=== PATIENT | male | born 1990 | race Caucasian/White ===

== ENCOUNTER 2018-02-22 01:06 | Emergency (ER) | payer MEDICAID, SELFPAY ==
[2018-02-22 01:10] VITALS: BP 138/95; PULSE 79; RESP 15; TEMP 36.2; O2SAT 99; BMI 27.3
--- NOTE | 2018-02-22 01:23 | CT_ITS ---
STUDY: CT SOFT TISSUE NECK WITH CONTRAST REASON FOR EXAM: Male, 27 years old. Status post open reduction internal fixation of fracture of the mandible. Increased drainage from surgical site. RADIATION DOSAGE (If Supplied By Facility): CTDIvol = ( 17.39 ) mGy, DLP = ( 516.72 ) mGycm TECHNIQUE: The patient was scanned in a multi-detector CT scanner. High resolution transaxial imaging was performed following intravenous administration of 75ML ml of Isovue 300 contrast material. Sagittal and coronal images were reconstructed. Individualized dose optimization techniques were used for this CT. COMPARISON: None. FINDINGS: Normal bilateral parotid glands. Normal bilateral building associate spaces. Normal bilateral parapharyngeal spaces. Normal bilateral carotid spaces. There is a fluid collection in the left submandibular region with small pockets of air extending to the lateral aspect of the left mandible around the mandibular angle. Measures about 3.5 cm. There is subcutaneous edema and swelling of the left side of the neck with small pockets of air lateral to the fluid collection in the subcutaneous fat. A side plate and screws are seen in the left mandibular angle region. There is air and extends anterior to the carotid space to the region of the left oral tonsil. There is enlargement of the left posterior nasopharynx. Normal retropharyngeal space. Normal perivertebral space. There is mild enlargement of the left oral tonsil. The visualized tongue, tongue base and oropharynx are normal. There are few small nodes in the left posterior triangle of the neck and left carotid space. There is no demonstrated solid or cystic mass lesion. There is no abnormal contrast enhancement. Normal epiglottis, bilateral vallecula and hypopharynx. The pre-epiglottic and paraglottic adipose spaces are normal. Normal visualized bilateral piriform sinuses, aryepiglottic folds, vocal cords, and arytenoid-cricoid articulations. Normal subglottic trachea. Normal bilateral lobes of the thyroid gland. The visualized portions of the lung apices demonstrate partially visualized opacity or pulmonary nodule measuring about 1.2 cm. Normal visualized paranasal sinuses. Normal visualized cervical spine. CT/Soft Tissue Neck WITH Contrast IMPRESSION: 1. Fluid collection on the left side of the neck extending from the left submandibular region to the lateral aspect of the mandible and medially to the region of the oral tonsil suspicious for abscess. 2. Enlargement of the left oral tonsil region and posterior nasopharynx. 3. Unremarkable airway. 4. Partially visualized nodule in the right upper lobe. CT scan of the chest might be of further value. Electronically Signed: Ezequiel Rosario MD at 3:09 EDT Tel , Service support ,
[2018-02-22 01:59] LABS: Absolute Lymphocyte Count 2.69 X10^3/ul (0.83-4.51); Absolute Neutrophil Count 7.7 X10^3/uL (2.0-7.7); Basophil# 0.05 X10^3/uL; Basophil% 0.4 % (0-1); Eosinophil# 0.25 X10^3/uL; Hematocrit 41.9 % (40-54); Hemoglobin 14.2 g/dl (13.0-16.5); Lymphocyte # 2.69 X10^3/ul (4.0); Lymphocyte % 21.6 % (19-41); Mean Corp Hgb Conc 33.9 g/gl (32-36); Mean Corpuscular Volume 85.5 fL (80-94); Mean Platelet Vol. 9.3 fl (6.2-12.0); Monocyte# 1.63 X10^3/uL; Monocyte% 13.1 % (0-10); Neutrophil # 7.72 X10^3/uL (2.7-7.7); Platelet Count 401 K/mm3 (150-450); RBC Distribution Width CV 12.5 % (11.6-14.6); RBC Distribution Width SD 38.8 fl (35.1-43.9); White Blood Count 12.5 K/mm3 (4.4-11.0)
[2018-02-22 02:10] LABS: Anion Gap 8 (5-15); BUN 11 mg/dL (7-18); BUN/Creat Ratio 11.9 RATIO (10-20); Calcium,Total 9.4 mg/dL (8.5-10.1); Chloride 102 mmol/L (98-107); Creatinine, Serum 0.93 mg/dL (0.70-1.30); Differential Indicated SCAN CRITERIA MET; EST Glomerular Filtration Rate 105 mL/min (>60); Est Glom Filt Rate - Afr Amer 127 mL/min (>60); Estimated Creatinine Clearance 96.87 ml/min; Glucose 98 mg/dL (74-106); POSITIVE COUNT NO; POSITIVE DIFFERENTIAL YES; POSITIVE MORPHOLOGY YES; Potassium 3.9 mmol/L (3.5-5.1); Sodium Level 138 mmol/L (136-145)
[2018-02-22 02:44] LABS: Platelet Estimate ADEQUATE (ADEQ)
[2018-02-22 02:46] LABS: Red Cell Morphology NORM C+C NORMAL (NORM C&C)
[2018-02-22] MEDS: Vancomycin IV 1,000 MG/200 ML BAG 200 MG IV (03:29)
[2018-02-22 03:40] VITALS: BP 139/76; PULSE 75; RESP 17; O2SAT 96
--- NOTE | 2018-02-22 03:53 | ED.VISSUMM ---
- ER Visit Summary Date of Service: 02/22/18 Chief Complaint: Drainage from wound History of Present Illness: The patient is a 27 M who presents with drainage from his surgical wound. At [facility] 1 week ago he had an open reduction internal fixation of the mandible fracture. He woke tonight with drainage from the wound. He has also had a couple of episodes of nonbloody nonbilious emesis in the last day. He denies fevers. He denies breathing difficulty. He denies chest pain. Physical Examination: Afebrile vitals are stable There is significant left-sided neck swelling with a surgical incision with purulent drainage Heart regular rate and rhythm Lungs are clear Abdomen soft Alert Test Results: Labs notable for white blood cell count 12.5. BMP normal. CT of the soft tissue of the neck shows a fluid collection from the submandibular region extending to the lateral mandible and medially to the oral tonsil. Emergency Department Course and Treatment: Patient was treated with IV Zosyn and vancomycin. CT showed significant abscess. I spoke to the patient's surgeon, Dr. Beckman, we will transfer the patient back to [place]. Treatment Plan: [] Disposition: Transfer Impression: Postsurgical wound infection with abscess This note was generated with [employer] dictation software. It may contain incorrect words, spelling, and punctuation that were not noted in review of the chart prior to signing ED Disposition - Plan for ED Patient: Chief Complaint: Wound Check Referrals: Richie Argueta MD [Primary Care Provider] -
[2018-02-22 03:58] VITALS: BP 139/76; PULSE 75; RESP 17; O2SAT 96
--- NOTE | 2018-02-22 03:58 | ED.DCSUM_ITS ---
- ER Visit Summary Date of Service: 02/22/18 Chief Complaint: Drainage from wound History of Present Illness: The patient is a 27 M who presents with drainage from his surgical wound. At [facility] 1 week ago he had an open reduction internal fixation of the mandible fracture. He woke tonight with drainage from the wound. He has also had a couple of episodes of nonbloody nonbilious emesis in the last day. He denies fevers. He denies breathing difficulty. He denies chest pain. Physical Examination: Afebrile vitals are stable There is significant left-sided neck swelling with a surgical incision with purulent drainage Heart regular rate and rhythm Lungs are clear Abdomen soft Alert Test Results: Labs notable for white blood cell count 12.5. BMP normal. CT of the soft tissue of the neck shows a fluid collection from the submandibular region extending to the lateral mandible and medially to the oral tonsil. Emergency Department Course and Treatment: Patient was treated with IV Zosyn and vancomycin. CT showed significant abscess. I spoke to the patient's surgeon, Dr. Beckman, we will transfer the patient back to [place]. Treatment Plan: [] Disposition: Transfer Impression: Postsurgical wound infection with abscess This note was generated with [employer] dictation software. It may contain incorrect words, spelling, and punctuation that were not noted in review of the chart prior to signing ED Disposition - Plan for ED Patient: Chief Complaint: Wound Check Referrals: Richie Argueta MD [Primary Care Provider] -
[2018-02-22 13:51] LABS: Pathologist Review Reviewed
== END 2018-02-22 05:15 | disposition short-term general hospital (02) ==
PROVIDERS: Emergency Provider Emergency Medicine; Family Provider Family Medicine; PCP Family Medicine
DX: T81.4XXA Infection following a procedure, initial encounter (principal); L02.11 Cutaneous abscess of neck; B96.89 Other specified bacterial agents as the cause of diseases classified elsewhere; Z72.0 Tobacco use
CPT/HCPCS: 70491; 80048; 85025; 96365; 96366; 96367; 99283; J7030; Q9967

== ENCOUNTER 2019-02-18 18:09 | Emergency (ER) | payer MEDICAID, SELFPAY ==
[2019-02-18 18:10] VITALS: BP 137/112; PULSE 121; RESP 20; TEMP 36.2; O2SAT 97; BMI 26.3
--- NOTE | 2019-02-18 18:18 | ED.VIS.GEN ---
History of Present Illness Chief Complaint: Laceration Informant: Patient Onset: Today, Hours Context: Sudden Onset Timing: Continuous Quality: Laceration over left medial malleolus Location: Left medial malleolus Current Severity: Mild Maximum Severity: Moderate Worsened by: Removing Band-Aid Relieved by: Nothing Associated Symptoms: Pain otherwise negative Narrative: Patient is a 28-year-old type I diabetic since 2002. He has no other medical problems. He does not have symptoms of claudication. He presents with laceration over the medial aspect of his left ankle. This occurred 2 hours prior to presentation. He denies paresthesia, anesthesia motor weakness. He has no other complaints. Prior similar symptoms: No Recent Illness/Hospitalization: No - Past Medical History (1) History of type 1 diabetes mellitus Status: Acute Past Medical History - Allergies and Home Meds Allergies/Adverse Reactions: Allergies acetaminophen [From Percocet] Adverse Reaction (Verified 02/18/19 18:10) Swelling morphine Adverse Reaction (Verified 02/18/19 18:10) Itching oxycodone [From Percocet] Adverse Reaction (Verified 02/18/19 18:10) Swelling Primary Care Physician: Richie Argueta MD [Primary Care Provider] - As Needed Prior records reviewed: Yes Lives: - - Patient is single Smoking Status: Current every day smoker Alcohol: Rare Drugs: None Review of Systems General: Denies: Chills, Fever, Malaise, Sweats Musculoskeletal: Reports: Extremity Pain. Denies: Myalgias, Arthralgias, Neck pain, Back pain, Swelling Neurological: Denies: Weakness, Parasthesia, Numbness Hematologic: Denies: Easy bruising, Easy bleeding Allergy: Denies: Uticaria, Swelling of the mouth Physical Exam Vital Signs/Narrative: Vital Signs Temp Pulse Resp BP Pulse Ox 02/18/19 18:10 97.2 F L 121 H 20 H 137/112 H 97 Inital Vital Signs reviewed: Yes General: Well nourished, Well developed, No Acute Distress Head: Normocephalic, Atraumatic Eyes: Perrl, EOMI. Negative for: Pale conjunctiva, Scleral icterus Cardiovascular: Regular rate, Regular rhythm Respiratory: No distress Extremities: - - Patient has a 1 cm laceration that is amenable to Dermabond. There is no pain the patient of the medial malleolus. There is no disruption of the fascia. There are no neurovascular findings. Skin: Normal color, No rash, Trauma - 1.0 cm laceration Neurological: Alert, Oriented x3, Cranial nerves II-XII grossly intact, Normal Strength, Normal Sensation, Normal Gait Psychological: Normal affect, Normal Mood Diagnostic/Tx/Re-eval - Medical Decision Making Patient has a laceration which will require repair. Will repair with Dermabond. Last tetanus was 2 years ago. Procedures - Lacerations No standard instances Length: 0.39 in Depth: Sub Q Shape: Linear Prep: Tam-Clens Laceration repair: - - The laceration was repaired using Dermabond. Patient had pain secondary to diabetic neuropathy. ED Disposition - Plan for ED Patient: Disposition: Home or Assisted Living Diagnosis: Laceration of left ankle without complication Instructions: LACERATION, Extremity (Skin Glue) Referrals: Richie Argueta MD [Primary Care Provider] - As Needed
== END 2019-02-18 18:59 | disposition home or self-care (01) ==
LOC: ED 18:34
PROVIDERS: Emergency Provider Emergency Medicine; Family Provider Family Medicine; PCP Family Medicine
DX: S91.012A Laceration without foreign body, left ankle, initial encounter (principal); X58.XXXA Exposure to other specified factors, initial encounter; Y93.9 Activity, unspecified; E10.40 Type 1 diabetes mellitus with diabetic neuropathy, unspecified; F17.200 Nicotine dependence, unspecified, uncomplicated; Z79.4 Long term (current) use of insulin
CPT/HCPCS: 12001; 99283

== ENCOUNTER 2021-12-28 17:51 | Emergency (ER) | payer MEDICAID, SELFPAY ==
[2021-12-28 17:51] VITALS: BP 130/94; PULSE 96; RESP 16; TEMP 36.2; O2SAT 98; BMI 28.3
--- NOTE | 2021-12-28 18:39 | EDS_ITS ---
HPI History of Present Illness Chief Complaint: Fatigue Informant: patient Onset/Context/Timing Onset: Days Context: Gradual Onset Timing: Continuous Quality: fatigued Location: generalized Current Severity: Mild Narrative Narrative: Patient said he was at an outside ER after he ingested an unknown substance, he thinks it was fentanyl. He was told at that time he had acute kidney injury and he was advised to follow-up. He does not have a physician to follow-up with. He said he does not feel any better so he came in today. He has a history of diabetes as well as hepatitis C. Prior similar symptoms: No Recent Illness/Hospitalization: No [facility] Medical History Fracture, jaw Overdose Type 1 diabetes mellitus Home Medications insulin glargine 100 unit/mL subcutaneous solution (Lantus U-100 Insulin) 32 unit subcut QHS 02/22/18 [History Last Taken Unknown] insulin lispro 100 unit/mL subcutaneous solution (Humalog U-100 Insulin) 0 units subcut TID 02/22/18 [History Last Taken Unknown] pantoprazole 1 tablet DAILY 12/28/21 [History Last Taken 12/28/21 1 tablet] Allergy/AdvReac Type Severity Reaction Status Date / Time acetaminophen [From Percocet] AdvReac Swelling Verified 12/28/21 17:54 morphine AdvReac Itching Verified 12/28/21 17:54 oxycodone [From Percocet] AdvReac Swelling Verified 12/28/21 17:54 Social History Smoking Status: Current every day smoker tobacco type: cigarettes ROS ROS ED Constitutional Constitutional ED: Denies chills or fever(s) Eyes Eyes: Denies blurry vision ENT ENT ED: Denies ear pain Cardiovascular Cardiovascular: Denies chest pain Respiratory/Chest Respiratory/Chest: Denies cough Gastrointestinal Gastrointestinal: Denies abdominal pain Genitourinary Genitourinary ED: Denies dysuria Musculoskeletal Musculoskeletal: Denies arthralgias Integumentary Denies abscess Neurologic Neurologic: Denies headache(s) Psychiatric Psychiatric: Denies anxiety Endocrine Endocrinology: Denies cold intolerance Hematologic/Lymphatic Hematologic/Lymphatic: Denies systems reviewed and no addt'l complaints, except as documented Allergic/Immunologic Allergic/Immunologic ED: Denies mouth swelling EXAM Physical Exam Const Vital Signs: 12/28/21 17:51 12/28/21 18:07 12/28/21 20:28 Temperature 97.1 F L Temperature Source Temporal Pulse Rate 96 85 Respiratory Rate 16 Respiratory Effort Normal Non-Labored Respiratory Pattern Normal Blood Pressure 130/94 H 144/87 H Blood Pressure Mean 106 Pulse Ox 98 Oxygen Delivery Method Room Air Positive well nourished and well developed General Appearance ED: well developed HEENT Reports moist mucous membranes Eyes EOMs intact bilaterally Neck no lymphadenopathy Resp normal respiratory effort Cardio regular rate and regular rhythm GI normal to inspection, nondistended, normoactive bowel sounds and non-tender Back/Spine no CVA tenderness Extremity normal to inspection Neuro oriented x3 Sensorium / Orientation: alert Psych mental status grossly normal Skin no rashes or lesions noted MDM MDM MDM Narrative Medical decision making narrative: Patient's kidney function is fine. His liver enzymes are fine. He is glucose is elevated. He has follow-up with endocrinology. He will be discharged home for outpatient follow-up. Disposition discharge Impression #1 hyperglycemia Lab Data Attestation: I reviewed the patient's lab results. Labs: Laboratory Results - last 24 hr 12/28/21 12/28/21 12/28/21 18:50 18:55 18:55 WBC 10.6 RBC 5.31 Hgb 15.0 Hct 44.3 MCV 83.4 MCH 28.2 MCHC 33.9 RDW Std Deviation 38.6 RDW Coeff of Albino 12.8 Plt Count 498 H MPV 9.1 Immature Gran % (Auto) 0.700 Neut % (Auto) 68.7 Lymph % (Auto) 20.5 [place] % (Auto) 8.8 Eos % (Auto) 0.9 Baso % (Auto) 0.4 Absolute Neuts (auto) 7.3 Absolute Lymphs (auto) 2.18 Nucleated RBC % 0 Sodium 136 Potassium 4.0 Chloride 100 Carbon Dioxide 29.0 Anion Gap 7 BUN 20 H Creatinine 1.13 Estim Creat Clear Calc 80.04 Est GFR (MDRD) Af Amer 98 Est GFR (MDRD) Non-Af 81 BUN/Creatinine Ratio 17.7 Glucose 374 H Calcium 9.5 Total Bilirubin 0.40 AST 14 L ALT 26 Alkaline Phosphatase 107 Total Protein 7.8 Albumin 3.6 Globulin 4.2 Albumin/Globulin Ratio 0.9 Urine Color Straw Urine Clarity Clear Urine pH 6.5 Ur Specific [place] 1.010 Urine Protein Negative Urine Glucose (UA) 1000 H Urine Ketones Negative Urine Occult Blood Negative Urine Nitrite Negative Urine Bilirubin Negative Urine Urobilinogen Normal Ur Leukocyte Esterase Negative Urine RBC 0 SEEN Urine WBC 0 SEEN Ur Squamous Epith Cells 0 SEEN Urine Bacteria RARE Urine Mucus 0 SEEN Discharge Plan Triage Chief Complaint: Fatigue ED Provider: Anastacio Mauricio Dx/Rx/DC Orders Instructions: Blood Sugar Monitoring and ... Prescriptions: No Action insulin glargine [Lantus U-100 Insulin] 100 UNIT/ML Ml 32 unit subcut QHS insulin lispro [Humalog U-100 Insulin] 100 UNIT/ML Vial 0 units subcut TID Label Comments: SLIDING SCALE. 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
[2021-12-28 19:10] LABS: Mucous, Urine 0 SEEN /hpf (<or=2+); Red Blood Cells-Urine 0 SEEN /hpf (0-5); Squamous Epithelial Cells - UA 0 SEEN /hpf (0-5); White Blood Cells 0 SEEN /hpf (0-5)
[2021-12-28] MEDS: 0.9% Normal Saline 1,000 ML 1000 ML IV (19:11)
[2021-12-28 19:18] LABS: Absolute Lymphocyte Count 2.18 X10^3/uL (0.83-4.51); Absolute Neutrophil Count 7.3 X10^3/uL (2.0-7.7); Basophil# 0.04 X10^3/uL; Basophil% 0.4 % (0-1); Eosinophils% 0.9 % (0-5); Hematocrit 44.3 % (40-54); Lymphocyte # 2.18 X10^3/ul (0.83-4.51); Lymphocyte % 20.5 % (19-41); Mean Corp Hgb Conc 33.9 g/dL (32-36); Mean Corpuscular Hgb 28.2 pg (27.0-32.0); Mean Corpuscular Volume 83.4 fL (80-94); Mean Platelet Vol. 9.1 fl (6.2-12.0); Monocyte# 0.93 X10^3/uL; Monocyte% 8.8 % (0-10); NRBC Flagged by Analyzer 0 % (0-5); Neutrophil # 7.29 X10^3/uL (2.7-7.7); Neutrophil % 68.7 % (47-70); Platelet Count 498 K/mm3 (150-450); RBC Distribution Width CV 12.8 % (11.6-14.6); RBC Distribution Width SD 38.6 fl (35.1-43.9); Red Blood Count 5.31 M/mm3 (4.6-6.2); White Blood Count 10.6 K/mm3 (4.4-11.0)
[2021-12-28 19:29] LABS: Color, Urine Straw (Yellow); Glucose, Dipstick 1000 mg/dl (Normal); Ketone-Dipstick Negative (Negative); Leukocyte Esterase-Dipstick Negative /ul (Negative); Nitrite-Dipstick Negative (Negative); Occult Blood-Urine Negative /ul (Negative); Protein-Dipstick Negative (Negative); Urine Bilirubin Dipstick Negative (Negative); Urine Clarity Clear (Clear); Urine Urobilinogen Normal (Normal); Urine pH 6.5 (5.0 - 8.0)
[2021-12-28 19:38] LABS: ALB/GLOB Ratio 0.9 RATIO (0.9-2.4); AST(SGOT) 14 U/L (15-37); Alanine Aminotransfer ALT/SGPT 26 U/L (16-61); Albumin, Serum 3.6 g/dL (3.2-5.0); Alkaline Phosphatase 107 U/L (45-117); Anion Gap 7 (5-15); BUN 20 mg/dL (7-18); BUN/Creat Ratio 17.7 RATIO (10-20); Calcium,Total 9.5 mg/dL (8.5-10.1); Chloride 100 mmol/L (98-107); Creatinine, Serum 1.13 mg/dL (0.70-1.30); EST Glomerular Filtration Rate 81 mL/min (>60); Est Glom Filt Rate - Afr Amer 98 mL/min (>60); Estimated Creatinine Clearance 80.04 ml/min; Globulin 4.2 g/dL (2.2-4.2); Glucose 374 mg/dL (74-106); Protein, Total 7.8 g/dL (6.4-8.2); Sodium Level 136 mmol/L (136-145)
[2021-12-28 19:46] LABS: Bacteria RARE /hpf (None Seen)
--- NOTE | 2021-12-28 20:02 | CM.ED ---
SW Note Referral Source: Case Find Referral Reason: No Primary Care Physician (PCP) SW reviewed chart and noted that patient has no PCP. Patient said that he has no PCP as I guess I missed 4 appointments within the past year.. which is probably right. SW provided patient with list of [facility] and [facility] Physician List for reference. SW also provided patient with handout ?Where to go When?. No other issues or concerns voiced at this time. SW remains available for any additional needs. Plan: Provided patient with PCP information Maura ANN
[2021-12-28 20:28] VITALS: BP 144/87; PULSE 85
== END 2021-12-28 20:31 | disposition home or self-care (01) ==
PROVIDERS: Emergency Provider Emergency Medicine; Visit Provider Emergency Medicine
DX: E10.65 Type 1 diabetes mellitus with hyperglycemia (principal); Z79.4 Long term (current) use of insulin; F17.210 Nicotine dependence, cigarettes, uncomplicated; Z86.19 Personal history of other infectious and parasitic diseases
CPT/HCPCS: 80053; 81001; 85025; 96360; 99283; J7030; A4216

== ENCOUNTER 2022-01-04 18:18 | Emergency (ER) | payer MEDICAID, SELFPAY ==
[2022-01-04 18:20] VITALS: BP 138/108; PULSE 127; RESP 13; TEMP 37; O2SAT 97; BMI 25.4
[2022-01-04 19:30] VITALS: BP 124/86; PULSE 122; RESP 20; O2SAT 96
[2022-01-04 19:30] LABS: Absolute Lymphocyte Count 2.88 X10^3/uL (0.83-4.51); Absolute Neutrophil Count 9.3 X10^3/uL (2.0-7.7); Basophil# 0.05 X10^3/uL; Basophil% 0.4 % (0-1); Eosinophil# 0.01 X10^3/uL; Eosinophils% 0.1 % (0-5); Hematocrit 44.7 % (40-54); Lymphocyte # 2.88 X10^3/ul (0.83-4.51); Lymphocyte % 20.4 % (19-41); Mean Corp Hgb Conc 33.6 g/dL (32-36); Mean Corpuscular Hgb 27.9 pg (27.0-32.0); Mean Corpuscular Volume 83.2 fL (80-94); Mean Platelet Vol. 9.3 fl (6.2-12.0); Monocyte# 1.75 X10^3/uL; Monocyte% 12.4 % (0-10); NRBC Flagged by Analyzer 0 % (0-5); Neutrophil # 9.33 X10^3/uL (2.7-7.7); POSITIVE DIFFERENTIAL YES; Platelet Count 515 K/mm3 (150-450); RBC Distribution Width CV 13.2 % (11.6-14.6); RBC Distribution Width SD 40.1 fl (35.1-43.9); Red Blood Count 5.37 M/mm3 (4.6-6.2); White Blood Count 14.1 K/mm3 (4.4-11.0)
[2022-01-04] MEDS: 0.9% Normal Saline 1,000 ML 999 ML IV ×2 (19:39→22:06)
[2022-01-04 19:40] LABS: Bedside Glucose 110 mg/dL (74-106)
--- NOTE | 2022-01-04 19:49 | EDS_ITS ---
HPI HPI - Psych History of Present Illness Chief Complaint: Suicidal Narrative Narrative: 31-year-old male presenting with depression for over a month. He states he feels suicidal. Tonight he tried to overdose on methamphetamines and fentanyl. Patient states his depression is over his drug use. He feels he needs help to detox from drugs as well as for his mental problems. He states he has a history of type 1 diabetes. Sugars not been checked today. Denies alcohol use. He denies other drug use. PFSH PFSH Medical History Fracture, jaw Overdose Type 1 diabetes mellitus Home Medications insulin glargine 100 unit/mL subcutaneous solution (Lantus U-100 Insulin) 32 uni t subcut QHS 02/22/18 [History Last Taken Unknown] insulin lispro 100 unit/mL subcutaneous solution (Humalog U-100 Insulin) 0 units subcut TID 02/22/18 [History Last Taken Unknown] Allergy/AdvReac Type Severity Reaction Status Date / Time acetaminophen [From Percocet] AdvReac Swelling Verified 01/04/22 18:25 morphine AdvReac Itching Verified 01/04/22 18:25 oxycodone [From Percocet] AdvReac Swelling Verified 01/04/22 18:25 Social History Smoking Status: Current every day smoker tobacco type: cigarettes ROS ROS ED Constitutional Constitutional ED: Denies chills or fever(s) Eyes Eyes: Denies change in vision or diplopia ENT ENT ED: Denies rhinorrhea or sore throat Cardiovascular Cardiovascular: Denies chest pain or palpitations Respiratory/Chest Respiratory/Chest: Denies cough or dyspnea Gastrointestinal Gastrointestinal: Denies abdominal pain or constipation Genitourinary Genitourinary ED: Denies dysuria or hematuria Musculoskeletal Musculoskeletal: Denies arthralgias or back pain Integumentary Denies abscess or Abrasions Neurologic Neurologic: Denies headache(s) Psychiatric Psychiatric: Reports anxiety, depression, suicidal ideation and suicidal thoughts EXAM Physical Exam Const Vital Signs: 01/04/22 18:20 01/04/22 19:30 01/04/22 20:23 Temperature 98.6 F Temperature Source Temporal Pulse Rate 127 H 122 H 102 H Respiratory Rate 13 20 H 21 H Blood Pressure 138/108 H 124/86 H 127/86 H Blood Pressure Mean 118 98 99 Pulse Ox 97 96 94 Oxygen Delivery Method Room Air Room Air Room Air 01/04/22 22:03 Temperature Temperature Source Pulse Rate 122 H Respiratory Rate 22 H Blood Pressure 124/78 H Blood Pressure Mean 93 Pulse Ox 98 Oxygen Delivery Method Room Air Positive well nourished and unkempt General Appearance ED: unkempt and NAD HEENT normocephalic Eyes PERRL and EOMs intact bilaterally General Eye ED: Negative for pale conjunctiva Resp normal respiratory effort and clear to auscultation bilaterally Auscultation: Negative for rales, rhonchi or wheezes Cardio Rate: regular rate and tachycardic GI non-tender Neuro oriented x3 and CN's II-XII intact bilaterally Sensorium / Orientation: alert Motor Exam: strength 5/5 throughout Psych denies hallucinations and denies homicidal ideation Appearance: unkempt Speech: normal speech Thought Process: No disorganized and No confused Thought Content: suicidality and No homicidality Attention / Concentration: attention grossly intact and concentration grossly intact Insight: poor Judgement: poor MDM MDM MDM Narrative Medical decision making narrative: Patient presenting with suicide attempt. He states that he tried to kill himself by overdosing on fentanyl and methamphetamine. Patient is a type I diabetic and I did check a blood sugar on arrival and his blood glucose was 110. He is awake and alert on nasal exam. Lungs are clear to auscultation. Patient tachycardic. He was given 2 L of IV fluids and blood work is obtained. CBC shows a mild leukocytosis at 14.1 without a left shift. Hemoglobin medic are stable. Creatinine normal at 1.02. BUN not significantly elevated to suggest dehydration. Potassium slightly low at 3.2 and this was replaced orally with 40 mill equivalents p.o. potassium. EtOH is negative. LFTs unremarkable. Rapid COVID testing negative. CPK slightly elevated at 541. Again patient was given 2 L of IV fluids. We will recheck a CPK afterwards to ensure is trending downward. Currently awaiting urine specimen but I do not think he should delay a crisis consult as the patient admits to drug use. Patient will likely need to be admitted given that he tried commit suicide by drug overdose. Patient does request help for this. Impression: 1. Methamphetamine abuse 2. Fentanyl abuse 3. Drug overdose 4. Leukocytosis 5. Hypokalemia 6. Elevated CPK 7. Tachycardia 8. Suicide attempt Lab Data Attestation: I reviewed the patient's lab results. Labs: Laboratory Results - last 24 hr 01/04/22 01/04/22 01/04/22 19:20 19:20 19:20 WBC 14.1 H RBC 5.37 Hgb 15.0 Hct 44.7 MCV 83.2 MCH 27.9 MCHC 33.6 RDW Std Deviation 40.1 RDW Coeff of Albino 13.2 Plt Count 515 H MPV 9.3 Immature Gran % (Auto) 0.700 Neut % (Auto) 66.0 Lymph % (Auto) 20.4 [place] % (Auto) 12.4 H Eos % (Auto) 0.1 Baso % (Auto) 0.4 Absolute Neuts (auto) 9.3 H Absolute Lymphs (auto) 2.88 Nucleated RBC % 0 Differential Comment SEE COMMENT Diff Path Review May foll Platelet Estimate MOD INC RBC Morphology N CHROM Anisocytosis RARE Sodium 140 Potassium 3.2 L Chloride 108 H Carbon Dioxide 26.0 Anion Gap 6 BUN 11 Creatinine 1.02 Estim Creat Clear Calc 88.67 Est GFR (MDRD) Af Amer 110 Est GFR (MDRD) Non-Af 91 BUN/Creatinine Ratio 10.8 Glucose 90 Calcium 9.9 Total Bilirubin 0.90 AST 22 ALT 75 H Alkaline Phosphatase 117 Total Creatine Kinase Total Protein 8.2 Albumin 4.1 Globulin 4.1 Albumin/Globulin Ratio 1.0 Ethyl Alcohol < 3.0 POC Glucose 01/04/22 01/04/22 19:20 19:21 WBC RBC Hgb Hct MCV MCH MCHC RDW Std Deviation RDW Coeff of Albino Plt Count MPV Immature Gran % (Auto) Neut % (Auto) Lymph % (Auto) [place] % (Auto) Eos % (Auto) Baso % (Auto) Absolute Neuts (auto) Absolute Lymphs (auto) Nucleated RBC % Differential Comment Diff Path Review Platelet Estimate RBC Morphology Anisocytosis Sodium Potassium Chloride Carbon Dioxide Anion Gap BUN Creatinine Estim Creat Clear Calc Est GFR (MDRD) Af Amer Est GFR (MDRD) Non-Af BUN/Creatinine Ratio Glucose Calcium Total Bilirubin AST ALT Alkaline Phosphatase Total Creatine Kinase 541 H Total Protein Albumin Globulin Albumin/Globulin Ratio Ethyl Alcohol POC Glucose 110 H Discharge Plan Triage Chief Complaint: Suicidal ED Provider: Gino Rojas Dx/Rx/DC Orders Prescriptions: No Action insulin glargine [Lantus U-100 Insulin] 100 UNIT/ML solution 32 unit subcut QHS insulin lispro [Humalog U-100 Insulin] 100 UNIT/ML solution 0 units subcut TID Label Comments: SLIDING SCALE. Primary Care Provider: Care Physician,No Primary Referrals: Care Physician,No Primary [Primary Care Provider] -
[2022-01-04 19:50] LABS: AST(SGOT) 22 U/L (15-37); Alanine Aminotransfer ALT/SGPT 75 U/L (16-61); Albumin, Serum 4.1 g/dL (3.2-5.0); Alkaline Phosphatase 117 U/L (45-117); Anion Gap 6 (5-15); BUN 11 mg/dL (7-18); BUN/Creat Ratio 10.8 RATIO (10-20); Calcium,Total 9.9 mg/dL (8.5-10.1); Chloride 108 mmol/L (98-107); Creatinine, Serum 1.02 mg/dL (0.70-1.30); EST Glomerular Filtration Rate 91 mL/min (>60); Est Glom Filt Rate - Afr Amer 110 mL/min (>60); Estimated Creatinine Clearance 88.67 ml/min; Globulin 4.1 g/dL (2.2-4.2); Glucose 90 mg/dL (74-106); Potassium 3.2 mmol/L (3.5-5.1); Protein, Total 8.2 g/dL (6.4-8.2); Sodium Level 140 mmol/L (136-145)
[2022-01-04 19:51] LABS: CPK Total, Creatine Kinase 541 U/L (39-308)
[2022-01-04 19:58] LABS: Differential Indicated SCAN CRITERIA MET
[2022-01-04 20:21] LABS: Anisocytosis RARE; Platelet Estimate MOD INC (ADEQ); Red Cell Morphology N CHROM NORMAL (NORM C&C)
[2022-01-04 20:23] VITALS: BP 127/86; PULSE 102; RESP 21; O2SAT 94
[2022-01-04 21:15] LABS: Alcohol, Blood (Medical)-Serum < 3.0 mg/dL
[2022-01-04 22:03] VITALS: BP 124/78; PULSE 122; RESP 22; O2SAT 98
[2022-01-04] MEDS: Potassium Chloride Oral Tablet 20 MEQ 40 MEQ PO (22:54)
[2022-01-04 23:10] VITALS: BP 118/90; PULSE 94; RESP 22; O2SAT 94
[2022-01-05] VITALS (8 sets, daily range): BP systolic 110–119; BP diastolic 66–82; PULSE 88–107; RESP 14–22; O2SAT 95–99
[2022-01-05 00:02] LABS: Amphetamine Urine VISTA POSITIVE (<1000 ng/mL); Barbiturate Urine VISTA NEGATIVE (< 200 ng/mL); Benzodiazepine Urine VISTA NEGATIVE (< 200 ng/mL); Cocaine Urine VISTA NEGATIVE (< 300 ng/mL); Ecstacy Urine VISTA POSITIVE (< 500 ng/mL); Methadone Urine VISTA NEGATIVE (< 300 ng/mL); PCP Urine VISTA NEGATIVE (< 25 ng/mL); THC Urine VISTA POSITIVE (< 50 ng/mL); Vista UDS pH Range 4
--- NOTE | 2022-01-05 01:41 | ED.RN ---
Crisis calls and asks to talk to Dr Aguero about patient.
[2022-01-05 02:11] LABS: Bedside Glucose 219 mg/dL (74-106)
[2022-01-05 03:45] LABS: CPK Total, Creatine Kinase 316 U/L (39-308)
--- NOTE | 2022-01-05 07:38 | EKG12_ITS ---
Test Reason : suicidal Blood Pressure : / mmHG Vent. Rate : 086 BPM Atrial Rate : 086 BPM P-R Int : 150 ms QRS Dur : 096 ms QT Int : 380 ms P-R-T Axes : 065 052 058 degrees QTc Int : 454 ms Normal sinus rhythm Normal ECG Confirmed by GEMMA DUCKWORTH, MARYLOU ([id number]), mapping editor KIKO PERALES ([id number]) on 01/07/2022 1:55:29 PM Referred By: Marita Confirmed By:MARYLOU MENENDEZ MD
--- NOTE | 2022-01-05 08:32 | ED.RN ---
faxed pink slip and covid screen to [facility].
[2022-01-05] MEDS: Insulin Lispro 100 UNIT/ML INSULN.PEN 12 UNIT SC ×2 (09:53→10:44)
[2022-01-05 10:06] LABS: Bedside Glucose 462 mg/dL (74-106)
--- NOTE | 2022-01-05 10:12 | ED.RN ---
REPORT GIVEN TO LEYLA
--- NOTE | 2022-01-05 10:29 | CM.ED ---
Per laundry sorter Pepper patient has been accepted at [facility]. Maura ANN
--- NOTE | 2022-01-05 10:32 | ED.RN ---
DR ARRIAZA NOTIFIED OF REPEAT BLOOD GLUCOSE OF 466. ORDERS TO FOLLOW.
[2022-01-05 10:46] LABS: Bedside Glucose 466 mg/dL (74-106)
--- NOTE | 2022-01-05 13:50 | CM.ED ---
RITA called Shabnam at [facility]. Accepting MD is Reid. Patient is going to Dual Diagnosis Unit. Maura ANN
[2022-01-06 12:14] LABS: Pathologist Review Reviewed
== END 2022-01-05 12:45 ==
PROVIDERS: Emergency Provider Student in an Organized Health Care Education/Training Program; Visit Provider Student in an Organized Health Care Education/Training Program
DX: T40.412A Poisoning by fentanyl or fentanyl analogs, intentional self-harm, initial encounter (principal); F15.10 Other stimulant abuse, uncomplicated; F11.10 Opioid abuse, uncomplicated; T43.622A Poisoning by amphetamines, intentional self-harm, initial encounter; E10.9 Type 1 diabetes mellitus without complications; Z79.4 Long term (current) use of insulin; F32.A Depression, unspecified; F17.210 Nicotine dependence, cigarettes, uncomplicated; E87.6 Hypokalemia; R00.0 Tachycardia, unspecified; R74.8 Abnormal levels of other serum enzymes; D72.829 Elevated white blood cell count, unspecified
CPT/HCPCS: 36415; 80053; 80307; 82077; 82550; 82962; 85025; 87811; 93005; 96360; 96361; 99285; J7030; A4216

== ENCOUNTER 2022-07-29 17:03 | Emergency (ER) | payer MEDICAID, SELFPAY ==
[2022-07-29 17:04] VITALS: BP 130/90; PULSE 101; RESP 16; TEMP 36.9; O2SAT 99; BMI 24.9
--- NOTE | 2022-07-29 17:15 | EDS_ITS ---
HPI History of Present Illness Chief Complaint: Substance Abuse Narrative Narrative: 31-year-old male past medical history of insulin-dependent diabetes presents for detox from heroin and methamphetamines. He states he last went through rehab a couple years ago, maybe 2, and he has been to rehab for times at least well. But typically tends to leave. Over the last 7 days, he is injected 7 g of heroin. He also abuses methamphetamines, and occasionally benzodiazepines. Regarding his blood sugars, they have been fluctuating anywhere between the 40s at its lowest, and on the high side. He denies any fevers or chills. No nausea or vomiting. He presents for detox, and plans to attend [facility] as an outpatient after detox. He denies abuse of other substances. He presents with his rosalia?e and his mother. [facility] Medical History Fracture, jaw Overdose Type 1 diabetes mellitus Home Medications insulin glargine 100 unit/mL subcutaneous solution (Lantus U-100 Insulin) 32 unit subcut QHS 02/22/18 [History Last Taken Unknown] insulin lispro 100 unit/mL subcutaneous solution (Humalog U-100 Insulin) 0 units subcut TID 02/22/18 [History Last Taken Unknown] Allergy/AdvReac Type Severity Reaction Status Date / Time acetaminophen [From Percocet] AdvReac Swelling Verified 07/29/22 17:06 morphine AdvReac Itching Verified 07/29/22 17:06 oxycodone [From Percocet] AdvReac Swelling Verified 07/29/22 17:06 Social History Smoking Status: Current every day smoker tobacco type: cigarettes ROS ROS ED ROS Narrative Constitutional: No fever, no chills. HEENT: No sore throat. No neck pain. No loss of vision. No rhinorrhea. Cardiovascular: No chest pain. No palpitations. No pedal edema. Respiratory: No cough, no shortness of breath. Abdominal: No abdominal pain. No nausea. No vomiting. Genitourinary: No dysuria. No hematuria. Musculoskeletal: No myalgias. No arthralgias. Neurologic: No headaches. No dizziness. No lightheadedness. Skin: No rash. No change in color. Psychiatric: No depression. No anxiety. No suicidal ideation. EXAM Physical Exam Narrative Exam Narrative: Afebrile. Vital signs noted. HEENT: Normocephalic. Atraumatic. PERRL, EOMI. Neck soft and supple. No point tenderness or step off. Cardiovascular: Regular rate and rhythm with intermittent tachycardia. No murmurs, rubs, or gallops appreciated. Respiratory: No tachypnea. Lungs clear to auscultation bilaterally. Gastrointestinal: Abdomen soft, nontender, with normoactive bowel sounds. No rebound or guarding. Neurological: Awake. Alert. Nonfocal, nonlateralizing. Skin: No rash. Normal color. No pallor. Musculoskeletal: No pedal edema. Full range of motion extremities. Const Vital Signs: 07/29/22 17:04 Temperature 98.4 F Temperature Source Temporal Pulse Rate 101 H Respiratory Rate 16 Blood Pressure 130/90 H Blood Pressure Mean 103 Pulse Ox 99 Oxygen Delivery Method Room Air MDM MDM MDM Narrative Medical decision making narrative: Patient presents for detox. Given his history of insulin-dependent diabetes, medical screening labs will be obtained. At approximately 1805, I was informed by the RN that the patient had eloped. It was reported that as no visitors are allowed, he decided that he did not want detox from these substances. Disposition is eloped from the emergency d epartment. Patient was in stable condition. Discharge Plan Triage Chief Complaint: Substance Abuse ED Provider: Elliot Seo Dx/Rx/DC Orders Prescriptions: No Action insulin glargine [Lantus U-100 Insulin] 100 UNIT/ML solution 32 unit subcut QHS insulin lispro [Humalog U-100 Insulin] 100 UNIT/ML solution 0 units subcut TID Label Comments: SLIDING SCALE. Primary Care Provider: Care Physician,No Primary Referrals: Care Physician,No Primary [Primary Care Provider] -
--- NOTE | 2022-07-29 17:33 | ED.RN ---
discussed contract, policies/rules for detox with pt. pt unsure if he wants to stay for detox. family at bedside discussing with pt at this time. this nurse offered encouragement and rationales pt verbalizes understanding communicating calmly and respectfully. allowing them time time to discuss and decide.
--- NOTE | 2022-07-29 17:41 | CM.ED ---
RITA went into patient room. Patient had 2 other individuals in his room and RITA asked if it was ok for this investment underwriter to speak in their presence. Patient said I am getting ready to leave... I am not staying. RITA updated battery charger. Maura ANN
--- NOTE | 2022-07-29 18:07 | ED.RN ---
pt decided he wanted to followup with 180 outpatient. left with fiance and mother. dr solano
== END 2022-07-29 18:10 | disposition left against medical advice (07) ==
LOC: ED 18:39
PROVIDERS: Emergency Provider Emergency Medicine; Visit Provider Emergency Medicine
DX: F11.20 Opioid dependence, uncomplicated (principal); F15.20 Other stimulant dependence, uncomplicated; F17.210 Nicotine dependence, cigarettes, uncomplicated
CPT/HCPCS: 99282

== ENCOUNTER 2023-01-11 05:36 | Emergency (ER) | payer MEDICAID, SELFPAY ==
[2023-01-11 05:40] VITALS: BP 155/84; PULSE 117; RESP 26; TEMP 36.3; O2SAT 92; BMI 26.2
[2023-01-11 06:00] VITALS: PULSE 122; RESP 13
--- NOTE | 2023-01-11 06:14 | CT_ITS ---
EXAM: CT HEAD WITHOUT INTRAVENOUS CONTRAST CLINICAL INDICATION: Hallucinations TECHNIQUE: Multiple axial images were obtained of the head without intravenous contrast. This CT exam was performed using one or more of the following dose reduction techniques: automated exposure control, adjustment of the mA and/or kV according to patient size, and/or use of iterative reconstruction technique. RADIATION DOSE: CTDIvol = 44.99 mGy, DLP = 745.49 mGy-cm COMPARISON: No relevant prior studies available. FINDINGS: BRAIN AND EXTRA-AXIAL SPACES: Unremarkable. No intra- or extra-axial hemorrhage. No evidence of acute infarct. No intracranial mass or mass effect. There is preservation of the marcus/white matter interface. Posterior fossa structures are unremarkable. Ventricles are appropriate for age. No hydrocephalus. Basal cisterns are patent. BONES/JOINTS: Unremarkable. No discrete lytic or blastic abnormalities. SINUSES: Unremarkable as visualized. Clear. MASTOID AIR CELLS: Unremarkable. Clear. ORBITS: Visualized globes, extraocular muscles, optic nerves and retrobulbar fat appear unremarkable. CT/Brain/Head without Contrast IMPRESSION: Negative head/brain CT without intravenous contrast. Electronically Signed: Ander Cuevas MD at 7:10 EDT ,
--- NOTE | 2023-01-11 06:14 | RAD_ITS ---
EXAM: XR CHEST, 2 VIEWS CLINICAL INDICATION: cough TECHNIQUE: Frontal and lateral views of the chest. COMPARISON: No relevant prior studies available. FINDINGS: LUNGS AND PLEURAL SPACES: There is a 1.9 cm nodule in the right upper lobe. No pneumothorax. No effusion. HEART: Unremarkable. Cardiac silhouette not enlarged. MEDIASTINUM: Central airways and mediastinal contour are unremarkable. BONES/JOINTS: Unremarkable. SOFT TISSUES: Unremarkable. RAD/Chest PA and Lateral IMPRESSION: 1. There is a 1.9 cm nodule in the right upper lobe. This may represent a benign granuloma, but a follow-up chest CT is recommended. 2. No acute abnormality identified in the chest. Electronically Signed: Ander Cuevas MD at 6:51 EDT ,
[2023-01-11 06:30] LABS: Bacteria 0 SEEN /hpf (None Seen); Mucous, Urine 0 SEEN /hpf (<or=2+); Red Blood Cells-Urine 0 SEEN /hpf (0-5); Squamous Epithelial Cells - UA 0 SEEN /hpf (0-5); White Blood Cells 0 SEEN /hpf (0-5)
[2023-01-11] MEDS: 0.9% Normal Saline 1,000 ML 999 ML IV ×2 (06:30)
[2023-01-11 06:32] LABS: Absolute Lymphocyte Count 2.12 X10^3/uL (0.83-4.51); Absolute Neutrophil Count 6.7 X10^3/uL (2.0-7.7); Basophil# 0.11 X10^3/uL; Eosinophil# 0.07 X10^3/uL; Eosinophils% 0.6 % (0-5); Hematocrit 45.2 % (40-54); Hemoglobin 14.4 g/dL (13.0-16.5); Lymphocyte # 2.12 X10^3/ul (0.83-4.51); Lymphocyte % 19.3 % (19-41); Mean Corp Hgb Conc 31.9 g/dL (32-36); Mean Corpuscular Hgb 28.6 pg (27.0-32.0); Mean Corpuscular Volume 89.9 fL (80-94); Mean Platelet Vol. 10.2 fl (6.2-12.0); Monocyte# 1.81 X10^3/uL; Monocyte% 16.4 % (0-10); NRBC Flagged by Analyzer 0 % (0-5); Neutrophil # 6.65 X10^3/uL (2.7-7.7); Neutrophil % 60.4 % (47-70); POSITIVE DIFFERENTIAL YES; Platelet Count 471 K/mm3 (150-450); RBC Distribution Width CV 13.1 % (11.6-14.6); RBC Distribution Width SD 42.9 fl (35.1-43.9); Red Blood Count 5.03 M/mm3 (4.6-6.2)
[2023-01-11 06:41] LABS: Color, Urine Yellow (Yellow); Glucose, Dipstick 1000 mg/dl (Normal); Ketone-Dipstick Negative (Negative); Leukocyte Esterase-Dipstick Negative /ul (Negative); Nitrite-Dipstick Negative (Negative); Occult Blood-Urine Negative /ul (Negative); Protein-Dipstick Negative (Negative); Urine Bilirubin Dipstick Negative (Negative); Urine Clarity Clear (Clear); Urine Urobilinogen Normal (Normal)
[2023-01-11 06:48] LABS: Differential Indicated SCAN CRITERIA MET
[2023-01-11 06:51] LABS: Platelet Estimate SLT INC (ADEQ)
[2023-01-11 06:57] LABS: Alcohol, Blood (Medical)-Serum < 3.0 mg/dL
--- NOTE | 2023-01-11 07:04 | CT_ITS ---
EXAM: CT ANGIOGRAPHY CHEST WITHOUT AND WITH INTRAVENOUS CONTRAST CLINICAL INDICATION: abnormal cxr, TACHYCARDIA TECHNIQUE: Helically acquired angiography images were obtained of the chest without and with intravenous contrast. This CT exam was performed using one or more of the following dose reduction techniques: automated exposure control, adjustment of the mA and/or kV according to patient size, and/or use of iterative reconstruction technique. MIP reconstructed images were created and reviewed. CONTRAST: IV 100mL [id number] COMPARISON: No relevant prior studies available. FINDINGS: PULMONARY ARTERIES: Normal. Normal in caliber. No evidence of pulmonary embolism. AORTA: Normal. Normal in caliber. No evidence of dissection. GREAT VESSELS OF AORTIC ARCH: Normal. Normal in caliber. No evidence of dissection. LUNGS AND PLEURAL SPACES: Partially cavitated 2.2 cm right upper lobe pulmonary nodule noted adjacent to the minor fissure. Heterogeneous density of the lungs suggestive of air trapping related to small airway disease. No pleural effusion or thickening. HEART: Normal. Heart size is normal. No pericardial effusion. No coronary artery calcification. MEDIASTINUM: Normal. No mediastinal or hilar adenopathy. Esophagus is unremarkable. No hiatal hernia. BONES/JOINTS: Normal. No suspicious lytic or blastic abnormality. CT/CTA Chest W/WO Contrast IMPRESSION: 1. No evidence of acute pulmonary embolism. 2. Partially cavitated 2.2 cm right upper lobe pulmonary nodule which may represent neoplasm, abscess or granuloma. 3. Diffuse pulmonary air trapping related to small airway disease. Electronically Signed: Grant Clark MD at 8:11 EDT ,
[2023-01-11 07:07] LABS: AST(SGOT) 287 U/L (15-37); Alanine Aminotransfer ALT/SGPT 509 U/L (16-61); Albumin, Serum 3.8 g/dL (3.2-5.0); Alkaline Phosphatase 322 U/L (45-117); Anion Gap 14 (5-15); BUN 18 mg/dL (7-18); BUN/Creat Ratio 11.2 RATIO (10-20); Bilirubin, Direct 0.63 mg/dL (0.00-0.30); Calcium,Total 10.2 mg/dL (8.5-10.1); Chloride 88 mmol/L (98-107); Creatinine, Serum 1.61 mg/dL (0.70-1.30); EST Glomerular Filtration Rate 53 mL/min (>60); Est Glom Filt Rate - Afr Amer 65 mL/min (>60); Estimated Creatinine Clearance 55.67 ml/min; Glucose 1090 mg/dL (74-106); Lipase < 10 U/L (13-75); Potassium 5.1 mmol/L (3.5-5.1); Protein, Total 7.8 g/dL (6.4-8.2); Sodium Level 126 mmol/L (136-145)
[2023-01-11 07:10] LABS: Amphetamine Urine VISTA POSITIVE (<1000 ng/mL); Barbiturate Urine VISTA NEGATIVE (< 200 ng/mL); Benzodiazepine Urine VISTA NEGATIVE (< 200 ng/mL); Cocaine Urine VISTA NEGATIVE (< 300 ng/mL); Ecstacy Urine VISTA NEGATIVE (< 500 ng/mL); Methadone Urine VISTA NEGATIVE (< 300 ng/mL); PCP Urine VISTA NEGATIVE (< 25 ng/mL); THC Urine VISTA NEGATIVE (< 50 ng/mL); Vista UDS pH Range 5
--- NOTE | 2023-01-11 07:33 | NURSING ---
HOSPITALIST FOR DR THOMAS
--- NOTE | 2023-01-11 07:38 | PCM.HP.STD ---
HPI - General General Date of Admission: 01/11/23 Date of Service: 01/11/23 Chief Complaint: hyperglycemia HPI Narrative COOPER WYNN is a 32 M with past medical history significant for type 1 diabetes and methamphetamine use who presented to the [facility] ED on 01/11/2023 with some confusion, polyuria and polydipsia. Patient's mother was at bedside to corroborate history. Patient has been a methamphetamine user for the last several years. Last use was 3 days ago. He uses in various forms including injection, snorting or smoking. Patient was diagnosed with type 1 diabetes approximately 20 years ago. He takes Lantus 38 units every night, and states he takes this religiously. However, he rarely takes his short acting insulin for fear that it will drop his glucose low. He very rarely checks his blood sugars at home. Patient lives on the same property as his mother but in a different home. Patient reports polyuria and polydipsia for the last several days. He also reports feeling off for the last few days. He denies any fevers or chills. He does report poor appetite over the past few days. He denies any vomiting. No other acute concerns. [facility] Medical History (Updated 01/11/23 @ 07:[address] Anand Vasquez, ) Bipolar 1 disorder Fracture, jaw Methamphetamine abuse Overdose Type 1 diabetes mellitus Home Medications insulin glargine 100 unit/mL subcutaneous solution (Lantus U-100 Insulin) 38 unit subcut QHS 02/22/18 [History Last Taken Unknown] insulin lispro 100 unit/mL subcutaneous solution (Humalog U-100 Insulin) 14 unit subcut BID 02/22/18 [History Last Taken Unknown] mirtazapine 30 mg tablet (Remeron) 30 mg PO QHS 01/11/23 [History Last Taken Unknown] Allergy/AdvReac Type Severity Reaction Status Date / Time acetaminophen [From Percocet] AdvReac Swelling Verified 01/11/23 05:37 morphine AdvReac Itching Verified 01/11/23 05:37 oxycodone [From Percocet] AdvReac Swelling Verified 01/11/23 05:37 Surgical History no surgical history Social History Smoking Status: Current every day smoker tobacco type: cigarettes ROS Cardiovascular Cardiovascular: Denies chest pain, lightheadedness or palpitations Respiratory/Chest Respiratory/Chest: Denies cough or dyspnea Gastrointestinal Gastrointestinal: Reports nausea; Denies abdominal pain, constipation, diarrhea or vomiting Genitourinary Genitourinary: Reports urinary frequency; Denies burning urination or difficulty urinating Musculoskeletal Musculoskeletal: Denies arthralgias or myalgias Neurologic Neurologic: Reports abnormal gait, confusion and dizziness; Denies focal weakness, headache(s), numbness or paresthesias Endocrine Endocrinology: Reports polydipsia and polyuria Vital Signs Vital Signs Vital Signs: 01/11/23 05:40 01/11/23 06:00 Temperature 97.4 F L Temperature Source Temporal Pulse Rate 117 H 122 H Respiratory Rate 26 H 13 Blood Pressure 155/84 H Blood Pressure Mean 107 Pulse Ox 92 Oxygen Delivery Method Room Air Weight Weight: 69.2 kg Body Mass Index (BMI) 26.2 Physical Exam Const Constitutional Narrative: Alert but mildly confused. Mildly pressured speech. Thought process is tangential. Average body habitus, appears unkempt, moderately agitated, mild distress. General Appearance: cooperative HEENT normocephalic, head/scalp atraumatic, hearing grossly normal bilaterally and nasal mucous membranes and turbinates normal HEENT Narrative: Dry mucous membranes. Eyes PERRL, EOMs intact bilaterally and conjunctivae normal Chest inspection of chest normal Resp normal respiratory effort, normal air movement, no use of accessory muscles and clear to auscultation bilaterally Cardio regular rhythm, no murmurs and peripheral pulses 2+ throughout Cardio Narrative: Tachycardic. GI normal to inspection, nondistended, normoactive bowel sounds, soft to palpation, non-tender and non-distended Back/Spine normal ROM Extremity normal to inspection, full ROM and no pedal edema Skin no rashes or lesions noted Psych Psych Narrative: Moderate agitation and mild confusion as noted above. Results Lab / Micro Data 01/11/23 05:45 01/11/23 05:45 Labs: Laboratory Results - last 24 hr 01/11/23 05:45: WBC 11.0, RBC 5.03, Hgb 14.4, Hct 45.2, MCV 89.9, MCH 28.6, MCHC 31.9 L, RDW Std Deviation 42.9, RDW Coeff of [place] 13.1, Plt Count 471 H, MPV 10.2, Immature Gran % (Auto) 2.300 H, Neut % (Auto) 60.4, Lymph % (Auto) 19.3, [place] % (Auto) 16.4 H, Eos % (Auto) 0.6, Baso % (Auto) 1.0, Absolute Neuts (auto) 6.7, Absolute Lymphs (auto) 2.12, Nucleated RBC % 0, Diff Path Review October, Platelet Estimate SLT INC, Sodium 126 L, Potassium 5.1, Chloride 88 L, Carbon Dioxide 24.0, Anion Gap 14, BUN 18, Creatinine 1.61 H, Estim Creat Clear Calc 55.67, Est GFR (MDRD) Af Amer 65, Est GFR (MDRD) Non-Af 53 L, BUN/Creatinine Ratio 11.2, Glucose 1090 H*, Calcium 10.2 H, Total Bilirubin 1.40 H, Direct Bilirubin 0.63 H, AST 287 H, ALT 509 H, Alkaline Phosphatase 322 H, Total Protein 7.8, Albumin 3.8, Globulin 4.0, Lipase < 10 L, Urine Color Yellow, Urine Clarity Clear, Urine pH 6.0, Ur Specific [place] 1.010, Urine Protein Negative, Urine Glucose (UA) 1000 H, Urine Ketones Negative, Urine Occult Blood Negative, Urine Nitrite Negative, Urine Bilirubin Negative, Urine Urobilinogen Normal, Ur Leukocyte Esterase Negative, Urine RBC 0 SEEN, Urine WBC 0 SEEN, Ur Squamous Epith Cells 0 SEEN, Urine Bacteria 0 SEEN, Urine Mucus 0 SEEN, Urine Opiates Screen NEGATIVE, Urine Methadone Screen NEGATIVE, Ur Barbiturates Screen NEGATIVE, Ur Phencyclidine Scrn NEGATIVE, Ur Amphetamines Screen POSITIVE H, MDMA (Ecstasy) Screen NEGATIVE, U Benzodiazepines Scrn NEGATIVE, Urine Cocaine Screen NEGATIVE, U Cannabinoids Screen NEGATIVE, Ur Drug Screen Comment , Ethyl Alcohol < 3.0, Acetone Level NEGATIVE Radiology Impression Brain CT 01/11/23 06:14 IMPRESSION: Negative head/brain CT without intravenous contrast. Electronically Signed: Ander Cuevas MD at 7:10 EDT , Chest X-Ray 01/11/23 06:14 IMPRESSION: 1. There is a 1.9 cm nodule in the right upper lobe. This may represent a benign granuloma, but a follow-up chest CT is recommended. 2. No acute abnormality identified in the chest. Electronically Signed: Ander Cuevas MD at 6:51 EDT , Assessment & Plan Assessment/Plan (1) Hyperglycemia: (2) DONAVON (acute kidney injury): (3) Transaminitis: (4) Methamphetamine abuse: PLAN: Plan 1. Type 1 diabetes mellitus with severe hyperglycemia?blood glucose of 1090 in ED. No DKA noted on labs, more consistent with HHS. Tachycardic to the 130s initially; responded well to 2 L of IV fluids. Patient reports taking 38 units of Lantus consistently every night, with last dose being yesterday evening. We will hold on any long-acting insulin acutely. We will recheck [id number] glucose now and dose short acting insulin based on sliding scale. Will continue home Lantus every evening. Plan for sliding scale insulin with meals for now, adjust as needed. 2. Methamphetamine abuse?reports last meth use 3 days ago. Unclear if patient is interested in getting clean. Case management consulted for further assistance. No need for medications to assist with withdrawal at this time. 3. Transaminitis?patient and mother report history of hepatitis, unclear on type but would suspect hepatitis C. AST 287, ALT 509, alk phos 322 in ED. Total bilirubin 1.4. Patient denies any right upper quadrant pain. Has never been treated for hepatitis. Recommend outpatient follow-up. 4. Acute kidney injury?very likely prerenal in setting of significant diuresis due to hyperglycemia. Creatinine 1.61 in ED, baseline appears to be around 1.0. Given 2 L of IV fluids in the ED. Recheck BMP in the a.m. to assess for resolution. DVT prophylaxis?low risk, ambulate. CODE STATUS?full code, verified. Total clinical time spent by myself addressing the patient's medical issues, reviewing all of the data, and collaborating with patient's care team: 55 minutes. Charges/Coding Visit Charges Inpatient E&M: 22809 Init Hosp L2
--- NOTE | 2023-01-11 07:48 | NURSING ---
MED SURG OBS [facility]
--- NOTE | 2023-01-11 07:50 | EX.ED.DYSGE1 ---
HPI History of Present Illness Chief Complaint: Substance Abuse Informant: patient and family Narrative Narrative: Patient is a 32-year-old male with past medical history of type 1 diabetes as well as methamphetamine abuse. He states that he will use meth whenever and however he can such as snort smoke or injection. He states that when he is sober he injects insulin on a sliding scale and he plans on obtaining a insulin pump but until he can be sober he cannot get 1. He states that he was sober for 47 days and then relapsed and began using meth once again. He states when he did this he stopped taking his insulin. He reports that he has just been feeling off recently and also has now noted visual and auditory hallucinations. Secondary to his sensation of feeling off he has concern for potential infection or derangement to his blood sugar and therefore comes in for evaluation. Patient states that he also occasionally smoke marijuana but denies any other illicit drug use other than his methamphetamine [facility] Medical History (Updated 01/11/23 @ 07:[address] Anand Vasquez, DO) Bipolar 1 disorder Fracture, jaw Methamphetamine abuse Overdose Type 1 diabetes mellitus Home Medications insulin glargine 100 unit/mL subcutaneous solution (Lantus U-100 Insulin) 38 unit subcut QHS 02/22/18 [History Last Taken Unknown] insulin lispro 100 unit/mL subcutaneous solution (Humalog U-100 Insulin) 14 unit subcut BID 02/22/18 [History Last Taken Unknown] mirtazapine 30 mg tablet (Remeron) 30 mg PO QHS 01/11/23 [History Last Taken Unknown] Allergy/AdvReac Type Severity Reaction Status Date / Time acetaminophen [From Percocet] AdvReac Swelling Verified 01/11/23 05:37 morphine AdvReac Itching Verified 01/11/23 05:37 oxycodone [From Percocet] AdvReac Swelling Verified 01/11/23 05:37 Surgical History no surgical history Social History Smoking Status: Current every day smoker tobacco type: cigarettes ROS ROS ED Constitutional Constitutional ED: Denies chills or fever(s) Eyes Eyes: Reports change in vision ENT ENT ED: Denies sore throat Cardiovascular Cardiovascular: Reports racing heartbeat; Denies chest pain or palpitations Respiratory/Chest Respiratory/Chest: Reports cough; Denies dyspnea Gastrointestinal Gastrointestinal: Denies abdominal pain, diarrhea, nausea or vomiting Genitourinary Genitourinary ED: Denies dysuria Musculoskeletal Musculoskeletal: Denies myalgias Integumentary Denies rash Neurologic Neurologic: Reports weakness; Denies headache(s) or paresthesias Hematologic/Lymphatic Hematologic/Lymphatic: Denies easy bleeding or easy bruising EXAM Physical Exam Const Vital Signs: 01/11/23 05:40 01/11/23 06:00 Temperature 97.4 F L Temperature Source Temporal Pulse Rate 117 H 122 H Respiratory Rate 26 H 13 Blood Pressure 155/84 H Blood Pressure Mean 107 Pulse Ox 92 Oxygen Delivery Method Room Air Positive well nourished and well developed General Appearance ED: well developed HEENT Reports dry mucous membranes HEENT Narrative: Mucous membranes are dry and tacky. No airway edema or compromise. No signs of infection in the posterior pharynx Mouth ED: Yes dry mucous membranes Mouth: dry mucous membranes Eyes PERRL and EOMs intact bilaterally General Eye ED: Negative for scleral icterus Neck supple and no JVD Neck Narrative: No nuchal rigidity or meningeal signs noted Chest Wall palpation of chest normal Resp Resp Narrative: Patient has mild tachypnea and otherwise breath sounds are slight diminished with faint expiratory wheeze but no nasal flaring or retractions or accessory muscle use Cardio regular rhythm Rate: tachycardic and other Other Details: Tachycardic rate with regular rhythm. We will carotid pulses are equal and symmetric GI normal to inspection, nondistended, normoactive bowel sounds, non-tender, non-distended and no masses GI Narrative: No voluntary guarding or rigidity. No pulsatile mass or fluid wave. Auscultation: normoactive bowel sounds Palpation: soft Extremity normal to inspection Extremity Narrative: No asymmetric edema no pitting edema negative Homans' sign bilaterally Neuro oriented x3 and CN's II-XII intact bilaterally Sensorium / Orientation: alert Psych Psych Narrative: Patient has a nervous/anxious affect Skin no rashes or lesions noted General Skin Exam: Negative for jaundice MDM MDM MDM Narrative Medical decision making narrative: Patient presented to the ER awake and alert and oriented to person place and time but stated that he simply felt off. He also admitted to having auditory and visual hallucinations that he states are overall new for him. Based on his history of methamphetamine abuse and type 1 diabetes there is concern that he is developing DKA or HHS or secondary infection such as pneumonia or UTI. There is even a possibility that he has a structural brain disorder causing his hallucinations. Secondary to this basic blood work with imaging studies were obtained. Head CT revealed no acute findings and chest x-ray showed a mass in the right upper lung field concerning for granuloma versus infection. As the patient's been persistently tachycardic I did elect to add a CTA of the chest to get a better evaluation of the abnormality on the x-ray but also to rule out pulmonary embolus as a cause of his tachycardia or potential septic emboli as the patient does inject methamphetamine. CTA confirmed a granuloma but did not show any type of PE or septic emboli. Laboratory studies showed a blood sugar of 1090 however there were no signs of DKA. His serum osmolality however is 320 correlating with HHS. Based on the high value of his blood sugar and the fact he is now on HHS he will need admitted to the hospital for continued IV hydration and insulin. Secondary to this medicine was contacted and they do agree to accept the patient at this time. Plan of care was discussed with the patient he is agreeable to it History & Record Review Discussion w/independent historian: Patient and Family Lab Data Attestation: I reviewed the patient's lab results. Labs: Laboratory Results - last 24 hr 01/11/23 05:45 WBC 11.0 RBC 5.03 Hgb 14.4 Hct 45.2 MCV 89.9 MCH 28.6 MCHC 31.9 L RDW Std Deviation 42.9 RDW Coeff of Albino 13.1 Plt Count 471 H MPV 10.2 Immature Gran % (Auto) 2.300 H Neut % (Auto) 60.4 Lymph % (Auto) 19.3 [place] % (Auto) 16.4 H Eos % (Auto) 0.6 Baso % (Auto) 1.0 Absolute Neuts (auto) 6.7 Absolute Lymphs (auto) 2.12 Nucleated RBC % 0 Diff Path Review May foll Platelet Estimate [employer] Sodium 126 L Potassium 5.1 Chloride 88 L Carbon Dioxide 24.0 Anion Gap 14 BUN 18 Creatinine 1.61 H Estim Creat Clear Calc 55.67 Est GFR (MDRD) Af Amer 65 Est GFR (MDRD) Non-Af 53 L BUN/Creatinine Ratio 11.2 Glucose 1090 H* Calcium 10.2 H Total Bilirubin 1.40 H Direct Bilirubin 0.63 H AST 287 H ALT 509 H Alkaline Phosphatase 322 H Total Protein 7.8 Albumin 3.8 Globulin 4.0 Lipase < 10 L Urine Color Yellow Urine Clarity Clear Urine pH 6.0 Ur Specific [place] 1.010 Urine Protein Negative Urine Glucose (UA) 1000 H Urine Ketones Negative Urine Occult Blood Negative Urine Nitrite Negative Urine Bilirubin Negative Urine Urobilinogen Normal Ur Leukocyte Esterase Negative Urine RBC 0 SEEN Urine WBC 0 SEEN Ur Squamous Epith Cells 0 SEEN Urine Bacteria 0 SEEN Urine Mucus 0 SEEN Urine Opiates Screen NEGATIVE Urine Methadone Screen NEGATIVE Ur Barbiturates Screen NEGATIVE Ur Phencyclidine Scrn NEGATIVE Ur Amphetamines Screen POSITIVE H MDMA (Ecstasy) Screen NEGATIVE U Benzodiazepines Scrn NEGATIVE Urine Cocaine Screen NEGATIVE U Cannabinoids Screen NEGATIVE Ur Drug Screen Comment Ethyl Alcohol < 3.0 Acetone Level NEGATIVE Radiography Diagnostic Testing: Clinical Impression(s) from Imaging Studies Brain CT 01/11/23 06:14 IMPRESSION: Negative head/brain CT without intravenous contrast. Electronically Signed: Ander Cuevas MD at 7:10 EDT Reading Location ID and State: [facility] / [place] Tel , Service support , Chest X-Ray 01/11/23 06:14 IMPRESSION: 1. There is a 1.9 cm nodule in the right upper lobe. This may represent a benign granuloma, but a follow-up chest CT is recommended. 2. No acute abnormality identified in the chest. Electronically Signed: Ander Cuevas MD at 6:51 EDT [place] Location ID and State: [facility] / [place] Tel , Service support , Chest x-ray as interpreted by the emergency medicine physician reveals a nodule in the right upper lobe without acute infiltrate pneumothorax or pleural effusion Discharge Plan Triage Chief Complaint: Substance Abuse ED Provider: Anand Vasquez Dx/Rx/DC Orders Clinical Impression: Type 1 diabetes mellitus, Methamphetamine abuse, Hyperosmolar hyperglycemic state (HHS), Dehydration Prescriptions: No Action insulin glargine [Lantus U-100 Insulin] 100 UNIT/ML solution 38 unit subcut QHS insulin lispro [Humalog U-100 Insulin] 100 UNIT/ML solution 14 unit subcut BID Patient Comments: SLIDING SCALE. mirtazapine [Remeron] 30 mg tablet 30 mg PO QHS Primary Care Provider: Care Physician,No Primary Referrals: Care Physician,No Primary [Primary Care Provider] - Disposition Disposition: Acute Care Hospital [facility]
[2023-01-11 08:14] LABS: Blood Gas Specimen Type VEN; O2 Delivery Device Room Air; VBG BASE EXCESS 4 mmol/L (-1.0-3.5); VBG Bicarbonate 28 mmol/L (22-26); VBG PO2 54 mmHg (25-40); VBG SO2 88 % (50-70); VBG TCO2 30 mmol/L (23-33); VBG pCO2 42.4 mmHg (41-51); VBG pH 7.43 (7.32-7.42)
--- NOTE | 2023-01-11 08:20 | ED.RN ---
THIS RN AT DESK WHEN VISITOR WITH PATIENT COMES OUT TO THE DESK AND STATES THE PATIENT RIPPED EVERYTHING OFF AND WANTS TO LEAVE AMA. THIS RN ADVISES AGAINST THAT AND PAGES THE HOSPITALIST THAT SAW HIM TO NOTIFY HIM THAT PATIENT WANTS TO LEAVE
--- NOTE | 2023-01-11 08:29 | ED.RN ---
PT STATES I DO NOT WANT TO STAY. PT PULLED BOTH IVS OUT AND LEAVES THE DEPARTMENT. HOSPITALIST AWARE
--- NOTE | 2023-01-11 08:40 | ED.RN ---
PT LEFT AMA PRIOR TO HOSPITALIST BEING ABLE TO SPEAK TO PATIENT. PT AMBULATED INDEPENDENTLY WITH HIS VISITOR OUT OF DEPARTMENT
--- NOTE | 2023-01-11 16:56 | PCM.HOSP.N ---
Hospitalist Note Received message from nursing staff around 8:15 AM the patient was planning to leave AMA. I unfortunately was unable to see the patient prior to him leaving AMA. Please see H&P for medical recommendations.
[2023-01-12 13:19] LABS: Pathologist Review Reviewed
== END 2023-01-11 08:46 | disposition left against medical advice (07) ==
PROVIDERS: Emergency Provider Emergency Medicine; Visit Provider Emergency Medicine
DX: E10.65 Type 1 diabetes mellitus with hyperglycemia (principal); N17.9 Acute kidney failure, unspecified; F15.10 Other stimulant abuse, uncomplicated; Z79.4 Long term (current) use of insulin; E86.0 Dehydration; F17.210 Nicotine dependence, cigarettes, uncomplicated; Z86.19 Personal history of other infectious and parasitic diseases; Z53.29 Procedure and treatment not carried out because of patient's decision for other reasons
CPT/HCPCS: 70450; 71046; 71275; 80048; 80076; 80307; 81001; 82009; 82077; 82803; 83690; 85025; 96360; 99281; 99283; J7030; Q9967; A4216

== ENCOUNTER 2023-04-03 13:07 | Emergency (ER) | payer MEDICAID, SELFPAY ==
[2023-04-03 13:08] VITALS: BP 136/101; PULSE 127; RESP 26; TEMP 36.5; O2SAT 97
[2023-04-03 13:15] VITALS: BP 154/81; PULSE 112; RESP 19; O2SAT 99
[2023-04-03 13:16] VITALS: BMI 25.3
--- NOTE | 2023-04-03 13:45 | CT_ITS ---
STUDY: CT ABDOMEN AND PELVIS WITH CONTRAST REASON FOR EXAM: Male, 32 years old. Abdominal pain -- IV PO Contrast RADIATION DOSAGE (If Supplied By Facility): CTDIvol = ( 10.37 ) mGy, DLP = ( 580.88 ) mGycm TECHNIQUE: Transaxial images were obtained from the dome of the diaphragm to the symphysis pubis without oral contrast. Oral and amp;amp; IV Gastrografin and amp;amp; 100mL Isovue-370 was administered. Sagittal and coronal images were reconstructed. Individualized dose optimization techniques were used for this CT. COMPARISON: None. FINDINGS: The visualized lung bases are unremarkable. The visualized portions of the heart are within normal limits. Normal liver. Normal gallbladder and extrahepatic biliary system. Normal spleen. Normal pancreas. Normal bilateral adrenal glands. Normal right kidney. Normal left kidney. Normal visualized stomach. Normal small intestine. Normal colon. The appendix is visualized and appears normal. Normal abdominal aorta. Normal inferior vena cava. Normal retroperitoneum. There are several subcentimeter mesenteric nodes in the right mid abdominal region. Normal urinary bladder. Normal abdominal wall. Normal osseous structures. CT/Abdomen/Pelvis WITH Contrast IMPRESSION: There are several subcentimeter mesenteric nodes in the right mid abdominal region. Electronically Signed: Amado Nieves DO at 16:21 EDT ,
--- NOTE | 2023-04-03 13:49 | RAD_ITS ---
STUDY: X-RAY CHEST REASON FOR EXAM: Male, 32 years old. Chest pain TECHNIQUE: Single AP portable view of the chest. COMPARISON: 01/11/2023 FINDINGS: No change in a nodule in the right upper lobe. The patient has had recent CT. There is no demonstrated pleural abnormality. Normal size heart. Normal mediastinum and molly. Normal visualized pulmonary arteries. Normal visualized aortic arch and descending thoracic aorta. Normal visualized thoracic spine. Normal visualized ribs, clavicles, and shoulders. There is no demonstrated abnormality of the visualized soft tissue structures of the upper abdomen. RAD/Chest 1 View (Portable) IMPRESSION: No change in right upper lobe nodule. Electronically Signed: Richi White MD at 14:30 EDT ,
[2023-04-03 13:50] LABS: Bedside Glucose 459 mg/dL (74-106)
[2023-04-03 13:56] LABS: Absolute Lymphocyte Count 2.71 X10^3/uL (0.83-4.51); Absolute Neutrophil Count 10.6 X10^3/uL (2.0-7.7); Basophil# 0.06 X10^3/uL; Basophil% 0.4 % (0-1); Eosinophil# 0.02 X10^3/uL; Eosinophils% 0.1 % (0-5); Hematocrit 53.9 % (40-54); Lymphocyte # 2.71 X10^3/ul (0.83-4.51); Lymphocyte % 17.9 % (19-41); Mean Corp Hgb Conc 33.6 g/dL (32-36); Mean Corpuscular Hgb 28.1 pg (27.0-32.0); Mean Corpuscular Volume 83.6 fL (80-94); Mean Platelet Vol. 9.1 fl (6.2-12.0); Monocyte# 1.57 X10^3/uL; Monocyte% 10.4 % (0-10); NRBC Flagged by Analyzer 0 % (0-5); Neutrophil # 10.63 X10^3/uL (2.7-7.7); Neutrophil % 70.1 % (47-70); POSITIVE DIFFERENTIAL YES; Platelet Count 451 K/mm3 (150-450); RBC Distribution Width CV 13.1 % (11.6-14.6); RBC Distribution Width SD 39.5 fl (35.1-43.9); Red Blood Count 6.45 M/mm3 (4.6-6.2); White Blood Count 15.2 K/mm3 (4.4-11.0)
[2023-04-03 13:57] LABS: Differential Indicated SCAN CRITERIA MET
[2023-04-03 13:58] LABS: Hemoglobin 18.1 g/dL (13.0-16.5)
[2023-04-03] MEDS: Ondansetron 4 MG/2 ML Vial IV ×2 (13:59→14:47)
[2023-04-03] MEDS: 0.9% Normal Saline (1000mL) 1,000 ML 1000 ML IV (13:59)
--- NOTE | 2023-04-03 13:59 | EDS_ITS ---
HPI HPI - GI History of Present Illness Chief Complaint: Nausea/Vomiting Informant: patient Abdominal Pain/Flank Pain Onset: Yesterday Context: Gradual Onset Timing: Continuous Quality: Aching, Burning, Cramping and Sharp Location: Diffuse Worsened by: Nothing Relieved by: Nothing Nausea/Vomiting/Emesis GI Symptom: Positive for Nausea and Vomiting Quality: Positive for Blood streaks Diarrhea/Melena/Hematochezia GI Symptom: Negative for Diarrhea, Melena or Hematochezia Associated Symptoms Associated Symptoms: Negative for Dysuria, Frequency or Hematuria Narrative Narrative: Patient presents with nausea and vomiting that began yesterday. Patient states he started having some abdominal pain. Patient states his emesis did have some blood in it. Patient states the blood was dark. Patient denies any diarrhea, melena, or hematochezia. Patient describes his pain as sharp, dull, and cramping. Patient states it is diffuse across his abdomen. Patient states it is constant. Patient admits to some subjective chills but denies any fevers. Patient denies any chest pain or shortness of breath. [facility] Medical History (Updated 04/03/23 @ 16:[address] Rad Gibbs DO) Bipolar 1 disorder Fracture, jaw Methamphetamine abuse Overdose Type 1 diabetes mellitus Home Medications insulin glargine 100 unit/mL subcutaneous solution (Lantus U-100 Insulin) 38 unit subcut QHS 02/22/18 [History Last Taken Unknown] insulin lispro 100 unit/mL subcutaneous solution (Humalog U-100 Insulin) 14 unit subcut BID 02/22/18 [History Last Taken Unknown] mirtazapine 30 mg tablet (Remeron) 30 mg PO QHS 01/11/23 [History Last Taken Unknown] pantoprazole 20 mg tablet,delayed release 20 mg PO DAILY #30 tabs 04/03/23 [Rx Last Taken Unknown] Allergy/AdvReac Type Severity Reaction Status Date / Time acetaminophen [From Percocet] AdvReac Swelling Verified 01/11/23 05:37 morphine AdvReac Itching Verified 01/11/23 05:37 oxycodone [From Percocet] AdvReac Swelling Verified 01/11/23 05:37 Surgical History (Updated 04/03/23 @ 14:[address] Rad Gibbs DO) History of mandibular surgery Social History household members: none Smoking Status: Current every day smoker tobacco type: cigarettes ROS ROS ED Constitutional Constitutional ED: Reports chills; Denies fever(s) Eyes Eyes: Denies blurry vision or change in vision ENT ENT ED: Denies rhinorrhea or sore throat Cardiovascular Cardiovascular: Denies chest pain or palpitations Respiratory/Chest Respiratory/Chest: Denies cough or dyspnea Gastrointestinal Gastrointestinal: Reports abdominal pain, nausea and vomiting; Denies diarrhea Genitourinary Genitourinary ED: Denies dysuria or hematuria Musculoskeletal Musculoskeletal: Denies back pain or neck pain Integumentary Denies abscess or rash Neurologic Neurologic: Reports headache(s); Denies weakness Allergic/Immunologic Allergic/Immunologic ED: Denies mouth swelling or urticaria EXAM Physical Exam Const Vital Signs: 04/03/23 13:08 04/03/23 13:15 Temperature 97.7 F L Temperature Source Temporal Pulse Rate 127 H 112 H Respiratory Rate 26 H 19 H Blood Pressure 136/101 H 154/81 H Blood Pressure Mean 112 105 Pulse Ox 97 99 Oxygen Delivery Method Room Air Room Air Positive well nourished and well developed General Appearance ED: well developed and NAD HEENT Reports moist mucous membranes Neck supple and no JVD Resp normal respiratory effort and clear to auscultation bilaterally Cardio regular rhythm Rate: tachycardic GI Palpation: soft and tender epigastric, LLQ, RLQ, LUQ, RUQ, periumbilical and suprapubic; Negative for guarding or rebound tenderness present Neuro CN's II-XII intact bilaterally, moves all extremities and no sensory deficits noted Sensorium / Orientation: alert Motor Exam: general weakness Skin no wounds MDM MDM MDM Narrative Medical decision making narrative: Differential diagnosis includes gastritis, upper gastrointestinal bleeding, anemia, DKA, gastroenteritis, pancreatitis, bowel obstruction, perforation, substance abuse, alcohol intoxication, and dehydration. CBC will be obtained to assess for leukocytosis and anemia. PT with INR and PTT will be obtained to assess for coagulopathy. Comprehensive metabolic profile will be obtained to assess for hepatic function, renal function, and electrolyte abnormality. Lipase will be obtained to assess for pancreatitis. Serum alcohol level will be obtained to assess for alcohol intoxication. Urine tox screen will be obtained to assess for substance abuse. Chest x-ray will be obtained to assess for pneumonia. CT scan of the abdomen pelvis will be obtained to assess for bowel obstruction and perforation. Lab Data Attestation: I reviewed the patient's lab results. Lab results narrative: CBC was reviewed. There is a mild leukocytosis of 15.2. The remainder is within normal limits. PT was INR and PTT were reviewed and were within normal limits. Comprehensive metabolic profile was reviewed. Glucose was elevated at 435. Sodium was slightly low at 129. Chloride was 94. CO2 was low at 17 and anion gap was slightly elevated at 18. BUN was elevated at 25 and creatinine was slightly elevated at 1.32. Total bilirubin was slightly elevated at 1.7. ALT was slightly elevated at 198 and AST was 73. Alkaline phosphatase was slightly elevated at 174. Lipase was reviewed and was normal at less than 10. Serum alcohol level was reviewed and was less than 3.0. Serum acetone was reviewed and was small. Lactate was reviewed and was slightly elevated at 2.5. Urinalysis was reviewed. Urine ketones were 150. There is no evidence of urinary tract infection or hematuria. Urine tox screen was positive for amphetamines and cannabinoids. Labs: Laboratory Results - last 24 hr 04/03/23 04/03/23 04/03/23 13:26 13:29 14:50 WBC 15.2 H RBC 6.45 H Hgb 18.1 H* Hct 53.9 MCV 83.6 MCH 28.1 MCHC 33.6 RDW Std Deviation 39.5 RDW Coeff of Albino 13.1 Plt Count 451 H MPV 9.1 Immature Gran % (Auto) 1.100 H Neut % (Auto) 70.1 H Lymph % (Auto) 17.9 L [place] % (Auto) 10.4 H Eos % (Auto) 0.1 Baso % (Auto) 0.4 Absolute Neuts (auto) 10.6 H Absolute Lymphs (auto) 2.71 Nucleated RBC % 0 Differential Comment SCANNED Diff Path Review May foll PT 13.2 INR 1.0 APTT 35.0 Sodium 129 L Potassium 5.0 Chloride 94 L Carbon Dioxide 17.0 L Anion Gap 18 H BUN 25 H Creatinine 1.32 H Estim Creat Clear Calc 67.90 Est GFR (MDRD) Af Amer 81 Est GFR (MDRD) Non-Af 67 BUN/Creatinine Ratio 18.9 Glucose 435 H Lactic Acid 2.5 H* Calcium 10.6 H Total Bilirubin 1.70 H AST 73 H ALT 198 H Alkaline Phosphatase 174 H Total Protein 9.1 H Albumin 4.3 Globulin 4.8 H Albumin/Globulin Ratio 0.9 Lipase < 10 L Urine Color Urine Clarity Urine pH Ur Specific [place] Urine Protein Urine Glucose (UA) Urine Ketones Urine Occult Blood Urine Nitrite Urine Bilirubin Urine Urobilinogen Ur Leukocyte Esterase Urine RBC Urine WBC Ur Squamous Epith Cells Urine Bacteria Urine Mucus Urine Opiates Screen Urine Methadone Screen Ur Barbiturates Screen Ur Phencyclidine Scrn Ur Amphetamines Screen MDMA (Ecstasy) Screen U Benzodiazepines Scrn Urine Cocaine Screen U Cannabinoids Screen Ur Drug Screen Comment Ethyl Alcohol < 3.0 Acetone Level SMALL H POC Glucose 459 H* 04/03/23 15:15 WBC RBC Hgb Hct MCV MCH MCHC RDW Std Deviation RDW Coeff of Albino Plt Count MPV Immature Gran % (Auto) Neut % (Auto) Lymph % (Auto) [place] % (Auto) Eos % (Auto) Baso % (Auto) Absolute Neuts (auto) Absolute Lymphs (auto) Nucleated RBC % Differential Comment Diff Path Review PT INR APTT Sodium Potassium Chloride Carbon Dioxide Anion Gap BUN Creatinine Estim Creat Clear Calc Est GFR (MDRD) Af Amer Est GFR (MDRD) Non-Af BUN/Creatinine Ratio Glucose Lactic Acid Calcium Total Bilirubin AST ALT Alkaline Phosphatase Total Protein Albumin Globulin Albumin/Globulin Ratio Lipase Urine Color Yellow Urine Clarity Clear Urine pH 5.0 Ur Specific [place] 1.020 Urine Protein Negative Urine Glucose (UA) 1000 H Urine Ketones 150 A* Urine Occult Blood Negative Urine Nitrite Negative Urine Bilirubin Negative Urine Urobilinogen Normal Ur Leukocyte Esterase Negative Urine RBC 0-5 SEEN Urine WBC 0 SEEN Ur Squamous Epith Cells 0-5 SEEN Urine Bacteria 0 SEEN Urine Mucus 0 SEEN Urine Opiates Screen NEGATIVE Urine Methadone Screen NEGATIVE Ur Barbiturates Screen NEGATIVE Ur Phencyclidine Scrn NEGATIVE Ur Amphetamines Screen POSITIVE H MDMA (Ecstasy) Screen NEGATIVE U Benzodiazepines Scrn NEGATIVE Urine Cocaine Screen NEGATIVE U Cannabinoids Screen POSITIVE H Ur Drug Screen Comment Ethyl Alcohol Acetone Level POC Glucose Radiography Chest X-Ray - ED: 1 View, Read by ED Physician, Read by Radiologist and No Acute Disease Diagnostic Testing: Clinical Impression(s) from Imaging Studies Abdomen/Pelvis CT 04/03/23 13:45 IMPRESSION: There are several subcentimeter mesenteric nodes in the right mid abdominal region. Electronically Signed: Amado Nieves DO at 16:21 EDT , Chest X-Ray 04/03/23 13:49 IMPRESSION: No change in right upper lobe nodule. Electronically Signed: Richi White MD at 14:30 EDT , Portable 1 view chest x-ray was obtained. On my independent interpretation, lung pedroza show a stable right upper lobe nodule. There is normal cardiac silhouette. Bony thorax is normal. There is no acute process noted. Radiologist also interpreted the x-ray and agrees. CT scan of the abdomen pelvis was obtained. There is no acute abnormality noted. There are several subcentimeter mesenteric nodes in the right mid abdomen. This was interpreted by the radiologist and was also independently reviewed by myself. Treatment and Re-Evaluation :: Patient was given IV fluids and Zofran. Patient was advised of his findings. Patient was advised of the need for admission to the hospital. Patient does not want to be admitted to the hospital. Patient states he can take care of this at home. Patient was advised that he is in DKA. Patient states he can give himself insulin at home and take care of it. Patient is refusing to stay in the hospital. Patient was advised of the risks of not being admitted to the hospital on IV insulin. Patient was advised that he could progress into a diabetic coma and . Patient understands these risks. Patient will sign out AGAINST MEDICAL ADVICE. Patient will go home with his mother. Patient was given a prescription for pantoprazole for his gastroesophageal reflux disease. Patient and mother understood and were agreeable with the plan. All questions were answered. Discharge Plan Triage Chief Complaint: Nausea/Vomiting ED Provider: Rad Gibbs Dx/Rx/DC Orders Clinical Impression: Diabetic ketoacidosis, History of type 1 diabetes mellitus, Methamphetamine abuse Instructions: ED Diabetes- Overview, ED Vomiting (Adult) Prescriptions: New pantoprazole 20 mg tablet,delayed release (DR/EC) 20 mg PO DAILY Qty: 30 0RF No Action insulin glargine [Lantus U-100 Insulin] 100 UNIT/ML solution 38 unit subcut QHS insulin lispro [Humalog U-100 Insulin] 100 UNIT/ML solution 14 unit subcut BID Patient Comments: SLIDING SCALE. mirtazapine [Remeron] 30 mg tablet 30 mg PO QHS Primary Care Provider: Care Physician,No Primary Referrals: Care Physician,No Primary [Primary Care Provider] - Disposition Disposition: Against Medical Advice
[2023-04-03 14:05] LABS: Prothrombin Time (Protime)PT. 13.2 SECONDS (11.7-14.9)
[2023-04-03 14:10] LABS: ALB/GLOB Ratio 0.9 RATIO (0.9-2.4); AST(SGOT) 73 U/L (15-37); Alanine Aminotransfer ALT/SGPT 198 U/L (16-61); Albumin, Serum 4.3 g/dL (3.2-5.0); Alkaline Phosphatase 174 U/L (45-117); Anion Gap 18 (5-15); BUN 25 mg/dL (7-18); BUN/Creat Ratio 18.9 RATIO (10-20); Calcium,Total 10.6 mg/dL (8.5-10.1); Chloride 94 mmol/L (98-107); Creatinine, Serum 1.32 mg/dL (0.70-1.30); EST Glomerular Filtration Rate 67 mL/min (>60); Est Glom Filt Rate - Afr Amer 81 mL/min (>60); Globulin 4.8 g/dL (2.2-4.2); Glucose 435 mg/dL (74-106); Lipase < 10 U/L (13-75); Protein, Total 9.1 g/dL (6.4-8.2); Sodium Level 129 mmol/L (136-145)
[2023-04-03 14:20] LABS: Alcohol, Blood (Medical)-Serum < 3.0 mg/dL
[2023-04-03 14:48] LABS: Differential Comment SCANNED
[2023-04-03 15:19] LABS: Lactic Acid 2.5 mmol/L (0.4-1.9)
[2023-04-03 15:22] LABS: Bacteria 0 SEEN /hpf (None Seen); Mucous, Urine 0 SEEN /hpf (<or=2+); White Blood Cells 0 SEEN /hpf (0-5)
[2023-04-03 15:24] LABS: Color, Urine Yellow (Yellow); Glucose, Dipstick 1000 mg/dl (Normal); Leukocyte Esterase-Dipstick Negative /ul (Negative); Nitrite-Dipstick Negative (Negative); Occult Blood-Urine Negative /ul (Negative); Protein-Dipstick Negative (Negative); Urine Bilirubin Dipstick Negative (Negative); Urine Clarity Clear (Clear); Urine Urobilinogen Normal (Normal)
[2023-04-03 15:25] LABS: Ketone-Dipstick 150 mg/dl (Negative)
[2023-04-03 15:36] LABS: Squamous Epithelial Cells - UA 0-5 SEEN /hpf (0-5)
[2023-04-03 15:37] LABS: Red Blood Cells-Urine 0-5 SEEN /hpf (0-5)
[2023-04-03 15:58] LABS: Amphetamine Urine VISTA POSITIVE (<1000 ng/mL); Barbiturate Urine VISTA NEGATIVE (< 200 ng/mL); Benzodiazepine Urine VISTA NEGATIVE (< 200 ng/mL); Cocaine Urine VISTA NEGATIVE (< 300 ng/mL); Ecstacy Urine VISTA NEGATIVE (< 500 ng/mL); Methadone Urine VISTA NEGATIVE (< 300 ng/mL); PCP Urine VISTA NEGATIVE (< 25 ng/mL); THC Urine VISTA POSITIVE (< 50 ng/mL); Vista UDS pH Range 5
[2023-04-03 16:44] VITALS: BP 127/90; PULSE 111; RESP 18; O2SAT 96
[2023-04-03 18:57] LABS: Reflex Lactate? Y
[2023-04-05 10:23] LABS: Pathologist Review Reviewed
== END 2023-04-03 17:08 | disposition left against medical advice (07) ==
PROVIDERS: Emergency Provider Emergency Medicine; Visit Provider Emergency Medicine
DX: E10.10 Type 1 diabetes mellitus with ketoacidosis without coma (principal); F15.10 Other stimulant abuse, uncomplicated; F17.210 Nicotine dependence, cigarettes, uncomplicated
CPT/HCPCS: 71045; 74177; 80053; 80307; 81001; 82009; 82077; 82962; 83605; 83690; 85025; 85610; 85730; 96361; 96374; 96376; 99284; J7030; Q9967; A4216; J2405

== ENCOUNTER 2023-06-03 00:40 | Emergency (ER) | payer MEDICAID, SELFPAY ==
[2023-06-03 00:42] VITALS: BP 139/95; PULSE 84; RESP 18; TEMP 35.6; O2SAT 98; BMI 26.2
[2023-06-03 00:45] VITALS: BP 139/95; PULSE 84; RESP 18; TEMP 35.6; O2SAT 98
--- NOTE | 2023-06-03 01:07 | EDS_ITS ---
HPI History of Present Illness Chief Complaint: Dental Informant: patient and spouse/S.O. Onset/Context/Timing Onset: Days Context: Gradual Onset Timing: Continuous Current Severity: Moderate Maximum Severity: Moderate Associated Symptoms Assocated Symptom - Dental: jaw swelling Narrative Narrative: 32-year-old male history of diabetes. Prior plate in his left jaw from her fracture. On Tuesday started developing swelling along the midportion and angle of his left lower jaw. Denies any trauma. No fever. Able to swallow. Was seen at another facility. Started on penicillin 504 times a day. He states only getting worse. Prior similar symptoms: No Recent Illness/Hospitalization: No PFSH PFS Medical History Bipolar 1 disorder Fracture, jaw Methamphetamine abuse Overdose Type 1 diabetes mellitus Home Medications insulin glargine 100 unit/mL subcutaneous solution (Lantus U-100 Insulin) 38 unit subcut QHS 02/22/18 [History Last Taken Unknown] insulin lispro 100 unit/mL subcutaneous solution (Humalog U-100 Insulin) 14 unit subcut BID 02/22/18 [History Last Taken Unknown] mirtazapine 30 mg tablet (Remeron) 30 mg PO QHS 01/11/23 [History Last Taken Unknown] Allergy/AdvReac Type Severity Reaction Status Date / Time morphine AdvReac Itching Verified 01/11/23 05:37 Surgical History History of mandibular surgery Social History household members: none Smoking Status: Current every day smoker tobacco type: cigarettes ROS ROS ED ROS Narrative Recent illness. Review of Systems ROS Unobtainable: Denies due to encephalopathy Constitutional Constitutional ED: Denies chills or fever(s) Eyes Eyes: Denies blurry vision ENT ENT ED: Denies ear pain Cardiovascular Cardiovascular: Denies chest pain Respiratory/Chest Respiratory/Chest: Denies cough or dyspnea Gastrointestinal Gastrointestinal: Denies abdominal pain, constipation, diarrhea, melena, nausea or vomiting Genitourinary Genitourinary ED: Denies dysuria or hematuria Musculoskeletal Musculoskeletal: Denies arthralgias Integumentary Denies abscess Neurologic Neurologic: Denies headache(s) Psychiatric Psychiatric: Denies anxiety Endocrine Endocrinology: Denies cold intolerance Hematologic/Lymphatic Hematologic/Lymphatic: Denies easy bleeding Allergic/Immunologic Allergic/Immunologic ED: Denies mouth swelling or tongue swelling EXAM Physical Exam Narrative Exam Narrative: 2-year-old male no acute distress. Vital signs stable afebrile. Pulse ox 98% room air no signs hypoxia. H EENT exam is round reactive light. He has firm swelling to the angle of the left jaw and proximal left lateral neck that is firm to touch and tender. Patient has very poor dentition. Cavities and decay. There is no palpable or visual abscesses mouth. He does not have trismus. His posterior pharynx is unremarkable. He is able to handle his own secretions. He is having no trouble swallowing nor any stridor. No trouble breathing. Neck other than the palpable area of tenderness along the angle of the left jaw no other significant abnormalities. I do not feel significant lymphadenopathy. Trachea midline. Lungs clear to auscultation. Heart regular rhythm rate about 80 no murmur. Chest wall and ribs nontender. Abdomen soft nontender. Moving all 4 extremities. He is awake and alert. Const Vital Signs: 06/03/23 00:42 06/03/23 00:45 Temperature 96.0 F L 96.0 F L Temperature Source Temporal Temporal Pulse Rate 84 84 Respiratory Rate 18 18 Blood Pressure 139/95 H 139/95 H Blood Pressure Mean 109 109 Pulse Ox 98 98 Oxygen Delivery Method Room Air Room Air Positive well nourished and well developed; Negative for obese, cachectic, contractures or unkempt General Appearance ED: well developed and NAD; Negative for unkempt, cachectic, contractures or pallor Nutritional Appearance: Negative for cachectic or obese HEENT Denies other HEENT Narrative: Very poor dentition. Cavities. Decay. No obvious intraoral abscess. No some lingual abscess or [place]'s angina. Negative for trauma, tenderness or other Mouth ED: Yes lips normal, Yes tongue normal, No salivary gland normal, No mouth trauma and Yes oral and palatal mucosa abnormal Mouth: lips normal, tongue normal, No salivary gland normal, No mouth trauma and oral and palatal mucosa abnormal Teeth and Gingiva: abnormal tooth and associated gingiva, caries, gingiva abnor mal, poor dentition and teeth discoloration Throat: posterior oropharynx normal Eyes PERRL and EOMs intact bilaterally General Eye ED: Negative for pale conjunctiva or scleral icterus Neck no lymphadenopathy, supple and no JVD Neck Narrative: Left angle of the jaw and proximal left lateral neck tenderness and swelling. General: normal visual inspection and tenderness; Negative for anterior neck swelling Lymph Lymphatic: no lymphadenopathy noted; Negative for lymphadenopathy Chest Wall inspection of chest normal and palpation of chest normal Resp normal respiratory effort, no retractions and clear to auscultation bilaterally Cardio regular rate, regular rhythm, S1 normal heart sound, S2 normal heart sound and no murmurs Jugular Venous Distention: Negative for other Palpation: Negative for palpable S3 or palpable S4 Rate: Negative for bradycardia or tachycardic Rhythm: Negative for abnormal rhythm GI normal to inspection, nondistended, normoactive bowel sounds, non-tender, non- distended and no masses Inspection: Negative for other Palpation: soft Bladder / Kidney Exam: No other Back/Spine no CVA tenderness General Back: Negative for CVA tenderness Cervical Spine: Negative for other Thoracic Spine / Upper Back: Negative for thoracic spinal tenderness Extremity normal to inspection and no joint enlargement General Extremety ED: Negative for edema or other findings General Extremity: Negative for edema or other findings Neuro oriented x3, CN's II-XII intact bilaterally, moves all extremities and no focal motor deficits Sensorium / Orientation: alert, oriented to person, oriented to place and oriented to time Gait (Neuro): Negative for normal gait Motor Exam: strength 5/5 throughout Psych mental status grossly normal Appearance: Negative for unkempt Attitude: No agitated and No other Mood & Affect: Negative for depressed or anxious Skin no rashes or lesions noted and no wounds General Skin Exam: Negative for pallor MDM MDM MDM Narrative Medical decision making narrative: 32-year-old diabetic that may have the left parotid infection or left parotid gland obstruction. Possibly a dental abscess. CAT scan being obtained of the s oft tissues of the neck to evaluate this better. CBC and BGT due to him being diabetic. Patient be given Toradol for pain. He has an allergy to morphine. We turned over to the overnight physician to check his labs and CT neck and make final disposition. He is already on the antibiotic penicillin 500 mg times a day. Nurse went into start the patient's IV for the CAT scan and draw the labs. Jeremiah mary has a history of methamphetamine abuse. He is a hard stick. After 1 try he refused the IV. I went back and spoke with he and his significant other at 1:20 AM. He does not want any labs or the CAT scan to be done. He will continue the oral antibiotic penicillin. He will use hard candy to help him salivate in case this is a obstructed parotid. And if he is not improving he will follow-up with ENT for further evaluation. Return Tylenol for pain. Patient left prior to receiving his home-going instructions. History & Record Review Discussion w/independent historian: Patient Additional record(s) reviewed:: Prior inpatient record, Prior outpatient record, Prior ED visit and Prior labs Discharge Plan Triage Chief Complaint: Dental ED Provider: Cullen Aguero Dx/Rx/DC Orders Clinical Impression: Dental caries, Infection of parotid gland, History of drug abuse, History of diabetes mellitus Instructions: ED Drug Abuse, ED Salivary Gland Stones Prescriptions: No Action insulin glargine [Lantus U-100 Insulin] 100 UNIT/ML solution 38 unit subcut QHS insulin lispro [Humalog U-100 Insulin] 100 UNIT/ML solution 14 unit subcut BID Patient Comments: SLIDING SCALE. mirtazapine [Remeron] 30 mg tablet 30 mg PO QHS Primary Care Provider: Care Physician,No Primary Referrals: Jovany Ryan MD [Med Staff - Active Staff] - As soon as possible Care Physician,No Primary [Primary Care Provider] - Activity Restrictions/Additional Instructions: Think this is your left submandibular or parotid gland which is one of the salivary glands is either obstructed, has a stone that may be stuck in the duct or is infected. Use hard candies such as butterscotch, [place] rancher's or peppermint to make you because a lot of secretions in your mouth which will help open this up. Continue the current antibiotic penicillin 4 times a day. Motrin and Tylenol for pain. Follow-up with the ear nose and throat doctors across the street if not improving sometimes they need to remove a stone or open the duct up if it is blocked. A lot of times this will just get better with the hard candy and the antibiotics. This could also be a dental infection or abscess but I think that is less likely. If it is getting a lot worse you will need the CAT scan to be done. Watch her blood sugars closely. Disposition Disposition: Home, Self Care
--- OUTSIDE RECORDS SUMMARY | 2023-06-03 01:20 | XMS RPT_ITS | CCD ---
Author Name Unknown Address [address] [place] [address] Organization [facility] Care Team Providers Care Phlebotomy Support Tech Name Role Phone Unavailable Primary Care Provider UnavailDarren Queen MD Primary Care Provider Darren Argueta MD Primary Care Provider Darren Argueta MD Primary Care Provider LEONID BROWNING Attending Unavail able HAYLEY OSORIO Primary Care Unavailable HAYLEY OSORIO Primary Care Unavailable JUAN JOSE WOODS Attending UnavailDarren Queen MD Primary Care Provider LEONARDO SORENSEN Attending Unavailable DARREN ARGUETA Primary Care Unavailab DARREN Nam Primary Care Unavailab DARREN Nam Primary Care Unavailab ELENA Oneil Attending Unavailable DARREN ARGUETA Primary Care Unavailab ELENA Oneil Attending Unavailable Unavailable Primary Care Provider UnavailLUTHER Ross Admitting Unavailable LUTHER BREWSTER Primary Care Unavailable LUTHER BREWSTER Attending Unavailable CHAMP GHOTRA Admitting Unavailable CHAMP GHOTRA Primary Care Unavailable CHAMP GHOTRA Attending Unavailable DA GUIDO Admitting Unavailable DA GUIDO Primary Care Unavailable DA GUIDO Attending Unavailable Allergies Allergy Classification Reported Allergen(s) Allergy Type Date of Onset Reaction(s) Facility Acetaminophen / oxyCODONE (2 sources) Acetaminophen / oxyCODONE Drug Allergy 8 Anaphylaxis, Swelling [facility] benzonatate (2 sources) benzonatate Drug Allergy 8 Shortness Of Breath [facility] Opioid Agonists (2 sources) Morphine Drug Allergy 7 Hives, Itching [facility] (20 sources) Acetaminophen / oxyCODONE; Translations: [OXYCODONE-ACETAM INOPHEN] Drug Allergy 8 Anaphylaxis, Swelling [facility] (20 sources) benzonatate; Translations: [BENZONATATE] Drug Allergy 8 Shortness Of Breath, GI Upset [facility] (20 sources) Morphine; Translations: [MORPHINE] Drug Allergy 7 Hives, Itching [facility] (2 sources) Mirtazapine; Translations: [MIRTAZAPINE] Drug Allergy 2 [facility] Repository (1 source) Acetaminophen / oxyCODONE Drug Allergy [facility] Repository (1 source) benzonatate Drug Allergy [facility] (1 source) Mirtazapine Drug Allergy [facility] (1 source) Morphine Drug Allergy [facility] Medications Current Medications Medication Drug Class(es) Dates Sig (Normalized) Sig (Original) 0.4 ml enoxaparin sodium 100 mg/ml prefilled syringe (1 source) Low Molecular Weight Heparin Start: 06-08-2019 inject 40 mg by subcutaneous injection once daily 40 mg, Subcutaneous, DAILY, First dose on Tue06/08/19 at 0900 150 ml glucose 50 mg/ml injection (3 sources) Start: 06-07-2019 15 g, Oral, PRN, Low blood sugar, Starting Nancy 06/07/19 at 2157 If blood glucose less than 50 mg/dL and patient ALERT and TOLERATING PO, give 2 tubes glucose gel. If blood glucose less than 70 mg/dL and patient ALERT and TOLERATING PO, give 1 tube glucose gel. Repeat blood glucose in 15 minutes. If blood glucose is less than 70 mg/dL, repeat treatment and recheck blood glucose in 15 minutes x2 and notify provider. Completed/Discontinued Medications Medication Drug Class(es) Dates Sig (Normalized) Sig (Original) [id number] 200 actuat albuterol 0.09 mg/actuat metered dose inhaler (20 sources) beta2-Adrenergic Agonist Start: 11-03-2020 take 2 puff(s) by inhalation every four hours as needed albuterol HFA (PROAIR HFA) 90 mcg/actuation inhaler Indications: Cough Inhale 2 Puffs as instructed every 4 hours as needed. 18 g 0 11/03/2020 Active Problems Active Problems Problem Classification Problem Date Documented Date Episodic/Chronic Alcohol-related disorders (20 sources) Binge drinker; Translations: [Alcohol abuse, uncomplicated] 05-09-2017 Chronic Anxiety disorders (20 sources) Anxiety; Translations: [Anxiety disorder, unspecified] 11-07-2017 Chronic Attention-deficit, conduct, and disruptive behavior disorders (20 sources) Attention deficit hyperactivity disorder; Translations: [Attention-deficit hyperactivity disorder, unspecified type] 06-01-2021 Chronic Diabetes mellitus with complications (20 sources) Type 1 diabetes mellitus; Translations: [Type 1 diabetes mellitus with other specified complication] Onset: 12-12-2020 Chronic Diabetes mellitus without complication (20 sources) Type 1 diabetes mellitus without complication; Translations: [Type 1 diabetes mellitus without complications] Onset: 12-12-2020 12-12-2020 Chronic Disorders of lipid metabolism (20 sources) Hyperlipidemia; Translations: [Hyperlipidemia, unspecified] 11-13-2013 Chronic Epilepsy; convulsions (2 sources) Unspecified convulsions; Translations: [Unspecified convulsions] Onset: 05-13-2022 Episodic Essential hypertension (20 sources) Hypertensive disorder; Translations: [Essential (primary) hypertension] 11-13-2013 Chronic Fluid and electrolyte disorders (2 sources) Dehydration; Translations: [Dehydration] Onset: 05-13-2022 Episodic Mood disorders (20 sources) Depressive disorder; Translations: [Depression] 11-13-2013 Chronic Other liver diseases (4 sources) Inflammatory disease of liver; Translations: [Inflammatory liver disease, unspecified] Onset: 06-07-2019 06-07-2019 Chronic Other lower respiratory disease (2 sources) Solitary pulmonary nodule; Translations: [Solitary pulmonary nodule] Onset: 03-05-2022 Episodic Other male genital disorders (1 source) Male erectile dysfunction, unspecified; Translations: [Impotence of organic origin] Chronic Other non-traumatic joint disorders (2 sources) Pain in right shoulder; Translations: [Pain in right shoulder] Onset: 03-05-2022 Episodic Other non-traumatic joint disorders (1 source) Shoulder pain; Translations: [Pain in right shoulder] Episodic Other nutritional; endocrine; and metabolic disorders (20 sources) Obesity; Translations: [Obesity, unspecified] Onset: 06-26-2021 06-26-2021 Chronic Otitis media and related conditions (2 sources) Otitis media, unspecified, right ear; Translations: [Otitis media, unspecified, right ear] Onset: 03-05-2022 Episodic Residual codes; unclassified (20 sources) Tobacco use and exposure - finding; Translations: [Tobacco use] 11-07-2017 Episodic Skin and subcutaneous tissue infections (1 source) Abscess; Translations: [Cutaneous abscess, unspecified] Episodic Substance-related disorders (20 sources) Tobacco dependence, continuous; Translations: [Nicotine dependence, unspecified, with unspecified nicotine-induced disorders] 07-13-2019 Chronic Substance-related disorders (1 source) Illicit medication use; Translations: [Other psychoactive substance use, unspecified, uncomplicated] Episodic Past or Other Problems Problem Classification Problem Date Documented Da te Episodic/Chronic Hepatitis (10 sources) Viral hepatitis, type A; Translations: [Hepatitis A without hepatic coma] Onset: 06-07-2019 06-09-2019 Episodic Other lower respiratory disease (20 sources) Nodule of lung; Translations: [Solitary pulmonary nodule] Onset: 01-12-2019 01-12-2019 Episodic Residual codes; unclassified (20 sources) Insomnia; Translations: [Insomnia, unspecified] Onset: 08-14-2014 08-14-2014 Episodic Results Test Name Value Interpretation Reference Range Facil ity Vital Signs Date Time Vital Sign Value Performing Clinician Facility 01-04-2023 15:51-0400 Body height 162.6 cm Leonardo Sorensen MD Work Phone: [facility] 01-04-2023 15:51-0400 Body weight 74.66 kg Leonardo Sorensen MD Work Phone: [facility] 01-04-2023 15:51-0400 Diastolic blood pressure 77 mm[Hg] Leonardo Sorensen MD Work Phone: [facility] 01-04-2023 15:51-0400 Heart rate 84 /min Leonardo Sorensen MD Work Phone: [facility] 01-04-2023 15:51-0400 Respiratory rate 16 /min Leonardo Sorensen MD Work Phone: [facility] 01-04-2023 15:51-0400 SaO2% (BldA) [Mass fraction] 97 % Leonardo Sorensne MD Work Phone: [facility] 01-04-2023 15:51-0400 Systolic blood pressure 109 mm[Hg] Leonardo Sorensen MD Work Phone: [facility] 09-20-2022 15:39-0400 Body height 162.6 cm Mikaela Ball [employer]SIGN E[employer]OR Work Phone: [facility] 09-20-2022 15:39-0400 Body temperature 97 [degF] Mikaela Ball [employer] E[employer] Work Phone: [facility] 09-20-2022 15:39-0400 Body weight 70.31 kg Mikaela Ball [employer] Work Phone: [facility] 09-20-2022 15:39-0400 Diastolic blood pressure 81 mm[Hg] Mikaela Ball [employer] E[employer] Work Phone: [facility] 09-20-2022 15:39-0400 Heart rate 81 /min Mikaela Ball [employer]SIGN E[employer]OR Work Phone: [facility] 09-20-2022 15:39-0400 Respiratory rate 16 /min Mikaela Ball [employer]SIGN E[employer] Work Phone: [facility] 09-20-2022 15:39-0400 SaO2% (BldA) [Mass fraction] 98 % Mikaela Ball [employer] Work Phone: [facility] 09-20-2022 15:39-0400 Systolic blood pressure 118 mm[Hg] Mikaela Ball [employer] Work Phone: [facility] 04-22-2022 14:44-0500 Body height 163.5 cm Elena Kupiec [employer]IGN E[employer] Work Phone: [facility] 04-22-2022 14:44-0500 Body weight 71.76 kg Elena Kupiec [employer] E[employer] Work Phone: [facility] 04-22-2022 14:44-0500 Diastolic blood pressure 75 mm[Hg[facility] [employer] [employer]IGN ERECT[employer] Work Phone: [facility] 04-22-2022 14:44-0500 Heart rate 105 /min [facility] [employer]SIGN ERECTOR Work Phone: [facility] 04-22-2022 14:44-0500 Respiratory rate 22 /min [facility] [employer]SIGN E[employer]OR Work Phone: [facility] 04-22-2022 14:44-0500 SaO2% (BldA) [Mass fraction] 97 % [facility] [employer]SIGN E[employer]OR Work Phone: [facility] 04-22-2022 14:44-0500 Systolic blood pressure 113 mm[Hg] [facility] [employer] E[employer] Work Phone: [facility] 01-15-2022 14:39-0400 Body height 163.6 cm [facility] [employer]SIGN E[employer] Work Phone: [facility] 01-15-2022 14:39-0400 Body weight 71.22 kg [facility] [employer] E[employer] Work Phone: [facility] 01-15-2022 14:39-0400 Diastolic blood pressure 80 mm[Hg] [facility] [employer] E[employer] Work Phone: [facility] 01-15-2022 14:39-0400 Heart rate 99 /min [facility] [employer] E[employer] Work Phone: [facility] 01-15-2022 14:39-0400 SaO2% (BldA) [Mass fraction] 97 % [facility] [employer] Work Phone: [facility] 01-15-2022 14:39-0400 Systolic blood pressure 118 mm[Hg] [facility] [employer] Work Phone: [facility] 01-14-2021 16:43-0400 Body temperature 98.2 [degF] Da Laurel DO Work Phone: [facility] Work Phone: 01-14-2021 16:43-0400 Diastolic blood pressure 78 mm[Hg] Da Laurel DO Work Phone: [facility] Work Phone: 01-14-2021 16:43-0400 Heart rate 78 /min Da Laurel DO Work Phone: [facility] Work Phone: 01-14-2021 16:43-0400 Respiratory rate 16 /min Da Laurel DO Work Phone: [facility] Work Phone: 01-14-2021 16:43-0400 SaO2% (BldA) [Mass fraction] 100 % Da Laurel DO Work Phone: [facility] Work Phone: 01-14-2021 16:43-0400 Systolic blood pressure 140 mm[Hg] Da Laurel DO Work Phone: [facility] Work Phone: 06-09-2019 07:42-0500 Body temperature 98.71 [degF] Da Laurel DO Work Phone: [facility] Work Phone: 06-09-2019 07:42-0500 Diastolic blood pressure 78 mm[Hg] Da Laurel DO Work Phone: [facility] Work Phone: 06-09-2019 07:42-0500 Heart rate 69 /min Da Laurel DO [facility] Work Phone: 06-09-2019 07:42-0500 Respiratory rate 16 /min Da Laurel DO Work Phone: [facility] Work Phone: 06-09-2019 07:42-0500 SaO2% (BldA) [Mass fraction] 96 % Da Guido DO Work Phone: [facility] Work Phone: 06-09-2019 07:42-0500 Systolic blood pressure 124 mm[Hg] Da Guido DO Work Phone: [facility] Work Phone: Encounters Encounter Date Encounter Type Care Provider Facility Start: 05-30-2023 End: 05-30-2023 Emergency department patient visit CHAMP GHOTRA [facility] Start: 04-05-2023 Refill Elena salgado APRN.CNP Work Phone: Endocrinology Procedures Date Procedure Procedure Detail Performing Clinician Start: 01-08-2023 Urinalysis LUTHER WIGGINSS Plan of Treatment Date Care Activity Detail Author Start: 09-05-2056 Pneumococcal 0-64 years Vaccine (2 of 2 - PPSV23) Pneumococcal 0-64 years Vaccine (2 of 2 - PPSV23) [facility] Work Phone: Start: 01-05-2024 BP CONTROLLED (<130/80) BP CONTROLLED (<130/80) [facility] Start: 07-28-2023 DTaP/Tdap/Td vaccine (2 - Td or Tdap) DTaP/Tdap/Td vaccine (2 - Td or Tdap) [facility] Work Phone: Start: 07-28-2023 Urine microalbumin profile [facility] Start: 04-22-2023 BP CONTROLLED (<130/80) BP CONTROLLED (<130/80) [facility] Start: 04-12-2023 3 comp foot exam completed DIABETIC FOOT EXAM [facility] Start: 04-06-2023 Hemoglobin A1c/Hemoglobin.total in Blood HBA1C [facility] Start: 02-04-2023 Influenza vaccination [facility] Start: 01-04-2023 End: 03-06-2023 ALBUMIN/CREAT RATIO RND UR ALBUMIN/CREAT RATIO RND UR Lab Routine Poorly controlled type 1 diabetes mellitus (HCC) Expected: 01/04/2023, Expires: 03/06/2023 [facility] Work Phone: Immunizations Immunization Date Immunization Notes Care Provider [facility] 05-09-2018 influenza, injectabl e, quadrivalent, contains preservative Conchita Lema MD Work Phone: [facility] 05-09-2018 influenza virus vaccine, unspecified formulation Darren Argueta MD Work Phone: [facility] 07-28-2013 influenza virus vaccine, unspecified formulation Conchita Lema MD Work Phone: [facility] Work Phone: 07-28-2013 pneumococcal polysaccharide vaccine, 23 valent Conchita Lema MD Work Phone: [facility] Work Phone: 07-28-2013 tetanus toxoid, redu kiara diphtheria toxoid, and acellular pertussis vaccine, adsorbed Conchita Lema MD Work Phone: [facility] Work Phone: Payers Date Payer Category Payer Medicaid [id number] 2018 Medicaid [employer] [id number] 2018-Present [phone] [address] [place] [address] Medicaid [id number] 2018 Medicaid [id number] 2018 Unknown [id number] 1991 Unknown [id number] 1991 Unknown [id number] 1991 Unknown [id number] 1991 Unknown [id number] 1991 Unknown [id number] Unknown [id number] Social History Date Type Detail Facility Start: 09-05-2006 End: 01-15-2022 Tobacco smoking status NHIS Current every day smoker [facility] Work Phone: Start: 09-05-2006 History of tobacco use Cigarette Smoker [facility] Start: 06-07-2019 End: 01-04-2023 Cigarettes smoked current (pack per day) - Reported [facility] Start: 06-07-2019 End: 01-15-2022 Tobacco use and exposure Never used [facility] Start: 06-07-2019 End: 01-14-2021 Alcohol intake Ex-drinker (finding) [facility] Work Phone: Start: 06-07-2019 Tobacco Comment pt not interested in quiting at this time [facility] Work Phone: Start: 06-07-2019 Alcohol Comment hasn't drank in months [facility] Work Phone: Start: 1990 Sex Assigned At Not on file [facility] Work Phone: Start: 12-10-2021 End: 04-22-2022 Exposure to SARS-CoV-2 (event) Not sure [facility] Start: 06-26-2021 End: 01-04-2023 Alcohol intake Current drinker of alcohol (finding) [facility] Start: 05-09-2017 History SDOH Alcohol Comment Socially, 1-2 times per month with 12 pack [facility] Start: 02-04-2022 End: 06-20-2022 History SDOH Alcohol Frequency 2 [facility] Start: 02-04-2022 End: 06-20-2022 History SDOH Alcohol Std Drinks 0 [facility] Start: 02-04-2022 History SDOH Alcohol Binge 98 [facility] Start: 02-04-2022 History SDOH Physical Activity DPW 3 [facility] Start: 06-20-2022 History SDOH Alcohol Frequency 1 [facility] Start: 06-20-2022 History SDOH Social Connections Phone 5 [facility] Start: 06-20-2022 History SDOH Social Connections Living 7 [facility] Start: 06-20-2022 History SDOH Financial 4 [facility] Start: 06-20-2022 End: 01-04-2023 Social connection and isolation panel [facility] Do you belong to any clubs or organizations such as mu-ism groups, unions, fraternal or athletic groups, or school groups? No [facility] Are you now , , , , never or living with a partner? Never [facility] How often to you hav e a drink containing alcohol? Never [facility] How many standard dr inks containing alcohol do you have on a typical day? Patient does not drink [facility] How hard is it for y ou to pay for the very basics like food, housing, medical care, and heating Not very hard [facility] Do you feel stress - tense, restless, nervous, or anxious, or unable to sleep at night because your mind is troubled all the time - these days [OSQ] Only a little [facility] (I/We) worried stalin er (my/our) food would run out before (I/we) got money to buy more. Never true [facility] The food that (I/we) bought just didn't last, and (I/we) didn't have money to get more. Sometimes true [facility] Start: 1990 Sex Assigned At Male [facility] Start: 04-01-2023 Gender identity Identifies as male gender (finding) [facility] Start: 04-01-2023 Sexual orientation Heterosexual (finding) [facility] Medical Equipment Procedure Code Equipment Code Equipment Origin al Text Equipment Identifier Dates Start: 09-08-2020 End: 02-02-2023 Clinical Notes 11-07-2017 to 04-05-2023 Telephone Encounter - Kathy Navarro MA - 04/05/2023 12:50 PM EDTTelephone Encounter - Mikaela Mora Ma - 02/01/2023 3:26 PM EDTTelephone Encounter - Yary Courtney HUC - 02/01/2023 2:58 PM EDT Note Date & Type Note Facility 04-05-2023 Miscellaneous Notes Requester: Pharmacy Last Visit in Endocrinology: Provider name: Elena Garner CNP , Date 01/04/2023 Next Scheduled Appt in Endo: 04/08/2023 Last Refill: 04/22/2022 Number of Refills given: 3 Requested Prescriptions Pending Prescriptions Disp Refills Blood-Glucose Transmitter (DEXCOM G6 TRANSMITTER) mariusz [Pharmacy Med Name: DEXCOM G6 TRANSMITTER] 1 Each 3 Sig: use as directed AND CHANGE EVERY MONTHS Please review and advise. Kathy Navarro MA documented in this encounter [facility] 02-01-2023 Miscellaneous Notes Patient requesting refills as follows: Requested Prescriptions Pending Prescriptions Disp Refills blood sugar diagnostic (ONETOUCH ULTRA TEST) test strip 400 Each 3 Sig: Use as instructed to test glucose 4 times daily. Please review and advise. Mikaela Mora Ma Patient said he needs the one touch ultra test strips. documented in this encounter [facility] 01-04-2023 Note HNO ID: [id number] Author: Leonardo Sorensen MD Service: ? Author Type: Physician Type: Progress Notes Filed: 01/04/2023 5:10 PM Note Text: ENDOCRINOLOGY CLINIC NOTE Mr. Mendez is a 32 year old male with T1DM, HTN, dyslipidemia, ADHD presented for follow-up of diabetes. He is new to me and so my colleague Alon Garner APRN, CNP HPI He was diagnosed with diabetes at age 12 years. He states that he finished substance use rehabilitation and has been working on being more consistent with the insulin A1c: 06/26/21 12:04 01/15/22 14:43 04/22/22 14:48 Hemoglobin A1C (POCT) 9.4 ! 10.1 ! 11.1 ! Current regimen: Lantus 38 units at bedtime Humalog 14 units with breakfast (does not take it because he does not eat breakfast), 12-14 units with lunch, 10-12 units with dinner plus sliding scale. He injects before and sometimes after Home glucose monitoring: The patient's continuous glucose monitoring device was downloaded, interpreted by myself and recommendations were discussed with the patient. The following data was obtained: Average glucose: 296 mg/dl Standard Deviation 78 mg/dl Estimated HbA1c:-% Serious hypoglycemia (<55 mg/dl): 0% Hypoglycemia (<70 mg/dl): 0% Values in target (70-180 mg/dl): 9% Hyperglycemia (>180 mg/dl): 23% Serious hyperglycemia (>250 mg/dl): 68% CGM active 21% of the time Time evaluated: 14 days Diet: He eats lunch an dinner, and snacks around 3 pm (chips, yogurt) Physical activity: No structured physical activity Complications: Retinopathy: 07/2022 with no reported retinopathy. Nephropathy: Normal GFR on 06/2021 and no significant albuminuria Neuropathy: tingling in his feet CVS: lipid profile 06/2021: LDL 202, TG 143 BP: 109/77 PAST MEDICAL HISTORY Diagnosis Date ADHD (attention deficit hyperactivity disorder) Alcohol consumption binge drinking Anxiety Depression DM type 1 (diabetes mellitus, type 1) ([facility]) HTN (hypertension) Hyperlipidemia Obesity (BMI 30.0-34.9) Tobacco use disorder, continuous PAST SURGICAL HISTORY Procedure Laterality Date NECK SURGERY HX Left 02/14/2018 Had a plate placed into jaw through neck - Dr. Blair ([place]) PAST SURGICAL HISTORY OF Rt arm Fx needed re-set FAMILY HISTORY Problem Relation Age of Onset Hypertension Maternal Grandmother Kidney Disease Maternal Grandmother Hypertension Father Lipids Father Thyroid Mother hypothyroidism Psychiatry Sister depression and anxiety Social History Tobacco Use Smoking status: Every Day Packs/day: 0.75 Years: 12.00 Total pack years: 9.00 Types: Cigarettes Start date: 09/05/2006 Smokeless tobacco: Never Vaping Use Vaping Use: Never used Substance Use Topics Alcohol use: Yes Comment: Socially, 1-2 times per month with 12 pack Drug use: No Comment: history of marijuana use in 2011 (Not in a hospital admission) Allergies As of Date: 01/04/2023 Allergen Noted Reaction PERCOCET [OXYCODONE-ACETAMINOPHEN]03/28/20 Swelling and Anaphylaxis MORPHINE 05/09/2017 Hives and Itching TESSALON [BENZONATATE] 06/21/2017 GI Upset and Shortness of Breath Fully Assessed 01/04/2023 Current Outpatient Medications Medication Sig Dispense Refill mirtazapine (REMERON) 30 mg tablet Take 30 mg by mouth daily at bedtime. buprenorphine-naloxone (SUBOXONE) 8-2 mg film dissolve 1/2 FILM under the tongue twice a day Blood-Glucose Sensor (DEXCOM G6 SENSOR) mariusz Use one sensor every 10 days, IDDM, E10.9 3 Each 11 Blood-Glucose Meter,Continuous (DEXCOM G6 EXPERIMENTAL ROCKET SLED MECHANIC) misc Use continuously to monitor blood sugars, one per year, IDDM, E 10.9 1 Each 0 Blood-Glucose Transmitter (DEXCOM G6 TRANSMITTER) mariusz Use one transmitter every 3 months, IDDM, E 10.9 1 Each 3 insulin glargine (LANTUS SOLOSTAR U-100 INSULIN) 100 unit/mL (3 mL) Inject subcutaneously 40 units daily at bedtime; titrating up to 50 units daily 15 mL 11 insulin lispro (HUMALOG KWIKPEN INSULIN) 100 unit/mL Inject subcutaneously 14 units breakfast, 10 units lunch 10 units dinner Sliding Scale 1 units/50>150, max dose of 50 units 15 mL 11 Insulin [place], Disposable, (DROPLET PEN NEEDLE) 29 gauge x 1/2 USE 4 DAILY WITH INJECTABLE PEN 200 Each 11 glucagon (GLUCAGON EMERGENCY KIT, HUMAN,) 1 mg injection Inject (1)one mg for insulin shock. 2 Each 2 naloxone 4 mg/actuation nasal spray (NARCAN) Use 1 spray in one nostril as needed for overdose. May repeat every 2 to 3 min in alternating nostrils until medical assistance is available 1 Each 4 Blood-Glucose Meter (ONETOUCH VERIO METER) Use as instructed to test blood sugar(s) 5 times daily. Dx: Type 1 DM - Uncontrolled E10.8 Insulin 1 Each 0 blood sugar diagnostic (ONETOUCH VERIO TEST STRIPS) test strip Use as instructed to test blood sugar(s) 5 times daily. Dx: Type 1 DM - Uncontrolled E10.8 Insulin 150 Each 11 lancets (ONETOUCH DELICA PLUS LANCET) 33 gauge use 4 lancets daily, IDDM, E10.9 400 Each 3 sertraline (ZOLO (more content not included)... [facility] 01-04-2023 Note HNO ID: [id number] Author: Luana Ma, Mikaela Service: ? Author Type: ? Type: Procedures Filed: 01/04/2023 5:10 PM Note Text: [facility] 01-04-2023 Instructions Leonardo Sorensen MD - 01/04/2023 4:10 PM EDT Insulin Breakfast Lunch Dinner Bedtime Lantus (units) 38 units Humalog (units) 15 units 15 units 15 units Blood Sugar Extra units of Humalog insulin Extra units of Humalog insulin Extra units of Humalog insulin Extra units of Humalog insulin Below 150 0 0 0 150-200 1 1 1 201-250 2 2 2 251-300 3 3 3 301-350 4 4 4 >350 5 5 5 - If eat a meal, take Humalog 15 units + sliding scale as above - If you decided to skip a meal, take Humalog sliding scale only as above - Please work on injecting the Humalog 15 minutes before eating documented in this encounter [place] 01-04-2023 History of Present illness Narrative Images from the original note were not included. ENDOCRINOLOGY CLINIC NOTE Mr. Mendez is a 32 year old male with T1DM, HTN, dyslipidemia, ADHD presented for follow-up of diabetes. He is new to me and so my colleague Alon Garner APRN SIGN ERECTOR HPI He was diagnosed with diabetes at age 12 years. He states that he finished substance use rehabilitation and has been working on being more consistent with the insulin A1c: 06/26/21 12:04 01/15/22 14:43 04/22/22 14:48 Hemoglobin A1C (POCT) 9.4 ! 10.1 ! 11.1 ! Current regimen: Lantus 38 units at bedtime Humalog 14 units with breakfast (does not take it because he does not eat breakfast), 12-14 units with lunch, 10-12 units with dinner plus sliding scale. He injects before and sometimes after Home glucose monitoring: The patient's continuous glucose monitoring device was downloaded, interpreted by myself and recommendations were discussed with the patient. The following data was obtained: Average glucose: 296 mg/dl Standard Deviation 78 mg/dl Estimated HbA1c:-% Serious hypoglycemia (<55 mg/dl): 0% Hypoglycemia (<70 mg/dl): 0% Values in target (70-180 mg/dl): 9% Hyperglycemia (>180 mg/dl): 23% Serious hyperglycemia (>250 mg/dl): 68% CGM active 21% of the time Time evaluated: 14 days Diet: He eats lunch an dinner, and snacks around 3 pm (chips, yogurt) Physical activity: No structured physical activity Complications: Retinopathy: 07/2022 with no reported retinopathy. Nephropathy: Normal GFR on 06/2021 and no significant albuminuria Neuropathy: tingling in his feet CVS: lipid profile 06/2021: LDL 202, TG 143 BP: 109/77 PAST MEDICAL HISTORY Diagnosis Date ADHD (attention deficit hyperactivity disorder) Alcohol consumption binge drinking Anxiety Depression DM type 1 (diabetes mellitus, type 1) ([facility]) HTN (hypertension) Hyperlipidemia Obesity (BMI 30.0-34.9) Tobacco use disorder, continuous PAST SURGICAL HISTORY Procedure Laterality Date NECK SURGERY HX Left 02/14/2018 Had a plate placed into jaw through neck - Dr. Blair ([place]) PAST SURGICAL HISTORY OF Rt arm Fx needed re-set FAMILY HISTORY Problem Relation Age of Onset Hypertension Maternal Grandmother Kidney Disease Maternal Grandmother Hypertension Father Lipids Father Thyroid Mother hypothyroidism Psychiatry Sister depression and anxiety Social History Tobacco Use Smoking status: Every Day Packs/day: 0.75 Years: 12.00 Total pack years: 9.00 Types: Cigarettes Start date: 09/05/2006 Smokeless tobacco: Never Vaping Use Vaping Use: Never used Substance Use Topics Alcohol use: Yes Comment: Socially, 1-2 times per month with 12 pack Drug use: No Comment: history of marijuana use in 2011 (Not in a hospital admission) Allergies As of Date: 01/04/2023 Allergen Noted Reaction PERCOCET [OXYCODONE-ACETAMINOPHEN]03/28/20 18 Swelling and Anaphylaxis MORPHINE 05/09/2017 Hives and Itching TESSALON [BENZONATATE] 06/21/2017 GI Upset and Shortness of Breath Fully Assessed 01/04/2023 Current Outpatient Medications Medication Sig Dispense Refill mirtazapine (REMERON) 30 mg tablet Take 30 mg by mouth daily at bedtime. buprenorphine-naloxone (SUBOXONE) 8-2 mg film dissolve 1/2 FILM under the tongue twice a day Blood-Glucose Sensor (DEXCOM G6 SENSOR) mariusz Use one sensor every 10 days, IDDM, E10.9 3 Each 11 Blood-Glucose Meter,Continuous (DEXCOM G6 EXPERIMENTAL ROCKET SLED MECHANIC) [facility] Use continuously to monitor blood sugars, one per year, IDDM, E 10.9 1 Each 0 Blood-Glucose Transmitter (DEXCOM G6 TRANSMITTER) mariusz Use one transmitter every 3 months, IDDM, E 10.9 1 Each 3 insulin glargine (LANTUS SOLOSTAR U-100 INSULIN) 100 unit/mL (3 mL) Inject subcutaneously 40 units daily at bedtime; titrating up to 50 units daily 15 mL 11 insulin lispro (HUMALOG KWIKPEN INSULIN) 100 unit/mL Inject subcutaneously 14 units breakfast, 10 units lunch 10 units dinner Sliding Scale 1 units/50>150, max dose of 50 units 15 mL 11 Insulin [place], Disposable, (DROPLET PEN NEEDLE) 29 gauge x 1/2 USE 4 DAILY WITH INJECTABLE PEN 200 Each 11 glucagon (GLUCAGON EMERGENCY KIT, HUMAN,) 1 mg injection Inject (1)one mg for insulin shock. 2 Each 2 naloxone 4 mg/actuation nasal spray (NARCAN) Use 1 spray in one nostril as needed for overdose. May repeat every 2 to 3 min in alternating nostrils until medical assistance is available 1 Each 4 Blood-Glucose Meter (ONETOUCH VERIO METER) Use as instructed to test blood sugar(s) 5 times daily. Dx: Type 1 DM - Uncontrolled E10.8 Insulin 1 Each 0 blood sugar diagnostic (ONETOUCH VERIO TEST STRIPS) test strip Use as instructed to test blood sugar(s) 5 times daily. Dx: Type 1 DM - Uncontrolled E10.8 Insulin 150 Each 11 lancets (ONETOUCH DELICA PLUS LANCET) 33 gauge use 4 lancets daily, IDDM, E10.9 400 Each 3 sertraline (ZOLOFT) 50 mg tablet take 1 tablet by mouth once daily after breakfast (Patient not taking: Reported on 01/04/2023) traZODone (DESYREL) 100 mg tablet Take 100 mg by mouth at bedtime as needed. (Patient not taking: Reported on 01/04/2023) albuterol HFA (PROAIR HFA) 90 mcg/actuation inhaler Inhale 2 Puffs as instructed every 4 hours as needed. (Patient not taking: Reported on 01/04/2023) 18 g 0 No current facility-administered medications for this visit. COMPLETE REVIEW OF SYSTEMS: 10 point review of systems was negative other than what is mentioned in the H&P PHYSICAL EXAM: 01/04/23 1551 BP: 109/77 Pulse: 84 Resp: 16 SpO2: 97% Weight: 74.7 kg (164 lb 9.6 oz) Height: 162.6 cm (5' 4 ) General: NAD, alert and cooperative HEENT: EOMI, no proptosis/stare. Neuro: Alert and oriented Psych: Normal affect Labs: As mentioned above Assessment and Recommendations: Mr. Mendez is a 32-year-old man presented to establish care for T1DM. His diabetes is poorly controlled as evidenced by the A1c level and review of CGM data. Our goal is to achieve an A1c at or below 7% to reduce the risks of diabetes related complications. We had extensive discussion regarding the timing and dosing of insulin. He states that he finished substance use rehab few weeks ago. He was concerned that taking higher Lantus doses would cause significant drops in glucose levels. We will continue with Lantus at the current dose. We will increase the Humalog to 15 units with meals and I provided him with low-dose sliding scale. If he eats a meal, he will take Humalog 15 units plus extra units based on the sliding scale. If he decides to skip a meal, he would take Humalog based on the sliding scale only. We also discussed that it is important to inject the Humalog 15 minutes before eating Once he is more consistent with the diabetes management and his glycemic control improves, we may consider exploring pump options. We will do his annual labs Follow-up with my colleague nurse in 3 months and with me in 6 months My final recommendations will be communicated back to the requesting physician by way of shared Medical record or letter to requesting physician via US mail. Medical Decision Making: Problems: Low: Stable chronic illness Data: Unique test result(s) reviewed: 3+ Unique test(s) ordered: 3+ Risk: Moderate: Drug management Medical Decision Making Level: 4 - Moderate This note was created using DreamFace Interactive dictation software. You may find errors that were missed during proofreading. They are purely unintentional and if there are any concerns regarding this dictation, please do not hesitate to contact the dictating provider for clarification. Leonardo Sorensen MD documented in this encounter [place] 01-04-2023 Procedure note Procedure(s): EXTERNAL EXPERIMENTAL ROCKET SLED MECHANIC, CGM SYS Images from the original note were not included. documented in this encounter [place] 12-20-2022 Note HNO ID: [id number] Author: Daniella Krishna Service: ? Author Type: ? Type: Progress Notes Filed: 12/20/2022 1:25 PM Note Text: POPULATION HEALTH NAVIGATION OUTREACH Action/FYI Left message to schedule appt and review HCC and H/M with pcp Diagnosis with HCC gap left: I10 - HTN (hypertension) - [facility] Last Billed 01/21/2021 E10.9 - Type 1 diabetes mellitus without complication (HCC) F90.9 - ADHD (attention deficit hyperactivity disorder) F10.10 - Alcohol consumption binge drinking Patient Identified by Name and : NO Outreach Outcome/Action Unable to reach patient: Left message MyChart message sent Did you use a PCP flex slot to schedule this appointment? N/A Reason for Outreach HCC or suspected condition Payer: Payor: [facility] MEDICAID / Plan: [facility] MEDICAID / Product Type: Medicaid / Care Gap Reviewed:: Annual Wellness visit Controlling Blood Pressure Diabetic Eye Exam HBA1C Nephropathy (Albumin/Creatinine) Urine Reminder: Reminder note to check Health Maintenance for items below Health Maintenance items due: COVID-19 VACCINE(1) Never done PNEUMOCOCCAL(2 - PCV) due on 07/28/2014 DILATED RETINAL EXAM due on 03/17/2018 BP CONTROLLED (<130/80) due on 01/21/2022 ANNUAL PCP TEAM CHRONIC DISEASE VISIT due on 04/11/2022 URINE ALBUMIN:CREATININE RATIO due on 07/06/2022 LDL CHOLESTEROL due on 07/06/2022 HBA1C due on 07/23/2022 Navigation Signature: Daniella Krishna December 20, 2022 1:22 PM [facility] 12-20-2022 Note Patient Outreach (MELBA TNAV) COOPER MENDEZ ([id number]) 1990 M Date Time Provider Department 12/20/22 DANIELLA KRISHNA During your visit today, we recorded the following information about you: Daniella Krishna 12/20/2022 1:25 PM Signed POPULATION HEALTH NAVIGATION OUTREACH Action/FYI Left message to schedule appt and review HCC and H/M with pcp Diagnosis with HCC gap left: I10 - HTN (hypertension) - CAREL Last Billed 01/21/2021 E10.9 - Type 1 diabetes mellitus without complication (HCC) F90.9 - ADHD (attention deficit hyperactivity disorder) F10.10 - Alcohol consumption binge drinking Patient Identified by Name and : NO Outreach Outcome/Action Unable to reach patient: Left message MyChart message sent Did you use a PCP flex slot to schedule this appointment? N/A Reason for Outreach HCC or suspected condition Payer: Payor: [facility] MEDICA[facility] / [facility] [facility] / Product Type: Medicaid / Care Gap Reviewed:: Annual Wellness visit Controlling Blood Pressure Diabetic Eye Exam HBA1C Nephropathy (Albumin/Creatinine) Urine Reminder: Reminder note to check Health Maintenance for items below Health Maintenance items due: COVID-19 VACCINE(1) Never done PNEUMOCOCCAL(2 - PCV) due on 07/28/2014 DILATED RETINAL EXAM due on 03/17/2018 BP CONTROLLED (<130/80) due on 01/21/2022 ANNUAL PCP TEAM CHRONIC DISEASE VISIT due on 04/11/2022 URINE ALBUMIN:CREATININE RATIO due on 07/06/2022 LDL CHOLESTEROL due on 07/06/2022 HBA1C due on 07/23/2022 Navigation Signature: Daniella Krishna December 20, 2022 1:22 PM Allergies As of Date: 12/20/2022 Noted Allergy Reaction PERCOCET (OXYCODONE-ACETAMINOPHEN)03/28/20 18 7 - Swelling 10 - Anaphylaxis Comments: Swelling of tongue. MORPHINE 05/09/2017 4 - Hives 9 - Itching TESSALON (BENZONATATE) 06/21/2017 8 - GI Upset 12 - Shortness of Breath Date Reviewed: 09/20/2022 Reviewed by: Nelly Billy MA - Fully Assessed Reason for Visit: Population Health Navigation Outreach [3910] Cmt: [facility] Medicaid care gap Prescriptions as of 12/20/2022 - sertraline (ZOLOFT) 50 mg tablet take 1 tablet by mouth once daily after breakfast - traZODone (DESYREL) 100 mg tablet Take 100 mg by mouth at bedtime as needed. - Blood-Glucose Sensor (DEXCOM G6 SENSOR) mariusz Use one sensor every 10 days, IDDM, E10.9 - Blood-Glucose Meter,Continuous (DEXCOM G6 EXPERIMENTAL ROCKET SLED MECHANIC) misc Use continuously to monitor blood sugars, one per year, IDDM, E 10.9 - Blood-Glucose Transmitter (DEXCOM G6 TRANSMITTER) mariusz Use one transmitter every 3 months, IDDM, E 10.9 - insulin glargine (LANTUS SOLOSTAR U-100 INSULIN) 100 unit/mL (3 mL) Inject subcutaneously 40 units daily at bedtime; titrating up to 50 units daily - insulin lispro (HUMALOG KWIKPEN INSULIN) 100 unit/mL Inject subcutaneously 14 units breakfast, 10 units lunch 10 units dinner Sliding Scale 1 units/50>150, max dose of 50 units - Insulin [place], Disposable, (DROPLET PEN NEEDLE) 29 gauge x 1/2 USE 4 DAILY WITH INJECTABLE PEN - glucagon (GLUCAGON EMERGENCY KIT, HUMAN,) 1 mg injection Inject (1)one mg for insulin shock. - naloxone 4 mg/actuation nasal spray (NARCAN) Use 1 spray in one nostril as needed for overdose. May repeat every 2 to 3 min in alternating nostrils until medical assistance is available - Blood-Glucose Meter (ONETOUCH VERIO METER) Use as instructed to test blood sugar(s) 5 times daily. Dx: Type 1 DM - Uncontrolled E10.8 Insulin - blood sugar diagnostic (ONETOUCH VERIO TEST STRIPS) test strip Use as instructed to test blood sugar(s) 5 times daily. Dx: Type 1 DM - Uncontrolled E10.8 Insulin - lancets (ONETOUCH DELICA PLUS LANCET) 33 gauge use 4 lancets daily, IDDM, E10.9 - albuterol HFA (PROAIR HFA) 90 mcg/actuation inhaler Inhale 2 Puffs as instructed every 4 hours as needed. Problem List As Of Date 12/20/2022 Noted Resolved DM type 1 (diabetes mellitus, type 1) (HCC) [E1* 11/07/2017 HTN (hypertension) [I10] Hyperlipidemia [E78.5] Depression [F32.A] ADHD (attention deficit hyperactivity disorder)* Insomnia [G47.00] 08/14/2014 Obesity (BMI 30.0-34.9) [E66.9] 11/15/2018 Alcohol consumption binge drinking [F10.10] Tobacco use [Z72.0] Anxiety [F41.9] Lung nodule [R91.1] 01/12/2019 Tobacco use disorder, continuous [F17.209] Type 1 diabetes mellitus without complication (*12/12/2020 Hypoglycemia due to type 1 diabetes mellitus (H*12/12/2020 Class 1 obesity with serious comorbidity and clair*06/26/2021 Encounter Status:Closed by DANIELLA KRISHNA on 12/20/22 [facility] 12-20-2022 History of Present illness Narrative POPULATION HEALTH NAVIGATION OUTREACH Action/FYI Left message to schedule appt and review HCC and H/M with pcp Diagnosis with HCC gap left: I10 - HTN (hypertension) - CAREL Last Billed 01/21/2021 E10.9 - Type 1 diabetes mellitus without complication (HCC) F90.9 - ADHD (attention deficit hyperactivity disorder) F10.10 - Alcohol consumption binge drinking Patient Identified by Name and : NO Outreach Outcome/Action Unable to reach patient: Left message MyChart message sent Did you use a PCP flex slot to schedule this appointment? N/A Reason for Outreach HCC or suspected condition Payer: Payor: [facility] MEDICAID / Plan: [facility] MEDICAID / Product Type: Medicaid / Care Gap Reviewed:: Annual Wellness visit Controlling Blood Pressure Diabetic Eye Exam HBA1C Nephropathy (Albumin/Creatinine) Urine Reminder: Reminder note to check Health Maintenance for items below Health Maintenance items due: COVID-19 VACCINE(1) Never done PNEUMOCOCCAL(2 - PCV) due on 07/28/2014 DILATED RETINAL EXAM due on 03/17/2018 BP CONTROLLED (<130/80) due on 01/21/2022 ANNUAL PCP TEAM CHRONIC DISEASE VISIT due on 04/11/2022 URINE ALBUMIN:CREATININE RATIO due on 07/06/2022 LDL CHOLESTEROL due on 07/06/2022 HBA1C due on 07/23/2022 Navigation Signature: Daniella Krishna December 20, 2022 1:22 PM documented in this encounter [place] 10-20-2022 Note HNO ID: [id number] Author: Magdalena Ham Service: ? Author Type: ? Type: Progress Notes Filed: 10/20/2022 1:47 PM Note Text: POPULATION HEALTH NAVIGATION OUTREACH Action/FYI RP Outreach: LVM for Patient to call back and schedule ZACK Consult for Acute pain of right shoulder [M25.511]. [phone]. Any agent can assist. Patient Identified by Name and : YES, via Aurelianthart Outreach Outcome/Action Unable to reach patient: Left message Did you use a PCP flex slot to schedule this appointment? No Reason for Outreach Care Gap or Scheduling/Wellness visits Payer: Payor: [facility] MEDICAID / Plan: [facility] MEDICA[facility] / Product Type: Medicaid / Care Gap Reviewed:: ORQ Reminder: Reminder note to check Health Maintenance for items below Health Maintenance items due: COVID-19 VACCINE(1) Never done PNEUMOCOCCAL(2 - PCV) due on 07/28/2014 DILATED RETINAL EXAM due on 03/17/2018 BP CONTROLLED (<130/80) due on 01/21/2022 ANNUAL PCP TEAM CHRONIC DISEASE VISIT due on 04/11/2022 URINE ALBUMIN:CREATININE RATIO due on 07/06/2022 LDL CHOLESTEROL due on 07/06/2022 HBA1C due on 07/23/2022 Navigation Signature: Magdalena Ham October 20, 2022 1:47 PM [facility] 10-20-2022 Note Patient Outreach (RE FPHY) COOPER MENDEZ ([id number]) 1990 M Date Time Provider Department 10/20/22 NO PCP (HISTORCAL) REFPHY During your visit today, we recorded the following information about you: Magdalena Ham 10/20/2022 1:47 PM Signed POPULATION HEALTH NAVIGATION OUTREACH Action/I RP Outreach: LVM for Patient to call back and schedule ZACK Consult for Acute pain of right shoulder [M25.511]. [phone]. Any agent can assist. Patient Identified by Name and : YES, via MyChart Outreach Outcome/Action Unable to reach patient: Left message Did you use a PCP flex slot to schedule this appointment? No Reason for Outreach Care Gap or Scheduling/Wellness visits Payer: Payor: [facility] MEDICA[facility] / Plan: [facility] MEDICAID / Product Type: Medicaid / Care Gap Reviewed:: ORQ Reminder: Reminder note to check Health Maintenance for items below Health Maintenance items due: COVID-19 VACCINE(1) Never done PNEUMOCOCCAL(2 - PCV) due on 07/28/2014 DILATED RETINAL EXAM due on 03/17/2018 BP CONTROLLED (<130/80) due on 01/21/2022 ANNUAL PCP TEAM CHRONIC DISEASE VISIT due on 04/11/2022 URINE ALBUMIN:CREATININE RATIO due on 07/06/2022 LDL CHOLESTEROL due on 07/06/2022 HBA1C due on 07/23/2022 Navigation Signature: Magdalena Ham October 20, 2022 1:47 PM Allergies As of Date: 10/20/2022 Noted Allergy Reaction PERCOCET (OXYCODONE-ACETAMINOPHEN)03/28/20 18 7 - Swelling 10 - Anaphylaxis Comments: Swelling of tongue. MORPHINE 05/09/2017 4 - Hives 9 - Itching TESSALON (BENZONATATE) 06/21/2017 8 - GI Upset 12 - Shortness of Breath Date Reviewed: 09/20/2022 Reviewed by: Nelly Billy MA - Fully Assessed Prescriptions as of 10/20/2022 - sertraline (ZOLOFT) 50 mg tablet take 1 tablet by mouth once daily after breakfast - traZODone (DESYREL) 100 mg tablet Take 100 mg by mouth at bedtime as needed. - Blood-Glucose Sensor (DEXCOM G6 SENSOR) mariusz Use one sensor every 10 days, IDDM, E10.9 - Blood-Glucose Meter,Continuous (DEXCOM G6 EXPERIMENTAL ROCKET SLED MECHANIC) misc Use continuously to monitor blood sugars, one per year, IDDM, E 10.9 - Blood-Glucose Transmitter (DEXCOM G6 TRANSMITTER) mariusz Use one transmitter every 3 months, IDDM, E 10.9 - insulin glargine (LANTUS SOLOSTAR U-100 INSULIN) 100 unit/mL (3 mL) Inject subcutaneously 40 units daily at bedtime; titrating up to 50 units daily - insulin lispro (HUMALOG KWIKPEN INSULIN) 100 unit/mL Inject subcutaneously 14 units breakfast, 10 units lunch 10 units dinner Sliding Scale 1 units/50>150, max dose of 50 units - Insulin [place], Disposable, (DROPLET PEN NEEDLE) 29 gauge x 1/2 USE 4 DAILY WITH INJECTABLE PEN - glucagon (GLUCAGON EMERGENCY KIT, HUMAN,) 1 mg injection Inject (1)one mg for insulin shock. - naloxone 4 mg/actuation nasal spray (NARCAN) Use 1 spray in one nostril as needed for overdose. May repeat every 2 to 3 min in alternating nostrils until medical assistance is available - Blood-Glucose Meter (ONETOUCH VERIO METER) Use as instructed to test blood sugar(s) 5 times daily. Dx: Type 1 DM - Uncontrolled E10.8 Insulin - blood sugar diagnostic (ONETOUCH VERIO TEST STRIPS) test strip Use as instructed to test blood sugar(s) 5 times daily. Dx: Type 1 DM - Uncontrolled E10.8 Insulin - lancets (ONETOUCH DELICA PLUS LANCET) 33 gauge use 4 lancets daily, IDDM, E10.9 - albuterol HFA (PROAIR HFA) 90 mcg/actuation inhaler Inhale 2 Puffs as instructed every 4 hours as needed. Problem List As Of Date 10/20/2022 Noted Resolved DM type 1 (diabetes mellitus, type 1) (HCC) [E1* 11/07/2017 HTN (hypertension) [I10] Hyperlipidemia [E78.5] Depression [F32.A] ADHD (attention deficit hyperactivity disorder)* Insomnia [G47.00] 08/14/2014 Obesity (BMI 30.0-34.9) [E66.9] 11/15/2018 Alcohol consumption binge drinking [F10.10] Tobacco use [Z72.0] Anxiety [F41.9] Lung nodule [R91.1] 01/12/2019 Tobacco use disorder, continuous [F17.209] Type 1 diabetes mellitus without complication (*12/12/2020 Hypoglycemia due to type 1 diabetes mellitus (H*12/12/2020 Class 1 obesity with serious comorbidity and clair*06/26/2021 Encounter Status:Closed by MAGDALENA HAM on 10/20/22 [facility] 10-20-2022 History of Present illness Narrative POPULATION HEALTH NAVIGATION OUTREACH Action/FYI RP Outreach: LVM for Patient to call back and schedule ZACK Consult for Acute pain of right shoulder [M25.511]. [phone]. Any agent can assist. Patient Identified by Name and : YES, via Aurelianthart Outreach Outcome/Action Unable to reach patient: Left message Did you use a PCP flex slot to schedule this appointment? No Reason for Outreach Care Gap or Scheduling/Wellness visits Payer: Payor: [facility] MEDICAID / [facility] / Product Type: Medicaid / Care Gap Reviewed:: ORQ Reminder: Reminder note to check Health Maintenance for items below Health Maintenance items due: COVID-19 VACCINE(1) Never done PNEUMOCOCCAL(2 - PCV) due on 07/28/2014 DILATED RETINAL EXAM due on 03/17/2018 BP CONTROLLED (<130/80) due on 01/21/2022 ANNUAL PCP TEAM CHRONIC DISEASE VISIT due on 04/11/2022 URINE ALBUMIN:CREATININE RATIO due on 07/06/2022 LDL CHOLESTEROL due on 07/06/2022 HBA1C due on 07/23/2022 Navigation Signature: Magdalena Ham October 20, 2022 1:47 PM documented in this encounter [place] 09-20-2022 Note HNO ID: [id number] Author: Mikaela Langley APRN.SUZE Service: ? Author Type: Nurse Practitioner Type: Progress Notes Filed: 09/20/2022 3:56 PM Note Text: This note was created using Cono-Criter. Subjective Cooper Mendez is a 32 year old male. HPI by patient: Cooper is a 32 year old presenting to the office with the complaint of shoulder pain Started approximately a month ago Associated symptoms include R shoulder pain. Started just with pain when sleeping now hurts all the time. Denies any injury or trauma Covid Immunization Dates Overdue - COVID-19 VACCINE (1) Overdue - never done No completion, postpone, frequency change, or communication history exists for this topic. OTC tylenol and IBU No antibiotic use in the last 60 days. ALLERGIES Percocet [Oxycodone* Swelling, Anaphylaxis Comment:Swelling of tongue. Morphine Hives, Itching Tessalon [Benzonata* GI Upset, Shortness of Breath Family History Reviewed Including Cardiac Diseases, Psychiatric Diseases, AND Substance Abuse Problem: Hypertension Relation: Maternal Grandmother Age of Onset: (Not Specified) Problem: Kidney Disease Relation: Maternal Grandmother Age of Onset: (Not Specified) Problem: Hypertension Relation: Father Age of Onset: (Not Specified) Problem: Lipids Relation: Father Age of Onset: (Not Specified) Problem: Thyroid Relation: Mother Age of Onset: (Not Specified) Comment: hypothyroidism Problem: Psychiatry Relation: Sister Age of Onset: (Not Specified) Comment: depression and anxiety Social History Tobacco Use Smoking status: Every Day Packs/day: 0.75 Years: 12.00 Pack years: 9 Types: Cigarettes Start date: 09/05/2006 Smokeless tobacco: Never Vaping Use Vaping Use: Never used Alcohol use: Yes Comment: Socially, 1-2 times per month with 12 pack Drug use: No Comment: history of marijuana use in 2011 Review of Systems Constitutional: Negative. HENT: Negative. Respiratory: Negative. Cardiovascular: Negative. Musculoskeletal: Positive for arthralgias (Rt shoulder). Objective Ht 162.6 cm (5' 4 ) Wt 70.3 kg (155 lb) BMI 26.61 kg/m? Physical Exam Vitals reviewed. Constitutional: Appearance: Normal appearance. HENT: Head: Normocephalic. Pulmonary: Effort: Pulmonary effort is normal. Breath sounds: Normal breath sounds. Musculoskeletal: Right shoulder: Tenderness present. No swelling, deformity, effusion, laceration, bony tenderness or crepitus. Decreased range of motion. Decreased strength. Normal pulse. Cervical back: Full passive range of motion without pain. Skin: General: Skin is warm. Neurological: Mental Status: He is alert. Psychiatric: Behavior: Behavior is cooperative. Assessment and Plan ASSESSMENT/PLAN: 1. Acute pain of right shoulder - ICD9: 719.41, ICD10: M25.511 - Follow up with PCP. ED if anything gets worse - XR SHOULDER [id number] AP/TRUE AP RIGHT - CONSULT TO ORTHOPAEDICS - METHYLPREDNISOLONE 4 MG TABLETS IN A DOSE PACK Mikaela Langley APRN.CNP Medical Decision Making: Problems: Moderate: New problem with uncertain prognosis Data: Unique test(s) ordered: 1 Risk: Moderate: Drug management Medical Decision Making Level: 4 - Moderate Remove COVID19 association [facility] 09-20-2022 History of Present illness Narrative This note was created using Cono-Criter. Subjective Cooper Mendez is a 32 year old male. HPI by patient: Cooper is a 32 year old presenting to the office with the complaint of shoulder pain Started approximately a month ago Associated symptoms include R shoulder pain. Started just with pain when sleeping now hurts all the time. Denies any injury or trauma Covid Immunization Dates Overdue - COVID-19 VACCINE (1) Overdue - never done No completion, postpone, frequency change, or communication history exists for this topic. OTC tylenol and IBU No antibiotic use in the last 60 days. ALLERGIES Percocet [Oxycodone* Swelling, Anaphylaxis Comment:Swelling of tongue. Morphine Hives, Itching Tessalon [Benzonata* GI Upset, Shortness of Breath Family History Reviewed Including Cardiac Diseases, Psychiatric Diseases, & Substance Abuse Problem: Hypertension Relation: Maternal Grandmother Age of Onset: (Not Specified) Problem: Kidney Disease Relation: Maternal Grandmother Age of Onset: (Not Specified) Problem: Hypertension Relation: Father Age of Onset: (Not Specified) Problem: Lipids Relation: Father Age of Onset: (Not Specified) Problem: Thyroid Relation: Mother Age of Onset: (Not Specified) Comment: hypothyroidism Problem: Psychiatry Relation: Sister Age of Onset: (Not Specified) Comment: depression and anxiety Social History Tobacco Use Smoking status: Every Day Packs/day: 0.75 Years: 12.00 Pack years: 9 Types: Cigarettes Start date: 09/05/2006 Smokeless tobacco: Never Vaping Use Vaping Use: Never used Alcohol use: Yes Comment: Socially, 1-2 times per month with 12 pack Drug use: No Comment: history of marijuana use in 2011 Review of Systems Constitutional: Negative. HENT: Negative. Respiratory: Negative. Cardiovascular: Negative. Musculoskeletal: Positive for arthralgias (Rt shoulder). Objective Ht 162.6 cm (5' 4 ) Wt 70.3 kg (155 lb) BMI 26.61 kg/m Physical Exam Vitals reviewed. Constitutional: Appearance: Normal appearance. HENT: Head: Normocephalic. Pulmonary: Effort: Pulmonary effort is normal. Breath sounds: Normal breath sounds. Musculoskeletal: Right shoulder: Tenderness present. No swelling, deformity, effusion, laceration, bony tenderness or crepitus. Decreased range of motion. Decreased strength. Normal pulse. Cervical back: Full passive range of motion without pain. Skin: General: Skin is warm. Neurological: Mental Status: He is alert. Psychiatric: Behavior: Behavior is cooperative. Assessment and Plan ASSESSMENT/PLAN: 1. Acute pain of right shoulder - ICD9: 719.41, ICD10: M25.511 - Follow up with PCP. ED if anything gets worse - XR SHOULDER [id number] AP/TRUE AP RIGHT - CONSULT TO ORTHOPAEDICS - METHYLPREDNISOLONE 4 MG TABLETS IN A DOSE PACK Mikaela Langley APRN.CNP Medical Decision Making: Problems: Moderate: New problem with uncertain prognosis Data: Unique test(s) ordered: 1 Risk: Moderate: Drug management Medical Decision Making Level: 4 - Moderate Remove COVID19 association documented in this encounter [place] 06-21-2022 Miscellaneous Notes Patient rescheduled for in office visit with Dr. Argueta at 4pm this day. Alicia Lisa LPN Needs to come into office for this. Please scheduled with Dr. Argueta. Ladi Nava APRN.CNP documented in this encounter [place] 04-22-2022 Note HNO ID: [id number] Author: Elena Garner APRN.CNP Service: ? Author Type: Nurse Practitioner Type: Progress Notes Filed: 04/22/2022 3:16 PM Note Text: Reason for Consultation: DM Type 1 Referring Physician: Conchita Lema MD [address] [address] HISTORY OF PRESENT ILLNESS Mr. Mendez is a 31 year old male presenting here today for a follow up of DM Type 1. As I recall, he was initially diagnosed with diabetes age 12. [address] Lema [place] 01/15/22 A1C today 11.1 History in addition to diabetes include: elevated LFT, obesity, ADHD, substance abuse, anxiety, depression. Had a drug relapse and BG was higher. 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 Current diabetes regimen is as follows: Lantus 32 units at bedtime --taking 36 units instead Humalo/7/0 units meals.--taking about 10-12 units breakfast, 8 units lunch, 8 units dinner If Blood Glucose (mg/dL) is <110 Add 0 units 111-150 Add 1 unit 151-200 Add 3 units 201-250 Add 6 units 251-300 Add 9 units 301-350 Add 12 units 351-400 add 15 units >400 Add 15 units he is checking his blood glucose 4-5 times daily. he does not bring a log book today for review. LDE Blood Sugar Frequency: FBS 250-300 acL 200's acS 200's HS 200's Hypoglycemia frequency: occasionally; not always checking at the time. Hypoglycemia awareness: No; not always sensing unless under 50. Regarding symptoms of hypoglycemia, he is not experiencing any symptoms such as polyuria, polydipsia, nocturia or rapid weight loss or blurry vision, Overall, the patient has no acute complaints at this time. PAST MEDICAL HISTORY Diagnosis Date ADHD (attention deficit hyperactivity disorder) Alcohol consumption binge drinking Anxiety Depression DM type 1 (diabetes mellitus, type 1) ([facility]) HTN (hypertension) Hyperlipidemia Obesity (BMI 30.0-34.9) Tobacco use disorder, continuous PAST SURGICAL HISTORY Procedure Laterality Date NECK SURGERY HX Left 02/14/2018 Had a plate placed into jaw through neck - Dr. Blair ([place]) PAST SURGICAL HISTORY OF Rt arm Fx needed re-set FAMILY HISTORY Problem Relation Age of Onset Hypertension Maternal Grandmother Kidney Disease Maternal Grandmother Hypertension Father Lipids Father Thyroid Mother hypothyroidism Psychiatry Sister depression and anxiety Social History Tobacco Use Smoking status: Every Day Packs/day: 0.75 Years: 12.00 Pack years: 9.00 Types: Cigarettes Start date: 09/05/2006 Smokeless tobacco: Never Vaping Use Vaping Use: Never used Substance Use Topics Alcohol use: Yes Comment: Socially, 1-2 times per month with 12 pack Drug use: No Comment: history of marijuana use in 2011 Allergies As of Date: 04/22/2022 Allergen Noted Reaction PERCOCET [OXYCODONE-ACETAMINOPHEN]03/28/20 18 Swelling and Anaphylaxis MORPHINE 05/09/2017 Hives and Itching TESSALON [BENZONATATE] 06/21/2017 GI Upset and Shortness of Breath Fully Assessed 04/22/2022 Current Outpatient Medications Medication Sig Dispense Refill sertraline (ZOLOFT) 50 mg tablet take 1 tablet by mouth once daily after breakfast traZODone (DESYREL) 100 mg tablet Take 100 mg by mouth at bedtime as needed. Insulin [place], Disposable, (DROPLET PEN NEEDLE) 29 gauge x 1/2 USE 4 DAILY WITH INJECTABLE PEN 200 Each 11 glucagon (GLUCAGON EMERGENCY KIT, HUMAN,) 1 mg injection Inject (1)one mg for insulin shock. 2 Each 2 naloxone 4 mg/actuation nasal spray (NARCAN) Use 1 spray in one nostril as needed for overdose. May repeat every 2 to 3 min in alternating nostrils until medical assistance is available 1 Each 4 Blood-Glucose Meter (ONETOUCH VERIO METER) Use as instructed to test blood sugar(s) 5 times daily. Dx: Type 1 DM - Uncontrolled E10.8 Insulin 1 Each 0 blood sugar diagnostic (ONETOUCH VERIO TEST STRIPS) test strip Use as instructed to test blood sugar(s) 5 times daily. Dx: Type 1 DM - Uncontrolled E10.8 Insulin 150 Each 11 lancets (ONETOUCH DELICA PLUS LANCET) 33 gauge use 4 lancets daily, IDDM, E10.9 400 Each 3 insulin glargine (LANTUS SOLOSTAR U-100 INSULIN) 100 unit/mL (3 mL) Inject subcutaneously 32 units daily at bedtime; titrating up to 50 units daily 15 mL 11 insulin lispro (HUMALOG KWIKPEN INSULIN) 100 unit/mL Inject subcutaneously 8 units breakfast, 7 units lunch 4 units dinner Sliding Scale 1 units/50>150, max dose of 50 units 15 mL 11 albuterol HFA (PROAIR HFA) 90 mcg/actuation inhaler Inhale 2 Puffs as instructed every 4 hours as needed. 18 g 0 citalopram (CELEXA) 20 mg tablet Take 1 tablet by mouth once daily. No current facility-administered medications for this visit. REVIEW OF SYSTEMS Review of Systems Respiratory: Negative for difficulty breathing. Cardiovascular: Negative for chest pain. Gastrointestinal: Negative for nausea, vomiting, diarrhea and constipation. PHYSICAL EXAMINATION BP 113/75 Pulse 105 Resp 22 Ht 163.5 cm (5' 4.37 ) Wt 71.8 (more content not included)... [facility] 04-22-2022 Instructions Elena Garner APRN.SUZE - 04/22/2022 3:04 PM EST Lantus 40 units daily. Humalog Breakfast 14 units Lunch 10 units Dinner 10 units If Blood Glucose (mg/dL) is < 150 Give 0 units 151-200 Give 1 unit 201-250 Give 2 units 251-300 Give 3 units 301-350 Give 4 units >351 Give 5 units Send me sugars in 2 wks. Sooner if needed. Reschedule your eye exam. Elena Garner, ASIA, ELECTRONIC EQUIPMENT REPAIRMEN, COMPUTER TECHNOLOGY TEACHER-C, CDE Endocrinology [facility] Medical Office [facility]/[place] [address] Fax: documented in this encounter [place] 04-22-2022 History of Present illness Narrative Reason for Consultation: DM Type 1 Referring Physician: Conchita Lema MD [address] [place] [address] HISTORY OF PRESENT ILLNESS Mr. Mendez is a 31 year old male presenting here today for a follow up of DM Type 1. As I recall, he was initially diagnosed with diabetes age 12. [address] Lema [place] 01/15/22 A1C today 11.1 History in addition to diabetes include: elevated LFT, obesity, ADHD, substance abuse, anxiety, depression. Had a drug relapse and BG was higher. 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 Current diabetes regimen is as follows: Lantus 32 units at bedtime --taking 36 units instead Humalo/7/4/0 units meals.--taking about 10-12 units breakfast, 8 units lunch, 8 units dinner If Blood Glucose (mg/dL) is <110 Add 0 units 111-150 Add 1 unit 151-200 Add 3 units 201-250 Add 6 units 251-300 Add 9 units 301-350 Add 12 units 351-400 add 15 units >400 Add 15 units he is checking his blood glucose 4-5 times daily. he does not bring a log book today for review. LDE Blood Sugar Frequency: FBS 250-300 acL 200's acS 200's HS 200's Hypoglycemia frequency: occasionally; not always checking at the time. Hypoglycemia awareness: No; not always sensing unless under 50. Regarding symptoms of hypoglycemia, he is not experiencing any symptoms such as polyuria, polydipsia, nocturia or rapid weight loss or blurry vision, Overall, the patient has no acute complaints at this time. PAST MEDICAL HISTORY Diagnosis Date ADHD (attention deficit hyperactivity disorder) Alcohol consumption binge drinking Anxiety Depression DM type 1 (diabetes mellitus, type 1) ([facility]) HTN (hypertension) Hyperlipidemia Obesity (BMI 30.0-34.9) Tobacco use disorder, continuous PAST SURGICAL HISTORY Procedure Laterality Date NECK SURGERY HX Left 02/14/2018 Had a plate placed into jaw through neck - Dr. Blair ([place]) PAST SURGICAL HISTORY OF Rt arm Fx needed re-set FAMILY HISTORY Problem Relation Age of Onset Hypertension Maternal Grandmother Kidney Disease Maternal Grandmother Hypertension Father Lipids Father Thyroid Mother hypothyroidism Psychiatry Sister depression and anxiety Social History Tobacco Use Smoking status: Every Day Packs/day: 0.75 Years: 12.00 Pack years: 9.00 Types: Cigarettes Start date: 09/05/2006 Smokeless tobacco: Never Vaping Use Vaping Use: Never used Substance Use Topics Alcohol use: Yes Comment: Socially, 1-2 times per month with 12 pack Drug use: No Comment: history of marijuana use in 2011 Allergies As of Date: 04/22/2022 Allergen Noted Reaction PERCOCET [OXYCODONE-ACETAMINOPHEN]03/28/20 18 Swelling and Anaphylaxis MORPHINE 05/09/2017 Hives and Itching TESSALON [BENZONATATE] 06/21/2017 GI Upset and Shortness of Breath Fully Assessed 04/22/2022 Current Outpatient Medications Medication Sig Dispense Refill sertraline (ZOLOFT) 50 mg tablet take 1 tablet by mouth once daily after breakfast traZODone (DESYREL) 100 mg tablet Take 100 mg by mouth at bedtime as needed. Insulin [place], Disposable, (DROPLET PEN NEEDLE) 29 gauge x 1/2 USE 4 DAILY WITH INJECTABLE PEN 200 Each 11 glucagon (GLUCAGON EMERGENCY KIT, HUMAN,) 1 mg injection Inject (1)one mg for insulin shock. 2 Each 2 naloxone 4 mg/actuation nasal spray (NARCAN) Use 1 spray in one nostril as needed for overdose. May repeat every 2 to 3 min in alternating nostrils until medical assistance is available 1 Each 4 Blood-Glucose Meter (BigTipTOUCH VERIO METER) Use as instructed to test blood sugar(s) 5 times daily. Dx: Type 1 DM - Uncontrolled E10.8 Insulin 1 Each 0 blood sugar diagnostic (ONETOUCH VERIO TEST STRIPS) test strip Use as instructed to test blood sugar(s) 5 times daily. Dx: Type 1 DM - Uncontrolled E10.8 Insulin 150 Each 11 lancets (BigTipTOUCH DELICA PLUS LANCET) 33 gauge use 4 lancets daily, IDDM, E10.9 400 Each 3 insulin glargine (LANTUS SOLOSTAR U-100 INSULIN) 100 unit/mL (3 mL) Inject subcutaneously 32 units daily at bedtime; titrating up to 50 units daily 15 mL 11 insulin lispro (HUMALOG KWIKPEN INSULIN) 100 unit/mL Inject subcutaneously 8 units breakfast, 7 units lunch 4 units dinner Sliding Scale 1 units/50>150, max dose of 50 units 15 mL 11 albuterol HFA (PROAIR HFA) 90 mcg/actuation inhaler Inhale 2 Puffs as instructed every 4 hours as needed. 18 g 0 citalopram (CELEXA) 20 mg tablet Take 1 tablet by mouth once daily. No current facility-administered medications for this visit. REVIEW OF SYSTEMS Review of Systems Respiratory: Negative for difficulty breathing. Cardiovascular: Negative for chest pain. Gastrointestinal: Negative for nausea, vomiting, diarrhea and constipation. PHYSICAL EXAMINATION BP 113/75 Pulse 105 Resp 22 Ht 163.5 cm (5' 4.37 ) Wt 71.8 kg (158 lb 3.2 oz) SpO2 97% BMI 26.84 kg/m2 Physical Exam Constitutional: Appearance: Normal appearance. Cardiovascular: Rate and Rhythm: Normal rate and regular rhythm. Pulmonary: Effort: Pulmonary effort is normal. Breath sounds: Normal breath sounds. Skin: General: Skin is warm and dry. Neurological: Mental Status: He is alert and oriented to person, place, and time. Psychiatric: Mood and Affect: Mood normal. Behavior: Behavior normal. Feet: per podiatry DATA Creatinine Date Value Ref Range Status 07/06/2021 0.80 0.73 - 1.22 mg/dL Final Hemoglobin A1C (%) Date Value 03/04/2018 9.0 Hemoglobin A1C (POCT) (%) Date Value 04/22/2022 11.1 ) No components found for: URINEALBUMIN Cholesterol, Total (mg/dL) Date Value 03/04/2018 206 Total Cholesterol, Nonfasting (mg/dL) Date Value 07/06/2021 278 HDL Cholesterol (mg/dL) Date Value 03/04/2018 41 HDL Cholesterol, Nonfasting (mg/dL) Date Value 07/06/2021 47 LDL Cholesterol (mg/dL) Date Value 03/04/2018 119 LDL Cholesterol, Nonfasting (mg/dL) Date Value 07/06/2021 202 Triglyceride (mg/dL) Date Value 03/04/2018 230 Triglycerides, Nonfasting (mg/dL) Date Value 07/06/2021 143 IMPRESSION: Mr. Mendez is a 31 year old male here for evaluation of DM Type 1 complicated by obesity RECOMMENDATIONS: (E10.9) Type 1 diabetes mellitus without complication (HCC) (primary encounter diagnosis) Comment: Glycemic control is poor. Insulin adjusted. Recommend CGM as medical necessity. Plan: HEMOGLOBIN A1C (POC), Blood-Glucose Sensor (DEXCOM G6 SENSOR) mariusz, Blood-Glucose Meter,Continuous (DEXCOM G6 EXPERIMENTAL ROCKET SLED MECHANIC) misc, Blood-Glucose Transmitter (DEXCOM G6 TRANSMITTER) mariusz, insulin glargine (LANTUS SOLOSTAR U-100 INSULIN) 100 unit/mL (3 mL), insulin lispro (HUMALOG KWIKPEN INSULIN) 100 unit/mL Lantus 40 units daily. Humalog Breakfast 14 units Lunch 10 units Dinner 10 units If Blood Glucose (mg/dL) is < 150 Give 0 units 151-200 Give 1 unit 201-250 Give 2 units 251-300 Give 3 units 301-350 Give 4 units >351 Give 5 units Send me sugars in 2 wks. Sooner if needed. Reschedule your eye exam. (E10.649) Hypoglycemia due to type 1 diabetes mellitus (HCC) Comment/Plan: recommend CGM I spent a total of 30 minutes on the date of the service which included preparing to see the patient, [id number] patient care, completing clinical documentation, obtaining and/or reviewing separately obtained history, performing a medically appropriate examination, counseling and educating the patient/family/caregiver, ordering medications, tests, or procedures, and communicating results to the patient/family/caregiver. Elena Garner, MSN, ELECTRONIC EQUIPMENT REPAIRMEN, COMPUTER TECHNOLOGY TEACHER-C, CDE Endocrinology [facility] Office [facility]/[address] [place] [address] Fax: documented in this encounter [place] 03-26-2022 Miscellaneous Notes Requester: Pharmacy Last Visit in Endocrinology: Provider name: aLmar Singleton CNP , Date 01/15/2022 Next Scheduled Appt in Endo: 04/22/2022 Last Refill: 03/26/21 Number of Refills given: 11 . Requested Prescriptions Pending Prescriptions Disp Refills Insulin [place], Disposable, (DROPLET PEN NEEDLE) 29 gauge x 1/2 [Pharmacy Med Name: DROPLET PEN NEEDLE 29GX1/2 ] 200 Each 11 Sig: USE 4 DAILY WITH INJECTABLE PEN Please review and advise. Luna Isbell LPN documented in this encounter [place] 03-05-2022 Note Patient Outreach (MELBA AGUAYO) COOPER MENDEZ ([id number]) 1990 M Date Time Provider Department 03/05/22 ELSA VILLAFUERTE During your visit today, we recorded the following information about you: Elsa Villafuerte Population Health Navigator 03/05/2022 10:49 AM Signed POPULATION HEALTH NAVIGATION OUTREACH Action/FYI I spoke with patient and scheduled his appointment Pt identified by name and : YES, via phone Outreach Outcome/Action Spoke to patient or caregiver: Patient scheduled Did you use a PCP flex slot to schedule this appointment? No Reason for Outreach HCC or suspected condition Payer: Payor: [facility] MEDICAID / Plan: [facility] MEDICAID / Product Type: Medicaid / Care Gap Reviewed:: Annual Wellness visit Controlling Blood Pressure Diabetic Eye Exam Flu vaccine Reminder: Reminder note to check Health Maintenance for items below Health Maintenance items due: COVID-19 VACCINE(1) Never done PNEUMOCOCCAL(2 - PCV) due on 07/28/2014 DILATED RETINAL EXAM due on 03/17/2018 DIABETIC FOOT EXAM due on 09/12/2021 BP CONTROLLED (<130/80) due on 01/21/2022 INFLUENZA(1) due on 02/04/2022 Message Sent to Practice: No Navigation Signature: Elsa Villafuerte Population Health Navigator March 05, 2022 10:49 AM Allergies As of Date: 03/05/2022 Noted Allergy Reaction PERCOCET (OXYCODONE-ACETAMINOPHEN)03/28/20 18 7 - Swelling 10 - Anaphylaxis Comments: Swelling of tongue. MORPHINE 05/09/2017 4 - Hives 9 - Itching TESSALON (BENZONATATE) 06/21/2017 8 - GI Upset 12 - Shortness of Breath Date Reviewed: 01/15/2022 Reviewed by: Elena Garner APRN.SIGN ERECTOR - Fully Assessed Reason for Visit: Population Health Navigation Outreach [[id number]] Cmt: HCC CARE GAP Prescriptions as of 03/05/2022 - naloxone 4 mg/actuation nasal spray (NARCAN) Use 1 spray in one nostril as needed for overdose. May repeat every 2 to 3 min in alternating nostrils until medical assistance is available - glucagon (GLUCAGON EMERGENCY KIT, HUMAN,) 1 mg injection Inject (1)one mg for insulin shock. - Blood-Glucose Meter (ONETOUCH VERIO METER) Use as instructed to test blood sugar(s) 5 times daily. Dx: Type 1 DM - Uncontrolled E10.8 Insulin - blood sugar diagnostic (ONETOUCH VERIO TEST STRIPS) test strip Use as instructed to test blood sugar(s) 5 times daily. Dx: Type 1 DM - Uncontrolled E10.8 Insulin - lancets (ONETOUCH DELICA PLUS LANCET) 33 gauge use 4 lancets daily, IDDM, E10.9 - citalopram (CELEXA) 20 mg tablet Take 1 tablet by mouth once daily. - insulin glargine (LANTUS SOLOSTAR U-100 INSULIN) 100 unit/mL (3 mL) Inject subcutaneously 32 units daily at bedtime; titrating up to 50 units daily - insulin lispro (HUMALOG KWIKPEN INSULIN) 100 unit/mL Inject subcutaneously 8 units breakfast, 7 units lunch 4 units dinner Sliding Scale 1 units/50>150, max dose of 50 units - Insulin [place], Disposable, (PEN NEEDLE) 29 gauge x 1/2 USE 4 DAILY WITH INJECTABLE PEN - albuterol HFA (PROAIR HFA) 90 mcg/actuation inhaler Inhale 2 Puffs as instructed every 4 hours as needed. Problem List As Of Date 03/05/2022 Noted Resolved DM type 1 (diabetes mellitus, type 1) (HCC) [E1* 11/07/2017 HTN (hypertension) [I10] Hyperlipidemia [E78.5] Depression [F32.A] ADHD (attention deficit hyperactivity disorder)* Insomnia [G47.00] 08/14/2014 Obesity (BMI 30.0-34.9) [E66.9] 11/15/2018 Alcohol consumption binge drinking [F10.10] Tobacco use [Z72.0] Anxiety [F41.9] Lung nodule [R91.1] 01/12/2019 Tobacco use disorder, continuous [F17.209] Type 1 diabetes mellitus without complication (*12/12/2020 Hypoglycemia due to type 1 diabetes mellitus (H*12/12/2020 Class 1 obesity with serious comorbidity and clair*06/26/2021 Encounter Status:Closed by CHRISTO POPULATION HEALTH NAVIGATOR, ELSA Holland on 03/05/22 [facility] 03-05-2022 Note HNO ID: [id number] Author: Elsa Villafuerte Population Health Navigbj Service: ? Author Type: ? Type: Progress Notes Filed: 03/05/2022 10:49 AM Note Text: POPULATION HEALTH NAVIGATION OUTREACH Action/FYI I spoke with patient and scheduled his appointment Pt identified by name and : YES, via phone Outreach Outcome/Action Spoke to patient or caregiver: Patient scheduled Did you use a PCP flex slot to schedule this appointment? No Reason for Outreach HCC or suspected condition Payer: Payor: [facility] MEDICAID / Plan: [facility] MEDICAID / Product Type: Medicaid / Care Gap Reviewed:: Annual Wellness visit Controlling Blood Pressure Diabetic Eye Exam Flu vaccine Reminder: Reminder note to check Health Maintenance for items below Health Maintenance items due: COVID-19 VACCINE(1) Never done PNEUMOCOCCAL(2 - PCV) due on 07/28/2014 DILATED RETINAL EXAM due on 03/17/2018 DIABETIC FOOT EXAM due on 09/12/2021 BP CONTROLLED (<130/80) due on 01/21/2022 INFLUENZA(1) due on 02/04/2022 Message Sent to Practice: No Navigation Signature: Elsa Villafuerte Population Health Navigator March 05, 2022 10:49 AM [facility] 03-05-2022 History of Present illness Narrative POPULATION HEALTH NAVIGATION OUTREACH Action/FYI I spoke with patient and scheduled his appointment Pt identified by name and : YES, via phone Outreach Outcome/Action Spoke to patient or caregiver: Patient scheduled Did you use a PCP flex slot to schedule this appointment? No Reason for Outreach HCC or suspected condition Payer: Payor: [facility] MEDICAID / Plan: [facility] MEDICAID / Product Type: Medicaid / Care Gap Reviewed:: Annual Wellness visit Controlling Blood Pressure Diabetic Eye Exam Flu vaccine Reminder: Reminder note to check Health Maintenance for items below Health Maintenance items due: COVID-19 VACCINE(1) Never done PNEUMOCOCCAL(2 - PCV) due on 07/28/2014 DILATED RETINAL EXAM due on 03/17/2018 DIABETIC FOOT EXAM due on 09/12/2021 BP CONTROLLED (<130/80) due on 01/21/2022 INFLUENZA(1) due on 02/04/2022 Message Sent to Practice: No Navigation Signature: Elsa Villafuerte Population Health Navigator March 05, 2022 10:49 AM documented in this encounter [place] 02-04-2022 Miscellaneous Notes See Youxinpai message sent to Ladi Nava/Dr. Argueta to review. Yola Allred Ma documented in this encounter [place] 02-04-2022 Miscellaneous Notes Please review. documented in this encounter [place] 02-04-2022 Miscellaneous Notes Message sent to patient. Closed. documented in this encounter [place] 02-04-2022 Miscellaneous Notes Requester: Patient Last Visit in Endocrinology: Provider name: Elena Garner CNP , Date 01/15/2022 Next Scheduled Appt in Endo: 04/22/2022 Last Refill: 06/26/2021 Number of Refills given: 0 Requested Prescriptions Pending Prescriptions Disp Refills glucagon (GLUCAGON EMERGENCY KIT, HUMAN,) 1 mg injection Sig: Inject (1)one mg for insulin shock. Please review and advise. Kathy Navarro MA documented in this encounter [place] 02-04-2022 Miscellaneous Notes Patient has been identified by name and date of : Yes Patient phones for refill(s): Requested Prescriptions Pending Prescriptions Disp Refills naloxone 4 mg/actuation nasal spray (NARCAN) Sig: Use 1 spray in one nostril as needed for overdose. May repeat every 2 to 3 min in alternating nostrils until medical assistance is available Date of last office visit in primary care: 04/11/21 next apt 02/09/22 Last 2 Encounter Wt Readings: Date: Wt: 01/15/2022 71.2 kg (157 lb) 06/26/2021 89.4 kg (197 lb 3.2 oz) Previous labs/tests for medication: Not applicable Thank you. Sarah Soares LPN documented in this encounter [place] 01-18-2022 Miscellaneous Notes One touch Verio is preferred stated on [facility] preferred drug list. Please resend. documented in this encounter [place] 01-15-2022 Note HNO ID: [id number] Author: Elena Garner APRN.SIGN ERECTOR Service: ? Author Type: Nurse Practitioner Type: Progress Notes Filed: 01/15/2022 3:19 PM Note Text: Reason for Consultation: DM Type 1 Referring Physician: Cocnhita Lema MD [address] [address] HISTORY OF PRESENT ILLNESS Mr. Mendez is a 31 year old male presenting here today for a follow up of DM Type 1. As I recall, he was initially diagnosed with diabetes age 12. [address] Lema [place] 06/26/21 A1C today 10.1 History in addition to diabetes include: elevated LFT, obesity, ADHD, substance abuse, anxiety, depression. Here with his mom. Was in retirement for 100 days and on psych unit for 5 days before. Reports he is now on abilify (dose unknown) and celexa 20 mg daily. Lost weight while in retirement. Current diabetes regimen is as follows: Lantus 48 units at bedtime --taking 32 units at this time. Humalog: carb ratio 1:4 meals; 1:6 snacks and SS#3 ---- actually taking breakfast 8 units ; 6-7 units , dinner 4 units . If Blood Glucose (mg/dL) is <110 Add 0 units 111-150 Add 1 unit 151-200 Add 3 units 201-250 Add 6 units 251-300 Add 9 units 301-350 Add 12 units 351-400 add 15 units >400 Add 15 units he is checking his blood glucose 0 times daily. he does not bring a log book today for review. LDE Blood Sugar Frequency: no meter or log book FBS (noon) acL (3-4 pm) acS (7-8 PM) Hypoglycemia frequency: denies Hypoglycemia awareness: No; not always sensing unless under 50. Regarding symptoms of hypoglycemia, he is not experiencing any symptoms such as polyuria, polydipsia, nocturia or rapid weight loss or blurry vision, Overall, the patient has no acute complaints at this time. PAST MEDICAL HISTORY Diagnosis Date ADHD (attention deficit hyperactivity disorder) Alcohol consumption binge drinking Anxiety Depression DM type 1 (diabetes mellitus, type 1) ([facility]) HTN (hypertension) Hyperlipidemia Obesity (BMI 30.0-34.9) Tobacco use disorder, continuous PAST SURGICAL HISTORY Procedure Laterality Date NECK SURGERY HX Left 02/14/2018 Had a plate placed into jaw through neck - Dr. Blair ([place]) PAST SURGICAL HISTORY OF Rt arm Fx needed re-set FAMILY HISTORY Problem Relation Age of Onset Hypertension Maternal Grandmother Kidney Disease Maternal Grandmother Hypertension Father Lipids Father Thyroid Mother hypothyroidism Psychiatry Sister depression and anxiety Social History Tobacco Use Smoking status: Every Day Packs/day: 0.75 Years: 12.00 Pack years: 9.00 Types: Cigarettes Start date: 09/05/2006 Smokeless tobacco: Never Vaping Use Vaping Use: Never used Substance Use Topics Alcohol use: Yes Comment: Socially, 1-2 times per month with 12 pack Drug use: No Comment: history of marijuana use in 2011 Allergies As of Date: 01/15/2022 Allergen Noted Reaction PERCOCET [OXYCODONE-ACETAMINOPHEN]03/28/20 18 Swelling and Anaphylaxis MORPHINE 05/09/2017 Hives and Itching TESSALON [BENZONATATE] 06/21/2017 GI Upset and Shortness of Breath Fully Assessed 01/15/2022 Current Outpatient Medications Medication Sig Dispense Refill lancets (ONETOUCH DELICA PLUS LANCET) 33 gauge use 4 lancets daily, IDDM, E10.9 400 Each 3 glucagon (GLUCAGON EMERGENCY KIT, HUMAN,) 1 mg injection Inject (1)one mg for insulin shock. insulin glargine (LANTUS SOLOSTAR U-100 INSULIN) 100 unit/mL (3 mL) Inject subcutaneously 45 units daily at bedtime; titrating up to 50 units daily 15 mL 11 insulin lispro (HUMALOG KWIKPEN INSULIN) 100 unit/mL Based on insulin to carb ratio (1:4) with meals, 1:6 with snack Sliding Scale 2 units/50>150, max dose of 70 units 30 mL 11 blood sugar diagnostic (BLOOD GLUCOSE TEST) test strip Test blood sugar(s) 5 times daily. Dx: Type 1 DM - Uncontrolled E10.8 Insulin: Yes, please dispense One Touch Blue strips to go with One Touch Ultra 2 glucose meter. 150 Strip 11 Insulin [place], Disposable, (PEN NEEDLE) 29 gauge x 1/2 USE 4 DAILY WITH INJECTABLE PEN 200 Each 11 naloxone (NARCAN) 4 mg/actuation nasal spray Use 1 spray in one nostril as needed for overdose. May repeat every 2 to 3 min in alternating nostrils until medical assistance is available 1 Box 4 albuterol HFA (PROAIR HFA) 90 mcg/actuation inhaler Inhale 2 Puffs as instructed every 4 hours as needed. 18 g 0 Blood-Glucose Meter monitoring kit Use as directed to test glucose, please dispense preferred meter/strips/lancets per insurance formulary. 1 Each 0 hydrOXYzine HCl (ATARAX) 25 mg tablet take 1 to 2 tablets by mouth BEFORE BED IF NEEDED FOR INSOMNIA (Patient not taking: Reported on 01/15/2022) 60 tablet 3 omeprazole (PRILOSEC) 20 mg capsule Take 1 capsule by mouth daily before breakfast. 1/2 hr before meal. (Patient not taking: Reported on 01/15/2022) 90 capsule 1 No current facility-administered medications for this visit. REVIEW OF SYSTEMS Review of Systems Respira (more content not included)... [facility] 01-15-2022 Instructions Elena Garner APRN.SIGN ERECTOR - 01/15/2022 2:55 PM EDT Continue lantus 32 units daily. 2. Humalog Breakfast 8 units Lunch 7 units Dinner 4 units Plus humalog correction at meals if needed: If Blood Glucose (mg/dL) is < 150 Give 0 units 151-200 Give 1 unit 201-250 Give 2 units 251-300 Give 3 units 301-350 Give 4 units >351 Give 5 units 3. Check sugars 4x per day. *send me sugars every 1-2 wks. 4. Follow up in 3 months *ask if it is appropriate to switch celexa to cymbalta to also help with diabetic neuropathy. Elena Garner, MSN, ELECTRONIC EQUIPMENT REPAIRMEN, COMPUTER TECHNOLOGY TEACHER-C, CDE Endocrinology [facility] Medical Office [facility]/[address], [address] [place] [address] Fax: documented in this encounter [place] 01-15-2022 History of Present illness Narrative Reason for Consultation: DM Type 1 Referring Physician: Conchita Lema MD [address] [address] HISTORY OF PRESENT ILLNESS Mr. Mendez is a 31 year old male presenting here today for a follow up of DM Type 1. As I recall, he was initially diagnosed with diabetes age 12. [address] Lema [place] 06/26/21 A1C today 10.1 History in addition to diabetes include: elevated LFT, obesity, ADHD, substance abuse, anxiety, depression. Here with his mom. Was in retirement for 100 days and on psych unit for 5 days before. Reports he is now on abilify (dose unknown) and celexa 20 mg daily. Lost weight while in retirement. Current diabetes regimen is as follows: Lantus 48 units at bedtime --taking 32 units at this time. Humalog: carb ratio 1:4 meals; 1:6 snacks and SS#3 ---- actually taking breakfast 8 units ; 6-7 units , dinner 4 units . If Blood Glucose (mg/dL) is <110 Add 0 units 111-150 Add 1 unit 151-200 Add 3 units 201-250 Add 6 units 251-300 Add 9 units 301-350 Add 12 units 351-400 add 15 units >400 Add 15 units he is checking his blood glucose 0 times daily. he does not bring a log book today for review. LDE Blood Sugar Frequency: no meter or log book FBS (noon) acL (3-4 pm) acS (7-8 PM) Hypoglycemia frequency: denies Hypoglycemia awareness: No; not always sensing unless under 50. Regarding symptoms of hypoglycemia, he is not experiencing any symptoms such as polyuria, polydipsia, nocturia or rapid weight loss or blurry vision, Overall, the patient has no acute complaints at this time. PAST MEDICAL HISTORY Diagnosis Date ADHD (attention deficit hyperactivity disorder) Alcohol consumption binge drinking Anxiety Depression DM type 1 (diabetes mellitus, type 1) ([facility]) HTN (hypertension) Hyperlipidemia Obesity (BMI 30.0-34.9) Tobacco use disorder, continuous PAST SURGICAL HISTORY Procedure Laterality Date NECK SURGERY HX Left 02/14/2018 Had a plate placed into jaw through neck - Dr. Blair ([place]) PAST SURGICAL HISTORY OF Rt arm Fx needed re-set FAMILY HISTORY Problem Relation Age of Onset Hypertension Maternal Grandmother Kidney Disease Maternal Grandmother Hypertension Father Lipids Father Thyroid Mother hypothyroidism Psychiatry Sister depression and anxiety Social History Tobacco Use Smoking status: Every Day Packs/day: 0.75 Years: 12.00 Pack years: 9.00 Types: Cigarettes Start date: 09/05/2006 Smokeless tobacco: Never Vaping Use Vaping Use: Never used Substance Use Topics Alcohol use: Yes Comment: Socially, 1-2 times per month with 12 pack Drug use: No Comment: history of marijuana use in 2011 Allergies As of Date: 01/15/2022 Allergen Noted Reaction PERCOCET [OXYCODONE-ACETAMINOPHEN]03/28/20 18 Swelling and Anaphylaxis MORPHINE 05/09/2017 Hives and Itching TESSALON [BENZONATATE] 06/21/2017 GI Upset and Shortness of Breath Fully Assessed 01/15/2022 Current Outpatient Medications Medication Sig Dispense Refill lancets ([employer] DELICA PLUS LANCET) 33 gauge use 4 lancets daily, IDDM, E10.9 400 Each 3 glucagon (GLUCAGON EMERGENCY KIT, HUMAN,) 1 mg injection Inject (1)one mg for insulin shock. insulin glargine (LANTUS SOLOSTAR U-100 INSULIN) 100 unit/mL (3 mL) Inject subcutaneously 45 units daily at bedtime; titrating up to 50 units daily 15 mL 11 insulin lispro (HUMALOG KWIKPEN INSULIN) 100 unit/mL Based on insulin to carb ratio (1:4) with meals, 1:6 with snack Sliding Scale 2 units/50>150, max dose of 70 units 30 mL 11 blood sugar diagnostic (BLOOD GLUCOSE TEST) test strip Test blood sugar(s) 5 times daily. Dx: Type 1 DM - Uncontrolled E10.8 Insulin: Yes, please dispense One Touch Blue strips to go with One Touch Ultra 2 glucose meter. 150 Strip 11 Insulin [place], Disposable, (PEN NEEDLE) 29 gauge x 1/2 USE 4 DAILY WITH INJECTABLE PEN 200 Each 11 naloxone (NARCAN) 4 mg/actuation nasal spray Use 1 spray in one nostril as needed for overdose. May repeat every 2 to 3 min in alternating nostrils until medical assistance is available 1 Box 4 albuterol HFA (PROAIR HFA) 90 mcg/actuation inhaler Inhale 2 Puffs as instructed every 4 hours as needed. 18 g 0 Blood-Glucose Meter monitoring kit Use as directed to test glucose, please dispense preferred meter/strips/lancets per insurance formulary. 1 Each 0 hydrOXYzine HCl (ATARAX) 25 mg tablet take 1 to 2 tablets by mouth BEFORE BED IF NEEDED FOR INSOMNIA (Patient not taking: Reported on 01/15/2022) 60 tablet 3 omeprazole (PRILOSEC) 20 mg capsule Take 1 capsule by mouth daily before breakfast. 1/2 hr before meal. (Patient not taking: Reported on 01/15/2022) 90 capsule 1 No current facility-administered medications for this visit. REVIEW OF SYSTEMS Review of Systems Respiratory: Negative for difficulty breathing. Cardiovascular: Negative for chest pain. Gastrointestinal: Positive for heartburn. Negative for nausea, vomiting, diarrhea and constipation. PHYSICAL EXAMINATION BP 118/80 (BP Site: Left Arm, BP Position: Sitting, BP Cuff Size: Regular Adult) Pulse 99 Ht 163.6 cm (5' 4.41 ) Wt 71.2 kg (157 lb) SpO2 97% BMI 26.61 kg/m2 Physical Exam Constitutional: Appearance: Normal appearance. Cardiovascular: Rate and Rhythm: Normal rate and regular rhythm. Pulmonary: Effort: Pulmonary effort is normal. Breath sounds: Normal breath sounds. Skin: General: Skin is warm and dry. Neurological: Mental Status: He is alert and oriented to person, place, and time. Psychiatric: Mood and Affect: Mood normal. Behavior: Behavior normal. DATA Creatinine Date Value Ref Range Status 07/06/2021 0.80 0.73 - 1.22 mg/dL Final Hemoglobin A1C (%) Date Value 03/04/2018 9.0 Hemoglobin A1C (POCT) (%) Date Value 06/26/2021 9.4 ) No components found for: URINEALBUMIN Cholesterol, Total (mg/dL) Date Value 03/04/2018 206 Total Cholesterol, Nonfasting (mg/dL) Date Value 07/06/2021 278 HDL Cholesterol (mg/dL) Date Value 03/04/2018 41 HDL Cholesterol, Nonfasting (mg/dL) Date Value 07/06/2021 47 LDL Cholesterol (mg/dL) Date Value 03/04/2018 119 LDL Cholesterol, Nonfasting (mg/dL) Date Value 07/06/2021 202 Triglyceride (mg/dL) Date Value 03/04/2018 230 Triglycerides, Nonfasting (mg/dL) Date Value 07/06/2021 143 IMPRESSION: Mr. Mendez is a 31 year old male here for evaluation of DM Type 1 complicated by obesity RECOMMENDATIONS: (E10.9) Type 1 diabetes mellitus without complication (HCC) (primary encounter diagnosis) Comment: Glycemic control has worsened. Need to resume BG monitoring to make insulin adjustments. Plan: HEMOGLOBIN A1C (POC), blood sugar diagnostic (BLOOD GLUCOSE TEST) test strip, lancets (ONETOUCH DELICA PLUS LANCET) 33 gauge, Blood-Glucose Meter monitoring kit, insulin glargine (LANTUS SOLOSTAR U-100 INSULIN) 100 unit/mL (3 mL), insulin lispro (HUMALOG KWIKPEN INSULIN) 100 unit/mL Continue lantus 32 units daily. Humalog Breakfast 8 units Lunch 7 units Dinner 4 units Plus humalog correction at meals if needed: If Blood Glucose (mg/dL) is < 150 Give 0 units 151-200 Give 1 unit 201-250 Give 2 units 251-300 Give 3 units 301-350 Give 4 units >351 Give 5 units Check sugars 4x per day. *send me sugars every 1-2 wks. Follow up in 3 months (E10.649) Hypoglycemia due to type 1 diabetes mellitus (HCC) Comment/Plan: denies recent episodes Medical Decision Making: Level: 4 - Moderate ASIA Avina, ELECTRONIC EQUIPMENT REPAIRMEN, COMPUTER TECHNOLOGY TEACHER-C, CDE Endocrinology [facility] Medical Office [facility]/[address], [address] [place] [address] Fax: documented in this encounter [place] 12-24-2021 Miscellaneous Notes Phoned patient and spoke with him and advised despite showing up at 12p for 1140p 20 min appt, it is still considered a no show appointment. Advised patient that missing todays appointment made it his 3rd no show appointment within a year. Informed patient that if he had one more now show appointment within the year without calling to cancel, he could be asked to obtain a provider outside of our facility. Patient voiced understanding. documented in this encounter [place] 09-18-2021 Miscellaneous Notes Requester: Pharmacy Last Visit in Endocrinology: Provider name: Elena Garner CNP , Date 06/26/2021 Next Scheduled Appt in Endo: 10/01/2021 Last Refill: 09/08/20 Number of Refills given: 3 Pending Prescriptions Disp Refills LANCETS 33 GAUGE 300 Each 3 Sig: use 1 LANCET to TEST BLOOD SUGAR four to five times a day ABBY: No Please review and advise. Luna Isbell LPN documented in this encounter [place] 01-14-2021 Hospital Discharge instructions Da Guido DO - 01/14/2021 Watch for signs of infection red hot swelling pain. Return if increasing pain discharge or concerns. You need to get a physician for your blood sugars/diabetes. We will follow the wound care for your wounds. The following attachments cannot be sent through Care Everywhere.Diabetes: Heart Attack and Stroke Risk: General Info ([place])Diabetes: Home Blood Sugar Test ([place])Abscess: Skin ([place]se)documented in this encounter [facility] Work Phone: 06-09-2019 History of Present illness Narrative GASTROENTEROLOGY PROGRESS NOTE Patient: Cooper Mendez :1990 Primary Care Physician: No primary care provider on file. History: The patient is a 28 y.o. male with jaundice and viral serology positive for Hep A IgM. Able to tolerate food. No pain nor diarrhea. Current Medications: Current Facility-Administered Medications Medication Dose Route Frequency Provider Last Rate Last Dose sodium chloride flush 0.9 % injection 3 mL 3 mL Intravenous Q8H Da Guido DO citalopram (CELEXA) tablet 40 mg 40 mg Oral Daily Shala Olmos MD 40 mg at 06/08/19 0848 hydrOXYzine (ATARAX) tablet 25 mg 25 mg Oral Daily PRN Shala Olmos MD insulin glargine (LANTUS) injection vial 40 Units 40 Units Subcutaneous Nightly Shala Olmos MD 40 Units at 06/08/192125 insulin lispro (HUMALOG) injection vial 0-18 Units 0-18 Units Subcutaneous TID WC Shala Olmos MD insulin lispro (HUMALOG) injection vial 0-9 Units 0-9 Units Subcutaneous Nightly Shala Olmos MD 5 Units at 06/08/192125 glucose (GLUTOSE) 40 % oral gel 15 g 15 g Oral PRN Shala Olmos MD dextrose 50 % IV solution 12.5 g Intravenous PRN Shala Olmos MD glucagon (rDNA) injection 1 mg 1 mg Intramuscular PRN Shala Olmos MD dextrose 5 % solution 100 mL/hr Intravenous PRN Shala Olmos MD enoxaparin (LOVENOX) injection 40 mg 40 mg Subcutaneous Daily Shala Olmos MD pantoprazole (PROTONIX) tablet 40 mg 40 mg Oral QAM AC Shala Olmos MD 40 mg at 06/09/19 0500 0.9 % sodium chloride infusion Intravenous Continuous Shala Olmos MD 100 mL/hr at 06/09/19 0417 ondansetron (ZOFRAN) injection 4 mg 4 mg Intravenous Q6H PRN Shala Olmos MD Intake andOutput: I/O last 3 completed shifts: In: 2282 [P.O.:100; I.V.:2182] Out: - No intake/output data recorded. PhysicalExam: BP 124/78 Pulse 69 Temp 98.7 F (37.1 C) (Temporal) Resp 16 SpO2 96% Physical Exam Mild icteric sclera AxO x3 no asterexis Lungs clear Cor s1 s2 Abdomen soft and nontender CBC: Recent Labs 06/07/19 1534 06/08/19 0622 WBC 11.4* 11.3* HGB 15.1 12.9* HCT 44.8 39.2* PLT 311 267 CMP: Recent Labs 06/08/19 0622 06/09/19 0451 NA 137 137 K 3.7 3.7 CL 108* 107 CO2 19* 21* BUN 8 4* CREATININE 0.60 0.57 GLUCOSE 124* 125* CALCIUM 8.0* 7.9* HEPATIC: Recent Labs 06/08/19 0622 06/09/19 0451 AST 1,030* 676* ALT 1,421* 1,167* BILITOT 9.0* 9.8* ALKPHOS 474* 474* INR: Recent Labs 06/08/19 1126 INR 1.2* ASSESSMENT: 1. Acute Hep A, with no signs of liver synthetic dysfunction. Or failure LFT declining. Expect full recovery of liver 2. Tolerating PO PLAN: 1. OK to discharge. 2. Immune globulin and vaccination of pt contacts 3. No alcohol and stop IV drug use and no NSAIDS 4. F/u LFT with primary care as outpatient in 1-2 weeks Hospitalist Progress Note 06/08/2019 5:53 PM [phone]: Please page ar [phone] for patient care issues. [phone]: Please page [facility] Hospitalist for any issues. Subjective: Admit Date: 06/07/2019 PCP: No primary care provider on file. Interval History: No overnight issues.Abdominal pain improved DIET CARB CONTROL; No data found. 24HR INTAKE/OUTPUT: Intake/Output Summary (Last 24 hours) at 06/08/2019 1753 Last data filed at 06/08/2019 1503 Gross per 24 hour Intake 732.9 ml Output Net 732.9 ml Medications: dextrose sodium chloride 100 mL/hr at 06/08/19 0927 sodium chloride flush 3 mL Intravenous Q8H citalopram 40 mg Oral Daily insulin glargine 40 Units Subcutaneous Nightly insulin lispro 0-18 Units Subcutaneous TID WC insulin lispro 0-9 Units Subcutaneous Nightly enoxaparin 40 mg Subcutaneous Daily pantoprazole 40 mg Oral QAM AC Objective: Vitals: BP 107/74 Pulse 74 Temp 98 F (36.7 C) Resp 20 SpO2 98% Pulse Ox: SpO2 Av.2 % Min: 95 % Max: 99 % Supplemental O2: General appearance: No apparent distress, appears stated age and cooperative with exam HEENT: Normal cephalic, atraumatic without obvious deformity. Icteric Neck: Supple, with full range of motion. No jugular venous distention. Trachea midline. No lymphadenopathy. Respiratory: Normal respiratory effort. Clear to auscultation, bilaterally without Rales/Wheezes/Rhonchi. Cardiovascular: Regular rate and rhythm with normal S1/S2 without murmurs, rubs or gallops. Abdomen: Soft, non-tender, non-distended with normal bowel sounds. No rebound or guarding. Musculoskeletal: No clubbing, cyanosis or edema bilaterally. Full range of motion without deformity. Skin: Skin color, texture, turgor normal. No rashes or lesions. Neurologic: Neurovascularly intact without any focal sensory/motor deficits. Cranial nerves: II-XII intact, grossly non-focal. LABS: CBC: Recent Labs 06/07/19 1534 06/08/19 0622 WBC 11.4* 11.3* RBC 5.40 4.66 HGB 15.1 12.9* HCT 44.8 39.2* MCV 82.9 84.1 RDW 15.2* 15.0* PLT 311 267 BMP: Recent Labs 06/07/19 1534 06/07/19 1752 06/08/19 0622 NA 132* -- 137 K 3.9 -- 3.7 CL 98 -- 108* CO2 22 -- 19* BUN 11 -- 8 CREATININE 0.68 -- 0.60 GLUCOSE 364* 297 124* CALCIUM 8.4 -- 8.0* ANIONGAP 12 -- 10 LIVER PROFILE: Recent Labs 06/07/19 1534 06/08/19 0622 AST 1,376* 1,030* ALT 1,936* 1,421* BILITOT 11.2* 9.0* ALKPHOS 636* 474* LABALBU 3.2* 2.6* PROT 6.6 5.9* PT/INR: Recent Labs 06/08/19 1126 PROTIME 12.5* INR 1.2* CARDIAC ENZYMES: No results for input(s): TROPONINI in the last 72 hours. Procalcitonin: No results found for: PROCAL Glucose: Recent Labs 06/07/19 1749 06/07/19 2239 06/08/19 1636 POCGLU 297* 275* 135* Assessment / Plan # Jaundice, hyperbilirubinemia # ALT more than aspartate aminotransferase, elevated liver transaminases, viral hepatitis- HEP A Pos #DM #DRUG USE Diagnosis Date Diabetes mellitus (HCC) type 1 IV drug user METH Lung nodule R. UPPER LOBE -am labs, replace lytes prn -increase activity -DVT prophylaxis: [] Lovenox [] Heparin [] SCDs [x] Encourage ambulation [] Already on Anticoagulation Advance Directive: No Order Discharge planning: TBD Danielle Cano MD Division of Hospitalist Medicine Inpatient Medical Services PAGER: [phone] documented in this encounter [facility] Work Phone: documented as of this encounter (statuses as of 09/18/2021) [place]06-04-2018 History of Past illness Narrative* Problem Noted Date Resolved Date DM type 1 (diabetes mellitus, type 1) 11/07/2017 Obesity (BMI 30.0-34.9) 11/16/19 19 documented as of this encounter (statuses as of 12/25/2021) [place]-04-2018 History of Past illness Narrative* Problem Noted Date Resolved Date DM type 1 (diabetes mellitus, type 1) 11/07/2017 Obesity (BMI 30.0-34.9) 11/16/19 19 documented as of this encounter (statuses as of 01/15/2022) [place]-04-[place] History of Past illness Narrative* Problem Noted Date Resolved Date DM type 1 (diabetes mellitus, type 1) 11/07/2017 Obesity (BMI 30.0-34.9) 11/16/19 19 documented as of this encounter (statuses as of 01/18/2022) [place] History of Past illness Narrative* Problem Noted Date Resolved Date DM type 1 (diabetes mellitus, type 1) 11/07/2017 Obesity (BMI 30.0-34.9) 11/16/19 19 documented as of this encounter (statuses as of 02/04/2022) [place] History of Past illness Narrative* Problem Noted Date Resolved Date DM type 1 (diabetes mellitus, type 1) 11/07/2017 Obesity (BMI 30.0-34.9) 11/16/19 19 documented as of this encounter (statuses as of 02/04/2022) [place] History of Past illness Narrative* Problem Noted Date Resolved Date DM type 1 (diabetes mellitus, type 1) 11/07/2017 Obesity (BMI 30.0-34.9) 11/16/19 19 documented as of this encounter (statuses as of 02/04/2022) [place] History of Past illness Narrative* Problem Noted Date Resolved Date DM type 1 (diabetes mellitus, type 1) 11/07/2017 Obesity (BMI 30.0-34.9) 11/16/19 19 documented as of this encounter (statuses as of 02/05/2022) [place] History of Past illness Narrative* Problem Noted Date Resolved Date DM type 1 (diabetes mellitus, type 1) 11/07/2017 Obesity (BMI 30.0-34.9) 11/16/19 19 documented as of this encounter (statuses as of 03/05/2022) [place]-04-[place] History of Past illness Narrative* Problem Noted Date Resolved Date DM type 1 (diabetes mellitus, type 1) 11/07/2017 Obesity (BMI 30.0-34.9) 11/16/19 19 documented as of this encounter (statuses as of 03/26/2022) [place]2018 History of Past illness Narrative* Problem Noted Date Resolved Date DM type 1 (diabetes mellitus, type 1) 11/07/2017 Obesity (BMI 30.0-34.9) 11/16/19 19 documented as of this encounter (statuses as of 04/22/2022) [place] History of Past illness Narrative* Problem Noted Date Resolved Date DM type 1 (diabetes mellitus, type 1) 11/07/2017 Obesity (BMI 30.0-34.9) 11/16/19 19 documented as of this encounter (statuses as of 06/21/2022) [place] History of Past illness Narrative* Problem Noted Date Resolved Date DM type 1 (diabetes mellitus, type 1) 11/07/2017 Obesity (BMI 30.0-34.9) 11/16/19 19 documented as of this encounter (statuses as of 09/21/2022) [address]04-2018 History of Past illness Narrative* Problem Noted Date Resolved Date DM type 1 (diabetes mellitus, type 1) 11/07/2017 Obesity (BMI 30.0-34.9) 11/16/19 19 documented as of this encounter (statuses as of 10/20/2022) [place]2018 History of Past illness Narrative* Problem Noted Date Diagnosed Date Resolved Date DM type 1 (diabetes mellitus, type 1) 11/07/2017 Obesity (BMI 30.0-34.9) 11/04 documented as of this encounter (statuses as of 12/20/2022) [address]04-2018 History of Past illness Narrative* Problem Noted Date Diagnosed Date Resolved Date DM type 1 (diabetes mellitus, type 1) 11/07/2017 Obesity (BMI 30.0-34.9) 11/04 documented as of this encounter (statuses as of 01/05/2023) [place] History of Past illness Narrative* Problem Noted Date Diagnosed Date Resolved Date DM type 1 (diabetes mellitus, type 1) 11/07/2017 Obesity (BMI 30.0-34.9) 11/04 documented as of this encounter (statuses as of 02/02/2023) [address]04-2018 History of Past illness Narrative* Problem Noted Date Diagnosed Date Resolved Date DM type 1 (diabetes mellitus, type 1) 11/07/2017 Obesity (BMI 30.0-34.9) 11/04 documented as of this encounter (statuses as of 04/01/2023) [address]04-2018 History of Past illness Narrative* Problem Noted Date Diagnosed Date Resolved Date DM type 1 (diabetes mellitus, type 1) 11/07/2017 Obesity (BMI 30.0-34.9) 11/04 documented as of this encounter (statuses as of 04/06/2023) [place]* Diagnosis Abscess- Primary Cellulitis and abscess of unspecified site Type 1 diabetes mellitus with other specified complication (HCC) [facility]: [facility]* Diagnosis Viral hepatitis without hepatic coma, unspecified chronicity, unspecified viral hepatitis type- Primary Viral hepatitis A without hepatic coma Hepatitis Hepatitis, unspecified Hepatitis A infection Viral hepatitis A without mention of hepatic coma Hepatitis A Viral hepatitis A without mention of hepatic coma [facility] Work [facility]: Evaluation note* Diagnosis Uncontrolled type 1 diabetes mellitus with hyperglycemia (HCC) [facility] Diagnosis Type 1 diabetes mellitus without complication (HCC)- Primary Type I (juvenile type) diabetes mellitus without mention of complication, not stated as uncontrolled Hypoglycemia due to type 1 diabetes mellitus (HCC) documented in this encounter [facility] note* Diagnosis Type 1 diabetes mellitus without complication (HCC) Type I (juvenile type) diabetes mellitus without mention of complication, not stated as uncontrolled documented in this encounter [facility] note* Diagnosis Erectile dysfunction, unspecified erectile dysfunction type- Primary documented in this encounter [facility] note* Diagnosis Illicit drug use Other, mixed, or unspecified nondependent drug abuse, unspecified [facility]* Diagnosis Type 1 diabetes mellitus without complication (HCC) Type I (juvenile type) diabetes mellitus without mention of complication, not stated as uncontrolled [facility] Diagnosis Type 1 diabetes mellitus without complication (HCC)- Primary Type I (juvenile type) diabetes mellitus without mention of complication, not stated as uncontrolled Hypoglycemia due to type 1 diabetes mellitus (HCC) [facility]* Diagnosis Acute pain of right shoulder- Primary documented in this encounter [facility] note* Diagnosis Poorly controlled type 1 diabetes mellitus (HCC)- Primary Type I (juvenile type) diabetes mellitus without mention of complication, not stated as uncontrolled Type 1 diabetes mellitus without complication (HCC) Type I (juvenile type) diabetes mellitus without mention of complication, not stated as uncontrolled [facility]* Diagnosis Type 1 diabetes mellitus without complication (HCC) Type I (juvenile type) diabetes mellitus without mention of complication, not stated as uncontrolled documented in this encounter [facility] Discharge instructions* Attachments The following attachments cannot be sent through Care Everywhere. * Hepatitis ([place]) [facility] Summary Purpose Family History No Family History Records FoundNo Family History Records FoundNo Family History Records FoundNo Family History Records FoundNo Family History Records Found Advance Directives No Advanced Directives Records FoundDocuments on File Type Date Recorded Patient Public Health Staff Nurse Expl anation Advance Directive(s) 10/04/2018 10:57 AM Reason for Referral Status Reason Specialty Diagnoses / Procedures Referred By Contact Referred To Contact Open Specialty Services Required Wound Care / IP Unit Diagnoses Abscess Da Guido DO [address] [place] [address] [address] [address] [place] [id number] Scheduling Instructions [facility] [place] [address] [place] [address] Specialty Diagnoses / Procedures Referred By Contac t Referred To Contact Diagnoses Type 1 diabetes mellitus without complication (HCC) Elena Garner, [employer] REPA[employer].SIGN ERECTOR [address] [address] Referral ID Status Reason Start Date Expiration Date Visits Re quested Visits Authorized [id number] Closed 1 1 Referral ID Status Reason Start Date Expiration Date Visits Re quested Visits Authorized [id number] Closed 1 1 Specialty Diagnoses / Procedures Referred By Contac t Referred To Contact Urology Diagnoses Erectile dysfunction, unspecified erectile dysfunction type Procedures CONSULT TO UROLOGY OFFICE/OUTPATIENT [facility] 60-74 MINUTES Eelna Garner, [employer] REPAIR[employer].SIGN ERECTOR [address] [address] Referral ID Status Reason Start Date Expiration Date Visits Requested Visits Authorized [id number] Authorized PCP Requested Referral 02/04/2022 02/04/2023 1 1 Referral ID Status Reason Start Date Expiration Date Visits Re quested Visits Authorized [id number] Closed 1 1 Specialty Diagnoses / Procedures Referred By Contac t Referred To Contact Orthopedics Diagnoses Acute pain of right shoulder Procedures CONSULT TO ORTHOPAEDICS OFFICE/OUTPATIENT NEW HIGH MDM 60-74 MINUTES Mikaela Langley, ART.SIGN ERECTOR [address] [place] [address] Referral ID Status Reason Start Date Expiration Date Visits Requested Visits Authorized [id number] Authorized PCP Requested Referral 09/20/2022 09/20/2023 1 1 Specialty Diagnoses / Procedures Referred By Contac t Referred To Contact XR IMAGING Diagnoses Acute pain of right shoulder Procedures XR SHOULDER [id number] AP/TRUE AP RIGHT RADEX SHOULDER COMPLETE MINIMUM 2 VIEWS Mikaela Langley APRN.SIGN ERECTOR [address] [place] [address] Xr Imaging Referral ID Status Reason Start Date Expiration Date Visits Requested Visits Authorized [id number] Pending Review Auto-Generat ed Referral 09/20/2022 10/20/2023 1 1 Additional Source Comments (unrecognized sect ion and content) No Status Records FoundNo Status Records FoundNo Status Records FoundNo Status Records FoundNo Status Records Found INFORMATION SOURCE (unrecogn ized section and content) DATE CREATED AUTHOR AUTHOR'S ORGANIZ ATION 03/11/2022 [facility] DATE CREATED AUTHOR [facility]S [facility]IZ AT[facility] CREATED AUTHOR AUTHOR'S ORGANIZ ATION 01/11/2023 [facility] DATE CREATED AUTHOR AUTHOR'S ORGANIZ ATION 06/01/2023 [facility] Reason for Visit (unrecogniz ed section and content) Reason Comments Generalized Body Aches Jaundice Abscess possible R.AC from I V METH use 3 weeks ago. bruising noted, no redness Reason Comments Refill Request Reason Comments Appointment 3rd no show appt in a year. Call placed to inform patient of policy. Reason Comments Follow Up Insulin Dependent Diabetes Mellitus Reason Onset Date Comments Refill Request 01/18/2022 Reason Onset Date Comments Refill Request 02/04/2022 Reason Onset Date Comments Refill Request 02/04/2022 Reason Onset Date Comments Population Health Navigation Outreach 03/05/2022 [facility] CARE GAP Reason Comments Insulin Dependent Diabetes Mellitus Reason Comments Appointment Reason Comments Acute Visit Left shoulder pain, has been going on and off for a month. Reason Onset Date Comments Population Health Navigation Outreach 12/20/2022 [facility] Medicaid care gap Reason Comments Consult New Patient Reason Onset Date Comments Refill Request 02/01/2023 Ordered Prescriptions (unrec ognized section and content) Scheduled Active and Recently Administ ered Medications (unrecognized section and content) Source Comments (unrecognize d section and content) In the event this informatio n is protected by the Federal Confidentiality of Alcohol and Drug Abuse Patient Records regulations: The Federal rules restrict any use of the information to criminally investigate or prosecute any alcohol or drug abuse patient.[place] the event this information is protected by the Federal Confidentiality of Alcohol and Drug Abuse Patient Records regulations: The Federal rules restrict any use of the information to criminally investigate or prosecute any alcohol or drug abuse patient.[place] the event this information is protected by the Federal Confidentiality of Alcohol and Drug Abuse Patient Records regulations: The Federal rules restrict any use of the information to criminally investigate or prosecute any alcohol or drug abuse patient.[place] the event this information is protected by the Federal Confidentiality of Alcohol and Drug Abuse Patient Records regulations: The Federal rules restrict any use of the information to criminally investigate or prosecute any alcohol or drug abuse patient.[place] the event this information is protected by the Federal Confidentiality of Alcohol and Drug Abuse Patient Records regulations: The Federal rules restrict any use of the information to criminally investigate or prosecute any alcohol or drug abuse patient.[place] the event this information is protected by the Federal Confidentiality of Alcohol and Drug Abuse Patient Records regulations: The Federal rules restrict any use of the information to criminally investigate or prosecute any alcohol or drug abuse patient.[place] the event this information is protected by the Federal Confidentiality of Alcohol and Drug Abuse Patient Records regulations: The Federal rules restrict any use of the information to criminally investigate or prosecute any alcohol or drug abuse patient.[place] the event this information is protected by the Federal Confidentiality of Alcohol and Drug Abuse Patient Records regulations: The Federal rules restrict any use of the information to criminally investigate or prosecute any alcohol or drug abuse patient.[place] the event this information is protected by the Federal Confidentiality of Alcohol and Drug Abuse Patient Records regulations: The Federal rules restrict any use of the information to criminally investigate or prosecute any alcohol or drug abuse patient.[place] the event this information is protected by the Federal Confidentiality of Alcohol and Drug Abuse Patient Records regulations: The Federal rules restrict any use of the information to criminally investigate or prosecute any alcohol or drug abuse patient.[place] the event this information is protected by the Federal Confidentiality of Alcohol and Drug Abuse Patient Records regulations: The Federal rules restrict any use of the information to criminally investigate or prosecute any alcohol or drug abuse patient.[place] the event this information is protected by the Federal Confidentiality of Alcohol and Drug Abuse Patient Records regulations: The Federal rules restrict any use of the information to criminally investigate or prosecute any alcohol or drug abuse patient.[place] the event this information is protected by the Federal Confidentiality of Alcohol and Drug Abuse Patient Records regulations: The Federal rules restrict any use of the information to criminally investigate or prosecute any alcohol or drug abuse patient.[place] the event this information is protected by the Federal Confidentiality of Alcohol and Drug Abuse Patient Records regulations: The Federal rules restrict any use of the information to criminally investigate or prosecute any alcohol or drug abuse patient.[place]In the event this information is protected by the Federal Confidentiality of Alcohol and Drug Abuse Patient Records regulations: The Federal rules restrict any use of the information to criminally investigate or prosecute any alcohol or drug abuse patient.[facility] ClinicIn the event this information is protected by the Federal Confidentiality of Alcohol and Drug Abuse Patient Records regulations: The Federal rules restrict any use of the information to criminally investigate or prosecute any alcohol or drug abuse patient.[place]In the event this information is protected by the Federal Confidentiality of Alcohol and Drug Abuse Patient Records regulations: The Federal rules restrict any use of the information to criminally investigate or prosecute any alcohol or drug abuse patient.[place] the event this information is protected by the Federal Confidentiality of Alcohol and Drug Abuse Patient Records regulations: The Federal rules restrict any use of the information to criminally investigate or prosecute any alcohol or drug abuse patient.[place]In the event this information is protected by the Federal Confidentiality of Alcohol and Drug Abuse Patient Records regulations: The Federal rules restrict any use of the information to criminally investigate or prosecute any alcohol or drug abuse patient.[place]In the event this information is protected by the Federal Confidentiality of Alcohol and Drug Abuse Patient Records regulations: The Federal rules restrict any use of the information to criminally investigate or prosecute any alcohol or drug abuse patient.[place] the event this information is protected by the Federal Confidentiality of Alcohol and Drug Abuse Patient Records regulations: The Federal rules restrict any use of the information to criminally investigate or prosecute any alcohol or drug abuse patient.[place] Care Teams (unrecognized sec tion and content) Phlebotomy Support Tech Relationship Specialty Start Date End Date Darren Argueta MD [address] [place] [address] PCP - General Family Practice 03/17/17 Phlebotomy Support Tech Relationship Specialty Start Date End Date Darren Argueta MD [address] [place] [address] PCP - General Family Practice 03/17/17 Phlebotomy Support Tech Relationship Specialty Start Date End Date Darren Argueta MD [address] [place] [address] PCP - General Family Practice 03/17/17 Phlebotomy Support Tech Relationship Specialty Start Date End Date Darren Argueta MD [address] [place] [address] PCP - General Family Practice 03/17/17 Phlebotomy Support Tech Relationship Specialty Start Date End Date Darren Argueta MD [address] [facility] [place] [address] PCP - General Family Practice 03/17/17 Phlebotomy Support Tech Relationship Specialty Start Date End Date Darren Argueta MD [address] [facility] [place] [address] PCP - General Family Practice 03/17/17 Phlebotomy Support Tech Relationship Specialty Start Date End Date Darren Argueta MD [address] [facility] [place] [address] PCP - General Family Practice 03/17/17 Phlebotomy Support Tech Relationship Specialty Start Date End Date Darren Argueta MD [address] [facility] [place] [address] PCP - General Family Medicine 03/17/17 Phlebotomy Support Tech Relationship Specialty Start Date End Date Darren Argueta MD [address] [facility] [place] [address] PCP - General Family Medicine 03/17/17 Phlebotomy Support Tech Relationship Specialty Start Date End Date Darren Argueta MD [address] [facility] [place] [address] PCP - General Family Medicine 03/17/17 Phlebotomy Support Tech Relationship Specialty Start Date End Date Darren Argueta MD [address] [facility] [place] [address] PCP - General Family Medicine 03/17/17 Phlebotomy Support Tech Relationship Specialty Start Date End Date Darren Argueta MD [address] [facility] [place] [address] PCP - General Family Medicine 03/17/17 Phlebotomy Support Tech Relationship Specialty Start Date End Date Darren Argueta MD [address] [place] [address] PCP - General Family Medicine 03/17/17 Phlebotomy Support Tech Relationship Specialty Start Date End Date Darren Argueta MD [address] [place] [address] PCP - General Family Medicine 03/17/17 FOR RECORDS PERTAINING TO PATIENTS WHO ARE OR HAVE BEEN ENROLLED IN A CHEMICAL DEPENDENCY/SUBSTANCEABUSE PROGRAM, SOME INFORMATION MAY BE OMITTED. This clinical summary was aggregated from multiple sources. Caution should be exercised in using it in the provision of clinical care. This summary normalizes information from multiple sources, and as a consequence, information in this document may materially change the coding, format and clinical context of patient data. In addition, data may be omitted in some cases. CLINICAL DECISIONS SHOULD BE BASED ON THE PRIMARY CLINICAL RECORDS. [facility]. provides no warranty or guarantee of the accuracy or completeness of information in this document.
== END 2023-06-03 01:30 | disposition left against medical advice (07) ==
PROVIDERS: Emergency Provider Emergency Medicine; Referring Provider Emergency Medicine; Visit Provider Emergency Medicine
DX: E10.638 Type 1 diabetes mellitus with other oral complications (principal); F31.9 Bipolar disorder, unspecified; Z79.4 Long term (current) use of insulin; F17.210 Nicotine dependence, cigarettes, uncomplicated
CPT/HCPCS: 99282

== ENCOUNTER 2023-08-08 04:54 | Observation (INO) | payer MEDICAID, SELFPAY ==
[2023-08-08] VITALS (22 sets, daily range): BP systolic 119–204; BP diastolic 66–148; PULSE 81–147; RESP 12–23; TEMP 36.2–37; O2SAT 97–100; BMI 22.4; BMI 21.7
--- NOTE | 2023-08-08 05:11 | EDS_ITS ---
HPI HPI - GI History of Present Illness Chief Complaint: Nausea/Vomiting Informant: patient Abdominal Pain/Flank Pain Onset: Days (2) Context: Sudden Onset Timing: Continuous Quality: Aching, Burning, Cramping, Dull, Sharp and Stabbing Location: Epigastric, RUQ and LUQ Worsened by: Nothing Relieved by: Nothing Nausea/Vomiting/Emesis GI Symptom: Positive for Nausea and Vomiting Onset: Days (2) Quality: Positive for - (Dark emesis) Diarrhea/Melena/Hematochezia GI Symptom: Negative for Diarrhea, Melena or Hematochezia Associated Symptoms Associated Symptoms: Negative for Dysuria, Frequency or Hematuria Narrative Narrative: Patient presents with nausea and vomiting and abdominal pain that has been constant for the past 2 days. Patient states he has been vomiting up some dark emesis. Patient states he has pain diffusely across his upper abdomen. Patient states it is constant. Patient is nothing makes it better and nothing makes it worse. Patient admits to some constipation. Patient denies any melena or hematochezia. Patient denies any dysuria, hematuria, or frequency. Patient denies any fevers or chills. Patient states his pain radiates into his back. [facility] Medical History Bipolar 1 disorder Fracture, jaw Methamphetamine abuse Overdose Type 1 diabetes mellitus Home Medications insulin glargine 100 unit/mL subcutaneous solution (Lantus U-100 Insulin) 38 unit subcut QHS 02/22/18 [History Last Taken Unknown] insulin lispro 100 unit/mL subcutaneous solution (Humalog U-100 Insulin) 14 unit subcut BID 02/22/18 [History Last Taken Unknown] mirtazapine 30 mg tablet (Remeron) 30 mg PO QHS 01/11/23 [History Last Taken Unknown] Allergy/AdvReac Type Severity Reaction Status Date / Time morphine AdvReac Itching Verified 08/08/23 05:03 Surgical History History of mandibular surgery Social History household members: none Smoking Status: Current every day smoker tobacco type: cigarettes ROS ROS ED Constitutional Constitutional ED: Denies chills or fever(s) Eyes Eyes: Denies blurry vision or change in vision ENT ENT ED: Reports rhinorrhea; Denies sore throat Cardiovascular Cardiovascular: Denies chest pain or palpitations Respiratory/Chest Respiratory/Chest: Denies cough or dyspnea Gastrointestinal Gastrointestinal: Reports abdominal pain, constipation, nausea and vomiting; Denies diarrhea or melena Genitourinary Genitourinary ED: Denies dysuria or hematuria Musculoskeletal Musculoskeletal: Reports back pain; Denies neck pain Integumentary Denies abscess or rash Neurologic Neurologic: Denies headache(s) or weakness Allergic/Immunologic Allergic/Immunologic ED: Denies mouth swelling or urticaria EXAM Physical Exam Const Vital Signs: 08/08/23 04:55 08/08/23 05:03 08/08/23 07:48 Temperature 97.2 F L Temperature Source Temporal Pulse Rate 147 H 91 Respiratory Rate 20 H 18 Blood Pressure 204/148 H 124/90 H Blood Pressure Mean 166 101 Pulse Ox 99 99 Oxygen Delivery Method Room Air Room Air Positive well nourished and well developed General Appearance ED: well developed and NAD HEENT Reports moist mucous membranes Neck supple and no JVD Resp normal respiratory effort and clear to auscultation bilaterally Cardio regular rhythm Rate: tachycardic GI non-distended Palpation: soft and tender epigastric, LUQ and RUQ; Negative for guarding or rebound tenderness present Neuro CN's II-XII intact bilaterally, moves all extremities and no sensory deficits noted Sensorium / Orientation: alert Motor Exam: strength 5/5 throughout Psych mental status grossly normal MDM MDM MDM Narrative Medical decision making narrative: Differential diagnosis includes diabetic ketoacidosis, electrolyte abnormality, dehydration, gastritis, peptic ulcer disease, GERD, duodenal ulcer, pancreatitis, and [place] tear. CBC will be obtained to assess for leukocytosis and anemia. Comprehensive metabolic profile will be obtained to assess for hepatic function, renal function, and electrolyte abnormality. Lipase will be obtained to assess for pancreatitis. Urinalysis will be obtained to assess for urinary tract infection and hematuria. Serum acetone will be obtained to assess for ketoacidosis. Lab Data Attestation: I reviewed the patient's lab results. Lab results narrative: CBC was reviewed. There is a leukocytosis of 16.1. Hemoglobin was slightly elevated at 17.7. Platelets were slightly elevated at 456. Comprehensive metabolic profile was reviewed. BUN was elevated at 29 and creatinine was 1.58. Glucose was elevated at 421. Sodium was low at 131 and chloride was 93. Anion gap was elevated at 25. CO2 was low at 13. Total bilirubin was slightly elevated at 1.4. AST was slightly elevated at 60 and ALT was slightly elevated at 274. Alkaline phosphatase was elevated at 187. Serum acetone was reviewed and was small. Urinalysis was reviewed. Urine glucose was 1000 and urine ketones were 150. Leukocyte esterase was negative. Labs: Laboratory Results - last 24 hr 08/08/23 08/08/23 08/08/23 06:00 07:35 08:25 WBC 16.1 H RBC 6.18 Hgb 17.7 H Hct 52.8 MCV 85.4 MCH 28.6 MCHC 33.5 RDW Std Deviation 41.1 RDW Coeff of [place] 13.2 Plt Count 456 H MPV 9.2 Immature Gran % (Auto) 1.100 H Neut % (Auto) 83.9 H Lymph % (Auto) 9.0 L [place] % (Auto) 5.5 Eos % (Auto) 0.0 Baso % (Auto) 0.5 Absolute Neuts (auto) 13.5 H Absolute Lymphs (auto) 1.45 Nucleated RBC % 0 Sodium 131 L Potassium 4.5 Chloride 93 L Carbon Dioxide 13.0 L Anion Gap 25 H BUN 29 H Creatinine 1.58 H Estim Creat Clear Calc 56.72 Est GFR (MDRD) Af Amer 66 Est GFR (MDRD) Non-Af 54 L BUN/Creatinine Ratio 18.4 Glucose 421 H Calcium 10.6 H Total Bilirubin 1.40 H AST 60 H ALT 274 H Alkaline Phosphatase 187 H Total Protein 9.3 H Albumin 4.5 Globulin 4.8 H Albumin/Globulin Ratio 0.9 Urine Color Yellow Urine Clarity Clear Urine pH 5.0 Ur Specific [place] 1.025 Urine Protein 30 H Urine Glucose (UA) 1000 H Urine Ketones 150 A* Urine Occult Blood 50 H Urine Nitrite Negative Urine Bilirubin Negative Urine Urobilinogen Normal Ur Leukocyte Esterase Negative Urine RBC 0-5 SEEN Urine WBC 0 SEEN Ur Squamous Epith Cells 0 SEEN Urine Bacteria 0 SEEN Hyaline Casts 0-5 SEEN Urine Mucus 0 SEEN Acetone Level SMALL H Management Discussion w/another healthcare provider: Hospitalist Treatment and Re-Evaluation :: Patient was given IV fluids and Zofran. Patient was feeling better on reevaluation. Patient was advised of his findings. Patient was advised of the need for admission and IV insulin. Patient is agreeable with this. Patient was started on insulin drip. Chest x-ray will be obtained to assess for pneumonia. Case will be discussed with the hospitalist for admission. He was in to evaluate the patient. He recommended giving the patient another liter of IV fluids. He will admit the patient to ICU. Critical Care Time Critical care time (excluding procedures): 30-74 minutes (32), Including time spent:, Discussing w/Patient &/or Family/Electrical Journeyman, Discussing w/Consultants, Arranging Admission or Transfer and Performing Direct Patient Care at Bedside Discharge Plan Dx/Rx/DC Orders Clinical Impression: Diabetic ketoacidosis, Transaminitis Disposition Disposition: Acute Care Hospital [facility]
[2023-08-08] MEDS: 0.9% Normal Saline (1000mL) 1,000 ML 1000 ML IV ×3 (07:41→11:18)
[2023-08-08] MEDS: Ondansetron 4 MG/2 ML Vial IV (07:41)
[2023-08-08 07:48] LABS: Absolute Lymphocyte Count 1.45 X10^3/uL (0.83-4.51); Absolute Neutrophil Count 13.5 X10^3/uL (2.0-7.7); Basophil# 0.08 X10^3/uL; Basophil% 0.5 % (0-1); Hematocrit 52.8 % (40-54); Hemoglobin 17.7 g/dL (13.0-16.5); Lymphocyte # 1.45 X10^3/ul (0.83-4.51); Mean Corp Hgb Conc 33.5 g/dL (32-36); Mean Corpuscular Hgb 28.6 pg (27.0-32.0); Mean Corpuscular Volume 85.4 fL (80-94); Mean Platelet Vol. 9.2 fl (6.2-12.0); Monocyte# 0.89 X10^3/uL; Monocyte% 5.5 % (0-10); NRBC Flagged by Analyzer 0 % (0-5); Neutrophil # 13.46 X10^3/uL (2.7-7.7); Neutrophil % 83.9 % (47-70); Platelet Count 456 K/mm3 (150-450); RBC Distribution Width CV 13.2 % (11.6-14.6); RBC Distribution Width SD 41.1 fl (35.1-43.9); Red Blood Count 6.18 M/mm3 (4.6-6.2); White Blood Count 16.1 K/mm3 (4.4-11.0)
[2023-08-08 08:00] LABS: ALB/GLOB Ratio 0.9 RATIO (0.9-2.4); AST(SGOT) 60 U/L (15-37); Alanine Aminotransfer ALT/SGPT 274 U/L (16-61); Albumin, Serum 4.5 g/dL (3.2-5.0); Alkaline Phosphatase 187 U/L (45-117); Anion Gap 25 (5-15); BUN 29 mg/dL (7-18); BUN/Creat Ratio 18.4 RATIO (10-20); Calcium,Total 10.6 mg/dL (8.5-10.1); Chloride 93 mmol/L (98-107); Creatinine, Serum 1.58 mg/dL (0.70-1.30); EST Glomerular Filtration Rate 54 mL/min (>60); Est Glom Filt Rate - Afr Amer 66 mL/min (>60); Estimated Creatinine Clearance 56.72 ml/min; Globulin 4.8 g/dL (2.2-4.2); Glucose 421 mg/dL (74-106); Potassium 4.5 mmol/L (3.5-5.1); Protein, Total 9.3 g/dL (6.4-8.2); Sodium Level 131 mmol/L (136-145)
[2023-08-08 08:32] LABS: Bacteria 0 SEEN /hpf (None Seen); Mucous, Urine 0 SEEN /hpf (<or=2+); Squamous Epithelial Cells - UA 0 SEEN /hpf (0-5); White Blood Cells 0 SEEN /hpf (0-5)
[2023-08-08 08:33] LABS: Color, Urine Yellow (Yellow); Glucose, Dipstick 1000 mg/dl (Normal); Leukocyte Esterase-Dipstick Negative /ul (Negative); Nitrite-Dipstick Negative (Negative); Occult Blood-Urine 50 /ul (Negative); Protein-Dipstick 30 mg/dl (Negative); Specific Gravity, Urine 1.025 (1.002-1.030); Urine Bilirubin Dipstick Negative (Negative); Urine Clarity Clear (Clear); Urine Urobilinogen Normal (Normal)
[2023-08-08 08:39] LABS: Ketone-Dipstick 150 mg/dl (Negative)
[2023-08-08 08:45] LABS: Hyaline Cast 0-5 SEEN /lpf (0-5); Red Blood Cells-Urine 0-5 SEEN /hpf (0-5)
--- NOTE | 2023-08-08 09:25 | HP.PCM.HOS_ITS ---
HPI - General General Date of Admission: 08/08/23 Date of Service: 08/08/23 Chief Complaint: Nausea vomiting for 2 days. Not able to eat or drink for 2 days. In DKA HPI Narrative COOPER WYNN, is a 32 M with history of type 1 diabetes mellitus accompanied by his mother in ED for nausea, vomiting abdominal pain constant for about 2 days. Patient is stated he cannot keep anything down and vomited some dark content. Complain of persistent upper abdominal pain, generalized. He further said he did not move his bowels for the 4 days but passing gas. Denies coffee- ground hematemesis, melena or hematochezia. No dysuria hematuria but having mustard colored urine. No fever. Has chronic cough attributes to smoker's cough. Denies any recent acute febrile, flulike illness. Vital signs in ED shows tachycardia 147 bpm, RR 20/min, BP 201/48 but most recent 1 within normal limit. Labs reviewed consistent with DKA. In ED, patient found very dehydrated and currently on 1 L of normal saline. 1 more liter of normal saline, then start IV insulin drip. [facility] Medical History Bipolar 1 disorder Fracture, jaw Methamphetamine abuse Overdose Type 1 diabetes mellitus Home Medications insulin glargine 100 unit/mL subcutaneous solution (Lantus U-100 Insulin) 38 unit subcut QHS 02/22/18 [History Last Taken Unknown] insulin lispro 100 unit/mL subcutaneous solution (Humalog U-100 Insulin) 14 unit subcut BID 02/22/18 [History Last Taken Unknown] mirtazapine 30 mg tablet (Remeron) 30 mg PO QHS 01/11/23 [History Last Taken Unknown] Allergy/AdvReac Type Severity Reaction Status Date / Time morphine AdvReac Itching Verified 08/08/23 05:03 Surgical History History of mandibular surgery Social History household members: none Smoking Status: Current every day smoker tobacco type: cigarettes ROS ROS Narrative Constitutional: Reports fatigue and weakness. No fever. HEENT: Reports systems reviewed and no addt'l complaints, except as documented Respiratory/Chest: Chronically smoker. No acute shortness of breath or respiratory distress or wheezing. CVS: Tachycardia. Gastrointestinal: As described in HPI Genitourinary: Denies burning urination. Mustard colored urine Musculoskeletal: Denies acute joint pain or limited range of motion. No acute injury Neurologic: Chronic involuntary movement. Denies recent tonic-clonic seizure. Has history of seizure last 1 more than 5 years ago. skin: No ulcer. No rash Endocrinology: Reports systems reviewed and no addt'l complaints, except as documented Hematologic/Lymphatic: Reports systems reviewed and no addt'l complaints, except as documented Rest 14 ROS are negative except as mentioned in HPI Vital Signs Vital Signs Vital Signs: 08/08/23 04:55 08/08/23 05:03 08/08/23 07:48 Temperature 97.2 F L Temperature Source Temporal Pulse Rate 147 H 91 Respiratory Rate 20 H 18 Blood Pressure 204/148 H 124/90 H Blood Pressure Mean 166 101 Pulse Ox 99 99 Oxygen Delivery Method Room Air Room Air Weight Weight: 130 lb 15.273 oz Body Mass Index (BMI) 22.4 Physical Exam Narrative General: Awake, fatigue, lethargic, oriented x3, Cooperative HEENT: Atraumatic, PERRLA, EOMI, Normocephalic Oral: Oral mucosa very dry. No Gingival or Mucosal Lesions/ Ulcerations Neck: Supple, No JVD, Negative Carotid Bruits Chest wall/Lungs: Air entry diminished in bilateral lung bases. No crepitation/rhonchi Cardiovascular: Sinus tachycardia, Normal S1, Normal S2, No M/G/R Abdomen: Bowel Sounds Present, Soft, Non Tender, Non-Distended : No dysuria. No renal angle tenderness. No suprapubic tenderness. Extremities: No edema, Capillary Refill Less than 3 Seconds Skin: No rashes, No breakdown Musculoskeletal: ROM intact. Muscle strength 4+/5 at knees and knee joints. No Tenderness to Palpation of Joints or Extremities Neurological: Cranial nerves II-XII grossly intact, DTR 2+/4. Nonspecific involuntary, rapid, brief, jerky, flail like proximal movement of lower extr emities Psych/Mental Status: Flat affect. History of bipolar on mirtazapine Results Lab / Micro Data 08/08/23 07:35 08/08/23 07:35 Labs: Laboratory Results - last 24 hr 08/08/23 06:00: Acetone Level SMALL H 08/08/23 07:35: WBC 16.1 H, RBC 6.18, Hgb 17.7 H, Hct 52.8, MCV 85.4, MCH 28.6, MCHC 33.5, RDW Std Deviation 41.1, RDW Coeff of [place] 13.2, Plt Count 456 H, MPV 9.2, Immature Gran % (Auto) 1.100 H, Neut % (Auto) 83.9 H, Lymph % (Auto) 9.0 L, [place] % (Auto) 5.5, Eos % (Auto) 0.0, Baso % (Auto) 0.5, Absolute Neuts (auto) 13.5 H, Absolute Lymphs (auto) 1.45, Nucleated RBC % 0, Sodium 131 L, Potassium 4.5, Chloride 93 L, Carbon Dioxide 13.0 L, Anion Gap 25 H, BUN 29 H, Creatinine 1.58 H, Estim Creat Clear Calc 56.72, Est GFR (MDRD) Af Amer 66, Est GFR (MDRD) Non-Af 54 L, BUN/Creatinine Ratio 18.4, Glucose 421 H, Calcium 10.6 H, Total Bilirubin 1.40 H, AST 60 H, ALT 274 H, Alkaline Phosphatase 187 H, Total Protein 9.3 H, Albumin 4.5, Globulin 4.8 H, Albumin/Globulin Ratio 0.9 08/08/23 08:25: Urine Color Yellow, Urine Clarity Clear, Urine pH 5.0, Ur Specific [place] 1.025, Urine Protein 30 H, Urine Glucose (UA) 1000 H, Urine Ketones 150 A*, Urine Occult Blood 50 H, Urine Nitrite Negative, Urine Bilirubin Negative, Urine Urobilinogen Normal, Ur Leukocyte Esterase Negative, Urine RBC 0-5 SEEN, Urine WBC 0 SEEN, Ur Squamous Epith Cells 0 SEEN, Urine Bacteria 0 SEEN, Hyaline Casts 0-5 SEEN, Urine Mucus 0 SEEN Assessment & Plan Assessment/Plan (1) Diabetic ketoacidosis: QUALIFIERS: Diabetes mellitus type: type 1 Diabetes mellitus complication detail: without coma Qualified Code(s): E10.10 - Type 1 diabetes mellitus with ketoacidosis without coma PLAN: Plan This is a 32-year-old gentleman with history of type 1 diabetes mellitus being admitted for DKA 1. DKA with history of type 1 diabetes mellitus: Patient is being admitted in ICU. Very dehydrated therefore 2 L of normal saline ordered and then start IV insulin drip. Labs reviewed and shows anion gap 25, bicarb 13, potassium 4.5. ABG/VBG ordered. Serum magnesium and phosphorus ordered. 2. Hypertonic hypovolemic hyponatremia due to DKA: Sodium is lowered because of hyperglycemia and DKA. Serum sodium 131, glucose 421, corrected serum sodium is around 136. 3. DONAVON most likely prerenal from dehydration: BUNs/creatinine 20/1.58. During previous admissions, patient's creatinine was also elevated 1.61, 1.3 too although baseline creatinine is normal 1.02. 4. Elevated liver chemistry probably due to DKA/hypovolemia: TB 1.4, ALT and elevated elevated ALT more than AST, 4:1 ratio. Alkaline phosphatase 187. Follow liver chemistry. 5. Chronic smoker with history of amphetamine use in the past: U tox is ordered. Nicotine patch ordered. Consult to quit smoking and substance use. 6. Bipolar disorder type I: On mirtazapine 30 mg nightly, will decrease to 15 mg nightly daily. Living will/advanced directive/end of life care: Patient does not have living will or advanced directive. Does not have power of compliance attorney for health but her mother is next of kin, present in the ED. After discussion of benefits/risks procedures involved with full code, DNR CC arrest and DNR CC, the patient and her mother opted for full code. Patient does want artificial life support including intubation, tube feed, ventilator and/chest compression, central venous catheter, vasopressor and DC shock if needed Total time spent in [id number] encounter in discussion of advanced directive 17 minutes. Laboratory Results 08/08/23 06:00: Serum Osmolality Pending, Acetone Level SMALL H 08/08/23 07:35: WBC 16.1 H, RBC 6.18, Hgb 17.7 H, Hct 52.8, MCV 85.4, MCH 28.6, MCHC 33.5, RDW Std Deviation 41.1, RDW Coeff of [place] 13.2, Plt Count 456 H, MPV 9.2, Immature Gran % (Auto) 1.100 H, Neut % (Auto) 83.9 H, Lymph % (Auto) 9.0 L, [place] % (Auto) 5.5, Eos % (Auto) 0.0, Baso % (Auto) 0.5, Absolute Neuts (auto) 13.5 H, Absolute Lymphs (auto) 1.45, Nucleated RBC % 0, Sodium 131 L, Potassium 4.5, Chloride 93 L, Carbon Dioxide 13.0 L, Anion Gap 25 H, BUN 29 H, Creatinine 1.58 H, Estim Creat Clear Calc 56.72, Est GFR (MDRD) Af Amer 66, Est GFR (MDRD) Non-Af 54 L, BUN/Creatinine Ratio 18.4, Glucose 421 H, Calcium 10.6 H, Magnesium Pending, Total Bilirubin 1.40 H, AST 60 H, ALT 274 H, Alkaline Phosphatase 187 H, Total Protein 9.3 H, Albumin 4.5, Globulin 4.8 H, Albumin/Globulin Ratio 0.9 08/08/23 08:25: Urine Color Yellow, Urine Clarity Clear, Urine pH 5.0, Ur Specific [place] 1.025, Urine Protein 30 H, Urine Glucose (UA) 1000 H, Urine Ketones 150 A*, Urine Occult Blood 50 H, Urine Nitrite Negative, Urine Bilirubin Negative, Urine Urobilinogen Normal, Ur Leukocyte Esterase Negative, Urine RBC 0-5 SEEN, Urine WBC 0 SEEN, Ur Squamous Epith Cells 0 SEEN, Urine Bacteria 0 SEEN, Hyaline Casts 0-5 SEEN, Urine Mucus 0 SEEN Charges/Coding Visit Charges Inpatient E&M: 73342 Init Hosp L3
--- NOTE | 2023-08-08 09:38 | EKG12_ITS ---
Test Reason : Blood Pressure : / mmHG Vent. Rate : 112 BPM Atrial Rate : 112 BPM P-R Int : 128 ms QRS Dur : 092 ms QT Int : 304 ms P-R-T Axes : 004 084 011 degrees QTc Int : 414 ms Sinus tachycardia Otherwise normal ECG Confirmed by Guru Zuniga ([id number]), film editor KIKO PERALES ([id number]) on 08/09/2023 2:22:10 PM Referred By: Confirmed By:Guru Zuniga
[2023-08-08 09:40] LABS: Magnesium 2.4 mg/dL (1.6-2.6)
--- NOTE | 2023-08-08 09:40 | RAD_ITS ---
INDICATION: Dyspnea EXAMINATION/TECHNIQUE: X-RAY - XR Chest 1 View COMPARISON: January 11 and April 03, 2023 FINDINGS: LINES/DEVICES: None. LUNGS: There is a stable 1.6 cm nodule within the right midlung. No pneumothorax. MEDIASTINUM AND CARDIOVASCULAR STRUCTURES: Cardiac silhouette not enlarged. Central airways and mediastinal contour are unremarkable. BONES AND SOFT TISSUES: Unremarkable. RAD/Chest 1 View (Portable) IMPRESSION: Stable 1.6 cm nodule within the right midlung. Electronically Signed: Lizzy Castillo MD at 9:54 EST ,
[2023-08-08 10:00] LABS: Bedside Glucose 358 mg/dL (74-106)
[2023-08-08 10:05] LABS: Phosphorus 4.8 mg/dL (2.5-4.9)
[2023-08-08] MEDS: Insulin Lispro 100 UNIT in 0.9% Normal Saline (100mL Bag) 99 ML 5.9 UNIT CONT INF (10:06)
[2023-08-08 10:11] LABS: Amphetamine Urine VISTA POSITIVE (<1000 ng/mL); Barbiturate Urine VISTA NEGATIVE (< 200 ng/mL); Benzodiazepine Urine VISTA NEGATIVE (< 200 ng/mL); Cocaine Urine VISTA NEGATIVE (< 300 ng/mL); Ecstacy Urine VISTA NEGATIVE (< 500 ng/mL); Methadone Urine VISTA NEGATIVE (< 300 ng/mL); PCP Urine VISTA NEGATIVE (< 25 ng/mL); THC Urine VISTA NEGATIVE (< 50 ng/mL); Vista UDS pH Range 5
[2023-08-08 10:53] LABS: Osmolality, Serum 338 mOsm/KG (275-295)
[2023-08-08 11:28] LABS: Bedside Glucose 263 mg/dL (74-106)
[2023-08-08] MEDS: Dext 5%-0.45% NS 1,000 ML 150 ML IV ×2 (12:48→18:44)
[2023-08-08 14:53] LABS: Blood Gas Specimen Type VEN; O2 Delivery Device Room Air; SITE Not entered; VBG BASE EXCESS -9 mmol/L (-1.0-3.5); VBG Bicarbonate 17 mmol/L (22-26); VBG PO2 214 mmHg (25-40); VBG SO2 100 % (50-70); VBG TCO2 17 mmol/L (23-33); VBG pCO2 29.9 mmHg (41-51); VBG pH 7.35 (7.32-7.42)
[2023-08-08 15:00] LABS: Anion Gap 13 (5-15); BUN 23 mg/dL (7-18); BUN/Creat Ratio 18.4 RATIO (10-20); Calcium,Total 8.8 mg/dL (8.5-10.1); Chloride 110 mmol/L (98-107); Creatinine, Serum 1.25 mg/dL (0.70-1.30); EST Glomerular Filtration Rate 71 mL/min (>60); Est Glom Filt Rate - Afr Amer 86 mL/min (>60); Estimated Creatinine Clearance 69.55 ml/min; Glucose 202 mg/dL (74-106); Sodium Level 140 mmol/L (136-145)
--- NOTE | 2023-08-08 15:00 | PCM.OP.PRO ---
Procedure Report Date of Procedure: 08/08/23 Assessment & Plan Assessment/Plan (1) Diabetic ketoacidosis: QUALIFIERS: Diabetes mellitus type: type 1 Diabetes mellitus complication detail: without coma Qualified Code(s): E10.10 - Type 1 diabetes mellitus with ketoacidosis without coma Procedures Radiology Radiology Access Procedures: PICC Procedure Time Out Time Out Informed consent given: Yes Consent signed: Yes Time out checklist: patient, procedure, site marked/identified, positioning of patient, supplies available and allergies confirmed Time out verified: Yes Time out date: 08/08/23 Time out time: 13:45 PICC Line Consent Screening tool completed:: Yes Consent obtained:: Yes Consent given by (patient or responsible libertarian):: PATIENT Line successful (if no, document why in comments):: Yes Insertion Reason for Insertion: Poor Venous Access Date of Insertion: 08/08/23 Ok to use: Yes Type of PICC inserted: Dual Power PICC PICC Lot #: [id number] PICC Reference #: [id number] Microintroducer Used: Yes (in kit) Ultrasound/Equipment Used: Probe Cover Kit Trimmed Length (cm): 39 Insertion Length (cm): 36 Exposed Length (cm): 3 Tip Placement: Caval Atrial Junction Placement Confirmation: 3CG Insertion Vein: Right Basilic Insertion Attempts: 1 Local Anesthesia Used: Lidocaine 1% (in kit) Dressing Applied: Statlock and Tegaderm CHG Arm Measurement above site (in cm): 29 Patient Tolerated Procedure: Well Threading Difficulties: No Comments Comment: Patient identity was verified with two patient identifiers. Informed consent was obtained and time-out was completed. Hands were sanitized. The patient was positioned supine with right arm at 90 degrees. The patient's upper arm vasculature was assessed using ultrasound. Patency of the right basilic vein was confirmed and the vein was externally marked. An external measurement was obtained of 39 cm. External leads were applied to the patient's right upper chest and laterally and inferior of the umbilicus on the mid axillary line. Cap, mask, and prep gloves were donned. The underdrape was placed under the patient's arm. The site was prepped with chlorhexidine, and tourniquet was loosely applied. Prep gloves were discarded, and hands were sanitized. The sterile kit was opened with additional supplies dropped in. Sterile gown and gloves were donned, and the patient was draped. The sterile kit was assembled with needle, introducer, needless connectors, and each catheter lumen flushed with sterile normal saline. The marked site of insertion was anesthetized with 1% lidocaine from the kit. Patient tolerated well. The right basilic vein was then accessed using ultrasound guidance and guidewire was inserted to safety tasha. The tourniquet was released. The access needle was removed while securing the guidewire in place. The site was again anesthetized with 1% lidocaine, prior to insertion of introducer sheath and dilator. Patient tolerated the insertion well. The catheter was trimmed to a length of 39 cm. Using 3C guidance, the catheter was then inserted through the introducer sheath, slowly. There was no resistance on insertion. The catheter followed the expected course of the vessel using 3CG tracking. The introducer sheath was retracted and peeled away, incrementally, while keeping the catheter secured. Maximal p-wave, without deflection, confirming placement in the cavoatrial junction, was obtained at an insertion length of 36 cm, leaving 3 cm external. The stylet was removed. A flushed needleless connector was attached to the lumen. Aspiration of the lumen was performed to remove any air and confirm blood return. Blood return was verified and each lumen was flushed with 10 ml of sterile normal saline in a pulsatile fashion. The each lumen was clamped with the last pulsed flush. Total sterile flushes used for the insertion was 8 10 ml syringes, 2 from the kit. Finally, the insertion site was cleaned with chlorhexidine, and the catheter was secured using a StatLock. The site was covered with a Tegaderm CHG Dressing and disinfecting caps were applied. Baseline arm circumference was obtained at the insertion site and measured 29 cm. The patient was provided with a patient education handout on PICC line care of infection prevention, heavy lifting restriction, maintaining mobility, and watching for any signs of infection. The primary nurse is aware that the PICC line is ready for use.
[2023-08-08 15:59] LABS: Bedside Glucose 195 mg/dL (74-106)
[2023-08-08 15:59] LABS: Bedside Glucose 194 mg/dL (74-106)
[2023-08-08 15:59] LABS: Bedside Glucose 221 mg/dL (74-106)
[2023-08-08 15:59] LABS: Bedside Glucose 188 mg/dL (74-106)
[2023-08-08 17:15] LABS: Bedside Glucose 156 mg/dL (74-106)
[2023-08-08 18:02] LABS: Bedside Glucose 162 mg/dL (74-106)
[2023-08-08 19:39] LABS: Bedside Glucose 114 mg/dL (74-106)
[2023-08-08 19:55] LABS: Anion Gap 6 (5-15); BUN 19 mg/dL (7-18); BUN/Creat Ratio 15.8 RATIO (10-20); Calcium,Total 8.9 mg/dL (8.5-10.1); Chloride 112 mmol/L (98-107); EST Glomerular Filtration Rate 75 mL/min (>60); Est Glom Filt Rate - Afr Amer 90 mL/min (>60); Estimated Creatinine Clearance 72.45 ml/min; Glucose 111 mg/dL (74-106); Potassium 3.3 mmol/L (3.5-5.1); Sodium Level 142 mmol/L (136-145)
[2023-08-08 20:49] LABS: Bedside Glucose 95 mg/dL (74-106)
[2023-08-08] MEDS: Insulin Glargine-YFGN 100 UNIT/ML Pen 10 UNIT SC (21:34)
[2023-08-08] MEDS: Potassium Chloride 10mEq/100mL 10 MEQ/100 ML IV.SOLN. 100 MEQ IV BOLUS ×3 (21:34→23:30)
[2023-08-08 21:57] LABS: Bedside Glucose 132 mg/dL (74-106)
[2023-08-08 21:58] LABS: Bedside Glucose 130 mg/dL (74-106)
[2023-08-08] MEDS: Venlafaxine XR 75 MG Capsule PO (22:57)
[2023-08-09] VITALS (12 sets, daily range): BP systolic 109–132; BP diastolic 68–88; PULSE 78–102; RESP 16–26; TEMP 36.6–36.8; O2SAT 96–99; BMI 23.3
[2023-08-09] MEDS: Potassium Chloride 10mEq/100mL 10 MEQ/100 ML IV.SOLN. 100 MEQ IV BOLUS (00:37)
[2023-08-09 04:24] LABS: Bedside Glucose 79 mg/dL (74-106)
[2023-08-09 04:39] LABS: AST(SGOT) 40 U/L (15-37); Alanine Aminotransfer ALT/SGPT 152 U/L (16-61); Albumin, Serum 3.2 g/dL (3.2-5.0); Alkaline Phosphatase 118 U/L (45-117); Bilirubin, Direct 0.52 mg/dL (0.00-0.30); Globulin 3.3 g/dL (2.2-4.2); Protein, Total 6.5 g/dL (6.4-8.2)
[2023-08-09 05:18] LABS: Anion Gap 8 (5-15); BUN 17 mg/dL (7-18); BUN/Creat Ratio 17.4 RATIO (10-20); Chloride 109 mmol/L (98-107); Creatinine, Serum 0.98 mg/dL (0.70-1.30); EST Glomerular Filtration Rate 95 mL/min (>60); Est Glom Filt Rate - Afr Amer 115 mL/min (>60); Estimated Creatinine Clearance 88.71 ml/min; Glucose 80 mg/dL (74-106); Potassium 3.4 mmol/L (3.5-5.1); Sodium Level 142 mmol/L (136-145)
--- NOTE | 2023-08-09 07:26 | PN.HOSP_ITS ---
Reason for Visit Reason for Visit: Diagnoses Type 1 diabetes mellitus with ketoacidosis without coma (08/08/23) Objective Data Objective Data Vital Signs: Vital Signs Temp Pulse Resp BP Pulse Ox O2 Del Method 98.2 F 85 16 125/83 H 98 Room Air 08/09/23 03:00 08/09/23 06:00 08/09/23 06:00 08/09/23 06:00 08/09/23 06:00 08/09/23 06:00 Oxygen Delivery Method Room Air Weight: 135 lb 9.6 oz Body Mass Index (BMI) 23.3 Intake & Output: Intake and Output for Last 24 Hours 08/07/23 08/08/23 08/09/23 23:59 23:59 23:59 Intake Total 5116.52 / 5116.52 1100 / 1100 Output Total 500 / 500 Balance 4616.52 / 4616.52 1100 / 1100 Medical Nutrition Assessment Dietitian: Malnutrition Criteria Met Start: 08/08/23 15:00 Freq: Status: Active Protocol: Document 08/08/23 15:00 SLA (Rec: 08/08/23 15:00 SLA Desktop) Nutrition Malnutrition Evidence of Malnutrition Exists Yes Malnutrition (severe): Acute Illness/Injury Evidenced By Suboptimal Energy Intake ( Severe),Weight Loss (Severe) Clinical Problem Acute Disease or Injury Related Malnutrition Etiology related to jaw surgery in 2023, GI dysfunction in past 2 -3 days and uncontrolled diabetes Signs/Symptoms as evidenced by 15.6% unintended wt loss since Jun when he had jaw surgery - suspect bulk of wt loss within last few days, and <75% of est nutritional needs x 2-3 days d/t nausea, vomiting, dehydration. Status Active Problem Altered Nutrient-Related Laboratory Values Etiology related to DKA Signs/Symptoms as evidenced by gluc 421 Status Active Problem Recommendation Dietitian Recommendations/Changes As medically able, rec SUMAN to Carbohydrate Controlled As medically able, rec 4 oz glucerna shake 4x/day w/ medpass for increased nutrition if consumed r/t signs and symptoms of malnutrition Provide diet education prior to discharge Lab / Micro Data 08/08/23 07:35 08/09/23 04:05 Labs: Laboratory Results - last 24 hr 08/08/23 06:00: Serum Osmolality 338 H, Acetone Level SMALL H 08/08/23 07:35: WBC 16.1 H, RBC 6.18, Hgb 17.7 H, Hct 52.8, MCV 85.4, MCH 28.6, MCHC 33.5, RDW Std Deviation 41.1, RDW Coeff of Albino 13.2, Plt Count 456 H, MPV 9.2, Immature Gran % (Auto) 1.100 H, Neut % (Auto) 83.9 H, Lymph % (Auto) 9.0 L, [place] % (Auto) 5.5, Eos % (Auto) 0.0, Baso % (Auto) 0.5, Absolute Neuts (auto) 13.5 H, Absolute Lymphs (auto) 1.45, Nucleated RBC % 0, Sodium 131 L, Potassium 4.5, Chloride 93 L, Carbon Dioxide 13.0 L, Anion Gap 25 H, BUN 29 H, Creatinine 1.58 H, Estim Creat Clear Calc 56.72, Est GFR (MDRD) Af Amer 66, Est GFR (MDRD) Non-Af 54 L, BUN/Creatinine Ratio 18.4, Glucose 421 H, Calcium 10.6 H, Phosphorus 4.8, Magnesium 2.4, Total Bilirubin 1.40 H, AST 60 H, ALT 274 H, Alkaline Phosphatase 187 H, Total Protein 9.3 H, Albumin 4.5, Globulin 4.8 H, Albumin/Globulin Ratio 0.9 08/08/23 08:25: Urine Color Yellow, Urine Clarity Clear, Urine pH 5.0, Ur Spe cific Cecil 1.025, Urine Protein 30 H, Urine Glucose (UA) 1000 H, Urine Ketones 150 A*, Urine Occult Blood 50 H, Urine Nitrite Negative, Urine Bilirubin Negative, Urine Urobilinogen Normal, Ur Leukocyte Esterase Negative, Urine RBC 0-5 SEEN, Urine WBC 0 SEEN, Ur Squamous Epith Cells 0 SEEN, Urine Bacteria 0 SEEN, Hyaline Casts 0-5 SEEN, Urine Mucus 0 SEEN, Urine Opiates Screen NEGATIVE, Urine Methadone Screen NEGATIVE, Ur Barbiturates Screen NEGATIVE, Ur Phencyclidine Scrn NEGATIVE, Ur Amphetamines Screen POSITIVE H, MDMA (Ecstasy) Screen NEGATIVE, U Benzodiazepines Scrn NEGATIVE, Urine Cocaine Screen NEGATIVE, U Cannabinoids Screen NEGATIVE, Ur Drug Screen Comment 08/08/23 09:41: POC Glucose 358 H 08/08/23 11:08: POC Glucose 263 H 08/08/23 12:19: POC Glucose 195 H 08/08/23 13:22: POC Glucose 194 H 08/08/23 14:33: POC Glucose 221 H 08/08/23 14:35: Sodium 140, Potassium 4.0, Chloride 110 H, Carbon Dioxide 17.0 L , Anion Gap 13, BUN 23 H, Creatinine 1.25, Estim Creat Clear Calc 69.55, Est GFR (MDRD) Af Amer 86, Est GFR (MDRD) Non-Af 71, BUN/Creatinine Ratio 18.4, Glucose 202 H, Calcium 8.8 08/08/23 15:38: POC Glucose 188 H 08/08/23 16:57: POC Glucose 156 H 08/08/23 17:45: POC Glucose 162 H 08/08/23 18:34: POC Glucose 132 H 08/08/23 19:20: Sodium 142, Potassium 3.3 L, Chloride 112 H, Carbon Dioxide 24.0, Anion Gap 6, BUN 19 H, Creatinine 1.20, Estim Creat Clear Calc 72.45, Est GFR (MDRD) Af Amer 90, Est GFR (MDRD) Non-Af 75, BUN/Creatinine Ratio 15.8, Glucose 111 H, Calcium 8.9, POC Glucose 114 H 08/08/23 20:30: POC Glucose 95 08/08/23 21:31: POC Glucose 130 H 08/09/23 04:05: Sodium 142, Potassium 3.4 L, Chloride 109 H, Carbon Dioxide 25.0, Anion Gap 8, BUN 17, Creatinine 0.98, Estim Creat Clear Calc 88.71, Est GFR (MDRD) Af Amer 115, Est GFR (MDRD) Non-Af 95, BUN/Creatinine Ratio 17.4, Glucose 80, Calcium 9.0, Total Bilirubin 2.10 H, Direct Bilirubin 0.52 H, AST 40 H, ALT 152 H, Alkaline Phosphatase 118 H, Total Protein 6.5, Albumin 3.2, Globulin 3.3, POC Glucose 79 ABG Data ABG results: ABG 08/08/23 14:49 Specimen Type AUDI Sample Site Not entered VBG pH 7.35 VBG pO2 214 H VBG HCO3 17 L VBG Total CO2 17 L VBG O2 Sat (Calc) 100 H VBG Base Excess -9 L POC Mix VBG pCO2 Pt Tmp 29.9 L O2 Delivery Device Room Air Radiography Diagnostic Testing: Radiology Impression Chest X-Ray 08/08/23 09:40 IMPRESSION: Stable 1.6 cm nodule within the right midlung. Electronically Signed: Lizzy Castillo MD at 9:54 EST ,
[2023-08-09] MEDS: Insulin Lispro 100 UNIT/ML INSULN.PEN SC ×2 (08:18→11:46)
[2023-08-09] MEDS: Potassium Chloride Oral Tablet 20 MEQ 40 MEQ PO (08:19)
[2023-08-09 08:34] LABS: Bedside Glucose 184 mg/dL (74-106)
--- NOTE | 2023-08-09 09:38 | CASEMGMT ---
HOLLIS KINNEY Assessment Face to Face with patient for initial transition planning/care coordination assessment. HOLLIS KINNEY introduced self and role at [facility], pt voices understanding. Pt is A&Ox4 and is resting comfortably in bed and is calm. Care providers, pharmacy, and demographics verified. Admitting dx: DKA, DM-1 LACE Strata: 2 PCP: No PCP, pt states that he has an appt on 08/11/23 upcoming. Pt denied needing a PCP list at this time. Specialists: Pt states that he sees an armament installer at [facility] in [facility] Pharmacy: [facility] Insurance: [employer] Prescription Benefit: Yes LNOK: Mikaela Banegas (Mother) Living Arrangements: Pt lives on his parents property in his own camper/ trailer. Pt states that he lives alone in his camper and that it has a flat entrance. Pt states that his parents also live in a trailer close to his. Pt states that if he has a medical emergency he can yell real loud and my parents will hear me. ADLs/IADLs: Ind Transportation: Pt does not drive. Pt mother drives him DME: Pt states that he has a working BGM at home and enough supplies to check his BS. Pt denies all other DME uses or needs. HHC/SNF: Denies history or needs. Pt?s goal: Pt states that he wants to DC home and take better care of my DM Plan: DC safely home today via his mother with no additional needs at this time. Pt to f/u with his new PCP on the . Carmen Perry RN, CM
[2023-08-09 09:49] LABS: Hemoglobin A1c 9.9 % (3.8-5.6)
[2023-08-09 10:52] LABS: Osmolality, Serum 305 mOsm/KG (275-295)
--- NOTE | 2023-08-09 10:56 | PCM.DC ---
Discharge Instructions Diet Discharge Diet: 1800 Calorie Control Diet Activity Discharge Activity: Return to Normal Activity Weight Bearing Status: Weight bearing as tolerated Dressing / Incision Call your doctor if you observe: Fever of 101 or Higher, Coldness, Increased Pain, Numbness or Tingling, Change in Color, Inability to urinate, Inability to have a bowel movement, Shortness of breath, Dizziness, Fainting spells, Swelling in the ankles, Chest pain, Prolonged hiccupping, Increased palpitations (irregular heartbeat) and Calf discomfort Follow Up Care When: IN 2 WEEKS Test Results: Test results from this visit will be discussed in further detail at your follow-up appointment, if applicable. Discharge Plan Admission Admit Date/Time: 08/08/23 09:20 Primary Reason for Your Visit: DKA. Attending Provider: Dieudonne Lamar Primary Care Provider: Katie Alexander Primary Instructions Additional Instructions / Restrictions: Advised follow-up with PCP and repeat liver chemistry in 2 weeks. Discharge Orders/Prescriptions Prescriptions: New potassium chloride 20 mEq Tablet,Er Particles/Crystals 40 meq PO DAILY 3 Days Qty: 6 0RF Continued insulin glargine [Lantus U-100 Insulin] 100 UNIT/ML solution 45 unit subcut QHS insulin lispro [Humalog U-100 Insulin] 100 UNIT/ML solution 14 unit subcut BID Patient Comments: SLIDING SCALE. desvenlafaxine succinate 100 mg tablet extended release 24 hr 100 mg PO Q24H Patient Comments: take 1 tablet by mouth once daily Discontinued mirtazapine [Remeron] 30 mg tablet 30 mg PO QHS Hold Instructions: MD Ordered Referrals / Follow Up: Care Physician,Katie Primary [Primary Care Provider] - Tyree Capps MD [Med Staff - Courtesy Staff] - Within 1 Month (DM type I, history of recurrent DKA. Evaluate for insulin pump) Disposition Disposition (needs filled in before D/C Order can be placed): Home, Self Care
--- NOTE | 2023-08-09 11:06 | DS.PCM_ITS ---
Providers Date of Admission: 08/08/23 Date of Discharge: 08/09/23 Primary Care Physician: No Primary Care Phys Reason For Visit: DKA, DM-1 Diagnosis Discharge Diagnosis (1) Diabetic ketoacidosis: Status: Acute Code(s): E11.10 - Type 2 diabetes mellitus with ketoacidosis without coma Qualifiers: Diabetes mellitus complication detail: without coma Diabetes mellitus type: type 1 Qualified Code(s): E10.10 - Type 1 diabetes mellitus with ketoacidosis without coma Plan This is a 32-year-old gentleman with history of type 1 diabetes mellitus being admitted for DKA 1. DKA with history of type 1 diabetes mellitus: Patient is being admitted in ICU. Very dehydrated therefore 2 L of normal saline ordered and then start IV insulin drip. Labs reviewed and shows anion gap 25, bicarb 13, potassium 4.5. ABG/VBG ordered. Serum magnesium and phosphorus ordered. VBG was done which shows 7.35/17. Patient was treated and will resuscitated with IV fluid. Anion gap closed x 2 patient was started on Lantus insulin last night. Patient overall feels cold denies any abdominal pain nausea vomiting. Unclear what is the cause of DKA but patient states that he has been taking Lantus and Humalog insulin and he does not need refill or any supplies of glucometer or testing strips. Patient states he also has glucose sensor at home. Advised to follow with PCP. A1c 9.9%. Patient also needs to follow-up with endocrinology Dr. Capps to evaluate for insulin pump which I think will be better regulate his glucose. 2. Hypertonic hypovolemic hyponatremia due to DKA: Sodium is lowered because of hyperglycemia and DKA. Serum sodium 131, glucose 421, corrected serum sodium is around 136. 08/08: hyponatremia corrected. Sodium 142. Mild hypokalemia, potassium replaced prescription given for potassium supplement. Serum magnesium phosphorus normal. 3. DONAVON most likely prerenal from dehydration: BUNs/creatinine 20/1.58. During previous admissions, patient's creatinine was also elevated 1.61, 1.3 too although baseline creatinine is normal 1.02. 4. Elevated liver chemistry probably due to DKA/hypovolemia: TB 1.4, ALT and elevated elevated ALT more than AST, 4:1 ratio. Alkaline phosphatase 187. Follow liver chemistry. 08/08: Liver chemistry shows elevated bilirubin 2.1, direct 0.5 similarly indirect hyperbilirubinemia. ALT more than 3 times of AST. Plan phosphatase 118 normal. Probably from medication mirtazapine which he might not have been taking. This is already discontinued and outpatient. Advised to repeat liver chemistry in 2 weeks with PCP follow-up. 5. Chronic smoker with history of amphetamine use in the past: U tox is ordered. Nicotine patch ordered. Consult to quit smoking and substance use.Patient hemoglobin was concentrated 17.7/50%. 6. Bipolar disorder type I: After medication reconciliation on 08/08/2023, patient not taking mirtazapine but taking desvenlafaxine. Home meds reviewed. Living will/advanced directive/end of life care: Patient does not have living will or advanced directive. Does not have power of workers compensation defense attorney for health but her mother is next of kin, present in the ED. After discussion of benefits/risks procedures involved with full code, DNR CC arrest and DNR CC, the patient and her mother opted for full code. Patient does want artificial life support including intubation, tube feed, ventilator and/chest compression, central venous catheter, vasopressor and DC shock if needed Discharge medication reconciliation done. Discharge follow-up instructions completed. Discharge process discussed with the patient and all questions were answered to patient's satisfaction. Follow with PCP in 1 to 2 weeks Total time spent, exact 35 minutes on discharge meds reconciliation, examination, coordination of care with nurses and ancillary staff, review of imaging and blood test and discussion with the patient on follow-up instructions. Medications at Discharge Home Medications insulin glargine 100 unit/mL subcutaneous solution (Lantus U-100 Insulin) 45 unit subcut QHS dm 02/22/18 insulin lispro 100 unit/mL subcutaneous solution (Humalog U-100 Insulin) 14 unit subcut BID dm 02/22/18 desvenlafaxine succinate 100 mg tablet,extended release 24 hr 100 mg PO Q24H depression 08/08/23 potassium chloride 20 mEq tablet,extended release(part/cryst) 40 meq (2 x 20 mEq) PO DAILY 3 days #6 tabs 08/09/23 Physical Exam Narrative Seen and examined on the day of discharge. Patient looks very dehydrated, denies any complaint. Abdominal pain/cramps resolved. General: Awake, fatigue, lethargic, oriented x3, Cooperative HEENT: Atraumatic, PERRLA, EOMI, Normocephalic Oral: Oral mucosa moist. No Gingival or Mucosal Lesions/ Ulcerations Neck: Supple, No JVD, Negative Carotid Bruits Chest wall/Lungs: Air entry diminished in bilateral lung bases. No crepitatio n/rhonchi Cardiovascular: Normal [place], Normal S1, Normal S2, No M/G/R Abdomen: Bowel Sounds Present, Soft, Non Tender, Non-Distended : No dysuria. No renal angle tenderness. No suprapubic tenderness. Extremities: No edema, Capillary Refill Less than 3 Seconds Skin: No rashes, No breakdown Musculoskeletal: ROM intact. Muscle strength 5/5 at knees and knee joints. No Tenderness to Palpation of Joints or Extremities Neurological: Cranial nerves II-XII grossly intact, DTR 2+/4. Involved [employer]. Psych/Mental Status: Flat affect. History of bipolar on mirtazapine Medical Records Data Medical Nutrition Assessment Dietitian: Malnutrition Criteria Met Start: 08/08/23 15:00 Freq: Status: Active Protocol: Document 08/08/23 15:00 SLA (Rec: 08/08/23 15:00 SLA Desktop) Nutrition Malnutrition Evidence of Malnutrition Exists Yes Malnutrition (severe): Acute Illness/Injury Evidenced By Suboptimal Energy Intake ( Severe),Weight Loss (Severe) Clinical Problem Acute Disease or Injury Related Malnutrition Etiology related to jaw surgery in 2023, GI dysfunction in past 2 -3 days and uncontrolled diabetes Signs/Symptoms as evidenced by 15.6% unintended wt loss since Jun when he had jaw surgery - suspect bulk of wt loss within last few days, and <75% of est nutritional needs x 2-3 days d/t nausea, vomiting, dehydration. Status Active Problem Altered Nutrient-Related Laboratory Values Etiology related to DKA Signs/Symptoms as evidenced by gluc 421 Status Active Problem Recommendation Dietitian Recommendations/Changes As medically able, rec SUMAN to Carbohydrate Controlled As medically able, rec 4 oz glucerna shake 4x/day w/ medpass for increased nutrition if consumed r/t signs and symptoms of malnutrition Provide diet education prior to discharge Weight / BMI Weight Weight: 135 lb 9.6 oz Body Mass Index (BMI) 23.3 ABG / Lab / Microbiology Data 08/08/23 07:35 08/09/23 04:05 Laboratory: Laboratory Results - last 24 hr 08/08/23 11:08: POC Glucose 263 H 08/08/23 12:19: POC Glucose 195 H 08/08/23 13:22: POC Glucose 194 H 08/08/23 14:33: POC Glucose 221 H 08/08/23 14:35: Sodium 140, Potassium 4.0, Chloride 110 H, Carbon Dioxide 17.0 L , Anion Gap 13, BUN 23 H, Creatinine 1.25, Estim Creat Clear Calc 69.55, Est GFR (MDRD) Af Amer 86, Est GFR (MDRD) Non-Af 71, BUN/Creatinine Ratio 18.4, Glucose 202 H, Calcium 8.8 08/08/23 15:38: POC Glucose 188 H 08/08/23 16:57: POC Glucose 156 H 08/08/23 17:45: POC Glucose 162 H 08/08/23 18:34: POC Glucose 132 H 08/08/23 19:20: Sodium 142, Potassium 3.3 L, Chloride 112 H, Carbon Dioxide 24.0, Anion Gap 6, BUN 19 H, Creatinine 1.20, Estim Creat Clear Calc 72.45, Est GFR (MDRD) Af Amer 90, Est GFR (MDRD) Non-Af 75, BUN/Creatinine Ratio 15.8, Glucose 111 H, Calcium 8.9, POC Glucose 114 H 08/08/23 20:30: POC Glucose 95 08/08/23 21:31: POC Glucose 130 H 08/09/23 04:05: Sodium 142, Potassium 3.4 L, Chloride 109 H, Carbon Dioxide 25.0, Anion Gap 8, BUN 17, Creatinine 0.98, Estim Creat Clear Calc 88.71, Est GFR (MDRD) Af Amer 115, Est GFR (MDRD) Non-Af 95, BUN/Creatinine Ratio 17.4, Glucose 80, Hemoglobin A1c 9.9 H, Calcium 9.0, Total Bilirubin 2.10 H, Direct Bilirubin 0.52 H, AST 40 H, ALT 152 H, Alkaline Phosphatase 118 H, Total Protein 6.5, Albumin 3.2, Globulin 3.3, POC Glucose 79 08/09/23 08:11: POC Glucose 184 H 08/09/23 10:00: Serum Osmolality 305 H ABG: ABG 08/08/23 14:49 Specimen Type AUDI Sample Site Not entered VBG pH 7.35 VBG pO2 214 H VBG HCO3 17 L VBG Total CO2 17 L VBG O2 Sat (Calc) 100 H VBG Base Excess -9 L POC Mix VBG pCO2 Pt Tmp 29.9 L O2 Delivery Device Room Air D/C Instructions Discharge Diet: 1800 Calorie Control Diet Weight Bearing Status: Weight bearing as tolerated Call your doctor if you observe: Fever of 101 or Higher, Coldness, Increased Pain, Numbness or Tingling, Change in Color, Inability to urinate, Inability to have a bowel movement, Shortness of breath, Dizziness, Fainting spells, Swelling in the ankles, Chest pain, Prolonged hiccupping, Increased palpitations (irregular heartbeat) and Calf discomfort When: IN 2 WEEKS Meaningful Use Info Meaningful Use Diagnoses (Choose all that apply): None applicable Discharge Plan Admission Admit Date/Time: 08/08/23 09:20 Primary Reason for Your Visit: DKA. Attending Provider: Dieudonne Lamar Primary Care Provider: Care Physician,Katie Primary Instructions Additional Instructions / Restrictions: Advised follow-up with PCP and repeat liver chemistry in 2 weeks. Discharge Orders/Prescriptions Prescriptions: New potassium chloride 20 mEq Tablet,Er Particles/Crystals 40 meq PO DAILY 3 Days Qty: 6 0RF Continued insulin glargine [Lantus U-100 Insulin] 100 UNIT/ML solution 45 unit subcut QHS insulin lispro [Humalog U-100 Insulin] 100 UNIT/ML solution 14 unit subcut BID Patient Comments: SLIDING SCALE. desvenlafaxine succinate 100 mg tablet extended release 24 hr 100 mg PO Q24H Patient Comments: take 1 tablet by mouth once daily Discontinued mirtazapine [Remeron] 30 mg tablet 30 mg PO QHS Hold Instructions: MD Ordered Referrals / Follow Up: Tyree Capps MD [Med Staff - Courtesy Staff] - Within 1 Month (DM type I, history of recurrent DKA. Evaluate for insulin pump) Care Physician,No Primary [Primary Care Provider] - Disposition Disposition (needs filled in before D/C Order can be placed): Home, Self Care Charges/Coding Visit Charges Inpatient E&M: 71603 Disch Hosp >30min
[2023-08-09 12:06] LABS: Bedside Glucose 251 mg/dL (74-106)
--- NOTE | 2023-08-09 12:45 | NURSING ---
reviewed discharge instructions, iv & picc removed, home medications returned, voiced understanding, waiting for ride home
== END 2023-08-09 13:20 | disposition home or self-care (01) | DRG 420 ==
LOC: ED 08:44 → ICU 08-09 09:09
PROVIDERS: Family Medicine; Admitting Provider Internal Medicine; Emergency Provider Emergency Medicine; Visit Provider Internal Medicine
DX: E10.10 Type 1 diabetes mellitus with ketoacidosis without coma (principal); F31.9 Bipolar disorder, unspecified; Z79.4 Long term (current) use of insulin; E43 Unspecified severe protein-calorie malnutrition; N17.9 Acute kidney failure, unspecified; E86.1 Hypovolemia; E87.1 Hypo-osmolality and hyponatremia; E87.6 Hypokalemia; F17.210 Nicotine dependence, cigarettes, uncomplicated; Z68.22 Body mass index [BMI] 22.0-22.9, adult; Z79.899 Other long term (current) drug therapy
CPT/HCPCS: 36569; 71045; 80048; 80053; 80076; 80307; 81001; 82009; 82803; 82962; 83036; 83735; 83930; 84100; 85025; 93005; 96361; 96365; 96366; 96367; 96375; 97802; 97803; 99221; 99285; 99406; J7030; G0378; J2405; J7799

== ENCOUNTER → 2023-09-21 | Outpatient (CLI) | payer MEDICAID, SELFPAY ==
--- NOTE | 2023-09-21 11:21 | US_ITS ---
STUDY: ABDOMINAL ULTRASOUND - RIGHT UPPER QUADRANT REASON FOR VISIT: Male, 33 years old elevated liver enzymes TECHNIQUE: Ultrasound evaluation of the right upper quadrant was performed with real-time and static marcus-scale imaging. TECHNICAL QUALITY: Adequate. COMPARISON: Comparison is made with prior study April 03, 2023. FINDINGS: Liver: The liver measures 16.11 cm. There is normal echogenicity of the liver. The bile ducts are within normal limits. There is hepatic color flow. The direction of portal flow is hepatopetal. There is no demonstrated mass lesion. Gallbladder: Normal distended gallbladder. The gallbladder wall measures 1.5 mm. There is a negative sonographic Cobian''s sign. There is no pericholecystic fluid. There are no gallstones. Common Bile Duct (C.B.D.): The common bile duct measures 3.9 mm. Pancreas: Normal size of the head, body of the pancreas. The tail portion is obscured due to overlying bowel gas. There is normal echogenicity of the pancreas. There is no demonstrated pancreatic mass or cyst. Right Kidney: Normal size of the right kidney. The right kidney measures 11.9 cm x 5.2 cm x 4.8 cm. Normal renal cortex. The right cortex measures 1.6 cm. There is no demonstrated renal mass or cyst. There is no right hydronephrosis. US/Liver IMPRESSION: No sonographic abnormality is seen. Electronically Signed: Tae Mcclain MD at 14:57 EDT ,
== END | disposition home or self-care (01) ==
LOC: US 11:20
PROVIDERS: Referring Provider Nurse Practitioner Family; Visit Provider Nurse Practitioner Family
DX: R74.01 Elevation of levels of liver transaminase levels (principal)
CPT/HCPCS: 76705

== ENCOUNTER 2023-10-06 21:16 | Inpatient (IN) | payer MEDICAID, SELFPAY ==
[2023-10-06 21:17] VITALS: BP 93/68; PULSE 116; RESP 24; TEMP 36.8; O2SAT 100; BMI 24.9
[2023-10-06] MEDS: 0.9% Normal Saline (1000mL) 1,000 ML 999 ML IV ×2 (21:35→22:32)
[2023-10-06 22:16] LABS: Bedside Glucose > 500 mg/dL (74-106)
[2023-10-06 22:17] VITALS: BP 95/62; PULSE 114; RESP 21; O2SAT 98
--- NOTE | 2023-10-06 22:25 | RAD_ITS ---
EXAM: XR CHEST, 1 VIEW CLINICAL INDICATION: SOB TECHNIQUE: Frontal view of the chest. COMPARISON: August 08, 2023. FINDINGS: LUNGS AND PLEURAL SPACES: Redemonstration of right-sided rounded nodular density measuring 1.9 cm, centered at the right midlung. No consolidation or edema. No pneumothorax. No effusion. HEART: Unremarkable. Cardiac silhouette not enlarged. MEDIASTINUM: Central airways and mediastinal contour are unremarkable. BONES/JOINTS: Unremarkable. No acute fracture. SOFT TISSUES: Unremarkable. RAD/Chest 1 View (Portable) IMPRESSION: No radiographic evidence of acute cardiopulmonary disease. Redemonstration of right-sided rounded nodular density measuring 1.9 cm, centered at the right midlung. Electronically Signed: Anand Lugo MD at 23:34 EDT ,
[2023-10-06 22:28] LABS: Blood Gas Specimen Type VEN; O2 Delivery Device Room Air; SITE Not entered; VBG BASE EXCESS -13 mmol/L (-1.0-3.5); VBG Bicarbonate 13 mmol/L (22-26); VBG PO2 41 mmHg (25-40); VBG SO2 73 % (50-70); VBG TCO2 14 mmol/L (23-33); VBG pCO2 26.3 mmHg (41-51); VBG pH 7.32 (7.32-7.42)
[2023-10-06 22:30] LABS: Basophil# 0.02 X10^3/uL; Basophil% 0.1 % (0-1); Eosinophil# 0.95 X10^3/uL; Eosinophils% 2.5 % (0-5); Hematocrit 49.1 % (40-54); Hemoglobin 15.9 g/dL (13.0-16.5); Lymphocyte % 6.1 % (19-41); Mean Corp Hgb Conc 32.4 g/dL (32-36); Mean Corpuscular Hgb 28.7 pg (27.0-32.0); Mean Corpuscular Volume 88.6 fL (80-94); Mean Platelet Vol. 9.7 fl (6.2-12.0); Monocyte# 5.49 X10^3/uL; Monocyte% 14.5 % (0-10); NRBC Flagged by Analyzer 0 % (0-5); Neutrophil # 27.99 X10^3/uL (2.7-7.7); Neutrophil % 73.7 % (47-70); POSITIVE COUNT YES; POSITIVE DIFFERENTIAL YES; POSITIVE MORPHOLOGY YES; Platelet Count 566 K/mm3 (150-450); RBC Distribution Width CV 12.7 % (11.6-14.6); RBC Distribution Width SD 41.6 fl (35.1-43.9); Red Blood Count 5.54 M/mm3 (4.6-6.2); White Blood Count 37.9 K/mm3 (4.4-11.0)
[2023-10-06] MEDS: Ondansetron 4 MG/2 ML Vial IV (22:31)
[2023-10-06 22:35] LABS: Differential Indicated SCAN CRITERIA MET
[2023-10-06 22:38] LABS: International Normalized Ratio 1.1; Prothrombin Time (Protime)PT. 13.8 SECONDS (11.7-14.9)
[2023-10-06 22:39] LABS: Partial Thromboplast Time 33.6 Seconds (24.1-36.2)
--- NOTE | 2023-10-06 22:46 | CT_ITS ---
EXAM: CT CHEST, ABDOMEN AND PELVIS WITHOUT INTRAVENOUS CONTRAST CLINICAL INDICATION: pain TECHNIQUE: Helically acquired images were obtained of the chest, abdomen and pelvis without intravenous contrast. CTDIvol = ( 9.31 ) mGy, DLP = ( 845.68 ) mGycm This CT exam was performed using one or more of the following dose reduction techniques: automated exposure control, adjustment of the mA and/or kV according to patient size, and/or use of iterative reconstruction technique. COMPARISON: January 11, 2023 CT FINDINGS: CHEST: LUNGS AND PLEURAL SPACES: 2.3 cm nodule involving the basal portion of the right upper lobe anterolaterally is unchanged since January 11, 2023. No consolidation. No pleural effusion or pneumothorax. HEART: Unremarkable. Heart size is normal. No pericardial effusion. No significant coronary artery calcifications. MEDIASTINUM: Unremarkable. No mediastinal or hilar adenopathy. Esophagus is unremarkable. No hiatal hernia. THYROID: Unremarkable. No thyroid lesions. ABDOMEN: LIVER: Unremarkable. Homogeneous. GALLBLADDER AND BILE DUCTS: Unremarkable. No calcified gallstones. No gallbladder distention or wall edema. No intra- or extrahepatic biliary ductal dilation. PANCREAS: Unremarkable. No focal cystic mass. SPLEEN: Unremarkable. Normal size without focal cystic or solid mass. ADRENALS: Unremarkable. No nodules. KIDNEYS AND URETERS: Unremarkable. Normal renal size and position. No hydronephrosis. STOMACH AND BOWEL: Unremarkable. No stomach or bowel distention. No focal inflammatory change. PELVIS: APPENDIX: No evidence of acute appendicitis. BLADDER: Unremarkable. REPRODUCTIVE: Unremarkable as visualized. No mass. CHEST, ABDOMEN and PELVIS: INTRAPERITONEAL SPACE: Unremarkable. No ascites or other fluid collection. No free air. BONES/JOINTS: Unremarkable. No suspicious lytic or sclerotic lesions of bone. SOFT TISSUES: Unremarkable. No discrete abdominal or pelvic wall hernia. VASCULATURE: Unremarkable. Aorta is non-dilated. LYMPH NODES: Unremarkable. No enlarged lymph nodes. CT/CT Chest, Abd, Pelvis WO Cont IMPRESSION: 2.3 cm nodule involving the basal portion of the right upper lobe anterolaterally is unchanged since January 11, 2023. This is probably benign. Electronically Signed: Anand Lugo MD at 1:28 EDT ,
[2023-10-06 22:52] LABS: Alcohol, Blood (Medical)-Serum < 3.0 mg/dL
[2023-10-06 23:00] VITALS: BP 111/63; PULSE 122; RESP 24; TEMP 36.7; O2SAT 93
[2023-10-06 23:09] LABS: AST(SGOT) 48 U/L (15-37); Alanine Aminotransfer ALT/SGPT 112 U/L (16-61); Alkaline Phosphatase 138 U/L (45-117); Anion Gap 34 (5-15); BUN 102 mg/dL (7-18); BUN/Creat Ratio 17.7 RATIO (10-20); Bilirubin, Direct 0.32 mg/dL (0.00-0.30); Calcium,Total 8.9 mg/dL (8.5-10.1); Chloride 72 mmol/L (98-107); Creatinine, Serum 5.76 mg/dL (0.70-1.30); EST Glomerular Filtration Rate 12 mL/min (>60); Est Glom Filt Rate - Afr Amer 15 mL/min (>60); Estimated Creatinine Clearance 15.42 ml/min; Globulin 4.4 g/dL (2.2-4.2); Glucose 1031 mg/dL (74-106); Lactic Acid 2.4 mmol/L (0.4-1.9); Lipase 16 U/L (13-75); Magnesium 3.9 mg/dL (1.6-2.6); Protein, Total 8.4 g/dL (6.4-8.2); Sodium Level 121 mmol/L (136-145)
[2023-10-06 23:13] LABS: Differential Comment SCANNED
[2023-10-06 23:23] LABS: Procalcitonin 11.36 ng/mL (0.00-0.09)
[2023-10-06] MEDS: Piperacil/Tazobactam 3.375 GM in 0.9% Normal Saline (50mL MB+) 50 ML IV (23:30)
--- NOTE | 2023-10-06 23:33 | HP.PCM.HOS_ITS ---
HPI - General General Date of Admission: 10/06/23 Date of Service: 10/06/23 Chief Complaint: Elevated BS, N/V, abd pain. HPI Narrative The patient is a 33 y/o M w/ PMHx: HTN, Polysubstance abuse (currently snorting/IV methamphetamine usage with reportedly last used 2 days prior to current presentation), Hepatitis C, Anxiety and Depression/Bipolar disorder, Tobacco use, IDDM, recent admission and discharged 08/09/2023 secondary to acute DKA with acute kidney injury, transaminitis who now represents to the [facility] ED on 10/06/23 with onset over the last 48 hours nausea, emesis, generalized abdominal discomfort with inability to keep anything down and eventual onset of confusion and lethargy prompting family to bring him in for evaluation. Patient states he feels exactly as he did when he presented previously in DKA. He denies any recent URI type symptoms or diarrhea. Workup in the ED included T98.2, heart rate 116, BP 93/68, respiratory rate 24, 100% on room air with most recent repeat vitals including T98.1, heart rate 122, BP 111/63, respiratory rate 24, 93% on room air, CBC with WBC 37.9, hemoglobin 15.9, platelet 566 with signi ficant left shift, unremarkable coags, VBG with pO2 41, bicarb 13, CMP with sodium 121, chloride 72, Comvax at 15, anion gap 34, BUN/creatinine 102/5.76, glucose 1031, lactic acid 2.4, magnesium 3.9, T. bili 1.10, D bili 0.32, AST/ALT 48/112, alk phos 138, lipase 16, ethyl alcohol less than 3, acetone large, procalcitonin pending upon evaluation, blood culture pending per ED, CT Chest/Abd/Pelvis pending upon evaluation. In the ED patient also with noted possibly black/dark appearing tongue with ED physician noting intention to obtain guiac in the ED. In the ED patient ministered IV Zosyn, IV vancomycin, Zofran 4 mg IV x 1, 2 L normal saline as well as initiated on insulin drip. [facility] Medical History Bipolar 1 disorder Fracture, jaw Hepatitis C Hypertension IV drug user Methamphetamine abuse Overdose Type 1 diabetes mellitus Home Medications desvenlafaxine succinate 100 mg tablet,extended release 24 hr 100 mg PO Q24H depression 08/08/23 [History Last Taken Unknown] insulin glargine 100 unit/mL subcutaneous solution (Lantus U-100 Insulin) 40 unit subcut QHS dm 09/14/23 [History Last Taken Unknown] insulin lispro 100 unit/mL subcutaneous solution (Humalog U-100 Insulin) See Rx Instructions subcut TID dm 09/14/23 [History Last Taken Unknown] lisinopril 20 mg tablet 20 mg PO DAILY #30 tabs 09/14/23 [Rx Last Taken Unknown] Allergy/AdvReac Type Severity Reaction Status Date / Time morphine AdvReac Itching Verified 10/06/23 21:19 Family History (Updated 10/06/23 @ 23:[address] Wendy Leblanc MD) Mother Thyroid disorder Family History other other (Patient and his mother do not know any of his paternal family history.) Surgical History History of mandibular surgery Social History (Updated 10/06/23 @ 23:[address] Wendy Leblanc MD) household members: none Smoking Status: Current every day smoker tobacco type: cigarettes Smoking packs per day: 1 Smoking cigarettes per day: 20.0 Tobacco: How many years used: 16 Electronic Cigarette Use: not used second hand exposure: Yes alcohol intake: former details: Notes prior heavier, rare use currently. substance use type: marijuana, IV drugs and methamphetamine ROS ROS Narrative Admission Review of Systems: CONSTITUTIONAL: No weight loss, fever, chills, + weakness or fatigue. HEENT: Eyes: No visual loss, blurred vision, double vision or yellow sclerae. Ears, Nose, Throat: No hearing loss, sneezing, congestion, runny nose or sore throat. SKIN: No rash or itching, lesions, wounds. CARDIOVASCULAR: No chest pain, chest pressure or chest discomfort, palpitations, edema, orthopnea, syncopal events. RESPIRATORY: No shortness of breath, cough or sputum, wheezing, hemoptysis. GASTROINTESTINAL: + anorexia, nausea, vomiting, abdominal pain, patient is not the best historian regarding but contents in his mouth appear black thus unclear if he has had coffee-ground emesis or any bright red blood. GENITOURINARY: No dysuria, frequency, urgency or retention. NEUROLOGICAL: + Lethargy, confusion. No headache, dizziness, syncope, pa ralysis, ataxia, numbness or tingling in the extremities, focal weakness, change in bowel or bladder control, seizure. MUSCULOSKELETAL: + muscle, back pain, joint pain or stiffness. HEMATOLOGIC: No anemia, unclear if patient has been bleeding, no easy history of bruising. LYMPHATICS: No enlarged nodes. No history of splenectomy. PSYCHIATRIC: + History of anxiety depression/bipolar disorder. ENDOCRINOLOGIC: No reports of sweating, cold or heat intolerance. No polyuria or polydipsia. ALLERGIES: No history of asthma, hives, eczema or rhinitis. Vital Signs Vital Signs Vital Signs: 10/06/23 21:17 10/06/23 22:17 10/06/23 23:00 Temperature 98.2 F 98.1 F Temperature Source Temporal Temporal Pulse Rate 116 H 114 H 122 H Respiratory Rate 24 H 21 H 24 H Blood Pressure 93/68 95/62 111/63 Blood Pressure Mean 76 73 79 Pulse Ox 100 98 93 Oxygen Delivery Method Room Air Room Air Room Air Weight Weight: 145 lb 6 oz Body Mass Index (BMI) 24.9 Physical Exam Narrative Physical Examination: General: Awakens to stimuli, intermittently alert, oriented to self, place but very lethargic, uncomfortable appearing, does follow some commands, laying in the ED bed, groaning and ill-appearing. Skin: Normal color, normal turgor, no icterus, no cyanosis except occasional staged ecchymoses. HEENT: AT/NC, EOMI, PERRLA, dry MM, no carotid bruits or JVD noted. Lungs: Notably diminished, greater bases, mildly increased respiratory rate but no distress, no rales, ronchi or wheezing. Heart: Tachycardic with regular rhythm; no gallop, rub audible. Abdomen: Soft, generalized tenderness to palpation with voluntary guarding with no rebound specifically, mildly distended, mildly hyperactive bowel sounds, difficult to appreciate HSM given pain with evaluation and constantly moving. Extremities: No cyanosis, clubbing, or edema. Neurological: Awakens to stimuli, intermittently alert, oriented to self, place but very lethargic, uncomfortable appearing, does follow some commands, laying in the ED bed, groaning and ill-appearing, cognitive function not baseline intact; pupils equally reactive to light and accommodation, cranial nerves grossly normal, moving all 4 extremities, no focal deficits, strength severely globally decreased secondary to acute presentation. Psychiatric: Affect appears fatigued, lethargic, ill appearing, uncomfortable appearing, no acute evidence of depressive or anxiety feelings but does have underlying history. Results Lab / Micro Data 10/06/23 21:26 10/06/23 21:26 Labs: Laboratory Results - last 24 hr 10/06/23 21:26: WBC 37.9 H*, RBC 5.54, Hgb 15.9, Hct 49.1, MCV 88.6, MCH 28.7, MCHC 32.4, RDW Std Deviation 41.6, RDW Coeff of Albino 12.7, Plt Count 566 H, MPV 9.7, Immature Gran % (Auto) 3.100 H, Neut % (Auto) 73.7 H, Lymph % (Auto) 6.1 L, [place] % (Auto) 14.5 H, Eos % (Auto) 2.5, Baso % (Auto) 0.1, Absolute Neuts (auto) 28.0 H, Absolute Lymphs (auto) 2.30, Nucleated RBC % 0, Differential Comment SCANNED, Diff Path Review October, PT 13.8, INR 1.1, APTT 33.6, Sodium 121 L, Potassium 5.0, Chloride 72 L*, Carbon Dioxide 15.0 L, Anion Gap 34 H, BUN 102 H* , Creatinine 5.76 H, Estim Creat Clear Calc 15.42, Est GFR (MDRD) Af Amer 15 L, Est GFR (MDRD) Non-Af 12 L, BUN/Creatinine Ratio 17.7, Glucose 1031 H*, Lactic Acid 2.4 H*, Calcium 8.9, Magnesium 3.9 H, Total Bilirubin 1.10 H, Direct Bilirubin 0.32 H, AST 48 H, ALT 112 H, Alkaline Phosphatase 138 H, Total Protein 8.4 H, Albumin 4.0, Globulin 4.4 H, Lipase 16, Procalcitonin 11.36 H, Ethyl Alcohol < 3.0, Acetone Level LARGE H 10/06/23 21:56: POC Glucose > 500 H* ABG Data ABG results: ABG 10/06/23 22:25 Specimen Type AUDI Sample Site Not entered VBG pH 7.32 VBG pO2 41 H VBG HCO3 13 L VBG Total CO2 14 L VBG O2 Sat (Calc) 73 H VBG Base Excess -13 L POC Mix VBG pCO2 Pt Tmp 26.3 L O2 Delivery Device Room Air Assessment & Plan Assessment/Plan (1) DONAVON (acute kidney injury): (2) DKA (diabetic ketoacidoses): PLAN: Plan The patient is a 33 y/o M w/ PMHx: HTN, Polysubstance abuse (currently snorting/IV methamphetamine usage with reportedly last used 2 days prior to current presentation), Hepatitis C, Anxiety and Depression/Bipolar disorder, To bacco use, IDDM, recent admission and discharged 08/09/2023 secondary to acute DKA with acute kidney injury, transaminitis who now represents to the [facility] ED on 10/06/23 with onset over the last 48 hours nausea, emesis, generalized abdominal discomfort with inability to keep anything down and eventual onset of confusion and lethargy prompting family to bring him in for evaluation. #1. DKA w/ Diabetes mellitus type I: Will admit to the ICU, continue on insulin drip, check serial K+, glucose w/ IVF changes pending these levels, serial chemistry, mag already obtained in the ED, will obtain phos w/ repletion as needed, transition to home SC regimen when gap closed w/ overlap on drip, nutrition consultation. HgbA1c requested. ICU physician consultation per protocol. Bicarb being administered w/ repeat ABG requested. #2. Acute kidney injury: Secondary to acute presentation #1 with also GI losses with intractable nausea and emesis. Admission BUN/Cr 102/5.76, prior baseline creatinine noted to be 0.98-1.2. Will hydrate, hold nephrotoxic medications and repeat chemistry in AM. If no improvement would plan FeNa assessment. Bicarb amps being administered. #3. Significant electrolyte disturbances with metabolic acidosis, sodium likely falsely decreased given hyperglycemic presentation: Admission CMP with sodium 121, chloride 72, carbon oxide 15, in the setting of DKA with anion gap 34, will continue treatment as noted above number 1, bicarb amp administered, will continue to closely trend with serial BMPs and continue aggressive hydration. #4. Questionable GI bleed with significant abdominal pain of unclear etiology: Patient with noted black tongue, recent notable intractable nausea and emesis, pending CT chest/abdomen/pelvis to be cautious given abdominal pain and leukocytosis to be cautious, guiac pending, will maintain on IV PPI, defer chemoprophylaxis pending imaging and guiac testing, cycle HH to also be cautious, administered IV Zosyn and IV vancomycin x 1 in the ED however will hold on further antibiotic therapy pending imaging, procalcitonin pending per ED. #5. Polysubstance Abuse, IVDA Hx, History of Hepatitis C, Chronic: Patient currently not candidate for hep C treatment currently as needs to be clean, sober x 6 months, documented attendance NA or AA meetings, counseling and ongoing negative drug screens. Once appropriate GI, ID to initiate. HIV, hepati tis panel as well as syphilis testing per discussion with patient will be obtained to assess for co-infection pending. Encouraged PCP establishment and follow-up. #6. Hypertension: Given presentation we will temporally hold lisinopril home regimen, resume once DONAVON appropriate and BP appropriate. #7. Anxiety and depression/bipolar disorder: We will temporarily hold venlafaxine regimen given significant DONAVON and intractable nausea and emesis, resume once clinically improved #8. Tobacco Abuse: Encouraged cessation, inpatient consultation per RT, declined nicotine replacement. #9. DVT prophylaxis: SCDs, hold chemoprophylaxis pending evaluation as noted above. Charges/Coding Visit Charges Inpatient E&M: 23996 Init Hosp L3
[2023-10-06] MEDS: Insulin Lispro 100 UNIT in 0.9% Normal Saline (100mL Bag) 99 ML 6.6 UNIT CONT INF (23:56)
[2023-10-07] VITALS (28 sets, daily range): BP systolic 96–134; BP diastolic 43–106; PULSE 110–130; RESP 12–25; TEMP 36.5–37.3; O2SAT 94–100; BMI 25.6
[2023-10-07 00:04] LABS: Bacteria 0 SEEN /hpf (None Seen); Mucous, Urine 0 SEEN /hpf (<or=2+); Red Blood Cells-Urine 0 SEEN /hpf (0-5); Squamous Epithelial Cells - UA 0 SEEN /hpf (0-5); White Blood Cells 0 SEEN /hpf (0-5)
[2023-10-07 00:04] LABS: Phosphorus 8.3 mg/dL (2.5-4.9)
[2023-10-07 00:09] LABS: Color, Urine Yellow (Yellow); Glucose, Dipstick 1000 mg/dl (Normal); Ketone-Dipstick 50 mg/dl (Negative); Leukocyte Esterase-Dipstick Negative /ul (Negative); Nitrite-Dipstick Negative (Negative); Occult Blood-Urine 10 /ul (Negative); Protein-Dipstick 15 mg/dl (Negative); Specific Gravity, Urine 1.025 (1.002-1.030); Urine Bilirubin Dipstick Negative (Negative); Urine Clarity Clear (Clear); Urine Urobilinogen Normal (Normal)
--- NOTE | 2023-10-07 00:10 | EDS_ITS ---
HPI History of Present Illness Chief Complaint: Alt LOC Informant: patient and family Narrative Narrative: Patient is a 33-year-old male with past medical history of type 1 diabetes bipolar disorder and methamphetamine abuse. Mother states that he seemed altered today and patient reports has had bouts of vomiting. Patient mother states that he has been taking his medication as directed and this afternoon his blood sugar just read high so he was given insulin and then they waited a few hours and rechecked it and it was still reading high so she gave him another dose and brought him to the hospital for evaluation. Patient admits to bouts of nausea and vomiting and generalized abdominal pain. He states that his emesis did appear bloody in nature but denies any history of bleeding disorder or blood thinner use. He states there has been no diarrhea and he denies any blood per rectum. He states has been in DKA in the past and has concern he is in this once again and therefore comes in for evaluation [facility] Medical History Bipolar 1 disorder Fracture, jaw Hepatitis C Hypertension IV drug user Methamphetamine abuse Overdose Type 1 diabetes mellitus Home Medications desvenlafaxine succinate 100 mg tablet,extended release 24 hr 100 mg PO Q24H depression 08/08/23 [History Last Taken Unknown] insulin glargine 100 unit/mL subcutaneous solution (Lantus U-100 Insulin) 40 unit subcut QHS dm 09/14/23 [History Last Taken Unknown] insulin lispro 100 unit/mL subcutaneous solution (Humalog U-100 Insulin) See Rx Instructions subcut TID dm 09/14/23 [History Last Taken Unknown] lisinopril 20 mg tablet 20 mg PO DAILY #30 tabs 09/14/23 [Rx Last Taken Unknown] Allergy/AdvReac Type Severity Reaction Status Date / Time morphine AdvReac Itching Verified 10/06/23 21:19 Family History (Updated 10/06/23 @ 23:[address] Wendy Leblanc MD) Mother Thyroid disorder Surgical History History of mandibular surgery Social History (Updated 10/06/23 @ 23:[address] Wendy Leblanc MD) household members: none Smoking Status: Current every day smoker tobacco type: cigarettes Smoking packs per day: 1 Smoking cigarettes per day: 20.0 Tobacco: How many years used: 16 Electronic Cigarette Use: not used second hand exposure: Yes alcohol intake: former details: Notes prior heavier, rare use currently. substance use type: marijuana, IV drugs and methamphetamine ROS ROS ED Constitutional Constitutional ED: Denies chills or fever(s) ENT ENT ED: Denies sore throat Cardiovascular Cardiovascular: Reports racing heartbeat; Denies chest pain or palpitations Respiratory/Chest Respiratory/Chest: Denies cough or dyspnea Gastrointestinal Gastrointestinal: Reports abdominal pain, constipation, nausea and vomiting; Denies diarrhea Genitourinary Genitourinary ED: Denies dysuria Musculoskeletal Musculoskeletal: Reports myalgias Integumentary Denies rash Neurologic Neurologic: Reports weakness; Denies headache(s) Hematologic/Lymphatic Hematologic/Lymphatic: Denies easy bleeding or easy bruising EXAM Physical Exam Const Vital Signs: 10/06/23 21:17 10/06/23 22:17 10/06/23 23:00 Temperature 98.2 F 98.1 F Temperature Source Temporal Temporal Pulse Rate 116 H 114 H 122 H Respiratory Rate 24 H 21 H 24 H Blood Pressure 93/68 95/62 111/63 Blood Pressure Mean 76 73 79 Pulse Ox 100 98 93 Oxygen Delivery Method Room Air Room Air Room Air Positive well nourished and well developed General Appearance ED: well developed; Negative for pallor HEENT HEENT Narrative: Mucous membranes are dry and tacky. Patient has black discoloration to his tongue but denies taking any medication such as bismuth which would have caused the discoloration. No tongue or lip swelling no oral lesions no secondary changes to suggest infection in the posterior pharynx Eyes PERRL and EOMs intact bilaterally General Eye ED: Negative for scleral icterus Neck supple Neck Narrative: No nuchal rigidity or meningeal signs noted Chest Wall palpation of chest normal Resp clear to auscultation bilaterally Resp Narrative: Breath sounds are diminished throughout and patient is tachypneic but otherwise no nasal flaring or retractions or accessory muscle use. Overall breath sounds are clear to auscultation as well Cardio regular rhythm Rate: tachycardic and other Other Details: Tachycardic rate with regular rhythm. No murmurs rubs or gallops noted Radial and carotid pulses are equal and symmetric GI non-distended GI Narrative: Abdomen is soft and nondistended with hypoactive bowel sounds. There is mild diffuse pain to palpation without voluntary guarding rigidity pulsatile mass or organomegaly. Auscultation: hypoactive bowel sounds Palpation: soft Extremity normal to inspection Extremity Narrative: No asymmetric edema no pitting edema negative Homans' sign bilaterally No obvious bony deformity or joint effusion noted Patient does have track yi in the bilateral antecubital in the right hand but no secondary changes to suggest infection No splinter hemorrhages or Janeway lesions noted either Neuro oriented x3 and CN's II-XII intact bilaterally Sensorium / Orientation: orientation impaired Psych mental status grossly normal Skin Skin Narrative: Skin turgor is increased Soft tissue changes to the upper extremities consistent with IV drug abuse as documented above General Skin Exam: Negative for jaundice or pallor MDM MDM MDM Narrative Medical decision making narrative: Patient arrived to the ER tachycardic and tachypneic but otherwise afebrile. He had a depressed or lethargic mental status but would awaken to voice and follow commands and there is no focal neurologic deficit. Differential diagnosis because of his elevated blood sugar and mental state is for DKA versus HHS. As his physical exam also shows change for dehydration there is concern for acute kidney injury or electrolyte abnormality. He also reported dark emesis and there was concern for GI bleed. Secondary to this basic workup was obtained and he was started on IV fluids at 30 mL/kg which is approximately 2 L. Patient's lab work showed white blood cell count of approximately 38 with a lactic acidosis and elevated procalcitonin concerning for an infectious process of blood cultures were obtained and he was started on vancomycin and Zosyn. Based on his elevated white count and procalcitonin value a CT scan of the abdomen and pelvis as well as chest was obtained to look for potential missed infection. This revealed no acute findings. Lab work also showed acute kidney injury with his creatinine elevating from a normal value to approximately 6. Despite this drastic elevation he was able to produce urine which showed no sign of in fection. The patient was Hemoccult positive from below but it was not melanotic stool indicating could have potential upper GI bleed or Alba-Arias tear as a cause of his discolored emesis. At this time based on the DKA as well as acute kidney injury and severe elevation to his white count medicine was contacted and they do agree to accept the patient for continued care in the ICU. Patient was started on insulin drip secondary to his DKA and as antibiotics have been started secondary to the concern for infection they will continue these and monitor the patient over the next few days. History & Record Review Discussion w/independent historian: Patient and Family Lab Data Attestation: I reviewed the patient's lab results. Labs: Laboratory Results - last 24 hr 10/06/23 10/06/23 21:26 21:56 WBC 37.9 H* RBC 5.54 Hgb 15.9 Hct 49.1 MCV 88.6 MCH 28.7 MCHC 32.4 RDW Std Deviation 41.6 RDW Coeff of Albino 12.7 Plt Count 566 H MPV 9.7 Immature Gran % (Auto) 3.100 H Neut % (Auto) 73.7 H Lymph % (Auto) 6.1 L [place] % (Auto) 14.5 H Eos % (Auto) 2.5 Baso % (Auto) 0.1 Absolute Neuts (auto) 28.0 H Absolute Lymphs (auto) 2.30 Nucleated RBC % 0 Differential Comment SCANNED Diff Path Review October foll PT 13.8 INR 1.1 APTT 33.6 Sodium 121 L Potassium 5.0 Chloride 72 L* Carbon Dioxide 15.0 L Anion Gap 34 H BUN 102 H* Creatinine 5.76 H Estim Creat Clear Calc 15.42 Est GFR (MDRD) Af Amer 15 L Est GFR (MDRD) Non-Af 12 L BUN/Creatinine Ratio 17.7 Glucose 1031 H* Lactic Acid 2.4 H* Calcium 8.9 Phosphorus 8.3 H Magnesium 3.9 H Total Bilirubin 1.10 H Direct Bilirubin 0.32 H AST 48 H ALT 112 H Alkaline Phosphatase 138 H Total Protein 8.4 H Albumin 4.0 Globulin 4.4 H Lipase 16 Procalcitonin 11.36 H Ethyl Alcohol < 3.0 Acetone Level LARGE H POC Glucose > 500 H* ABG Data ABG results: ABG 10/06/23 22:25 Specimen Type AUDI Sample Site Not entered VBG pH 7.32 VBG pO2 41 H VBG HCO3 13 L VBG Total CO2 14 L VBG O2 Sat (Calc) 73 H VBG Base Excess -13 L POC Mix VBG pCO2 Pt Tmp 26.3 L O2 Delivery Device Room Air Radiography Diagnostic Testing: Clinical Impression(s) from Imaging Studies Chest X-Ray 10/06/23 22:25 IMPRESSION: No radiographic evidence of acute cardiopulmonary disease. Redemonstration of right-sided rounded nodular density measuring 1.9 cm, centered at the right midlung. Electronically Signed: Anand Lugo MD at 23:34 EDT , Chest/Abdomen/Pelvis CT 10/06/23 22:46 IMPRESSION: 2.3 cm nodule involving the basal portion of the right upper lobe anterolaterally is unchanged since January 11, 2023. This is probably benign. Electronically Signed: Anand Lugo MD at 1:28 EDT , Chest x-ray as interpreted by the emergency medicine physician reveals a right sided lung mass which appears chronic in nature per chart review without acute infiltrate pneumothorax or pleural effusion Critical Care Time Critical Care Time: Yes Critical care time (excluding procedures): Discussing w/Patient &/or Family/Field Enumerator, Discussing w/Consultants, Performing Direct Patient Care at Bedside and - (Critical care time of 37 minutes) Discharge Plan Dx/Rx/DC Orders Clinical Impression: DONAVON (acute kidney injury), DKA (diabetic ketoacidoses), Leukocytosis, Methamphetamine abuse Disposition Disposition: Acute Care Hospital [facility] Discharge Date/Time: 10/07/23 01:47
[2023-10-07 00:16] LABS: Bedside Glucose > 500 mg/dL (74-106)
[2023-10-07] MEDS: Ondansetron 4 MG/2 ML Vial IV (00:30)
[2023-10-07] MEDS: Vancomycin IV 1,000 MG/200 ML BAG 200 MG IV (00:30)
[2023-10-07] MEDS: 0.9% Normal Saline (1000mL) 1,000 ML 999 ML IV (00:30)
[2023-10-07 00:54] LABS: Amphetamine Urine POSITIVE (<1000 ng/mL); Barbiturate Urine NEGATIVE (< 200 ng/mL); Benzodiazepine Urine NEGATIVE (< 200 ng/mL); Cocaine Urine NEGATIVE (< 300 ng/mL); Ecstacy Urine NEGATIVE (< 500 ng/mL); Methadone Urine NEGATIVE (< 300 ng/mL); Opiates Urine NEGATIVE (< 300 ng/mL); PCP Urine NEGATIVE (< 25 ng/mL); THC Urine POSITIVE (< 50 ng/mL); Vista UDS pH Range 4
[2023-10-07 01:25] LABS: Bedside Glucose > 500 mg/dL (74-106)
[2023-10-07 01:58] LABS: Glucose 785 mg/dL (74-106)
[2023-10-07] MEDS: Pantoprazole Sodium 40 MG in 0.9% Normal Saline (100mL MB+) 100 ML 330 MG IV ×3 (02:17→21:07)
[2023-10-07] MEDS: 0.9% Normal Saline (1000mL) 1,000 ML 150 ML IV ×2 (02:17→09:01)
[2023-10-07] MEDS: Sodium Bicarbonate 8.4% 50 ML Syringe 50 MEQ IV ×2 (02:17)
[2023-10-07 02:25] LABS: Reflex Lactate? Y
[2023-10-07] MEDS: 0.9% Saline Lock 10 ML Syringe IV ×4 (02:30→17:37)
[2023-10-07 02:38] LABS: Hematocrit 36.4 % (40-54); Hemoglobin 12.7 g/dL (13.0-16.5)
[2023-10-07 03:02] LABS: Lactic Acid 1.6 mmol/L (0.4-1.9)
[2023-10-07 03:08] LABS: Anion Gap 21 (5-15); BUN 97 mg/dL (7-18); BUN/Creat Ratio 18.3 RATIO (10-20); Calcium,Total 7.3 mg/dL (8.5-10.1); Chloride 90 mmol/L (98-107); Creatinine, Serum 5.29 mg/dL (0.70-1.30); EST Glomerular Filtration Rate 14 mL/min (>60); Est Glom Filt Rate - Afr Amer 16 mL/min (>60); Estimated Creatinine Clearance 16.79 ml/min; Glucose 607 mg/dL (74-106); Potassium 4.8 mmol/L (3.5-5.1); Sodium Level 134 mmol/L (136-145)
[2023-10-07 04:48] LABS: Bedside Glucose > 500 mg/dL (74-106)
[2023-10-07 04:48] LABS: Bedside Glucose 476 mg/dL (74-106)
--- NOTE | 2023-10-07 05:02 | PCM.RX.CS ---
Consult Antibiotic Management Pharmacy has been consulted to manage selected antibiotic: Vancomycin Type of Intervention Type of Consult: New start Labs Labs: Sodium 134 mmol/L (136-145) L 10/07/23 02:30 Potassium 4.8 mmol/L (3.5-5.1) 10/07/23 02:30 Chloride 90 mmol/L (98-107) L 10/07/23 02:30 Carbon Dioxide 23.0 mmol/L (21.0-32.0) 10/07/23 02:30 Anion Gap 21 (5-15) H 10/07/23 02:30 BUN 97 mg/dL (7-18) H 10/07/23 02:30 Creatinine 5.29 mg/dL (0.70-1.30) H 10/07/23 02:30 Est GFR (MDRD) Af Amer 16 mL/min (>60) L 10/07/23 02:30 Est GFR (MDRD) Non-Af 14 mL/min (>60) L 10/07/23 02:30 BUN/Creatinine Ratio 18.3 RATIO (10-20) 10/07/23 02:30 Glucose 607 mg/dL (74-106) H* 10/07/23 02:30 Microbiology Microbiology: Microbiology 10/06/23 23:50 Stool Stool Occult Blood (LALY) - Final Occult Blood Positive Dosing Weight Weight used for dosin.8 kg Estimated Creatinine Clearance Estimated Creatinine Clearance: 16.79 Pharmacy Plan for Drug Dosing Pharmacy Plan for Drug Dosing: Pharmacy Service will continue to monitor and adjust dosing as required. 1000MG GIVEN IN ER. DRAW RANDOM LEVEL 10/07 WITH AM LABS AND DOSE ACCORDINGLY Follow-Up Labs Follow-Up Labs: Trough: Vancomycin Date/Time Labs Ordered Labs to be done on [date and time ordered]: 10/07 @ 0600
[2023-10-07 05:11] LABS: Allen Test Positive; Base Excess -5 mmol/L (-2 to +2); Bicarbonate 19.9 mmol/L (22-26); Blood Gas Specimen Type ART; Mode Not entered; O2 Delivery Device Room Air; PO2 74 mmHG (75-100); SITE L Radial; SO2 95 % (95-99); Total Carbon Dioxide 21 mmol/L; pCO2 30.3 mmHg (35-45); pH 7.43 (7.35-7.45)
[2023-10-07 05:28] LABS: Absolute Lymphocyte Count 1.84 X10^3/uL (0.83-4.51); Absolute Neutrophil Count 28.1 X10^3/uL (2.0-7.7); Basophil# 0.12 X10^3/uL; Basophil% 0.3 % (0-1); Hematocrit 37.2 % (40-54); Lymphocyte # 1.84 X10^3/ul (0.83-4.51); Lymphocyte % 5.2 % (19-41); Mean Corp Hgb Conc 34.9 g/dL (32-36); Mean Platelet Vol. 9.1 fl (6.2-12.0); Monocyte# 4.39 X10^3/uL; Monocyte% 12.5 % (0-10); NRBC Flagged by Analyzer 0 % (0-5); Neutrophil # 28.09 X10^3/uL (2.7-7.7); Neutrophil % 79.9 % (47-70); POSITIVE COUNT YES; POSITIVE DIFFERENTIAL YES; Platelet Count 443 K/mm3 (150-450); RBC Distribution Width CV 12.4 % (11.6-14.6); RBC Distribution Width SD 37.7 fl (35.1-43.9); Red Blood Count 4.48 M/mm3 (4.6-6.2)
[2023-10-07 05:35] LABS: Bedside Glucose 390 mg/dL (74-106)
[2023-10-07 05:57] LABS: AST(SGOT) 48 U/L (15-37); Alanine Aminotransfer ALT/SGPT 87 U/L (16-61); Albumin, Serum 3.2 g/dL (3.2-5.0); Alkaline Phosphatase 101 U/L (45-117); Anion Gap 20 (5-15); BUN 104 mg/dL (7-18); BUN/Creat Ratio 20.9 RATIO (10-20); Bilirubin, Direct 0.35 mg/dL (0.00-0.30); Calcium,Total 7.5 mg/dL (8.5-10.1); Chloride 95 mmol/L (98-107); Creatinine, Serum 4.97 mg/dL (0.70-1.30); EST Glomerular Filtration Rate 15 mL/min (>60); Est Glom Filt Rate - Afr Amer 18 mL/min (>60); Estimated Creatinine Clearance 17.87 ml/min; Globulin 3.4 g/dL (2.2-4.2); Glucose 443 mg/dL (74-106); Potassium 4.3 mmol/L (3.5-5.1); Protein, Total 6.6 g/dL (6.4-8.2); Sodium Level 137 mmol/L (136-145)
[2023-10-07 05:58] LABS: Differential Indicated SCAN CRITERIA MET; White Blood Count 35.2 K/mm3 (4.4-11.0)
[2023-10-07 06:29] LABS: Bedside Glucose 403 mg/dL (74-106)
--- NOTE | 2023-10-07 07:11 | PN.HOSP_ITS ---
Reason for Visit Reason for Visit: Diagnoses Type 2 diabetes mellitus with ketoacidosis without coma (10/06/23) Acute kidney failure, unspecified (10/06/23) Subjective Subjective Patient is a 33-year-old gentleman with history of diabetes mellitus type 1 who presented to the emergency department with increasing lethargy as well as persistent nausea and vomiting. An assessment of diabetic ketoacidosis made admitted to the intensive care unit where patient is currently being managed Objective Data Objective Data Vital Signs: Vital Signs Temp Pulse Resp BP Pulse Ox O2 Del Method 99.2 F H 119 H 18 107/57 L 95 Room Air 10/07/23 06:58 10/07/23 06:58 10/07/23 06:58 10/07/23 06:58 10/07/23 06:58 10/07/23 06:58 Oxygen Delivery Method Room Air Weight: 67.8 kg Body Mass Index (BMI) 25.6 Intake & Output: Intake and Output for Last 24 Hours 10/05/23 10/06/23 10/07/23 23:59 23:59 23:59 Intake Total 1000 / 1000 2384.36 / 2384.36 Output Total 600 / 600 Balance 1000 / 1000 1784.36 / 1784.36 Lab / Micro Data 10/07/23 05:17 10/07/23 05:17 Labs: Laboratory Results - last 24 hr 10/06/23 21:26: WBC 37.9 H*, RBC 5.54, Hgb 15.9, Hct 49.1, MCV 88.6, MCH 28.7, MCHC 32.4, RDW Std Deviation 41.6, RDW Coeff of Albino 12.7, Plt Count 566 H, MPV 9.7, Immature Gran % (Auto) 3.100 H, Neut % (Auto) 73.7 H, Lymph % (Auto) 6.1 L, Winston % (Auto) 14.5 H, Eos % (Auto) 2.5, Baso % (Auto) 0.1, Absolute Neuts (auto) 28.0 H, Absolute Lymphs (auto) 2.30, Nucleated RBC % 0, Differential Comment SCANNED, Diff Path Review October, PT 13.8, INR 1.1, APTT 33.6, Sodium 121 L, Potassium 5.0, Chloride 72 L*, Carbon Dioxide 15.0 L, Anion Gap 34 H, BUN 102 H* , Creatinine 5.76 H, Estim Creat Clear Calc 15.42, Est GFR (MDRD) Af Amer 15 L, Est GFR (MDRD) Non-Af 12 L, BUN/Creatinine Ratio 17.7, Glucose 1031 H*, Lactic Acid 2.4 H*, Calcium 8.9, Phosphorus 8.3 H, Magnesium 3.9 H, Total Bilirubin 1.10 H, Direct Bilirubin 0.32 H, AST 48 H, ALT 112 H, Alkaline Phosphatase 138 H , Total Protein 8.4 H, Albumin 4.0, Globulin 4.4 H, Lipase 16, Procalcitonin 11.36 H, Ethyl Alcohol < 3.0, Acetone Level LARGE H 10/06/23 21:56: POC Glucose > 500 H* 10/06/23 23:45: Urine Color Yellow, Urine Clarity Clear, Urine pH 5.0, Ur Specific [place] 1.025, Urine Protein 15 H, Urine Glucose (UA) 1000 H, Urine Ketones 50 H, Urine Occult Blood 10 H, Urine Nitrite Negative, Urine Bilirubin Negative, Urine Urobilinogen Normal, Ur Leukocyte Esterase Negative, Urine RBC 0 SEEN, Urine WBC 0 SEEN, Ur Squamous Epith Cells 0 SEEN, Urine Bacteria 0 SEEN, Urine Mucus 0 SEEN, Urine Opiates Screen NEGATIVE, Urine Methadone Screen NEGATIVE, Ur Barbiturates Screen NEGATIVE, Ur Phencyclidine Scrn NEGATIVE, Ur Amphetamines Screen POSITIVE H, MDMA (Ecstasy) Screen NEGATIVE, U Benzodiazepines Scrn NEGATIVE, Urine Cocaine Screen NEGATIVE, U Cannabinoids Screen POSITIVE H, Ur Drug Screen Comment 10/06/23 23:48: POC Glucose > 500 H* 10/07/23 01:07: POC Glucose > 500 H* 10/07/23 01:14: Glucose 785 H* 10/07/23 02:30: Hgb 12.7 L, Hct 36.4 L, Sodium 134 L, Potassium 4.8, Chloride 90 L, Carbon Dioxide 23.0, Anion Gap 21 H, BUN 97 H, Creatinine 5.29 H, Estim Creat Clear Calc 16.79, Est GFR (MDRD) Af Amer 16 L, Est GFR (MDRD) Non-Af 14 L, BUN/Creatinine Ratio 18.3, Glucose 607 H*, Lactic Acid 1.6, Calcium 7.3 L 10/07/23 03:08: POC Glucose > 500 H* 10/07/23 04:11: POC Glucose 476 H* 10/07/23 05:08: POC Glucose 390 H 10/07/23 05:17: WBC 35.2 H*, RBC 4.48 L, Hgb 13.0, Hct 37.2 L, MCV 83.0 D, MCH 29.0, MCHC 34.9 D, RDW Std Deviation 37.7, RDW Coeff of Albino 12.4, Plt Count 44 3, MPV 9.1, Immature Gran % (Auto) 2.100 H, Neut % (Auto) 79.9 H, Lymph % (Auto) 5.2 L, Winston % (Auto) 12.5 H, Eos % (Auto) 0.0, Baso % (Auto) 0.3, Absolute Neuts (auto) 28.1 H, Absolute Lymphs (auto) 1.84, Nucleated RBC % 0, Sodium 137, Potassium 4.3, Chloride 95 L, Carbon Dioxide 22.0, Anion Gap 20 H, BUN 104 H*, Creatinine 4.97 H, Estim Creat Clear Calc 17.87, Est GFR (MDRD) Af Amer 18 L, Est GFR (MDRD) Non-Af 15 L, BUN/Creatinine Ratio 20.9 H, Glucose 443 H, Calcium 7.5 L, Total Bilirubin 1.00, Direct Bilirubin 0.35 H, AST 48 H, ALT 87 H, Alkaline Phosphatase 101, Total Protein 6.6, Albumin 3.2, Globulin 3.4 10/07/23 06:05: POC Glucose 403 H Micro: Microbiology 10/06/23 23:50 Stool Stool Occult Blood (LALY) - Final Occult Blood Positive ABG Data ABG results: ABG 10/06/23 10/07/23 22:25 05:07 Specimen Type AUDI ART Sample Site Not entered L Radial pH 7.43 Bicarbonate Actual 19.9 L Total CO2 21 Base Excess -5 L O2 Saturation 95 ABG pCO2 30.3 L ABG pO2 74 L Reji Test Positive VBG pH 7.32 VBG pO2 41 H VBG HCO3 13 L VBG Total CO2 14 L VBG O2 Sat (Calc) 73 H VBG Base Excess -13 L POC Mix VBG pCO2 Pt Tmp 26.3 L O2 Delivery Device Room Air Room Air Vent Mode Not entered Radiography Diagnostic Testing: Radiology Impression Chest X-Ray 10/06/23 22:25 IMPRESSION: No radiographic evidence of acute cardiopulmonary disease. Redemonstration of right-sided rounded nodular density measuring 1.9 cm, centered at the right midlung. Electronically Signed: Anand Lugo MD at 23:34 EDT , Chest/Abdomen/Pelvis CT 10/06/23 22:46 IMPRESSION: 2.3 cm nodule involving the basal portion of the right upper lobe anterolaterally is unchanged since January 11, 2023. This is probably benign. Electronically Signed: Anand Lugo MD at 1:28 EDT , Physical Exam Narrative Physical Examination: General: Awakens to stimuli, intermittently alert, oriented to self, place but very lethargic, uncomfortable appearing, does follow some commands, laying in the ED bed, groaning and ill-appearing. Skin: Normal color, normal turgor, no icterus, no cyanosis except occasional staged ecchymoses. HEENT: AT/NC, EOMI, PERRLA, dry MM, no carotid bruits or JVD noted. Lungs: Notably diminished, greater bases, mildly increased respiratory rate but no distress, no rales, ronchi or wheezing. Heart: Tachycardic with regular rhythm; no gallop, rub audible. Abdomen: Soft, generalized tenderness to palpation with voluntary guarding with no rebound specifically, mildly distended, mildly hyperactive bowel sounds, difficult to appreciate HSM given pain with evaluation and constantly moving. Extremities: No cyanosis, clubbing, or edema. Neurological: Awakens to stimuli, intermittently alert, oriented to self, place but very lethargic, uncomfortable appearing, does follow some commands, laying in the ED bed, groaning and ill-appearing, cognitive function not baseline intact; pupils equally reactive to light and accommodation, cranial nerves grossly normal, moving all 4 extremities, no focal deficits, strength severely globally decreased secondary to acute presentation. Psychiatric: Affect appears fatigued, lethargic, ill appearing, uncomfortable appearing, no acute evidence of depressive or anxiety feelings but does have underlying history. Assessment & Plan Assessment/Plan (1) DONAVON (acute kidney injury): (2) DKA (diabetic ketoacidoses): PLAN: Plan Patient is a 33-year-old gentleman with history of diabetes mellitus type 1 who presented to the emergency department with increasing lethargy as well as persistent nausea and vomiting. An assessment of diabetic ketoacidosis made admitted to the intensive care unit where patient is currently being managed 1. Diabetic ketoacidosis ? Patient has been admitted to the intensive care unit managed with aggressive IV fluid resuscitation, IV insulin with serial monitoring of electrolytes and correction of electrolyte abnormalities 2. Acute kidney injury ? Secondary to severe dehydration from DKA as well as persistent nausea and vomiting patient managed with IV fluid with subsequent monitoring of electrolytes ordered 3. Metabolic acidosis ? Secondary to patient's DONAVON as well as DKA do expect improvement in acidosis following correction of underlying etiology 4. Pseudohyponatremia ? Secondary to DKA do expect rapid improvement in sodium value following correction of DKA 5. Suspected upper GI bleed ? For persistent nausea vomiting? Alba-Arias tear. Patient treated symptomatically and placed on PPI 6. Polysubstance abuse ? Patient tox cream was positive forAmphetamines and cannabinoids. Counseled on cessation 7. Essential hypertension ? Patient is on lisinopril held given his impaired kidney function 8. Depression ? Patient is on SNRI 9. Tobacco dependence - Counseled on cessation, offered nicotine patch for tobacco cravings 10. DVT prophylaxis ? Bilateral SCDs Time spent in the patient's overall evaluation,decision-making process, review of diagnostic data, adjustment of management, discussion with other providers, nursing nursing and ancillary staff involved in patient's care documentation, 55 Minutes Charges/Coding Visit Charges Inpatient E&M: 49419 Subs Hosp L3
[2023-10-07 07:16] LABS: Differential Comment SCANNED
[2023-10-07 07:23] LABS: Bedside Glucose 339 mg/dL (74-106)
[2023-10-07 07:24] LABS: M R Staph aureus DNA By PCR Negative (Negative); Probe Check PASS; Specimen Processing Control PASS
[2023-10-07 08:28] LABS: Bedside Glucose 373 mg/dL (74-106)
[2023-10-07 08:46] LABS: HIV - WCH Non-Reactive (Nonreactive); Hepatitis B Surface Antibody Reactive; Hepatitis B Surface Antigen Non-Reactive (Nonreactive); Hepatitis C Antibody Preliminary Reactive (Nonreactive); Syphilis Antibodies Non-reactive
[2023-10-07] MEDS: LORazepam 2 MG/ML Syringe 1 MG IV (09:02)
[2023-10-07 09:29] LABS: Bedside Glucose 298 mg/dL (74-106)
--- NOTE | 2023-10-07 10:05 | CASEMGMT ---
RN GREGORIA Assessment Face to Face with patient for initial transition planning/care coordination assessment. RN CM introduced self and role at [facility], however pt appears to be disoriented and is fidgeting around in bed. Pt mumbles words that are incomprehensible. Pt drug screen is (+) for amphetamines. Pt RN is aware. TC to the pt mother at this time and Mikaela is agreeable to answering this RN CM questions for assessment. Care providers, pharmacy, and demographics verified. Admitting dx: DKA, DONAVON LACE Strata: 2 PCP: Meron Kulkarni Specialists: Rosa Schulz [facility]. Pt mom states that the pt saw her in September last [facility] Insurance: [employer]/ [employer] Prescription Benefit: Yes LNOK: Mikaela Banegas (Mother) Living Arrangements: Pt lives on his parents property in his own camper/ trailer. Pt lives alone in his camper and it has a flat entrance. His parents also live in a trailer close to his. ADLs/IADLs: Ind Transportation: Pt does not drive. Pt mother drives him DME: Pt mother states that he has a working BGM at home and enough supplies to check his BS. Mikaela states that he has been checking his BS accordingly as far as she knows. HHC/SNF: Denies history Plan: DC home once the pt is medically ready. CM to follow pt progression in the hospital in regard to safe DC from [facility]. Carmen Perry RN, CM
[2023-10-07] MEDS: Piperacil/Tazobactam 3.375 GM in 0.9% Normal Saline (50mL MB+) 50 ML IV ×2 (10:07→21:06)
[2023-10-07 10:30] LABS: Bedside Glucose 279 mg/dL (74-106)
[2023-10-07 10:33] LABS: Anion Gap 16 (5-15); BUN 92 mg/dL (7-18); BUN/Creat Ratio 23.2 RATIO (10-20); Calcium,Total 7.7 mg/dL (8.5-10.1); Chloride 102 mmol/L (98-107); Creatinine, Serum 3.97 mg/dL (0.70-1.30); EST Glomerular Filtration Rate 19 mL/min (>60); Est Glom Filt Rate - Afr Amer 23 mL/min (>60); Estimated Creatinine Clearance 22.37 ml/min; Glucose 294 mg/dL (74-106); Potassium 4.2 mmol/L (3.5-5.1); Sodium Level 143 mmol/L (136-145)
[2023-10-07 11:25] LABS: Bedside Glucose 290 mg/dL (74-106)
[2023-10-07 12:26] LABS: Bedside Glucose 272 mg/dL (74-106)
[2023-10-07 13:30] LABS: Bedside Glucose 287 mg/dL (74-106)
[2023-10-07 13:38] LABS: Anion Gap 12 (5-15); BUN 86 mg/dL (7-18); BUN/Creat Ratio 23.7 RATIO (10-20); Calcium,Total 7.8 mg/dL (8.5-10.1); Chloride 106 mmol/L (98-107); Creatinine, Serum 3.63 mg/dL (0.70-1.30); EST Glomerular Filtration Rate 21 mL/min (>60); Est Glom Filt Rate - Afr Amer 25 mL/min (>60); Estimated Creatinine Clearance 24.46 ml/min; Glucose 286 mg/dL (74-106); Potassium 4.1 mmol/L (3.5-5.1); Sodium Level 144 mmol/L (136-145)
[2023-10-07 14:28] LABS: Bedside Glucose 281 mg/dL (74-106)
[2023-10-07 14:33] LABS: Pathologist Review Reviewed
[2023-10-07 14:34] LABS: Pathologist Review Reviewed
[2023-10-07] MEDS: Dext 5%-0.45% NS 1,000 ML 150 ML IV (15:15)
[2023-10-07 15:25] LABS: Bedside Glucose 216 mg/dL (74-106)
[2023-10-07 16:27] LABS: Bedside Glucose 230 mg/dL (74-106)
[2023-10-07 16:48] LABS: Anion Gap 13 (5-15); BUN 78 mg/dL (7-18); Calcium,Total 7.7 mg/dL (8.5-10.1); Chloride 107 mmol/L (98-107); Creatinine, Serum 3.39 mg/dL (0.70-1.30); EST Glomerular Filtration Rate 23 mL/min (>60); Est Glom Filt Rate - Afr Amer 27 mL/min (>60); Estimated Creatinine Clearance 26.19 ml/min; Glucose 266 mg/dL (74-106); Potassium 4.3 mmol/L (3.5-5.1); Sodium Level 147 mmol/L (136-145)
[2023-10-07] MEDS: 0.45% Normal Saline 1,000 ML 175 ML IV ×2 (17:34→23:05)
[2023-10-07] MEDS: Insulin Glargine-YFGN 100 UNIT/ML Pen 20 UNIT SC ×2 (17:36→21:10)
[2023-10-07] MEDS: Insulin Lispro 100 UNIT/ML INSULN.PEN SC ×3 (17:37→21:11)
[2023-10-07 17:57] LABS: Bedside Glucose 261 mg/dL (74-106)
[2023-10-07 21:16] LABS: Bedside Glucose 188 mg/dL (74-106)
[2023-10-08] VITALS (24 sets, daily range): BP systolic 102–126; BP diastolic 47–81; PULSE 89–125; RESP 15–29; TEMP 36.5–37.3; O2SAT 92–100; BMI 26.2
[2023-10-08 04:12] LABS: Absolute Lymphocyte Count 0.87 X10^3/uL (0.83-4.51); Basophil# 0.06 X10^3/uL; Basophil% 0.3 % (0-1); Eosinophil# 1.89 X10^3/uL; Eosinophils% 8.2 % (0-5); Hematocrit 34.6 % (40-54); Hemoglobin 11.3 g/dL (13.0-16.5); Lymphocyte # 0.87 X10^3/ul (0.83-4.51); Lymphocyte % 3.8 % (19-41); Mean Corp Hgb Conc 32.7 g/dL (32-36); Mean Corpuscular Volume 88.7 fL (80-94); Mean Platelet Vol. 9.4 fl (6.2-12.0); Monocyte# 2.75 X10^3/uL; NRBC Flagged by Analyzer 0 % (0-5); Neutrophil # 17.03 X10^3/uL (2.7-7.7); Neutrophil % 74.2 % (47-70); POSITIVE DIFFERENTIAL YES; POSITIVE MORPHOLOGY YES; Platelet Count 335 K/mm3 (150-450); RBC Distribution Width CV 13.3 % (11.6-14.6); RBC Distribution Width SD 43.2 fl (35.1-43.9)
[2023-10-08 04:18] LABS: Differential Indicated SCAN CRITERIA MET
[2023-10-08 04:24] LABS: Bedside Glucose 455 mg/dL (74-106)
[2023-10-08 04:37] LABS: Vancomycin, Random Level 4.7 ug/mL (0.0-15.0)
[2023-10-08 04:42] LABS: Anion Gap 24 (5-15); BUN 56 mg/dL (7-18); BUN/Creat Ratio 23.3 RATIO (10-20); Calcium,Total 7.8 mg/dL (8.5-10.1); Chloride 99 mmol/L (98-107); EST Glomerular Filtration Rate 34 mL/min (>60); Est Glom Filt Rate - Afr Amer 41 mL/min (>60); Glucose 561 mg/dL (74-106); Magnesium 2.2 mg/dL (1.6-2.6); Phosphorus 3.7 mg/dL (2.5-4.9); Potassium 4.6 mmol/L (3.5-5.1); Sodium Level 136 mmol/L (136-145)
--- NOTE | 2023-10-08 04:42 | PCM.HOSP.N ---
Hospitalist Note Patient with episodes of SVT in addition to notable hyperglycemia. Repeat labs obtained with evidence of recurrent DKA. Will obtain ABG stat. Will administer 2 L normal saline. Will administer bicarb amp x 2 preemptively and pending ABG findings may require drip. Will re-initiate insulin drip and discontinue long and short acting subcu regimen and transition to n.p.o. status again.
[2023-10-08 04:48] LABS: Bedside Glucose 459 mg/dL (74-106)
[2023-10-08] MEDS: Vancomycin Trough/Random Due 1 LAB MC (05:03)
--- NOTE | 2023-10-08 05:07 | NURSING ---
Tele monitor alarming HR in the 230s, pt in SVT. Pt denies feeling like his heart was beating fast; HR soon returned to sinus tach baseline. However pt had several consecutive runs of SVT in the next few minutes, reports feeling dizzy and seeing stars. Pt very drowsy and lethargic, EKG obtained. Dr. Leblanc notified, cardizem bolus and IV fluid bolus orders placed, as well as insulin gtt d/t pt being back in DKA.
[2023-10-08 05:33] LABS: Differential Comment SCANNED
[2023-10-08] MEDS: Sodium Bicarbonate 8.4% 50 ML Syringe 50 MEQ IV ×2 (05:44)
[2023-10-08] MEDS: dilTIAZem 25 MG/5 ML Vial 20 MG IV BOLUS (05:45)
[2023-10-08] MEDS: 0.9% Normal Saline (1000mL) 1,000 ML 999 ML IV ×2 (05:46→05:50)
[2023-10-08] MEDS: 0.9% Normal Saline (1000mL) 1,000 ML 500 ML IV (05:48)
[2023-10-08] MEDS: Insulin Lispro 100 UNIT in 0.9% Normal Saline (100mL Bag) 99 ML 6.8 UNIT CONT INF (05:54)
--- NOTE | 2023-10-08 06:00 | EKG12_ITS ---
Test Reason : Blood Pressure : / mmHG Vent. Rate : 239 BPM Atrial Rate : 000 BPM P-R Int : 000 ms QRS Dur : 092 ms QT Int : 188 ms P-R-T Axes : 000 072 000 degrees QTc Int : 375 ms Critical Test Result: High HR Poor data quality, interpretation may be adversely affected Supraventricular tachycardia with Premature supraventricular complexes Nonspecific ST and T wave abnormality Abnormal ECG Confirmed by GEMMA DUCKWORTH, MARYLOU ([id number]), index editor ANA ROSA HARDING ([id number]) on 10/10/2023 9:31:51 AM Referred By: Confirmed By:MARYLOU MENENDEZ MD
--- NOTE | 2023-10-08 06:29 | ECHOD_ITS ---
Reason For Study: ARRYTHMIA Procedure This was a 2D Doppler, Color Flow transthoracic echocardiogram. Technically difficult study due to patient not cooperating. Patient scanned on right side. Definity deferred due to off axis views. Exam performed portable in ICU/CCU. Left Ventricle Normal LV size. Left ventricular systolic function is normal. The estimated ejection fraction is 65 %. No regional wall motion abnormalities noted. Right Ventricle Normal RV size. Normal systolic function. Atria Normal left atrium. Normal right atrium. Mitral Valve Normal mitral valve. Tricuspid Valve Normal tricuspid valve. Aortic Valve Normal aortic valve. Pulmonic Valve Normal pulmonic valve. Great Vessels Normal aortic root. The pulmonary artery is normal size. Normal inferior vena cava. Pericardium/Pleural No pericardial effusion. MMode/2D Measurements & Calculations LVIDd: 5.0 cm IVSd: 1.3 cm Ao root diam: 3.3 cm LVIDs: 3.3 cm LVPWd: 1.0 cm FS: 34.6 % LAV(MOD-bp): 30.6 ml LVAd ap4: 27.4 cm2 SV(MOD-sp4): 52.9 ml LAV(MOD-bp) Indexed: 17.5 ml/m2 LVLd ap4: 7.8 cm LAV(MOD-sp2): 25.4 ml EDV(MOD-sp4): 80.3 ml LAV(MOD-sp4): 28.8 ml EDV(sp4-el): 81.7 ml LVAs ap4: 13.6 cm2 LVLs ap4: 5.6 cm ESV(MOD-sp4): 27.4 ml ESV(sp4-el): 28.2 ml EF(MOD-sp4): 65.9 % EF(sp4-el): 65.4 % SV(sp4-el): 53.5 ml LA A4 area: 13.2 cm2 LA dimension(2D): 3.6 cm RA A4 area: 18.6 cm2 TAPSE: 2.5 cm Time Measurements MV dec time: 0.23 sec Doppler Measurements & Calculations MV E max piter: 128.1 cm/sec Lat Peak E' Piter: 16.5 cm/sec Med Peak E' Pietr: 13.9 cm/sec MV A max piter: 63.7 cm/sec E/E' lat: 7.8 E/E' med: 9.2 MV E/A: 2.0 MV V2 max: 152.0 cm/sec Ao V2 max: 176.6 cm/sec MV max P.2 mmHg MV dec slope: 559.2 cm/sec2 Ao max P.5 mmHg MV V2 mean: 102.9 cm/sec Ao V2 mean: 114.1 cm/sec MV mean P.7 mmHg Ao mean P.1 mmHg MV V2 VTI: 27.4 cm Ao V2 VTI: 26.7 cm AV (velocity ratio): 1.0 LV V1 max: 156.5 cm/sec PA V2 max: 163.3 cm/sec LV V1 max P.8 mmHg PA V2 mean: 123.3 cm/sec LV V1 mean P.2 mmHg LV V1 mean: 88.6 cm/sec LV V1 VTI: 27.3 cm ECHO/Echo Complete Interpretation Summary Normal LV size. Left ventricular systolic function is normal. The estimated ejection fraction is 65 %. Structurally normal valves. Ordering Physician: Wendy Leblanc Referring Physician: DELANEY DAILEY Performed By: Zuleima Fischer RCS
[2023-10-08 06:48] LABS: Base Excess -12 mmol/L (-2 to +2); Bicarbonate 12.5 mmol/L (22-26); Blood Gas Specimen Type ART; Mode Not entered; O2 Delivery Device Not entered; PO2 86 mmHG (75-100); SITE L Brach; SO2 97 % (95-99); Total Carbon Dioxide 13 mmol/L; pCO2 20.6 mmHg (35-45); pH 7.39 (7.35-7.45)
--- NOTE | 2023-10-08 06:54 | PCM.RX.CS ---
Consult Antibiotic Management Pharmacy has been consulted to manage selected antibiotic: Vancomycin Type of Intervention Type of Consult: Follow-up Labs Labs: Sodium 136 mmol/L (136-145) 10/08/23 04:00 Potassium 4.6 mmol/L (3.5-5.1) 10/08/23 04:00 Chloride 99 mmol/L (98-107) 10/08/23 04:00 Carbon Dioxide 13.0 mmol/L (21.0-32.0) L 10/08/23 04:00 Anion Gap 24 (5-15) H 10/08/23 04:00 BUN 56 mg/dL (7-18) H 10/08/23 04:00 Creatinine 2.40 mg/dL (0.70-1.30) H 10/08/23 04:00 Est GFR (MDRD) Af Amer 41 mL/min (>60) L 10/08/23 04:00 Est GFR (MDRD) Non-Af 34 mL/min (>60) L 10/08/23 04:00 BUN/Creatinine Ratio 23.3 RATIO (10-20) H 10/08/23 04:00 Glucose 561 mg/dL (74-106) H* 10/08/23 04:00 Random Vancomycin 4.7 ug/mL (0.0-15.0) 10/08/23 04:00 Microbiology Microbiology: Microbiology 10/06/23 23:50 Stool Stool Occult Blood (LALY) - Final Occult Blood Positive Pharmacy Plan for Drug Dosing Pharmacy Plan for Drug Dosing: Pharmacy Service will continue to monitor and adjust dosing as required. RANDOM LEVEL 4.7. CRCL INPROVED FROM 16.79 TO 39.5 1GM Q24H TROUGH PRIOR TO 3RD DOSE Follow-Up Labs Follow-Up Labs: Trough: Vancomycin Date/Time Labs Ordered Labs to be done on [date and time ordered]: 10/09 @ 3841
[2023-10-08 06:59] LABS: Bedside Glucose 416 mg/dL (74-106)
[2023-10-08] MEDS: Vancomycin IV 1,000 MG/200 ML BAG 200 MG IV (07:06)
--- NOTE | 2023-10-08 07:10 | PCM.PN.HOSP ---
Reason for Visit Reason for Visit: Diagnoses Type 2 diabetes mellitus with ketoacidosis without coma (10/06/23) Acute kidney failure, unspecified (10/06/23) Subjective Subjective Patient DKA did correct started on long-acting insulin as well as oral feeding with discontinuation of insulin drip, subsequent BMPs however demonstrated patient had gone back into DKA necessitating reinitiation of the protocol Objective Data Objective Data Vital Signs: Vital Signs Temp Pulse Resp BP Pulse Ox O2 Del Method 98.2 F 111 H 27 H 116/70 99 Room Air 10/08/23 05:00 10/08/23 07:00 10/08/23 07:00 10/08/23 07:00 10/08/23 07:00 10/08/23 07:00 Oxygen Delivery Method Room Air Weight: 69.5 kg Body Mass Index (BMI) 26.2 Intake & Output: Intake and Output for Last 24 Hours 10/06/23 10/07/23 10/08/23 23:59 23:59 23:59 Intake Total 1000 / 1000 6819.08 / 7144.08 1160 / 1160 Output Total 3450 / 3450 1550 / 1550 Balance 1000 / 1000 3369.08 / 3694.08 -390 / -390 Lab / Micro Data 10/08/23 04:00 10/08/23 04:00 Labs: Laboratory Results - last 24 hr 10/06/23 21:26: Diff Path Review Reviewed 10/07/23 02:15: MRSA (PCR) Negative 10/07/23 02:30: Syphilis Total Ab Non-reactive, Hep Bs Antigen Non-Reactive, Hep Bs Antibody Reactive, Hepatitis C Antibody Preliminary Reactive, HIV 1&2 Antibody Non-Reactive 10/07/23 05:17: Differential Comment SCANNED, Diff Path Review Reviewed, Hemoglobin A1c 10.0 H 10/07/23 07:04: POC Glucose 339 H 10/07/23 08:02: POC Glucose 373 H 10/07/23 09:08: POC Glucose 298 H 10/07/23 10:06: POC Glucose 279 H 10/07/23 10:15: Sodium 143, Potassium 4.2, Chloride 102, Carbon Dioxide 25.0, Anion Gap 16 H, BUN 92 H, Creatinine 3.97 H, Estim Creat Clear Calc 22.37, Est GFR (MDRD) Af Amer 23 L, Est GFR (MDRD) Non-Af 19 L, BUN/Creatinine Ratio 23.2 H, Glucose 294 H, Calcium 7.7 L 10/07/23 11:04: POC Glucose 290 H 10/07/23 12:07: POC Glucose 272 H 10/07/23 13:06: POC Glucose 287 H 10/07/23 13:12: Sodium 144, Potassium 4.1, Chloride 106, Carbon Dioxide 26.0, Anion Gap 12, BUN 86 H, Creatinine 3.63 H, Estim Creat Clear Calc 24.46, Est GFR (MDRD) Af Amer 25 L, Est GFR (MDRD) Non-Af 21 L, BUN/Creatinine Ratio 23.7 H, Glucose 286 H, Calcium 7.8 L 10/07/23 14:05: POC Glucose 281 H 10/07/23 15:06: POC Glucose 216 H 10/07/23 16:06: POC Glucose 230 H 10/07/23 16:25: Sodium 147 H, Potassium 4.3, Chloride 107, Carbon Dioxide 27.0, Anion Gap 13, BUN 78 H, Creatinine 3.39 H, Estim Creat Clear Calc 26.19, Est GFR (MDRD) Af Amer 27 L, Est GFR (MDRD) Non-Af 23 L, BUN/Creatinine Ratio 23.0 H, Glucose 266 H, Calcium 7.7 L 10/07/23 17:36: POC Glucose 261 H 10/07/23 20:57: POC Glucose 188 H 10/08/23 04:00: WBC 23.0 H, RBC 3.90 L, Hgb 11.3 L, Hct 34.6 L, MCV 88.7 D, MCH 29.0, MCHC 32.7 D, RDW Std Deviation 43.2, RDW Coeff of Albino 13.3, Plt Count 335, MPV 9.4, Immature Gran % (Auto) 1.500 H, Neut % (Auto) 74.2 H, Lymph % (Auto) 3.8 L, [place] % (Auto) 12.0 H, Eos % (Auto) 8.2 H, Baso % (Auto) 0.3, Absolute Neuts (auto) 17.0 H, Absolute Lymphs (auto) 0.87, Nucleated RBC % 0, Differential Comment SCANNED, Diff Path Review May foll, Sodium 136, Potassium 4.6, Chloride 99, Carbon Dioxide 13.0 L, Anion Gap 24 H, BUN 56 H, Creatinine 2.40 H, Estim Creat Clear Calc 37.00, Est GFR (MDRD) Af Amer 41 L, Est GFR (MDRD) Non-Af 34 L, BUN/Creatinine Ratio 23.3 H, Glucose 561 H*, Calcium 7.8 L, Phosphorus 3.7, Magnesium 2.2, Random Vancomycin 4.7 10/08/23 04:05: POC Glucose 455 H* 10/08/23 04:30: POC Glucose 459 H* 10/08/23 06:39: POC Glucose 416 H Micro: Microbiology 10/06/23 23:50 Stool Stool Occult Blood (LALY) - Final Occult Blood Positive ABG Data ABG results: ABG 10/08/23 06:46 Specimen Type ART Sample Site L Brach pH 7.39 Bicarbonate Actual 12.5 L Total CO2 13 Base Excess -12 L O2 Saturation 97 O2 % 21.0 ABG pCO2 20.6 L ABG pO2 86 O2 Delivery Device Not entered Vent Mode Not entered Physical Exam Narrative GENERAL: cooperative HEENT: Atraumatic; normocephalic EYES; Anicteric, Normal Conjunctiva NECK; supple, normal thyroid, RESPIRATORY: Diminished to auscultation CARDIOVASCULAR: Regular S1 S2, GI: soft, normoactive bowel sounds, : No Renal angle tenderness; EXTREMITIES: No edema, no clubbing, MUSCULOSKELETAL: no muscle wasting NEURO: Awake; no lateralizing signs. SKIN: No Rash PSYCH; Flat affect Assessment & Plan Assessment/Plan (1) DONAVON (acute kidney injury): (2) DKA (diabetic ketoacidoses): QUALIFIERS: Diabetes mellitus type: type 1 Diabetes mellitus complication detail: without coma Qualified Code(s): E10.10 - Type 1 diabetes mellitus with ketoacidosis without coma PLAN: Plan Patient is a 33-year-old gentleman with history of diabetes mellitus type 1 who presented to the emergency department with increasing lethargy as well as persistent nausea and vomiting. An assessment of diabetic ketoacidosis made admitted to the intensive care unit where patient is currently being managed 1. Diabetic ketoacidosis ? Patient has been admitted to the intensive care unit managed with aggressive IV fluid resuscitation, IV insulin with serial monitoring of electrolytes and correction of electrolyte abnormalities -10/08/2023; atient DKA did correct started on long-acting insulin as well as oral feeding with discontinuation of insulin drip, subsequent BMPs however demonstrated patient had gone back into DKA necessitating reinitiation of the protocol 2. Acute kidney injury ? Secondary to severe dehydration from DKA as well as persistent nausea and vomiting patient managed with IV fluid with subsequent monitoring of electrolytes ordered -10/08/2023; Cr is 2.4 3. Metabolic acidosis ? Secondary to patient's DONAVON as well as DKA do expect improvement in acidosis following correction of underlying etiology 4. Pseudohyponatremia ? Secondary to DKA do expect rapid improvement in sodium value following correction of DKA 5. Suspected upper GI bleed ? For persistent nausea vomiting? Alba-Arias tear. Patient treated symptomatically and placed on PPI 6. Polysubstance abuse ? Patient tox cream was positive forAmphetamines and cannabinoids. Counseled on cessation 7. Essential hypertension ? Patient is on lisinopril held given his impaired kidney function 8. Depression ? Patient is on SNRI 9. Tobacco dependence - Counseled on cessation, offered nicotine patch for tobacco cravings 10. DVT prophylaxis ? Bilateral SCDs 11. Leukocytosis - probably related to stress Time spent in the patient's overall evaluation,decision-making process, review of diagnostic data, adjustment of management, discussion with other providers, nursing nursing and ancillary staff involved in patient's care documentation, 52 Minutes Charges/Coding Visit Charges Inpatient E&M: 16119 [facility] Hosp L3
[2023-10-08 08:03] LABS: Bedside Glucose 341 mg/dL (74-106)
[2023-10-08] MEDS: Pantoprazole Sodium 40 MG in 0.9% Normal Saline (100mL MB+) 100 ML 330 MG IV ×2 (09:00→21:01)
[2023-10-08] MEDS: 0.45% Normal Saline 1,000 ML 175 ML IV ×2 (09:02→15:40)
[2023-10-08 09:08] LABS: Bedside Glucose 367 mg/dL (74-106)
[2023-10-08] MEDS: Insulin Lispro 100 UNIT in 0.9% Normal Saline (100mL Bag) 99 ML CONT INF (09:11)
[2023-10-08 09:17] LABS: Anion Gap 19 (5-15); BUN 50 mg/dL (7-18); BUN/Creat Ratio 21.5 RATIO (10-20); Calcium,Total 7.6 mg/dL (8.5-10.1); Chloride 107 mmol/L (98-107); Creatinine, Serum 2.33 mg/dL (0.70-1.30); EST Glomerular Filtration Rate 35 mL/min (>60); Est Glom Filt Rate - Afr Amer 42 mL/min (>60); Estimated Creatinine Clearance 38.11 ml/min; Glucose 347 mg/dL (74-106); Potassium 3.8 mmol/L (3.5-5.1); Sodium Level 142 mmol/L (136-145)
[2023-10-08] MEDS: Piperacil/Tazobactam 3.375 GM in 0.9% Normal Saline (50mL MB+) 50 ML IV ×3 (09:36→21:00)
[2023-10-08 10:04] LABS: Bedside Glucose 253 mg/dL (74-106)
[2023-10-08 11:04] LABS: Bedside Glucose 255 mg/dL (74-106)
[2023-10-08] MEDS: 0.9% Saline Lock 10 ML Syringe IV ×4 (11:43→16:24)
[2023-10-08 12:15] LABS: Bedside Glucose 218 mg/dL (74-106)
[2023-10-08 12:28] LABS: Anion Gap 11 (5-15); BUN 42 mg/dL (7-18); BUN/Creat Ratio 20.6 RATIO (10-20); Calcium,Total 7.3 mg/dL (8.5-10.1); Chloride 112 mmol/L (98-107); Creatinine, Serum 2.04 mg/dL (0.70-1.30); EST Glomerular Filtration Rate 40 mL/min (>60); Est Glom Filt Rate - Afr Amer 49 mL/min (>60); Estimated Creatinine Clearance 43.53 ml/min; Glucose 233 mg/dL (74-106); Potassium 3.9 mmol/L (3.5-5.1); Sodium Level 145 mmol/L (136-145)
[2023-10-08 13:08] LABS: Bedside Glucose 195 mg/dL (74-106)
[2023-10-08 14:04] LABS: Bedside Glucose 187 mg/dL (74-106)
[2023-10-08 15:14] LABS: Bedside Glucose 186 mg/dL (74-106)
[2023-10-08 16:11] LABS: Bedside Glucose 176 mg/dL (74-106)
[2023-10-08 16:14] LABS: Anion Gap 11 (5-15); BUN 36 mg/dL (7-18); BUN/Creat Ratio 18.7 RATIO (10-20); Calcium,Total 7.6 mg/dL (8.5-10.1); Chloride 112 mmol/L (98-107); Creatinine, Serum 1.93 mg/dL (0.70-1.30); EST Glomerular Filtration Rate 43 mL/min (>60); Est Glom Filt Rate - Afr Amer 52 mL/min (>60); Estimated Creatinine Clearance 46.01 ml/min; Glucose 210 mg/dL (74-106); Potassium 3.9 mmol/L (3.5-5.1); Sodium Level 145 mmol/L (136-145)
[2023-10-08 18:09] LABS: Bedside Glucose 170 mg/dL (74-106)
[2023-10-08] MEDS: Dext 5%-0.45% NS 1,000 ML 175 ML IV (19:54)
[2023-10-08 20:20] LABS: Anion Gap 9 (5-15); BUN 33 mg/dL (7-18); BUN/Creat Ratio 18.8 RATIO (10-20); Calcium,Total 7.7 mg/dL (8.5-10.1); Chloride 110 mmol/L (98-107); Creatinine, Serum 1.76 mg/dL (0.70-1.30); EST Glomerular Filtration Rate 48 mL/min (>60); Est Glom Filt Rate - Afr Amer 58 mL/min (>60); Estimated Creatinine Clearance 50.45 ml/min; Glucose 152 mg/dL (74-106); Potassium 3.5 mmol/L (3.5-5.1); Sodium Level 144 mmol/L (136-145)
[2023-10-08 21:07] LABS: HCV Quant. RNA PCR See Final Results IU/mL (.); HCV RNA-PCR, QUANT 15300000 IU/mL (.); HCV log 10 7.185 (.)
[2023-10-08] MEDS: KCL 20MEQ in D5.45NS 20 MEQ/1,000 ML IV.SOLN. 150 MEQ IV (21:54)
[2023-10-09] VITALS (11 sets, daily range): BP systolic 100–135; BP diastolic 59–85; PULSE 75–96; RESP 11–22; TEMP 36.7–37.1; O2SAT 94–100; BMI 27.1
[2023-10-09 00:28] LABS: Anion Gap 5 (5-15); BUN 27 mg/dL (7-18); BUN/Creat Ratio 17.5 RATIO (10-20); Calcium,Total 7.8 mg/dL (8.5-10.1); Chloride 112 mmol/L (98-107); Creatinine, Serum 1.54 mg/dL (0.70-1.30); EST Glomerular Filtration Rate 56 mL/min (>60); Est Glom Filt Rate - Afr Amer 68 mL/min (>60); Estimated Creatinine Clearance 57.66 ml/min; Glucose 168 mg/dL (74-106); Potassium 3.1 mmol/L (3.5-5.1); Sodium Level 145 mmol/L (136-145)
[2023-10-09] MEDS: Potassium Chloride Oral Soln 20 MEQ/15 ML UDC 40 MEQ PO (00:53)
[2023-10-09 02:16] LABS: Bedside Glucose 164 mg/dL (74-106)
[2023-10-09 02:16] LABS: Bedside Glucose 141 mg/dL (74-106)
[2023-10-09 02:16] LABS: Bedside Glucose 176 mg/dL (74-106)
[2023-10-09 02:16] LABS: Bedside Glucose 160 mg/dL (74-106)
[2023-10-09] MEDS: KCL 20MEQ in D5.45NS 20 MEQ/1,000 ML IV.SOLN. 150 MEQ IV (04:10)
[2023-10-09 04:21] LABS: Absolute Lymphocyte Count 2.32 X10^3/uL (0.83-4.51); Absolute Neutrophil Count 8.1 X10^3/uL (2.0-7.7); Basophil# 0.04 X10^3/uL; Basophil% 0.3 % (0-1); Eosinophil# 0.02 X10^3/uL; Eosinophils% 0.2 % (0-5); Hematocrit 31.2 % (40-54); Hemoglobin 10.3 g/dL (13.0-16.5); Lymphocyte # 2.32 X10^3/ul (0.83-4.51); Lymphocyte % 19.6 % (19-41); Mean Corpuscular Hgb 29.2 pg (27.0-32.0); Mean Corpuscular Volume 88.4 fL (80-94); Mean Platelet Vol. 8.8 fl (6.2-12.0); Monocyte# 1.26 X10^3/uL; Monocyte% 10.6 % (0-10); NRBC Flagged by Analyzer 0 % (0-5); Neutrophil # 8.09 X10^3/uL (2.7-7.7); Neutrophil % 68.4 % (47-70); Platelet Count 268 K/mm3 (150-450); RBC Distribution Width CV 13.1 % (11.6-14.6); RBC Distribution Width SD 42.3 fl (35.1-43.9); Red Blood Count 3.53 M/mm3 (4.6-6.2); White Blood Count 11.8 K/mm3 (4.4-11.0)
[2023-10-09 04:36] LABS: Anion Gap 4 (5-15); BUN 24 mg/dL (7-18); BUN/Creat Ratio 16.4 RATIO (10-20); Calcium,Total 8.1 mg/dL (8.5-10.1); Chloride 113 mmol/L (98-107); Creatinine, Serum 1.46 mg/dL (0.70-1.30); EST Glomerular Filtration Rate 59 mL/min (>60); Est Glom Filt Rate - Afr Amer 72 mL/min (>60); Estimated Creatinine Clearance 66.15 ml/min; Glucose 151 mg/dL (74-106); Potassium 3.2 mmol/L (3.5-5.1); Sodium Level 145 mmol/L (136-145)
[2023-10-09 04:45] LABS: Phosphorus 1.3 mg/dL (2.5-4.9)
[2023-10-09] MEDS: Potassium Chloride 10mEq/100mL 10 MEQ/100 ML IV.SOLN. 100 MEQ IV BOLUS ×3 (05:18→07:24)
[2023-10-09] MEDS: Insulin Lispro 100 UNIT in 0.9% Normal Saline (100mL Bag) 99 ML CONT INF (05:18)
[2023-10-09] MEDS: Vancomycin IV 1,000 MG/200 ML BAG 200 MG IV (05:50)
[2023-10-09] MEDS: Piperacil/Tazobactam 3.375 GM in 0.9% Normal Saline (50mL MB+) 50 ML IV (06:53)
--- NOTE | 2023-10-09 07:33 | PCM.DC.SUM ---
Providers Date of Admission: 10/06/23 Date of Discharge: 10/09/23 Primary Care Physician: BAYRON Holden, [employer] Consultations 10/07/23 03:23 Consult: Gastroenterology Routine Consulting Provider: Yariel [facility] Reason for Consult: GI bleed, ABLA EMERGENT Consult: No MD Notified: Yes Date Notified: 10/07/23 Time Notified: 03:23 Method of Notification: Text Reason For Visit: DKA, DONAVON Diagnosis Discharge Diagnosis (1) DONAVON (acute kidney injury): Status: Acute Code(s): N17.9 - Acute kidney failure, unspecified (2) DKA (diabetic ketoacidoses): Status: Acute Code(s): E11.10 - Type 2 diabetes mellitus with ketoacidosis without coma Qualifiers: Diabetes mellitus complication detail: without coma Diabetes mellitus type: type 1 Qualified Code(s): E10.10 - Type 1 diabetes mellitus with ketoacidosis without coma Plan Patient is a 33-year-old gentleman with history of diabetes mellitus type 1 who presented to the emergency department with increasing lethargy as well as persistent nausea and vomiting. An assessment of diabetic ketoacidosis made admitted to the intensive care unit where patient is currently being managed 1. Diabetic ketoacidosis ? Patient has been admitted to the intensive care unit managed with aggressive IV fluid resuscitation, IV insulin with serial monitoring of electrolytes and correction of electrolyte abnormalities -10/08/2023; atient DKA did correct started on long-acting insulin as well as oral feeding with discontinuation of insulin drip, subsequent BMPs however demonstrated patient had gone back into DKA necessitating reinitiation of the protocol ? 10/09/2023; decision was made to discharge patient once DKA resolved. 2. Acute kidney injury ? Secondary to severe dehydration from DKA as well as persistent nausea and vomiting patient managed with IV fluid with subsequent monitoring of electrolytes ordered -10/08/2023; Cr is 2.4 ? 10/09/2023 creatinine on discharge was 1.46 3. Metabolic acidosis ? Secondary to patient's DONAVON as well as DKA do expect improvement in acidosis following correction of underlying etiology 4. Pseudohyponatremia ? Secondary to DKA do expect rapid improvement in sodium value following correction of DKA 5. Suspected upper GI bleed ? For persistent nausea vomiting? Alba-Arias tear. Patient treated symptomatically and placed on PPI 6. Polysubstance abuse ? Patient tox cream was positive forAmphetamines and cannabinoids. Counseled on cessation ? 10/09/2023; patient to follow-up with [facility] 7. Essential hypertension ? Patient is on lisinopril held given his impaired kidney function 8. Depression ? Patient is on SNRI 9. Tobacco dependence - Counseled on cessation, offered nicotine patch for tobacco cravings 10. DVT prophylaxis ? Bilateral SCDs 11. Leukocytosis - probably related to stress Time spent in the patient's overall evaluation,decision-making process, review of diagnostic data, adjustment of management, discussion with other providers, nursing nursing and ancillary staff involved in patient's care documentation, 35 minutes Medications at Discharge Home Medications desvenlafaxine succinate 100 mg tablet,extended release 24 hr 100 mg PO Q24H depression 08/08/23 insulin glargine 100 unit/mL subcutaneous solution (Lantus U-100 Insulin) 40 unit subcut QHS dm 09/14/23 insulin lispro 100 unit/mL subcutaneous solution (Humalog U-100 Insulin) See Rx Instructions subcut TID dm 09/14/23 pantoprazole 40 mg tablet,delayed release (Protonix) 40 mg PO DAILY #60 tabs 10/09/23 Physical Exam Narrative GENERAL: cooperative HEENT: Atraumatic; normocephalic EYES; Anicteric, Normal Conjunctiva NECK; supple, normal thyroid, RESPIRATORY: Diminished to auscultation CARDIOVASCULAR: Regular S1 S2, GI: soft, normoactive bowel sounds, : No Renal angle tenderness; EXTREMITIES: No edema, no clubbing, MUSCULOSKELETAL: no muscle wasting NEURO: Awake; no lateralizing signs. SKIN: No Rash PSYCH; Flat affect Weight / BMI Weight Weight: 72.167 kg Body Mass Index (BMI) 27.1 ABG / Lab / Microbiology Data 10/09/23 04:05 10/09/23 04:05 Laboratory: Laboratory Results - last 24 hr 10/07/23 08:46: HCV RNA Quant (PCR) See Final Results, HCV RNA (PCR) IU log10 TNP, HCV RNA PCR Test Info Comment 10/08/23 07:39: POC Glucose 341 H 10/08/23 08:05: Sodium 142, Potassium 3.8, Chloride 107, Carbon Dioxide 16.0 L, Anion Gap 19 H, BUN 50 H, Creatinine 2.33 H, Estim Creat Clear Calc 38.11, Est GFR (MDRD) Af Amer 42 L, Est GFR (MDRD) Non-Af 35 L, BUN/Creatinine Ratio 21.5 H, Glucose 347 H, Calcium 7.6 L 10/08/23 08:42: POC Glucose 367 H 10/08/23 09:44: POC Glucose 253 H 10/08/23 10:41: POC Glucose 255 H 10/08/23 11:39: POC Glucose 218 H 10/08/23 12:04: Sodium 145, Potassium 3.9, Chloride 112 H, Carbon Dioxide 22.0, Anion Gap 11, BUN 42 H, Creatinine 2.04 H, Estim Creat Clear Calc 43.53, Est GFR (MDRD) Af Amer 49 L, Est GFR (MDRD) Non-Af 40 L, BUN/Creatinine Ratio 20.6 H, Glucose 233 H, Calcium 7.3 L 10/08/23 12:45: POC Glucose 195 H 10/08/23 13:42: POC Glucose 187 H 10/08/23 14:44: POC Glucose 186 H 10/08/23 15:45: Sodium 145, Potassium 3.9, Chloride 112 H, Carbon Dioxide 22.0, Anion Gap 11, BUN 36 H, Creatinine 1.93 H, Estim Creat Clear Calc 46.01, Est GFR (MDRD) Af Amer 52 L, Est GFR (MDRD) Non-Af 43 L, BUN/Creatinine Ratio 18.7, Glucose 210 H, Calcium 7.6 L 10/08/23 15:49: POC Glucose 176 H 10/08/23 17:46: POC Glucose 170 H 10/08/23 19:55: Sodium 144, Potassium 3.5, Chloride 110 H, Carbon Dioxide 25.0, Anion Gap 9, BUN 33 H, Creatinine 1.76 H, Estim Creat Clear Calc 50.45, Est GFR (MDRD) Af Amer 58 L, Est GFR (MDRD) Non-Af 48 L, BUN/Creatinine Ratio 18.8, Glucose 152 H, Calcium 7.7 L 10/08/23 19:59: POC Glucose 141 H 10/08/23 21:56: POC Glucose 176 H 10/08/23 23:07: POC Glucose 164 H 10/09/23 00:05: Sodium 145, Potassium 3.1 L, Chloride 112 H, Carbon Dioxide 28.0, Anion Gap 5, BUN 27 H, Creatinine 1.54 H, Estim Creat Clear Calc 57.66, Est GFR (MDRD) Af Amer 68, Est GFR (MDRD) Non-Af 56 L, BUN/Creatinine Ratio 17.5, Glucose 168 H, Calcium 7.8 L, POC Glucose 160 H 10/09/23 04:05: WBC 11.8 H, RBC 3.53 L, Hgb 10.3 L, Hct 31.2 L, MCV 88.4, MCH 29.2, MCHC 33.0, RDW Std Deviation 42.3, RDW Coeff of Albino 13.1, Plt Count 268, MPV 8.8, Immature Gran % (Auto) 0.900, Neut % (Auto) 68.4, Lymph % (Auto) 19.6, [place] % (Auto) 10.6 H, Eos % (Auto) 0.2, Baso % (Auto) 0.3, Absolute Neuts (auto) 8.1 H, Absolute Lymphs (auto) 2.32, Nucleated RBC % 0, Sodium 145, Potassium 3.2 L, Chloride 113 H, Carbon Dioxide 28.0, Anion Gap 4 L, BUN 24 H, Creatinine 1.46 H, Estim Creat Clear Calc 66.15, Est GFR (MDRD) Af Amer 72, Est GFR (MDRD) Non-Af 59 L, BUN/Creatinine Ratio 16.4, Glucose 151 H, Calcium 8.1 L, Phosphorus 1.3 L, Magnesium 2.0 Microbiology: Microbiology 10/06/23 23:50 Stool Stool Occult Blood (LALY) - Final Occult Blood Positive Radiography Diagnostic Testing: Radiology Impression Echocardiogram 10/08/23 06:29 Interpretation Summary Normal LV size. Left ventricular systolic function is normal. The estimated ejection fraction is 65 %. Structurally normal valves. Ordering Physician: Wendy Leblanc Referring Physician: DELANEY DAILEY Performed By: Zuleima Fischer RCS D/C Instructions Discharge Diet: 1800 Calorie Control Diet Discharge Activity: Return to Normal Activity Call your doctor if you observe: Fever of 101 or Higher, Shortness of breath, Fainting spells and Chest pain Meaningful Use Info Meaningful Use Meaningful Use Diagnoses (Choose all that apply): None applicable Ischemic Stroke Statin Dosing Therapy Reference: STATIN DOSE THERAPY REFERENCE: * Patients > 75 years receive moderate or high dose statin therapy. * Patients 75 years or YOUNGER should receive HIGH intensity statin dose unless contraindicated. You will be required to document reason for non-treatment if statin daily dose does not meet guidelines. HIGH DOSE STATIN THERAPY DAILY Atorvastatin > than or = to 40 mg Rosuvastatin > than or = to 20 mg Amlodipine + Atorvastatin > than or = to 2.5/40 mg Ezetimibe + Simvastatin 10/80 mg Simvastatin 80mg Discharge Plan Admission Admit Date/Time: 10/06/23 23:38 Attending Provider: Manolo Haq Primary Care Provider: Delaney Dailey Consulting Providers: Wendy Leblanc Discharge Orders/Prescriptions Prescriptions: New pantoprazole [Protonix] 40 mg tablet,delayed release (DR/EC) 40 mg PO DAILY Qty: 60 0RF Continued insulin lispro [Humalog U-100 Insulin] 100 unit/mL solution See Rx Instructions subcut TID Patient Comments: SLIDING SCALE. Rx Instructions: subcutaneously three times a day with sliding scale; 14-20-20 insulin glargine [Lantus U-100 Insulin] 100 unit/mL solution 40 unit subcut QHS desvenlafaxine succinate 100 mg tablet extended release 24 hr 100 mg PO Q24H Patient Comments: take 1 tablet by mouth once daily Discontinued lisinopril 20 mg tablet 20 mg PO DAILY Qty: 30 5RF Referrals / Follow Up: Delaney Dailey, [employer] [Primary Care Provider] - Within 1 Week Disposition Disposition (needs filled in before D/C Order can be placed): Home, Self Care Charges/Coding Visit Charges Inpatient E&M: 71662 Disch Hosp >30min
[2023-10-09] MEDS: Insulin Glargine-YFGN 100 UNIT/ML Pen 20 UNIT SC (08:10)
[2023-10-09 08:52] LABS: Bedside Glucose 152 mg/dL (74-106)
[2023-10-09 08:52] LABS: Bedside Glucose 136 mg/dL (74-106)
[2023-10-09 08:52] LABS: Bedside Glucose 129 mg/dL (74-106)
[2023-10-09 08:52] LABS: Bedside Glucose 127 mg/dL (74-106)
[2023-10-10 10:15] LABS: Pathologist Review Reviewed
== END 2023-10-09 09:51 | disposition home or self-care (01) | DRG 420 ==
LOC: ED 10-07 00:11 → ICU 10-07 00:23
PROVIDERS: Admitting Provider Family Medicine; Emergency Provider Emergency Medicine; PCP Nurse Practitioner Family; Visit Provider Internal Medicine
DX: E10.10 Type 1 diabetes mellitus with ketoacidosis without coma (principal); I47.10 Supraventricular tachycardia, unspecified; N17.9 Acute kidney failure, unspecified; F31.9 Bipolar disorder, unspecified; F15.10 Other stimulant abuse, uncomplicated; B18.2 Chronic viral hepatitis C; I10 Essential (primary) hypertension; Z79.4 Long term (current) use of insulin; F12.10 Cannabis abuse, uncomplicated; F17.210 Nicotine dependence, cigarettes, uncomplicated; E86.0 Dehydration; Z79.899 Other long term (current) drug therapy
CPT/HCPCS: 36600; 71045; 71250; 74176; 80048; 80076; 80202; 80307; 81001; 82009; 82077; 82274; 82803; 82947; 82962; 83036; 83605; 83690; 83735; 84100; 84145; 85014; 85018; 85025; 85610; 85730; 86703; 86706; 86780; 86803; 87040; 87340; 87522; 87641; 93005; 93306; 97802; 99284; Q9957; A4216; J2405

== ENCOUNTER 2023-11-22 16:04 | Emergency (ER) | payer MEDICAID, SELFPAY ==
[2023-11-22 16:06] VITALS: BP 135/88; PULSE 117; RESP 18; TEMP 36.4; O2SAT 99; BMI 27.6
[2023-11-22 16:08] VITALS: BP 135/88; PULSE 117; RESP 18; TEMP 36.4; O2SAT 99
--- NOTE | 2023-11-22 16:17 | CT_ITS ---
STUDY: CTA OF THE RIGHT LOWER EXTREMITY PATIENT DEMOGRAPHICS: Male, 33 years old. REASON FOR EXAM: right ankle abscess, cellulitis TECHNIQUE: Axial CT angiography multi-detector data acquisition was obtained from the to the following intravenous administration of IV 100mL Isovue-370. Axial images and MIP images were reconstructed from the axial data set. Post-processing of the angiographic images was performed, with multiplanar reformation and 3D reconstruction. The protocol utilizes one or more of the following dose reduction techniques: automated exposure control, adjustment of mA and/or kV according to patient size,and/or use of iterative reconstruction technique. RADIATION DOSAGE (If Supplied By Facility): CTDIvol = ( 7.19 ) mGy, DLP = ( 902.16 ) mGycm TECHNICAL LIMITATIONS: None. COMPARISON: Descriptors of Narrowing: None (0%) Mild (< 50%) Moderate (50-70%) Severe (70-90%) Subtotal/Total Occlusion (90-100%) Non-Evaluable (technically non-diagnostic) FINDINGS: Right common iliac artery: No significant narrowing. Right external iliac artery: No significant narrowing. Right internal iliac artery: No significant narrowing. Left common iliac artery: No significant narrowing. Left external iliac artery: No significant narrowing. Left internal iliac artery: No significant narrowing. Right common femoral artery: No significant narrowing. Right profundus femoris: No significant narrowing. Right superficial femoral: No significant narrowing. Right popliteal artery: No significant narrowing. Right tibioperoneal trunk: No significant narrowing. Right anterior tibial artery: No significant narrowing. Right posterior tibial artery: No significant narrowing. Right peroneal artery: No significant narrowing. Left common femoral artery: No significant narrowing. Left profundus femoris: No significant narrowing. Urinary bladder: Normal in appearance. Gastrointestinal: No gastric abnormality is identified. The small bowel is normal in caliber. The colon is normal in caliber. There is no free fluid or free air in the abdomen or pelvis. Lymph nodes: No significantly enlarged lymph nodes are seen. Bones: No suspicious osseous findings. There is a subcutaneous collection just superficial to the distal tibia just superior to the medial malleolus likely an abscess, measuring 1.8 x 3.6 x 4.1 cm . Adjacent subcutaneous edema is noted extending to the foot. CT/CTA LWR EXTR W/O & W/DYE IMPRESSION: There is a subcutaneous collection just superficial to the distal tibia just superior to the medial malleolus likely an abscess, measuring 1.8 x 3.6 x 4.1 cm . Adjacent subcutaneous edema is noted extending to the foot. Electronically Signed: Amado Nieves DO at 17:58 EDT ,
--- NOTE | 2023-11-22 16:19 | EDS_ITS ---
HPI History of Present Illness Chief Complaint: Cellulitis Detail of Chief Complaint: Cellulitis right foot and ankle Informant: patient and family Narrative Narrative: Patient presents with redness and swelling to the right foot and ankle. He saw his primary care physician yesterday and was told to come to the ER. Patient tells me that about 5 days ago he tried to inject meth amphetamines into a vein in his ankle and missed. Patient denies fevers or chills or sweats. Patient states the swelling was more significant and has actually improved. Patient is a type I diabetic. [facility] Medical History (Updated 11/22/23 @ 18:[address] Dillan Trent, DO) IV drug user Hepatitis C Hypertension Bipolar 1 disorder Methamphetamine abuse Type 1 diabetes mellitus Fracture, jaw Overdose Home Medications ?Medication ?Instructions ?Recorded ?Last Taken ?Type insulin lispro 100 unit/mL See Rx Instructions subcut TID dm 09/14/23 Unknown History subcutaneous solution (Humalog U-100 Insulin) pantoprazole 40 mg tablet,delayed 40 mg PO DAILY #60 tabs 10/09/23 Unknown Rx release (Protonix) blood-glucose sensor (Dexcom G7 #9 ea 10/12/23 Unknown Rx Sensor device) cephalexin 500 mg capsule 500 mg PO Q6 #40 CAPSULES 11/22/23 Unknown Rx insulin glargine 100 unit/mL (3 27 unit subcut QHS 11/22/23 11/21/23 History mL) subcutaneous pen (Lantus Solostar U-100 Insulin) sulfamethoxazole 800 1 tab PO BID #20 TABLETS 11/22/23 Unknown Rx mg-trimethoprim 160 mg tablet Allergy/AdvReac Type Severity Reaction Status Date / Time morphine AdvReac Itching Verified 11/22/23 16:06 Family History Mother Thyroid disorder Surgical History History of mandibular surgery Social History household members: none Smoking Status: Current every day smoker tobacco type: cigarettes Tobacco: How many years used: 16 Electronic Cigarette Use: not used second hand exposure: Yes alcohol intake: former details: Notes prior heavier, rare use currently. substance use type: marijuana, IV drugs and methamphetamine ROS ROS ED Review of Systems ROS Unobtainable: other Constitutional Constitutional ED: Reports lethargy; Denies chills, fever(s), sweats or weight loss Eyes Eyes: Denies blurry vision, change in vision or diplopia ENT ENT ED: Denies rhinorrhea or sore throat Cardiovascular Cardiovascular: Denies chest pain, orthopnea or racing heartbeat Respiratory/Chest Respiratory/Chest: Denies cough, dyspnea, dyspnea on exertion, orthopnea or sputum Gastrointestinal Gastrointestinal: Denies abdominal pain, diarrhea, nausea or vomiting Genitourinary Genitourinary ED: Denies dysuria, hematuria or urinary frequency Musculoskeletal Musculoskeletal: Reports other Details: Redness and swelling to right foot and ankle ; Denies arthralgias, back pain, myalgias or neck pain Integumentary Denies abscess, Abrasions or rash Neurologic Neurologic: Denies headache(s) or weakness Psychiatric Psychiatric: Denies anxiety, depression or suicidal thoughts Endocrine Endocrinology: Denies polydipsia, polyphagia or polyuria Hematologic/Lymphatic Hematologic/Lymphatic: Denies easy bleeding, easy bruising or lymphadenopathy Allergic/Immunologic Allergic/Immunologic ED: Denies mouth swelling, tongue swelling or urticaria EXAM Physical Exam Const Vital Signs: 11/22/23 16:06 11/22/23 16:08 11/22/23 17:08 Temperature 97.6 F L 97.6 F L 97 F L Temperature Source Temporal Temporal Temporal Pulse Rate 117 H 117 H 115 H Respiratory Rate 18 18 16 Blood Pressure 135/88 H 135/88 H 141/79 H Blood Pressure Mean 103 103 99 Pulse Ox 99 99 97 Oxygen Delivery Method Room Air Room Air Room Air 11/22/23 18:00 Temperature 98.4 F Temperature Source Oral Pulse Rate 74 Respiratory Rate 17 Blood Pressure 125/82 H Blood Pressure Mean 96 Pulse Ox 99 Oxygen Delivery Method Room Air Positive well nourished and well developed General Appearance ED: well developed and NAD HEENT Reports TM's clear and moist mucous membranes normocephalic and atraumatic; Negative for trauma or tenderness Tympanic Membrane ED: Yes TM's clear Eyes PERRL and EOMs intact bilaterally General Eye ED: Negative for pale conjunctiva or scleral icterus Neck no lymphadenopathy, supple and no JVD General: Negative for tenderness Chest Wall inspection of chest normal and palpation of chest normal Chest: Negative for tenderness Resp normal respiratory effort and clear to auscultation bilaterally Effort and Inspection: Negative for respiratory distress or pain with movement Auscultation: Negative for rhonchi, wheezes or diminished lung sounds Cardio regular rate, regular rhythm, S1 normal heart sound, S2 normal heart sound and no murmurs Peripheral Pulses: pulses 2+ throughout GI normal to inspection, nondistended, normoactive bowel sounds, soft to palpation, non-tender, non-distended and no masses Back/Spine no CVA tenderness and no thoracic nor lumbar tenderness Extremity Extremity Narrative: Right foot and ankle-patient has diffuse soft tissue swelling over the medial aspect of the ankle with some erythema. There are some slight fluctuance and an area measuring approximately 2 cm in diameter. Some edema to the dorsum of the foot. He is neurovascular intact distally. General Extremety ED: Negative for edema General Extremity: Negative for edema Neuro oriented x3, CN's II-XII intact bilaterally, no sensory deficits noted and gait normal Sensorium / Orientation: awake, alert, oriented to person, oriented to place and oriented to time Motor Exam: strength 5/5 throughout and strength abnormal Psych mental status grossly normal Skin no rashes or lesions noted and no wounds MDM MDM MDM Narrative Medical decision making narrative: Presents with redness and swelling to the left ankle. Patient attempted to inject methamphetamines into her vein and redness. Concern for cellulitis and abscess of the area. Given that he is diabetic did not want to attempt I&D of suspected abscess without imaging to confirm. IV line established. CBC with differential white count 13.8 with hemoglobin 13 and platelet count of 444. Chemistries unremarkable other than elevated glucose at 385. No evidence for DKA. Lactate elevated at 4.3. CT scan obtained showed an abscess measuring 1.8 x 3.6 x 4.1 cm over the anterior aspect of the ankle. I discussed results with patient. I did start him on Zosyn and Vanco IV. I recommended admission and incision and drainage of the abscess. He agreed to the incision and drainage of the abscess. Please see procedure note. I did send off a wound culture. As we were discussing his admission patient states that he does not want to be admitted and would like to go home. He understands my concern and the fact that he is considered high risk due to his type 1 diabetes. I am concerned about worsening infection and actively to potential loss of his extremity or sepsis or . He did have an elevated lactate level of 4.3. Patient understands my concerns and his mother is in the room as well she understands all my concerns. He is refusing admission and will sign out AGAINST MEDICAL ADVICE. I will write him a prescription for Keflex and Bactrim. Patient understands risk of sepsis, , loss of limb, or significant disability. Lab Data Attestation: I reviewed the patient's lab results. Labs: Laboratory Results - last 24 hr 11/22/23 11/22/23 11/22/23 16:24 16:40 17:48 WBC 13.8 H RBC 4.60 Hgb 13.0 Hct 40.0 MCV 87.0 MCH 28.3 MCHC 32.5 RDW Std Deviation 39.7 RDW Coeff of Albino 12.5 Plt Count 444 MPV 9.2 Immature Gran % (Auto) 2.500 H Neut % (Auto) 61.5 Lymph % (Auto) 24.9 [place] % (Auto) 9.0 Eos % (Auto) 1.4 Baso % (Auto) 0.7 Absolute Neuts (auto) 8.5 H Absolute Lymphs (auto) 3.44 Nucleated RBC % 0 Sodium 137 Potassium 4.0 Chloride 101 Carbon Dioxide 26.0 Anion Gap 10 BUN 16 Creatinine 1.16 Estim Creat Clear Calc 83.73 Est GFR (MDRD) Af Amer 94 Est GFR (MDRD) Non-Af 77 BUN/Creatinine Ratio 13.8 Glucose 385 H Lactic Acid 4.3 H* Calcium 9.4 POC Glucose 353 H Radiography Diagnostic Testing: Clinical Impression(s) from Imaging Studies Lower Extremity CTA 11/22/23 16:17 IMPRESSION: There is a subcutaneous collection just superficial to the distal tibia just superior to the medial malleolus likely an abscess, measuring 1.8 x 3.6 x 4.1 cm . Adjacent subcutaneous edema is noted extending to the foot. Electronically Signed: Amado Nieves DO at 17:58 EDT Reading Location ID and State: [facility] / [place] Tel [phone], Service support , Procedures Other Procedures Procedure(s): Incision and drainage of suspected abscess of the left foot. Area of the skin cleansed with Shur-Clens. Local anesthesia with 1% lidocaine total of 4 cc of the skin. Using an 18-gauge needle I was able to advance that subcutaneously and while aspirating obtain large amount of purulent debris. I then used an 11 blade to make a 1 cm incision in this suspected most fluctuant portion of the abscess and large amount of free-flowing purulent debris was expressed. I continue to milk and expressed a large amount of purulent debris. I did obtain wound culture. Irrigated with saline. Clean dressing applied. Discharge Plan Triage Chief Complaint: Cellulitis ED Provider: Dillan Trent Dx/Rx/DC Orders Clinical Impression: Abscess of skin of left ankle, Cellulitis of left leg Instructions: ED Abscess Incision And Drainage, ED Cellulitis Prescriptions: New sulfamethoxazole-trimethoprim 800-160 mg tablet 1 tab PO BID Qty: 20 0RF cephalexin 500 mg capsule 500 mg PO Q6 Qty: 40 0RF No Action (DME) Dexcom G7 Sensor Device See Rx Instructions .Route Qty: 9 1RF Rx Instructions: 1 sensor q 1 days insulin lispro [Humalog U-100 Insulin] 100 unit/mL solution See Rx Instructions subcut TID Patient Comments: SLIDING SCALE. Rx Instructions: subcutaneously three times a day with sliding scale; 14-20-20 pantoprazole [Protonix] 40 mg tablet,delayed release (DR/EC) 40 mg PO DAILY Qty: 60 0RF insulin glargine [Lantus Solostar U-100 Insulin] 100 unit/mL (3 mL) insulin pen 27 unit subcut QHS Primary Care Provider: Meron Kulkarni Referrals: Meron Kulkarni, [employer] [Primary Care Provider] - 2 Days for wound check Print Language: Spanish Disposition Disposition: Against Medical Advice
[2023-11-22 16:35] LABS: Absolute Lymphocyte Count 3.44 X10^3/uL (0.83-4.51); Absolute Neutrophil Count 8.5 X10^3/uL (2.0-7.7); Basophil% 0.7 % (0-1); Eosinophil# 0.19 X10^3/uL; Eosinophils% 1.4 % (0-5); Lymphocyte # 3.44 X10^3/ul (0.83-4.51); Lymphocyte % 24.9 % (19-41); Mean Corp Hgb Conc 32.5 g/dL (32-36); Mean Corpuscular Hgb 28.3 pg (27.0-32.0); Mean Platelet Vol. 9.2 fl (6.2-12.0); Monocyte# 1.24 X10^3/uL; NRBC Flagged by Analyzer 0 % (0-5); Neutrophil # 8.52 X10^3/uL (2.7-7.7); Neutrophil % 61.5 % (47-70); Platelet Count 444 K/mm3 (150-450); RBC Distribution Width CV 12.5 % (11.6-14.6); RBC Distribution Width SD 39.7 fl (35.1-43.9); White Blood Count 13.8 K/mm3 (4.4-11.0)
[2023-11-22] MEDS: Piperacil/Tazobactam 4.5 GM in 0.9% Normal Saline (100mL MB+) 100 ML IV (16:41)
[2023-11-22 16:56] LABS: Anion Gap 10 (5-15); BUN 16 mg/dL (7-18); BUN/Creat Ratio 13.8 RATIO (10-20); Calcium,Total 9.4 mg/dL (8.5-10.1); Chloride 101 mmol/L (98-107); Creatinine, Serum 1.16 mg/dL (0.70-1.30); EST Glomerular Filtration Rate 77 mL/min (>60); Est Glom Filt Rate - Afr Amer 94 mL/min (>60); Estimated Creatinine Clearance 83.73 ml/min; Glucose 385 mg/dL (74-106); Sodium Level 137 mmol/L (136-145)
[2023-11-22 17:08] VITALS: BP 141/79; PULSE 115; RESP 16; TEMP 36.1; O2SAT 97
[2023-11-22 17:37] LABS: Lactic Acid 4.3 mmol/L (0.4-1.9)
[2023-11-22] MEDS: Vancomycin IV 1,000 MG/200 ML BAG 200 MG IV (17:54)
[2023-11-22 18:00] VITALS: BP 125/82; PULSE 74; RESP 17; TEMP 36.9; O2SAT 99
[2023-11-22 18:06] LABS: Bedside Glucose 353 mg/dL (74-106)
[2023-11-22] MEDS: Lidocaine 1% (20 ml mdv) 20 ML Vial 4 ML INFILT (18:20)
[2023-11-22] MEDS: Ketorolac 30 MG/ML Syringe IV (18:20)
--- NOTE | 2023-11-22 18:47 | ED.RN ---
This RN to give 10 units of Humalog for hyperglycemia. Before administration BS 353 @ 7517. Pt informed this RN that he had given himself 12 units of Humalog an hour prior, about 1640. Held dose ordered, informed Dr. Trent. Due to check glucose level @ 1850. Pt to sign out AMA, refused vitals and blood sugar check.
[2023-11-22 20:46] LABS: Reflex Lactate? Y
== END 2023-11-22 19:20 | disposition left against medical advice (07) ==
PROVIDERS: Emergency Provider Emergency Medicine; PCP Nurse Practitioner Family; Visit Provider Emergency Medicine
DX: L02.416 Cutaneous abscess of left lower limb (principal); F31.9 Bipolar disorder, unspecified; Z79.4 Long term (current) use of insulin; E10.9 Type 1 diabetes mellitus without complications; L03.116 Cellulitis of left lower limb; F17.210 Nicotine dependence, cigarettes, uncomplicated; F12.90 Cannabis use, unspecified, uncomplicated
CPT/HCPCS: 10060; 87070; 87205; 73706; 80048; 82962; 83605; 85025; 96365; 96366; 96367; 96375; 99283; J7040; Q9967; A4216

== ENCOUNTER 2023-11-23 16:18 | Emergency (ER) | payer MEDICAID, SELFPAY ==
[2023-11-23 16:18] VITALS: BP 140/95; PULSE 101; RESP 20; TEMP 36.1; O2SAT 100; BMI 27.4
[2023-11-23 16:20] VITALS: BP 140/95; PULSE 101; RESP 20; TEMP 36.1; O2SAT 100
[2023-11-23 17:20] VITALS: BP 120/88; PULSE 92; RESP 17; TEMP 36.6; O2SAT 99
[2023-11-23 18:18] VITALS: BP 120/86; PULSE 82; RESP 18; O2SAT 98
--- NOTE | 2023-11-23 18:52 | EDS_ITS ---
HPI History of Present Illness Chief Complaint: Wound Narrative Narrative: 33-year-old male past medical history of bipolar disorder, hepatitis C, and type 1 diabetes presents to the emergency department again after he signed out AGAINST MEDICAL ADVICE yesterday. He was trying to shoot methamphetamines into his right ankle, and missed. He was seen and evaluated in the emergency department and had an incision and drainage of an abscess of his right ankle. He received 1 dose of IV antibiotics and it was suggested that he be admitted because he had an elevated lactic acid of 4.5, but he states he had things to do. He presents again to the emergency department because he states he pressed on it and it gushed out blood. He denies any fevers or chills, no nausea or vomiting. He is having increased pain in his right ankle as well. [facility] Medical History IV drug user Hepatitis C Hypertension Bipolar 1 disorder Methamphetamine abuse Type 1 diabetes mellitus Fracture, jaw Overdose Home Medications ?Medication ?Instructions ?Recorded ?Last Taken ?Type insulin lispro 100 unit/mL See Rx Instructions subcut TID dm 09/14/23 Unknown History subcutaneous solution (Humalog U-100 Insulin) pantoprazole 40 mg tablet,delayed 40 mg PO DAILY #60 tabs 10/09/23 Unknown Rx release (Protonix) blood-glucose sensor (Dexcom G7 #9 ea 10/12/23 Unknown Rx Sensor device) cephalexin 500 mg capsule 500 mg PO Q6 #40 CAPSULES 11/22/23 Unknown Rx insulin glargine 100 unit/mL (3 27 unit subcut QHS 11/22/23 11/21/23 History mL) subcutaneous pen (Lantus Solostar U-100 Insulin) sulfamethoxazole 800 1 tab PO BID #20 TABLETS 11/22/23 Unknown Rx mg-trimethoprim 160 mg tablet Allergy/AdvReac Type Severity Reaction Status Date / Time morphine AdvReac Itching Verified 11/23/23 16:20 Family History Mother Thyroid disorder Surgical History History of mandibular surgery Social History household members: none Smoking Status: Current every day smoker tobacco type: cigarettes Tobacco: How many years used: 16 Electronic Cigarette Use: not used second hand exposure: Yes alcohol intake: former details: Notes prior heavier, rare use currently. substance use type: marijuana, IV drugs and methamphetamine ROS ROS ED ROS Narrative Constitutional: No fever, no chills. HEENT: No sore throat. No neck pain. No loss of vision. No rhinorrhea. Cardiovascular: No chest pain. No palpitations. No pedal edema. Respiratory: No cough, no shortness of breath. Abdominal: No abdominal pain. No nausea. No vomiting. Genitourinary: No dysuria. No hematuria. Musculoskeletal: No myalgias. Positive right ankle pain with swelling. States he had bleeding from incision and drainage site. Neurologic: No headaches. No dizziness. No lightheadedness. Skin: No rash. No change in color. Psychiatric: No depression. No anxiety. EXAM Physical Exam Narrative Exam Narrative: Afebrile. Vital signs noted. HEENT: Normocephalic. Atraumatic. PERRL, EOMI. Neck soft and supple. No point tenderness or step off. Cardiovascular: Regular rate and rhythm. No murmurs, rubs, or gallops appreciated. Respiratory: No tachypnea. Lungs clear to auscultation bilaterally. Gastrointestinal: Abdomen soft, nontender, with normoactive bowel sounds. No rebound or guarding. Neurological: Awake. Alert. Nonfocal, nonlateralizing. Skin: No rash. Positive incision on right medial ankle with serosanguineous drainage noted, no active bleeding. Mild swelling diffusely with minimal erythema. Musculoskeletal: Mild right pedal edema. Full range of motion extremities. Const Vital Signs: 11/23/23 16:18 11/23/23 16:20 11/23/23 17:20 Temperature 96.9 F L 96.9 F L 97.9 F Temperature Source Temporal Temporal Temporal Pulse Rate 101 H 101 H 92 Respiratory Rate 20 H 20 H 17 Blood Pressure 140/95 H 140/95 H 120/88 H Blood Pressure Mean 110 110 98 Pulse Ox 100 100 99 Oxygen Delivery Method Room Air Room Air Room Air 11/23/23 18:18 11/23/23 20:00 Temperature 97.5 F L Temperature Source Temporal Pulse Rate 82 92 Respiratory Rate 18 16 Blood Pressure 120/86 H 134/87 H Blood Pressure Mean 97 102 Pulse Ox 98 98 Oxygen Delivery Method Room Air Room Air MDM MDM MDM Narrative Medical decision making narrative: I reviewed the patient's prior records including his visit from yesterday. He did receive Zosyn and vancomycin. I do feel that this is more serosanguineous drainage. I will repeat laboratory work and start 1 dose of Zosyn. Depending on if his lactic acid is still elevated, he may need observation for a few more rounds of IV antibiotics. I reviewed his laboratory work and he does have elevated white count of 14.2, hemoglobin 13.2 with platelet count slightly elevated at 472 which may be more of an acute phase reactant. He has normal electrolytes with a sodium normal at 136 with potassium 4.2 and chloride 103. BUN normal at 18 and creatinine 0.85. Glucose is elevated at 182 but he has a normal anion gap of 6 so I doubt diabetic ketoacidosis. Lactic acid has returned at 2.5. While it has decreased, it is still elevated. I discussed patient initially with Dr. Mccullough for admission to the general medical floor. I had ordered a dose of vancomycin as well. He had received Toradol for analgesia. However, I was informed by the RN at around 9 PM that he would like to sign out AMA. In discussion with the patient, he was informed of the risk of sepsis, worsening cellulitis/abscess, loss of right lower extremity, permanent disability, and . He acknowledges this and I feel he has the capacity to sign out AGAINST MEDICAL ADVICE. He states he received antibiotics yesterday that he will take at home. Patient signed out AGAINST MEDICAL ADVICE. Patient is in stable condition. History & Record Review Discussion w/independent historian: Patient Lab Data Attestation: I reviewed the patient's lab results. Labs: Laboratory Results - last 24 hr 11/23/23 19:05 WBC 14.2 H RBC 4.63 Hgb 13.2 Hct 40.1 MCV 86.6 MCH 28.5 MCHC 32.9 RDW Std Deviation 39.8 RDW Coeff of Albino 12.6 Plt Count 472 H MPV 8.9 Neut % (Auto) Not Reportable Absolute Neuts (auto) 7.7 Absolute Lymphs (auto) 4.97 H Total Counted 100 Neutrophils % (Manual) 54 Lymphocytes % (Manual) 35 Monocytes % (Manual) 5 Eosinophils % (Manual) 1 Myelocytes % 5 H Diff Path Review May foll Reactive Lymphocytes 2+ Platelet Estimate ADEQUATE RBC Morphology NORM C+C Sodium 136 Potassium 4.2 Chloride 103 Carbon Dioxide 27.0 Anion Gap 6 BUN 18 Creatinine 0.85 Estim Creat Clear Calc 113.93 Est GFR (MDRD) Af Amer 134 Est GFR (MDRD) Non-Af 111 BUN/Creatinine Ratio 21.1 H Glucose 182 H Lactic Acid 2.5 H* Calcium 9.2 Total Bilirubin 0.10 L AST 132 H ALT 150 H Alkaline Phosphatase 121 H Total Protein 7.2 Albumin 3.1 L Globulin 4.1 Albumin/Globulin Ratio 0.8 L Discharge Plan Triage Chief Complaint: Wound ED Provider: Elliot Seo Dx/Rx/DC Orders Clinical Impression: History of type 1 diabetes mellitus Prescriptions: No Action (DME) Dexcom G7 Sensor Device See Rx Instructions .Route Qty: 9 1RF Rx Instructions: 1 sensor q 1 days insulin lispro [Humalog U-100 Insulin] 100 unit/mL solution See Rx Instructions subcut TID Patient Comments: SLIDING SCALE. Rx Instructions: subcutaneously three times a day with sliding scale; 14-20-20 pantoprazole [Protonix] 40 mg tablet,delayed release (DR/EC) 40 mg PO DAILY Qty: 60 0RF insulin glargine [Lantus Solostar U-100 Insulin] 100 unit/mL (3 mL) insulin pen 27 unit subcut QHS sulfamethoxazole-trimethoprim 800-160 mg tablet 1 tab PO BID Qty: 20 0RF cephalexin 500 mg capsule 500 mg PO Q6 Qty: 40 0RF Primary Care Provider: Meron Kulkarni Referrals: Meron Kulkarni, DRYING ROOM SUPERVISOR-C [Primary Care Provider] - Print Language: Citizen Of [place]
[2023-11-23] MEDS: Piperacil/Tazobactam 3.375 GM in 0.9% Normal Saline (50mL MB+) 50 ML IV (19:08)
[2023-11-23 19:18] LABS: Hematocrit 40.1 % (40-54); Hemoglobin 13.2 g/dL (13.0-16.5); Mean Corp Hgb Conc 32.9 g/dL (32-36); Mean Corpuscular Hgb 28.5 pg (27.0-32.0); Mean Corpuscular Volume 86.6 fL (80-94); Mean Platelet Vol. 8.9 fl (6.2-12.0); POSITIVE COUNT YES; POSITIVE MORPHOLOGY YES; Platelet Count 472 K/mm3 (150-450); RBC Distribution Width CV 12.6 % (11.6-14.6); RBC Distribution Width SD 39.8 fl (35.1-43.9); Red Blood Count 4.63 M/mm3 (4.6-6.2); White Blood Count 14.2 K/mm3 (4.4-11.0)
[2023-11-23 19:20] LABS: Differential Indicated MANUAL DIFF
[2023-11-23 19:34] LABS: ALB/GLOB Ratio 0.8 RATIO (0.9-2.4); AST(SGOT) 132 U/L (15-37); Alanine Aminotransfer ALT/SGPT 150 U/L (16-61); Albumin, Serum 3.1 g/dL (3.2-5.0); Alkaline Phosphatase 121 U/L (45-117); Anion Gap 6 (5-15); BUN 18 mg/dL (7-18); BUN/Creat Ratio 21.1 RATIO (10-20); Calcium,Total 9.2 mg/dL (8.5-10.1); Chloride 103 mmol/L (98-107); Creatinine, Serum 0.85 mg/dL (0.70-1.30); EST Glomerular Filtration Rate 111 mL/min (>60); Est Glom Filt Rate - Afr Amer 134 mL/min (>60); Estimated Creatinine Clearance 113.93 ml/min; Globulin 4.1 g/dL (2.2-4.2); Glucose 182 mg/dL (74-106); Potassium 4.2 mmol/L (3.5-5.1); Protein, Total 7.2 g/dL (6.4-8.2); Sodium Level 136 mmol/L (136-145)
[2023-11-23 19:46] LABS: Eosinophil 1 % (0-5); Lymphocyte 35 % (19-41); Monocyte 5 % (0-10); Myelocyte 5 % (0-0); Neutrophil-Segmented 54 % (47-70); Platelet Estimate ADEQUATE (ADEQ); Reactive Lymphocyte 2+; Red Cell Morphology NORM C+C NORMAL (NORM C&C); Total Cells Counted 100 (MANUAL DIFF)
[2023-11-23 19:47] LABS: Absolute Lymphocyte Count 4.97 X10^3/uL (0.83-4.51); Absolute Neutrophil Count 7.7 X10^3/uL (2.0-7.7)
[2023-11-23 20:00] VITALS: BP 134/87; PULSE 92; RESP 16; TEMP 36.4; O2SAT 98
[2023-11-23] MEDS: Ketorolac 30 MG/ML Syringe IV (20:21)
[2023-11-23 20:45] LABS: Lactic Acid 2.5 mmol/L (0.4-1.9)
--- NOTE | 2023-11-23 20:50 | PCM.HP.STD ---
HPI - General General Date of Admission: 11/23/23 Date of Service: 11/23/23 Chief Complaint: Increasing Right Ankle Pain and Bleeding. HPI Narrative COOPER MENDEZ, is a 33 M with a past medical history of IVDA; with methamphetamines, tobacco abuse, cannabis abuse, history of drug overdose, chronic hepatitis C, bipolar disorder, essential hypertension, DM-1; of unknown control, overweight; with BMI of 27.5 this admission, history of jaw fracture, history of medical noncompliance and recent evaluation done in the ER here yesterday where he was seen for increasing redness and swelling of the Right foot and ankle after he admitted to trying unsuccessfully inject methamphetamines into a vein in his ankle with CT scan showing ~1.8 cm x ~3.6 cm x ~4.1 cm abscess over the anterior aspect of the Right ankle with lactic acidosis of 4.5 mmol/L subsequent I&D done in the ER with a large amount of purulent material aspirated with patient also treated with IV Zosyn and IV Vancomycin who then unwisely decided to leave [place] because he had things to do who now re-presents to [facility] ER complaining of increasing Right ankle pain and bleeding. Mr. Mendez explained that he PENDING SALE TO [facility] Medical History IV drug user Hepatitis C Hypertension Bipolar 1 disorder Methamphetamine abuse Type 1 diabetes mellitus Fracture, jaw Overdose Home Medications ?Medication ?Instructions ?Recorded ?Last Taken ?Type insulin lispro 100 unit/mL See Rx Instructions subcut TID dm 09/14/23 Unknown History subcutaneous solution (Humalog U-100 Insulin) pantoprazole 40 mg tablet,delayed 40 mg PO DAILY #60 tabs 10/09/23 Unknown Rx release (Protonix) blood-glucose sensor (Dexcom G7 #9 ea 10/12/23 Unknown Rx Sensor device) cephalexin 500 mg capsule 500 mg PO Q6 #40 CAPSULES 11/22/23 Unknown Rx insulin glargine 100 unit/mL (3 27 unit subcut QHS 11/22/23 11/21/23 History mL) subcutaneous pen (Lantus Solostar U-100 Insulin) sulfamethoxazole 800 1 tab PO BID #20 TABLETS 11/22/23 Unknown Rx mg-trimethoprim 160 mg tablet Allergy/AdvReac Type Severity Reaction Status Date / Time morphine AdvReac Itching Verified 11/23/23 16:20 Family History Mother Thyroid disorder Surgical History History of mandibular surgery Social History household members: none Smoking Status: Current every day smoker tobacco type: cigarettes Tobacco: How many years used: 16 Electronic Cigarette Use: not used second hand exposure: Yes alcohol intake: former details: Notes prior heavier, rare use currently. substance use type: marijuana, IV drugs and methamphetamine Vital Signs Vital Signs Vital Signs: 11/23/23 16:18 11/23/23 16:20 11/23/23 17:20 Temperature 96.9 F L 96.9 F L 97.9 F Temperature Source Temporal Temporal Temporal Pulse Rate 101 H 101 H 92 Respiratory Rate 20 H 20 H 17 Blood Pressure 140/95 H 140/95 H 120/88 H Blood Pressure Mean 110 110 98 Pulse Ox 100 100 99 Oxygen Delivery Method Room Air Room Air Room Air 11/23/23 18:18 11/23/23 20:00 Temperature 97.5 F L Temperature Source Temporal Pulse Rate 82 92 Respiratory Rate 18 16 Blood Pressure 120/86 H 134/87 H Blood Pressure Mean 97 102 Pulse Ox 98 98 Oxygen Delivery Method Room Air Room Air Weight Weight: 160 lb 0.889 oz Body Mass Index (BMI) 27.4 Results Lab / Micro Data 11/23/23 19:05 11/23/23 19:05 Labs: Laboratory Results - last 24 hr 11/23/23 19:05: WBC 14.2 H, RBC 4.63, Hgb 13.2, Hct 40.1, MCV 86.6, MCH 28.5, MCHC 32.9, RDW Std Deviation 39.8, RDW Coeff of Albino 12.6, Plt Count 472 H, MPV 8.9, Neut % (Auto) Not Reportable, Absolute Neuts (auto) 7.7, Absolute Lymphs (auto) 4.97 H, Total Counted 100, Neutrophils % (Manual) 54, Lymphocytes % (Manual) 35, Monocytes % (Manual) 5, Eosinophils % (Manual) 1, Myelocytes % 5 H, Diff Path Review May foll, Reactive Lymphocytes 2+, Platelet Estimate ADEQUATE, RBC Morphology NORM C+C, Sodium 136, Potassium 4.2, Chloride 103, Carbon Dioxide 27.0, Anion Gap 6, BUN 18, Creatinine 0.85, Estim Creat Clear Calc 113.93, Est GFR (MDRD) Af Amer 134, Est GFR (MDRD) Non-Af 111, BUN/Creatinine Ratio 21.1 H, Glucose 182 H, Lactic Acid 2.5 H*, Calcium 9.2, Total Bilirubin 0.10 L, AST 132 H, ALT 150 H, Alkaline Phosphatase 121 H, Total Protein 7.2, Albumin 3.1 L, Globulin 4.1, Albumin/Globulin Ratio 0.8 L
--- NOTE | 2023-11-23 21:03 | ED.RN ---
Pt calls out stating he want to leave. This RN at bedside and explains that the hospitalist is coming down to admit patient for IV antibiotics. Pt states he doesn't care, i still want to go. Dr Seo comes to bedside, explains the risks of patient going home, patient agrees and signs AMA paperwork. Patient given copy. Pt denies further needs or questions. Wound cleaned and dressing placed. Pt ambulates self out of department limping with friend at side.
[2023-11-23 23:12] LABS: Reflex Lactate? Y
[2023-11-24 14:17] LABS: Pathologist Review Reviewed
== END 2023-11-23 21:11 | disposition left against medical advice (07) ==
PROVIDERS: Emergency Provider Emergency Medicine; PCP Nurse Practitioner Family; Visit Provider Emergency Medicine
DX: E10.9 Type 1 diabetes mellitus without complications (principal); F12.90 Cannabis use, unspecified, uncomplicated; F17.210 Nicotine dependence, cigarettes, uncomplicated; M25.571 Pain in right ankle and joints of right foot; Z53.29 Procedure and treatment not carried out because of patient's decision for other reasons
CPT/HCPCS: 80053; 83605; 85025; 96365; 96375; 99282; J7030; A4216

== ENCOUNTER 2024-08-27 12:24 | Emergency (ER) | payer MEDICAID, SELFPAY ==
[2024-08-27 12:25] VITALS: BP 124/86; PULSE 119; RESP 18; TEMP 36.8; O2SAT 100; BMI 25.9
[2024-08-27 12:28] VITALS: BP 124/86; PULSE 119; RESP 18; TEMP 36.8; O2SAT 100
[2024-08-27 13:28] VITALS: BP 126/87; PULSE 116; RESP 16; TEMP 36.8; O2SAT 98
[2024-08-27 14:00] VITALS: BP 130/84; PULSE 118; RESP 16; TEMP 36.8; O2SAT 99
--- NOTE | 2024-08-27 14:04 | EX.ED.DYSGE1 ---
HPI History of Present Illness Chief Complaint: Cellulitis Informant: patient Narrative Narrative: 33-year-old male presenting to the emergency room with infection of the right wrist. Patient states that about 2 days ago he began to have redness and swelling over the dorsum of the right wrist. He notes he had a prior abscess of the right ankle. He denies any IV drug use. He is a diabetic. He notes tingling of the fingers. No reported fevers. No known heart issues. He tells me that he just checked his blood sugar this morning was 123 and he has been doing a much better job keeping it under control. [facility] Medical History IV drug user Hepatitis C Hypertension Bipolar 1 disorder Methamphetamine abuse Type 1 diabetes mellitus Fracture, jaw Overdose Home Medications ?Medication ?Instructions ?Recorded ?Last Taken ?Type insulin lispro 100 unit/mL See Rx Instructions subcut TID dm 09/14/23 Unknown History subcutaneous solution (Humalog U-100 Insulin) insulin glargine 100 unit/mL (3 27 unit subcut QHS 11/22/23 11/21/23 History mL) subcutaneous pen (Lantus Solostar U-100 Insulin) blood-glucose sensor (Dexcom G7 #9 ea 06/13/24 Unknown Rx Sensor device) Allergy/AdvReac Type Severity Reaction Status Date / Time morphine AdvReac Itching Verified 08/27/24 12:24 Family History Mother Thyroid disorder Surgical History History of mandibular surgery Social History household members: none Smoking Status: Current every day smoker tobacco type: cigarettes Tobacco: How many years used: 16 Electronic Cigarette Use: not used second hand exposure: Yes alcohol intake: former details: Notes prior heavier, rare use currently. substance use type: marijuana, IV drugs and methamphetamine ROS ROS ED Constitutional Constitutional ED: Denies chills, fever(s) or weight loss Eyes Eyes: Denies change in vision or diplopia ENT ENT ED: Denies ear pain, rhinorrhea or sore throat Cardiovascular Cardiovascular: Denies chest pain, orthopnea, palpitations or racing heartbeat Respiratory/Chest Respiratory/Chest: Denies cough, dyspnea or orthopnea Gastrointestinal Gastrointestinal: Denies abdominal pain, diarrhea, nausea or vomiting Genitourinary Genitourinary ED: Denies dysuria, hematuria or urinary frequency Musculoskeletal Musculoskeletal: Reports other Details: See history of present illness ; Denies arthralgias or myalgias Integumentary Reports abscess; Denies rash Neurologic Neurologic: Denies headache(s) or weakness Psychiatric Psychiatric: Denies anxiety, depression, suicidal ideation or suicidal thoughts Endocrine Endocrinology: Denies polydipsia, polyphagia or polyuria Allergic/Immunologic Allergic/Immunologic ED: Denies mouth swelling, tongue swelling or urticaria EXAM Physical Exam Const Vital Signs: 08/27/24 12:25 08/27/24 12:28 08/27/24 13:28 Temperature 98.3 F 98.3 F 98.2 F Temperature Source Oral Oral Temporal Pulse Rate 119 H 119 H 116 H Respiratory Rate 18 18 16 Blood Pressure 124/86 H 124/86 H 126/87 H Blood Pressure Mean 98 98 100 Pulse Ox 100 100 98 Oxygen Delivery Method Room Air Room Air Room Air 08/27/24 14:00 Temperature 98.2 F Temperature Source Temporal Pulse Rate 118 H Respiratory Rate 16 Blood Pressure 130/84 H Blood Pressure Mean 99 Pulse Ox 99 Oxygen Delivery Method Room Air Positive well nourished and well developed General Appearance ED: well developed and NAD HEENT Reports normocephalic, head/scalp atraumatic and moist mucous membranes Eyes PERRL and EOMs intact bilaterally Neck no lymphadenopathy, supple and no JVD Resp normal respiratory effort and clear to auscultation bilaterally Cardio regular rate, regular rhythm and no murmurs GI normal to inspection, nondistended, normoactive bowel sounds and non-tender Palpation: soft Back/Spine no CVA tenderness and normal ROM Extremity Extremity Narrative: Focal swelling and erythema consistent with an abscess that is fluctuant over the dorsum of the right wrist. There is sloughing of skin. There is no significant surrounding erythema. There is some swelling extending down onto the dorsum of the hand. No lymphangitic streaking. Limited range of motion secondary to pain. Capillary refill is less than 2 seconds of all 5 digits and sensation is preserved. General Extremety ED: Negative for edema General Extremity: Negative for edema Neuro oriented x3 and CN's II-XII intact bilaterally Sensorium / Orientation: alert Motor Exam: strength 5/5 throughout Psych mental status grossly normal Mood & Affect: Negative for depressed or tearful Skin no rashes or lesions noted and no wounds MDM MDM MDM Narrative Medical decision making narrative: Differential diagnosis includes but not limited to abscess cellulitis septicemia foreign body My independent interpretation the plain films of the right wrist is soft tissue swelling no obvious form bodies noted no gas formation. Patient had the skin washed with Betadine. 1% lidocaine was used to anesthetize the abscessed area. A cruciate incision was made with an 11 blade resulting in large amount of pus expressed. Wound culture was obtained and sent. Wound was probed for loculations irrigated and quarter inch iodoform packing was placed. Local wound care discussed with patient. Patient will be started on antibiotics as well as pain medication. He understands return instructions. Packing needs to be removed in 72 hours. History & Record Review Discussion w/independent historian: Patient Radiography Diagnostic Testing: Clinical Impression(s) from Imaging Studies Wrist X-Ray 08/27/24 14:20 IMPRESSION: No obvious radiographic evidence of osteomyelitis. However, if clinical suspicion remains high, further evaluation with 3 phase bone scan or MRI is recommended. Reading [facility] Discharge Plan Triage Chief Complaint: Cellulitis ED Provider: Anastacio Kowalski Dx/Rx/DC Orders Prescriptions: No Action insulin lispro [Humalog U-100 Insulin] 100 unit/mL solution See Rx Instructions subcut TID Patient Comments: SLIDING SCALE. Rx Instructions: subcutaneously three times a day with sliding scale; 14-20-20 insulin glargine [Lantus Solostar U-100 Insulin] 100 unit/mL (3 mL) insulin pen 27 unit subcut QHS (DME) Dexcom G7 Sensor Device See Rx Instructions .Route Qty: 9 0RF Rx Instructions: 1 sensor q 1 days Primary Care Provider: Meron Kulkarni Referrals: Meron Kulkarni, FILLER SHREDDER HELPER-C [Primary Care Provider] - Print Language: Cymro
[2024-08-27] MEDS: Smz/Tmp Ds Tablet 1 TABLET PO (14:13)
[2024-08-27] MEDS: oxyCODONE 5 MG Tablet 10 MG PO (14:13)
[2024-08-27] MEDS: Lidocaine 1% (20 ml mdv) 20 ML Vial INFILT (14:17)
--- NOTE | 2024-08-27 14:20 | RAD_ITS ---
EXAM: XR Right Wrist Complete, 3 or More Views CLINICAL INDICATION: INFECTION TECHNIQUE: Frontal, lateral and oblique views of the right wrist. COMPARISON: No relevant prior studies available. FINDINGS: BONES/JOINTS: No obvious radiographic evidence of osteomyelitis. However, if clinical suspicion remains high, further evaluation with 3 phase bone scan or MRI is recommended. No acute fracture. No dislocation. No erosive changes to the osseous structures. SOFT TISSUES: Soft tissue swelling. No radiopaque foreign body. RAD/Wrist min 3 Views IMPRESSION: No obvious radiographic evidence of osteomyelitis. However, if clinical suspici on remains high, further evaluation with 3 phase bone scan or MRI is recommended. Reading Location: [facility]
[2024-08-27 14:46] VITALS: PULSE 110; RESP 16; TEMP 36.7; O2SAT 99
== END 2024-08-27 14:48 | disposition home or self-care (01) ==
PROVIDERS: Emergency Provider Emergency Medicine; PCP Nurse Practitioner Family; Referring Provider Emergency Medicine; Visit Provider Emergency Medicine
DX: L03.113 Cellulitis of right upper limb (principal); F31.9 Bipolar disorder, unspecified; Z79.4 Long term (current) use of insulin; E10.9 Type 1 diabetes mellitus without complications; F17.210 Nicotine dependence, cigarettes, uncomplicated
CPT/HCPCS: 10060; 73110; 87070; 87077; 87186; 87205; 99282